=== PATIENT | male | born 1950 | race Caucasian/White ===

== ENCOUNTER 2016-12-20 13:58 | Inpatient (IN) ==
[2016-12-20] MEDS: SALINE FLUSH 10ml SYRINGE IVF PRN (15:02)
--- OUTSIDE RECORDS SUMMARY | 2016-12-20 15:12 | External Medical Summary | Summary of Care ---
:1950 Author Care Team Providers Name Role Phone Lotus Rubio M.D. Unavailable Unavailable Laurent Block M.D. Unavailable Unavailable Joel Falcon, Mateusz Flores Unavailable Unavailable Shant Rubio Primary Care Provider Unavailable Unavailable Unavailable Unavailable Functional Status Functional Status Health Issues Name Dates Details Functional status health issues are not documented Status: Cognitive Status Health Issues Name Dates Details Cognitive status health issues are not documented Status: Problems Name Dates Details Globe Enucleation Left Status: Active Anxiety (300.00, F41.9) Status: Active Snoring (786.09, R06.83) Status: Active Left hip pain (719.45, M25.552) Status: Active Anticoagulant long-term use (V58.61, Z79.01) Status: Active 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, 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) Status: Active Pre-operative exam (V72.84, Z01.818) Status: Active Benign pigmented nevus (216.9, D22.9) Status: Active Conjunctivitis, acute (372.00, H10.30) Status: Active Paroxysmal atrial fibrillation (427.31, I48.0) Status: Active 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, 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 Refills: 0 Mark Maldonado M.D. Started ActiveSimvastatin 40 MG Oral Tablet TAKE ONE TABLET BY MOUTH EVERY NIGHT AT BEDTIME Quantity: 30 Refills: 0 Mark Maldonado M.D. Started ActiveDiclofenac Sodium 75 MG Oral Tablet Delayed Release Take one tablet twice daily. Quantity: 60 Refills: 5 Shant Rubio M.D. Started 11-Oct-2010 ActiveFurosemide 40 MG Oral Tablet take two tablets by mouth daily Quantity: 60 Refills: 0 Laurent Block M.D. Started 16-Jun-2011 ActiveLosartan Potassium 25 MG Oral Tablet Take one tablet by mouth daily Quantity: 90 Refills: 1 Mark Maldonado M.D. Started 24-Nov-2011 ActiveMetolazone 5 MG Oral Tablet prn Quantity: 30 Refills: 5 Shant Rubio M.D. Started 30-Mar-2013 ActiveSotalol HCl - 80 MG Oral Tablet Take One Tablet By Mouth Twice Daily Quantity: 60 Refills: 6 Mark Maldonado M.D. Started ActiveLosartan Potassium 25 MG Oral Tablet take one tablet by mouth every day Quantity: 30 Refills: 1 Mark Maldonado M.D. Started ActiveXarelto 20 MG Oral Tablet Take one tablet by mouth daily Quantity: 30 Refills: 4 Mark Maldonado M.D. Started Active Allergies and Adverse Reactions Name Dates Details No Known Drug Allergies Status: Active Past Medical History Name Dates Details History of left bundle branch block (V12.59, Z86.79) Status: Resolved History of Thrombophlebitis Of Deep Vessels Of The Lower Extremity (V12.51) Status: Resolved Personal history of skin cancer (V10.83, Z85.828) Status: Resolved Procedures Procedure Dates Details History of Foot Surgery Right History of Tonsillectomy History of Total Hip Replacement History of Knee Surgery History of Colostomy History of Cardioverter-defibrillator Pulse Generator Completed: Insertion With Leads History of Extracaps Cataract Extract With Prosthesis Insert Right Eye History of Elective Cardioversion External Completed:23-Oct-2011 Globe Enucleation Left PTCA Procedures not documented Immunization Name Dates Details Tdap (Adacel) Administered on: Family History Mother Name Dates Details Family history of Hyperlipidemia Status: Active Father Name Dates Details Family history of Cancer Status: Active Social History Name Dates Details Smoking StatusNever smoker Vital Signs Date Test Result Details No Known Vitals to report Results Date Description Value Details 16-Mar-2014 10:49 CBC w/ Auto Diff 7150 Comments: Fastin hours WBC 6.3 K/uL (Better) Range: 4.5-11.0 RBC 4.77 mil/uL Range: 4.20-5.40 (Better) HGB 13.9 g/dL (Below Range: 14.0-18.0 low threshold) HCT 42.9 % (Better) Range: 42.0-53.0 MCV 90.0 fL (Better) Range: 80.0-99.0 MCH 29.3 pg (Better) Range: 27.3-32.5 MCHC 32.5 % (Better) Range: 32.0-36.0 RDW 13.7 % (Better) Range: 11.6-14.8 PLATELETS 149 K/uL (Below Range: 150-400 low threshold) MPV 9.1 fL (Better) Range: 6.0-11.0 %NEUTRO 69.6 % (Better) Range: 37.0-80.0 %LYMPHS 21.1 % (Better) Range: 13.0-50.0 %MONO 4.9 % (Better) Range: 0.0-12.0 %EOS 2.4 % (Better) Range: 0.0-7.0 %BASO 1.0 % (Better) Range: 0.0-2.5 %GAUTAM 1.1 % (Better) Range: 0.0-5.0 NEUTRO 4.4 K/uL (Better) Range: 2.0-6.9 LYMPHS 1.3 K/uL (Better) Range: 0.6-3.4 MONOS 0.3 K/uL (Better) Range: 0.0-0.9 EOS 0.2 K/uL (Better) Range: 0.0-0.7 BASO 0.1 K/uL (Better) Range: 0.0-0.2 11:04 LIPID PROFILE 1184 Comments: Fastin hours CHOLESTEROL 79 mg/dL (Better) Range: <200 TRIGLYCERIDES 46 mg/dL (Better) Range: 30-200 HDL Cholesterol 40 mg/dL (Better) Range: >39 NON HDL CHOLESTEROL 39 (Better) CARDIAC RSK FACTOR 2.0 units (Below Range: 4.4-5.0 low threshold) LDL - CALCULATED 30 mg/dL (Better) Range: 0-130 11:04 Comprehensive Metabolic Comments: Fastin hours Panel 1212 SODIUM 139 mmol/L Range: 133-144 (Better) POTASSIUM 4.5 mmol/L Range: 3.5-5.1 (Better) CHLORIDE 104 mmol/L Range: 98-110 (Better) CARBON DIOXIDE 26.8 mmol/L Range: 23.0-33.0 (Better) ANION GAP 8 mmol/L (Better) Range: 6-16 BUN 25 mg/dL (Above Range: 7-18 high threshold) CREATININE, SERUM 1.08 mg/dL Range: 0.43-1.13 (Better) BUN:CREATININE RATIO 23 (Better) EST GFR, >60 ml/min Range: >60 (Better) EST GFR, NON-AFR GERMAN >60 ml/min Range: >60 (Better) Comments: EST GFR is reported in ml/min per 1.73 m2 of body surface area. For -Turkish, please multiple result by 1.2.----- GLUCOSE 100 mg/dL Range: 70-100 (Better) ALK PHOSPHATASE 101 U/L (Better) Range: 46-116 Comments: Please Note: New Reference Range effective 2013.----- TOTAL BILIRUBIN 1.30 mg/dL (Above Range: 0.20-1.00 high threshold) AST 20 U/L (Better) Range: 8-35 ALT 35 U/L (Better) Range: 12-78 ALBUMIN 4.2 g/dL (Better) Range: 3.4-5.0 TOTAL PROTEIN 7.9 g/dL (Better) Range: 6.4-8.2 A/G RATIO 1.1 units Range: 1.0-1.8 (Better) CALCIUM 9.6 mg/dL Range: 8.5-10.1 (Better) 11:27 THYROID STIM. HORMONE 3602 Comments: Fastin hours THYROID STIM. HORMONE 1.794 uIU/mL Range: 0.550-4.780 (Better) Comments: \[id number]\No established reference ranges for infants and children <2 years of ageNo established reference ranges for infants and children <2 years of age----- Plan of Care Planned Observations Name Dates Details Planned Goals not documented Goal Planned Encounters Appointment; Provider: Mick Parker On 02-Nov-2014 08:30 Appointment; Provider: Neil Justin On 08:15 Appointment; Provider: Mark Maldonado On 26-Apr-2014 15:15 Appointment; Provider: Mark Maldonado On 22-Dec-2013 07:30 Appointment; Provider: Mark Maldonado On 24-Feb-2013 09:30 Appointment; Provider: Mark Maldonado On 18-Feb-2013 08:30 Appointment; Provider: Sweetie Langston On 04-Jan-2013 09:45 Appointment; Provider: Mark Maldonado On 23-Oct-2011 10:30 Appointment; Provider: Mark Maldonado On 15-Nov-2010 08:00 Appointment; Provider: Mark Maldonado On 09:00 Appointment; Provider: Mark Maldonado On 17-May-2010 08:15 Appointment; Provider: Zach Jean On 04-Apr-2010 09:45 Appointment; Provider: Mark Maldonado On 15-Feb-2010 08:30 Appointment; Provider: Mark Maldonado On 16-Nov-2009 09:15 Appointment; Provider: Mark Maldonado On 07:30 Appointment; Provider: Joshua Plasencia On 14:00 Appointment; Provider: Joshua Plasencia On 06-Jul-2009 11:00 Instructions Instructions not documented Encounters Appointment; Rufino Rayo On 23-Jan-2014 Encounter Diagnosis: Problem not documented 13:45 Appointment; Neil Justin On 09-Jan-2014 Encounter Diagnosis: Problem not documented 08:45 Appointment; Rufino Rayo On 30-Dec-2013 Encounter Diagnosis: Problem not documented 13:00 Appointment; Mark Maldonado On 14-Dec-2013 Encounter Diagnosis: Problem not documented 16:00 Appointment; Mark Maldonado On 08-Dec-2013 Encounter Diagnosis: Problem not documented 14:00 Appointment; Mark Maldonado On 03-Nov-2013 Encounter Diagnosis: Problem not documented 14:45 Appointment; Mick Parker On 01-Nov-2013 Encounter Diagnosis: Problem not documented 08:15 Appointment; Mark Maldonado On 29-Sep-2013 Encounter Diagnosis: Problem not documented 14:00 Appointment; Shant Rubio On 19-Sep-2013 Encounter Diagnosis: Problem not documented 11:15 Appointment; Mark Maldonado On Encounter Diagnosis: Problem not documented 13:45 Appointment; Shant Rubio On Encounter Diagnosis: Problem not documented 10:45 Appointment; Neil Justin On Encounter Diagnosis: Problem not documented 08:45 Appointment; Donna Yeager On 30-Mar-2013 Encounter Diagnosis: Problem not documented 09:30 Appointment; Shant Rubio On 11-Feb-2013 Encounter Diagnosis: Problem not documented 09:15 Appointment; Neil Justin On 10-Jan-2013 Encounter Diagnosis: Problem not documented 08:45 Appointment; Donna Khalil On 23-Dec-2012 Encounter Diagnosis: Problem not documented 10:00 Appointment; Mick Parker On 27-Oct-2012 Encounter Diagnosis: Problem not documented 08:45 Appointment; Mark Maldonado On 22-Sep-2012 Encounter Diagnosis: Problem not documented 13:15 Appointment; Mark Maldonado On Encounter Diagnosis: Problem not documented 14:30 Appointment; Shant Rubio On Encounter Diagnosis: Problem not documented 13:00 Appointment; Neil Justin On 09-Jul-2012 Encounter Diagnosis: Problem not documented 08:45 Appointment; Neil Justin On 01-Jul-2012 Encounter Diagnosis: Problem not documented 10:30 Appointment; Mick Parker On 27-Apr-2012 Encounter Diagnosis: Problem not documented 06:00 Appointment; Mick Parker On 26-Apr-2012 Encounter Diagnosis: Problem not documented 10:00 Appointment; Shant Rubio On 20-Apr-2012 Encounter Diagnosis: Problem not documented 10:15 Appointment; Shant Rubio On 06-Apr-2012 Encounter Diagnosis: Problem not documented 13:00
--- OUTSIDE RECORDS SUMMARY | 2016-12-20 15:12 | External Medical Summary | Clinical Summary ---
:1950 Author Organization [facility] Address [address] [place] [address] Phone Care Team Providers Name Role Phone Unavailable Primary Care Provider Unavailable Source Comments Some departments are not documenting in the electronic medical record. If you do not see the information that you expected, contact Release of Information in the Health Information Management department at [phone] for further assistance in locating additional records.[facility] Allergies No Known Allergies Current Medications Prescription Sig. Disp. Refills Start Date End Date Status furosemide (LASIX) 40 Take 80 mg by mouth Active mg tablet daily. pantoprazole DR Take 40 mg by mouth Active (PROTONIX) 40 mg tablet daily. metolazone (ZAROXOLYN) Take 5 mg by mouth Active 5 mg tablet every 7 days. on Thursday spironolactone Take 50 mg by mouth Active (ALDACTONE) 50 mg daily. tablet simvastatin (ZOCOR) 40 Take 40 mg by mouth Active mg tablet at bedtime daily. losartan (COZAAR) 25 mg Take 25 mg by mouth Active tablet at bedtime daily. potassium chloride SR Take 20 mEq by mouth Active (K-DUR) 20 mEq tablet daily. Take with a meal and a full glass of water. HYDROcodone/acetaminoph Take 1-2 Tabs by 30 Tab 0 10/31/2015 Active en (NORCO) 5-325 mg mouth every 4 hours tablet as needed for Pain Earliest Fill Date: 10/31/15 docusate (COLACE) 100 Take 1 Cap by mouth 60 Cap 2 10/31/2015 Active mg capsule twice daily as needed for Constipation (While taking pain medication). aspirin EC 81 mg tablet Take 1 Tab by mouth 90 Tab 3 11/01/2015 Active at bedtime daily. Resume home aspirin on post operative day 2 which is 10/31 acetaminophen (TYLENOL) Take 2 Tabs by mouth 50 Tab 2 10/31/2015 Active 325 mg tablet every 4 hours as needed. First line for pain Active Problems Problem Noted Date Sleep apnea 10/30/2015 JENY (obstructive sleep apnea) 08/07/2015 Overview: Severe (AHI 52) with less than 15% central. LSAT 62% and 35 min below 88%. REFUSES and cannot tolerate CPAP due to claustrophobia Coronary artery disease involving [place] heart without angina pectoris 2015 History of atrial fibrillation 08/07/2015 Overview: Prior ablation and pacemaker Social History Tobacco Use Types Packs/Day Years Used Date Never Smoker Smokeless Tobacco: Never Used Alcohol Use Drinks/Week oz/Week Comments No 0 Standard drinks or equivalent 0.0 rare Sex Assigned at Date Recorded Not on file Last Filed Vital Signs Vital Sign Reading Time Taken Blood Pressure 110/72 11/12/2015 10:43 AM CDT Pulse 83 11/12/2015 10:43 AM CDT Temperature 36.4 C (97.6 F) 10/31/2015 9:09 AM CDT Respiratory Rate - - Oxygen Saturation 99% 10/31/2015 9:09 AM CDT Inhaled Oxygen Concentration - - Weight 109.3 kg (241 lb) 11/12/2015 10:43 AM CDT Height 190.5 cm (6' 3") 11/12/2015 10:43 AM CDT Body Mass Index 30.12 11/12/2015 10:43 AM CDT Plan of Treatment Health Maintenance Due Date Last Done Comments HEPATITIS C SCREENING 1950 PHYSICAL (COMPREHENSIVE) EXAM 1956 PERTUSSIS VACCINE 1960 TETANUS VACCINE 1966 COLORECTAL CANCER SCREENING 06/05/1999 SHINGLES VACCINE 2009 PREVNAR/PNEUMOVAX (#1) 2014 INFLUENZA VACCINE 09/09/2016 Implants Implanted Type Area Community Administrator Device Expiration Model / Identifier Date Serial / Lot Pacemaker Generator Pulse Inspire Right: [employer] 08/22/2016 3024 / Implanted: Qty: 1 on 10/30/2015 by Chaparro Linton MD [employer] [id number] / NA Lead Respiratory Inspire Right: [employer] 11/13/2016 [id number] / Implanted: Qty: 1 on 10/30/2015 by Chaparro Linton MD [employer] [id number] / NA Lead Stimulation Inspire Right: [facility] [employer] 07/02/2016 [id number] / Implanted: Qty: 1 on 10/30/2015 by Chaparro Linton MD [employer] [id number] / NA
--- OUTSIDE RECORDS SUMMARY | 2016-12-20 15:12 | External Medical Summary | Summary of Care ---
:1950 Author Name Lotus Yang M.D. Address [address], [place] [id number] Care Team Providers Name Role Phone Lotus Rubio M.D. Unavailable Unavailable Paloma Hart Unavailable Unavailable Mateusz Maldonado M.D. 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) Status: Active Insomnia (780.52, 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: Active Anxiety (300.00, F41.9) Status: Active 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, 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) Status: Active 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, 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, 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, 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 Heme positive stool (792.1, R19.5) Status: Active Dyspnea on exertion (786.09, R06.09) Status: Active Hypothyroidism (244.9, E03.9) Status: Active History of gastric ulcer (V12.79, Z87.19) Status: Active Blister of ankle, right (916.2, S90.521A) Status: Active Seborrheic keratosis (702.19, L82.1) Status: Active Sebaceous hyperplasia (706.8, L73.8) Status: Active Epidermal inclusion cyst (706.2, L72.0) Status: Active Biventricular ICD (implantable cardioverter-defibrillator) in place (V45.02, Z95.810) Status: Active Anemia (285.9, D64.9) Status: Active Anticoagulant long-term use (V58.61, Z79.01) Status: Active CKD (chronic kidney disease), stage III (585.3, N18.3) Status: Active Diarrhea (787.91, R19.7) Status: Active Status post catheter ablation of atrial fibrillation (V45.89, Z98.89) Status : Active 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, Z97.0) Status: Active Presbyopia (367.4, H52.4) Status: Active Renal insufficiency (593.9, N28.9) Status: Active 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, 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: Active Claustrophobia (300.29, F40.240) Status: Active Rash (782.1, R21) Status: Active Atrial fibrillation (427.31, I48.91) Status: Active Congestive heart failure (428.0, I50.9) Status: Active CAD (coronary atherosclerotic disease) (414.00, I25.10) Status: Active PTCA Status: Active Paroxysmal atrial fibrillation (427.31, I48.0) Status: Active Status post ablation of atrial fibrillation (V45.89, Z98.89) Status: Active Chronic systolic congestive heart failure (428.22, I50.22) Status: Active Hypertension (401.9, I10) Status: Active Hyperlipidemia (272.4, E78.5) Status: Active Obstructive sleep apnea (327.23, G47.33) Status: Active Snoring (786.09, R06.83) Status: Active Medications Name Dates Details Simvastatin 40 MG Oral Tablet TAKE ONE TABLET BY MOUTH EVERY NIGHT AT BEDTIME Quantity: 30 Refills: 11 Shant Rubio M.D. Started ActiveFurosemide 40 MG Oral Tablet TAKE 1 TABLET TWICE DAILY. Quantity: 30 Refills: 0 Shant Rubio M.D. Started 16-Jun-2011 ActiveMetolazone 5 MG Oral Tablet prn Quantity: 30 Refills: 5 Shant Rubio M.D. Started 30-Mar-2013 ActiveAspir-Low 81 MG Oral Tablet Delayed Release TAKE 1 TABLET IN THE PM Refills: 0 Started 26-Sep-2014 ActiveLosartan Potassium 25 MG Oral Tablet Take one tablet by mouth daily Quantity: 90 Refills: 2 Mark Maldonado M.D. Started 26-Sep-2014 ActiveZolpidem Tartrate 10 MG Oral Tablet TAKE 1 TABLET AT BEDTIME NEEDED FOR SLEEP. Refills: 0 Mark Maldonado M.D. Started 13-Dec-2014 ActiveKlor-Con M20 20 MEQ Oral Tablet Extended Release TAKE 1 TABLET DAILY. Quantity: 30 Refills: 6 Shant Rubio M.D. Started 02-Jan-2015 ActiveSupplies AutoCPAP 8-12 cm H2O, Permanent use, G47.33, Heated humidity, [id number], mask , headgear, filters, heated tubing, water chamber, chinstrap Quantity: 1 Refills: 0 Paloma Castillo Started 03-Apr-2015 ActivePantoprazole Sodium 40 MG Oral Tablet Delayed Release TAKE 1 TABLET DAILY. Refills: 0 Shant Rubio M.D. Started 14-May-2015 ActiveIron 325 (65 Fe) MG Oral Tablet Take 1 tablet daily Refills: 0 Shant Rubio M.D. Started 14-May-2015 ActiveSpironolactone 50 MG Oral Tablet TAKE 1 TABLET DAILY. Refills: 0 Shant Rubio M.D. Started 14-May-2015 ActiveTriamcinolone Acetonide 0.1 % External Cream USE TWO TIMES A DAY Quantity: 1 Refills: 6 Shant Rubio M.D. 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45, M25.552) Status: Resolved History of Pre-operative exam (V72.84, Z01.818) Status: Resolved History of Thrombophlebitis Of Deep [...] Name Dates Details Tdap (Adacel) Administered on: Zoster (Zostavax) Administered on:21-Mar-2014 Lot #: [id number] Prevnar 13 Intramuscular Suspension Administered on:21-Mar-2014 Lot #: [id number] Family History Mother Name Dates Details Family history of Hyperlipidemia Status: Active Family history of cerebrovascular accident (CVA) (V17.1, Z82.3) Status: Active Father Name Dates Details Family history of Cancer Status: Active Social History Name Dates Details Smoking StatusNever smoker Vital Signs Date Test Result Details No Known Vitals to report Results Date Description Value Details Results not documented Plan of Care Planned Observations Name Dates Details Planned Goals not documented Goal Planned Encounters Appointment; Provider: Mick Parker On 06-Nov-2015 08:15 Appointment; Provider: Mark Maldonado On 14:45 Appointment; Provider: Neil Justin On 08:15 Appointment; Provider: Shant Rubio On 14:00 Appointment; Provider: Mark Maldonado On 21-Jun-2015 15:30 Appointment; Provider: Mark Maldonado On 22-Dec-2013 07:30 [...] 11:00 Instructions Instructions not documented Encounters Appointment; Estuardo Yang On 14-Jun-2015 Encounter Diagnosis: Problem not documented 08:45 Appointment; Shant Rubio On 14-May-2015 Encounter Diagnosis: Problem not documented 10:00 Appointment; Mark Maldonado On 10-May-2015 Encounter Diagnosis: Problem not documented 14:15 Appointment; Eduardo Zaman On 08-May-2015 Encounter Diagnosis: Problem not documented 10:45 Appointment; Shant Rubio On 03-Apr-2015 Encounter Diagnosis: Problem not documented 10:45 Appointment; Eduardo Zaman On 03-Apr-2015 Encounter Diagnosis: Problem not documented 09:45 Appointment; Eduardo Zaman On 25-Jan-2015 Encounter Diagnosis: Problem not documented 10:00 Appointment; Neil Justin On 22-Jan-2015 Encounter Diagnosis: Problem not documented 08:15 Appointment; Mark Maldonado On 17-Jan-2015 Encounter Diagnosis: Problem not documented 14:45 Appointment; Shant Rubio On 26-Dec-2014 Encounter Diagnosis: Problem not documented 10:15 Appointment; Mark Maldonado On 13-Dec-2014 Encounter Diagnosis: Problem not documented 14:15 Appointment; Shant Rubio On 30-Nov-2014 Encounter Diagnosis: Problem not documented 13:00 Appointment; Mick Parker On 02-Nov-2014 Encounter Diagnosis: Problem not documented 08:30 Appointment; Shant Rubio On 10-Oct-2014 Encounter Diagnosis: Problem not documented 15:45 Appointment; Rufino Rayo On 26-Sep-2014 Encounter Diagnosis: Problem not documented 10:45 Appointment; Shant Rubio On 19-Sep-2014 Encounter Diagnosis: Problem not documented 09:00 Appointment; Ángel Vaughan On 15-Sep-2014 Encounter Diagnosis: Problem not documented 09:00 Appointment; Zoraida Langston On 15-Sep-2014 Encounter Diagnosis: Problem not documented 08:30 Appointment; Shant Rubio On Encounter Diagnosis: Problem not documented 10:00 Appointment; Shant Rubio On Encounter Diagnosis: Problem not documented 09:30 Appointment; Shant Rubio On Encounter Diagnosis: Problem not documented 13:45 Appointment; Javier Chi On Encounter Diagnosis: Problem not documented 12:35 Appointment; Neil Justin On Encounter Diagnosis: Problem not documented 08:15 Appointment; Neil Justin On 29-Jun-2014 Encounter Diagnosis: Problem not documented 10:30 Appointment; Rufino Rayo On 12-Jun-2014 Encounter Diagnosis: Problem not documented 10:15 Appointment; Mark Maldonado On 07-Jun-2014 Encounter Diagnosis: Problem not documented 14:15 Appointment; Mark Maldonado On 25-May-2014 Encounter Diagnosis: Problem not documented 14:30 Appointment; Mark Maldonado On 26-Apr-2014 Encounter Diagnosis: Problem not documented 15:15 Appointment; Rufino Rayo On 03-Apr-2014 Encounter Diagnosis: Problem not documented 14:30 Appointment; Shant Rubio On 21-Mar-2014 Encounter Diagnosis: Problem not documented 09:00 Appointment; Rufino Rayo On 23-Jan-2014 Encounter Diagnosis: [...]
--- OUTSIDE RECORDS SUMMARY | 2016-12-20 15:12 | External Medical Summary | Summary of Care ---
:1950 Author Name Lotus Rubio M.D. Address [address], [place] [id number] Care Team Providers Name Role Phone Lotus Rubio M.D. Unavailable Unavailable Joel Falcon, Mateusz Flores Unavailable Unavailable Shant Rubio Primary Care Provider Unavailable Unavailable Unavailable Unavailable Functional Status Functional Status Health Issues Name Dates Details Functional status health issues are not documented Status: Cognitive Status Health Issues Name Dates Details Cognitive status health issues are not documented Status: Problems Name Dates Details Globe Enucleation Left Status: Active Snoring (786.09, R06.83) Status: Active Left hip pain (719.45, M25.552) Status: Active Anticoagulant long-term use (V58.61, Z79.01) Status: Active Pre-operative exam (V72.84, Z01.818) Status: Active Benign pigmented nevus (216.9, D22.9) Status: Active Conjunctivitis, acute (372.00, H10.30) Status: Active Benign neoplasm of skin of buttock (216.5, D23.5) Status: Active PTCA Status: Active Atrial fibrillation (427.31, I48.91) Status: Active Insomnia (780.52, 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: Active CAD (coronary atherosclerotic disease) (414.00, I25.10) Status: Active Anxiety (300.00, F41.1) Status: Active Hyperlipidemia (272.4, E78.5) Status: Active Presbyopia (367.4, H52.4) Status: Active 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, 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) Status: Active Paroxysmal atrial fibrillation (427.31, I48.0) Status: Active 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, 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) Status: Active 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, 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 (implantable cardioverter-defibrillator) in place (V45.02, Z95.810) Status: Active Borderline glaucoma with ocular hypertension, 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 Started ActiveFurosemide 40 MG Oral Tablet take 1 tab three times a day Quantity: 90 Refills: 11 Shant Rubio M.D. Started 16-Jun-2011 ActiveMetolazone 5 MG Oral Tablet prn Quantity: 30 Refills: 5 Shant Rubio M.D. Started 30-Mar-2013 ActiveAmiodarone HCl - 200 MG Oral Tablet TAKE 1 TABLET DAILY. Quantity: 30 Refills: 3 Mark Maldonado M.D. Started 25-May-2014 ActivePantoprazole Sodium 40 MG Oral Tablet Delayed Release TAKE 1 TABLET DAILY. Quantity: 30 Refills: 11 Shant Rubio M.D. Started ActiveLosartan Potassium 25 MG Oral Tablet Take one tablet by mouth daily Quantity: 90 Refills: 1 Mark Maldonado M.D. Started 24-Nov-2011 ActiveZolpidem Tartrate 10 MG Oral Tablet TAKE 1 TABLET DAILY AT BEDTIME. Quantity: 30 Refills: 5 Shant Rubio M.D. 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) Status: Active 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, 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 Hyperlipidemia (272.4, E78.5) Status: Active Hypertension (401.9, I10) Status: Active Paroxysmal atrial fibrillation (427.31, I48.0) Status: Active Presbyopia (367.4, H52.4) Status: Active History of left bundle branch block (V12.59, Z86.79) Status: Resolved History of Thrombophlebitis Of Deep Vessels Of The Lower Extremity (V12.51) Status: Resolved Personal history of skin cancer (V10.83, Z85.828) Status: Resolved Procedures Procedure Dates Details History of Foot Surgery Right History of Tonsillectomy History of Total Hip Replacement History of Knee Surgery History of Colostomy History of Cardioverter-defibrillator Completed: Pulse Generator Insertion With Leads History of Extracaps Cataract Extract With Prosthesis Insert Right Eye History of Elective Cardioversion External Completed:23-Oct-2011 Globe Enucleation Left PTCA CBC w/ Auto Diff 7150 Ordered: BASIC METABOLIC PROFILE 1210 Ordered: Immunization Name Dates Details Tdap (Adacel) Administered on: Zoster (Zostavax) Administered on:21-Mar-2014 Lot #: [id number] Prevnar 13 Intramuscular Suspension Administered on:21-Mar-2014 Lot #: [id number] Family History Mother Name Dates Details Family history of Hyperlipidemia Status: Active Father Name Dates Details Family history of Cancer Status: Active Social History Name Dates Details Smoking StatusNever smoker Vital Signs Date Test Result Details No Known Vitals to report Results Date Description Value Details 14:21 XRay WRIST-BILATERAL Comments: Exam Date: 08/09/2014 13: 36Dictation Date: 08/09/2014 14:21 X WRIST COMP (MIN3V) (Better) BILATERAL 14:25 XRay HAND-BILATERAL Comments: Exam Date: 08/09/2014 13:33Dictation Date: 08/09/2014 14:25 X HAND (3V) BILATERAL (Better) 08:18 CBC w/ Auto Diff 7150 WBC 6.8 K/uL (Better) Range: 4.5-11.0 RBC 4.17 mil/uL (Below Range: 4.20-5.40 low threshold) HGB 12.4 g/dL (Below Range: 14.0-18.0 low threshold) Comments: Variance from previous testing noted.----- HCT 37.8 % (Below low Range: 42.0-53.0 threshold) MCV 90.7 fL (Better) Range: 80.0-99.0 MCH 29.8 pg (Better) Range: 27.3-32.5 MCHC 32.8 % (Better) Range: 32.0-36.0 RDW 14.5 % (Better) Range: 11.6-14.8 PLATELETS 191 K/uL (Better) Range: 150-400 MPV 8.1 fL (Better) Range: 6.0-11.0 %NEUTRO 69.4 % (Better) Range: 37.0-80.0 %LYMPHS 17.5 % (Better) Range: 13.0-50.0 %MONO 6.5 % (Better) Range: 0.0-12.0 %EOS 3.5 % (Better) Range: 0.0-7.0 %BASO 1.1 % (Better) Range: 0.0-2.5 %GAUTAM 2.1 % (Better) Range: 0.0-5.0 NEUTRO 4.7 K/uL (Better) Range: 2.0-6.9 LYMPHS 1.2 K/uL (Better) Range: 0.6-3.4 MONOS 0.4 K/uL (Better) Range: 0.0-0.9 EOS 0.2 K/uL (Better) Range: 0.0-0.7 BASO 0.1 K/uL (Better) Range: 0.0-0.2 08:30 ERYTHROCYTE SED RATE 7800 ERYTHROCYTE SED RATE 19 mm/60 min. Range: 0-15 (Above high threshold) 08:38 Comprehensive Metabolic Panel 1212 SODIUM 132 mmol/L (Below Range: 133-144 low threshold) POTASSIUM 3.0 mmol/L (Below Range: 3.5-5.1 low threshold) CHLORIDE 89 mmol/L (Below Range: 98-110 low threshold) CARBON DIOXIDE 30.3 mmol/L Range: 23.0-33.0 (Better) ANION GAP 13 mmol/L (Better) Range: 6-16 BUN 32 mg/dL (Above Range: 7-18 high threshold) Comments: Variance from previous testing noted.----- CREATININE, SERUM 1.81 mg/dL (Above Range: 0.70-1.30 high threshold) Comments: Please note new reference ranges effective 07/01.----- BUN:CREATININE RATIO 18 (Better) EST GFR, 46 ml/min (Below Range: >60 low threshold) EST GFR, NON-AFR EMIRATI 38 ml/min (Below Range: >60 low threshold) Comments: EST GFR is reported in ml/min per 1.73 m2 of body surface area. For -Guamanian, please multiple result by 1.2.----- GLUCOSE 123 mg/dL (Above Range: 70-100 high threshold) ALK PHOSPHATASE 114 U/L (Better) Range: 46-116 TOTAL BILIRUBIN 0.70 mg/dL (Better) Range: 0.20-1.00 AST 25 U/L (Better) Range: 8-35 ALT 31 U/L (Better) Range: 16-63 Comments: Please note new reference ranges. Effective 04/20/2014.----- ALBUMIN 4.2 g/dL (Better) Range: 3.4-5.0 TOTAL PROTEIN 8.1 g/dL (Better) Range: 6.4-8.2 A/G RATIO 1.1 units (Better) Range: 1.0-1.8 CALCIUM 9.3 mg/dL (Better) Range: 8.5-10.1 08:38 C REACTIVE PROTEIN, CRP 2030 C REACTIVE PROTEIN 0.5 mg/dL (Better) Range: 0.0-0.9 08:38 URIC ACID 1155 URIC ACID 9.6 mg/dL (Above Range: 2.6-7.2 high threshold) 15:23 RHEUMATOID FACTOR, RA, Serum 2014 RHEUMATOID FACTOR Negative (Better) Range: Negative [id number] Cyclic Citrullinated Comments: Testing performed at: [] [address], [address], Phone: , Metal Melter: Bonifacio Mcelroy MD 07:48 Peptide Abs, IgG/IgA 538342 CCP ANTIBODIES IGG/IGA <1 units Range: 0-19 (Better) Comments: Negative <20 Weak positive 20 - 39 Moderate positive 40 - 59 Strong positive >59- ---- Plan of Care Planned Observations Name Dates Details Planned Goals not documented Goal Planned Encounters Appointment; Provider: Neil Justin On 22-Jan-2015 08:15 Appointment; Provider: Mick Parker On 02-Nov-2014 08:30 Appointment; Provider: Shant Rubio On 19-Sep-2014 09:00 Appointment; Provider: Shant Rubio On 10:00 Appointment; Provider: Mark Maldonado On 22-Dec-2013 07:30 [...] 11:00 Instructions Instructions not documented Encounters Appointment; Shant Rubio On Encounter Diagnosis: Problem [...]
--- OUTSIDE RECORDS SUMMARY | 2016-12-20 15:13 | External Medical Summary | Summary of Care ---
:1950 Author Name Mateusz Maldonado M.D. Address Unavailable Unavailable , Care Team Providers Name Role Phone Joanne Falcon, Lotus Bran Unavailable Unavailable Paloma Hart Unavailable Unavailable Mateusz Maldonado M.D. Unavailable Unavailable Shant Rubio Unavailable Unavailable Unavailable Unavailable Unavailable Functional Status Functional [...] Dyspnea on exertion (786.09, R06.09) Status: Active History of gastric ulcer (V12.79, Z87.19) Status: Active Blister of ankle, right (916.2, S90.521A) Status: Active Seborrheic keratosis (702.19, L82.1) Status: Active Sebaceous hyperplasia (706.8, L73.8) Status: Active Epidermal inclusion cyst (706.2, L72.0) Status: Active Anemia (285.9, D64.9) Status: Active Anticoagulant long-term use (V58.61, Z79.01) Status: Active Renal insufficiency (593.9, N28.9) Status: Active 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, 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: Active Claustrophobia (300.29, F40.240) Status: Active Rash (782.1, R21) Status: Active Atrial fibrillation (427.31, I48.91) Status: Active Congestive heart failure (428.0, I50.9) Status: Active Snoring (786.09, R06.83) Status: Active Pre-operative cardiovascular examination (V72.81, Z01.810) Status: Active 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, 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 Effusion of right olecranon bursa (719.02, M25.421) Status: Active Status post catheter ablation of atrial fibrillation (V45.89, Z98.89) Status : Active Fatigue (780.79, R53.83) Status: Active Nausea (787.02, R11.0) Status: Active Diarrhea (787.91, R19.7) Status: Active Vitreous floaters of right eye (379.24, H43.391) Status: Active Presbyopia (367.4, H52.4) Status: Active 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, 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.0) Status: Active Obstructive sleep apnea (327.23, G47.33) Status: Active Biventricular ICD (implantable cardioverter-defibrillator) in place (V45.02, Z95.810) Status: Active Hypothyroidism (244.9, E03.9) Status: Active CKD (chronic kidney disease), stage III (585.3, N18.3) Status: Active CAD (coronary atherosclerotic disease) (414.00, I25.10) Status: Active PTCA Status: Active Chronic systolic congestive heart failure (428.22, I50.22) Status: Active Paroxysmal atrial fibrillation (427.31, I48.0) Status: Active Status post ablation of atrial fibrillation (V45.89, Z98.89) Status: Active Hyperlipidemia (272.4, E78.5) Status: Active Hypertension (401.9, I10) Status: Active Medications Name Dates Details Simvastatin 40 MG Oral Tablet TAKE ONE TABLET BY MOUTH EVERY NIGHT AT BEDTIME Quantity: 30 Refills: 10 Joanne Falcon, Shant Gautam Start Active Furosemide 40 MG Oral Tablet take two tablets by mouth daily Quantity: 60 Refills: 10 Shant Rubio M.D. Start 16-Jun-2011 Active MetOLazone 5 MG Oral Tablet prn Quantity: 30 Refills: 5 Shant Rubio M.D. Start 30-Mar-2013 Active Aspir-Low 81 MG Oral Tablet Delayed Release TAKE 1 TABLET IN THE PM Refills: 0 Start 26-Sep-2014 Active Losartan Potassium 25 MG Oral Tablet Take one tablet by mouth daily Quantity: 90 Refills: 1 Mark Maldonado M.D. Start 09-Oct-2015 Active Zolpidem Tartrate 10 MG Oral Tablet TAKE ONE TABLET BY MOUTH EVERY NIGHT AT BEDTIME Quantity: 30 Refills: 4 Shant Rubio M.D. Start 11-Sep-2015 Active Klor-Con M20 20 MEQ Oral Tablet Extended Release TAKE 1 TABLET DAILY. Quantity: 30 Refills: 6 Shant Rubio M.D. Start 02-Jan-2015 Active Supplies AutoCPAP 8-12 cm H2O, Permanent use, G47.33, Heated humidity, [id number], mask , headgear, filters, heated tubing, water chamber, chinstrap Quantity: 1 Refills: 0 Paloma Hart Start 03-Apr-2015 Active Pantoprazole Sodium 40 MG Oral Tablet Delayed Release TAKE 1 TABLET DAILY. Refills: 0 Shant Rubio M.D. Start 14-May-2015 Active Iron 325 (65 Fe) MG Oral Tablet Take 1 tablet daily Refills: 0 Shant Rubio M.D. Start 14-May-2015 Active Spironolactone 50 MG Oral Tablet TAKE 1 TABLET DAILY. Refills: 0 Shant Rubio M.D. Start 14-May-2015 Active Triamcinolone Acetonide 0.1 % External Cream USE TWO TIMES A DAY Quantity: 1 Refills: 6 Shant Rubio M.D. Start 14-May-2015 Active 30 GM Tube Ondansetron HCl - 4 MG Oral Tablet ONE TABLET BY MOUTH EVERY 4 HOURS NEEDED FOR NAUSEA Quantity: 15 Refills: 3 Shant Rubio M.D. Start Active Levothyroxine Sodium 50 MCG Oral Tablet TAKE 1 TABLET DAILY. Refills: 0 Shant Rubio M.D. Start Active Allergies and Adverse Reactions Name Dates Details No Known Drug Allergies (Allergy) Status: Active Past Medical History Name Dates [...] Right Eye History of Elective Cardioversion External Completed: 23-Oct-2011 Globe Enucleation Left PTCA Procedures not documented Immunization Name Dates Details Tdap (Adacel) on: Zoster (Zostavax) on: 21-Mar-2014 Lot #: [id number] Prevnar 13 Intramuscular Suspension on: 21-Mar-2014 Lot #: [id number] Family History Mother Name Dates Details Family history of Hyperlipidemia Status: Active Family history of cerebrovascular accident (CVA) (V17.1, Z82.3) Status: Active Father Name Dates Details Family history of Cancer Status: Active Social History Name Dates Details - Status: Smoking Status Name Dates Details Never smoker Vital Signs Date Test Result Details 10-Oct-2015 10:48 BP Systolic 118 mm[Hg] Status: Comments: Location: ; Position: BP Diastolic 60 mm[Hg] Status: Comments: Location: ; Position: Heart Rate 78 /min Status: Comments: Location: ; Weight 246 lb Status: Body Mass Index Calculated 30.75 kg/m2 Status: Body Surface Area Calculated 2.4 m2 Status: 28-Sep-2015 10:28 BP Systolic 120 mm[Hg] Status: Comments: Location: ; Position: BP Diastolic 62 mm[Hg] Status: Comments: Location: ; Position: Heart Rate 82 /min Status: Comments: Location: ; Weight 247 lb Status: Body Mass Index Calculated 30.87 kg/m2 Status: Body Surface Area Calculated 2.4 m2 Status: Results Date Description Value Details 19-Sep-2015 13:58 ECG/ EKG Outside Inter Electro CardioGram 25-Sep-2015 10:35 CBC w/ Auto Diff 7150 Comments: Fastin hours WBC 5.0 K/uL Range: 4.5-11.0 RBC 3.95 mil/uL (Below low threshold) Range: 4.20-5.40 HGB 12.0 g/dL (Below low threshold) Range: 14.0-18.0 HCT 36.7 % (Below low threshold) Range: 42.0-53.0 MCV 92.9 fL Range: 80.0-99.0 MCH 30.4 pg Range: 27.3-32.5 MCHC 32.7 % Range: 32.0-36.0 RDW 14.6 % Range: 11.6-14.8 PLATELETS 151 K/uL Range: 150-400 MPV 8.8 fL Range: 6.0-11.0 %NEUTRO 70.1 % Range: 37.0-80.0 %LYMPHS 18.5 % Range: 13.0-50.0 %MONO 7.2 % Range: 0.0-12.0 %EOS 1.9 % Range: 0.0-7.0 %BASO 0.7 % Range: 0.0-2.5 %GAUTAM 1.6 % Range: 0.0-5.0 NEUTRO 3.5 K/uL Range: 2.0-6.9 LYMPHS 0.9 K/uL Range: 0.6-3.4 MONOS 0.4 K/uL Range: 0.0-0.9 EOS 0.1 K/uL Range: 0.0-0.7 BASO 0.0 K/uL Range: 0.0-0.2 10:54 Comprehensive Metabolic Panel 1212 Comments: Fastin hours SODIUM 135 mmol/L Range: 133-144 POTASSIUM 4.4 mmol/L Range: 3.5-5.1 CHLORIDE 98 mmol/L Range: 98-110 CARBON DIOXIDE 27.7 mmol/L Range: 23.0-33.0 ANION GAP 9 mmol/L Range: 6-16 BUN 37 mg/dL (Above high Range: 7-18 threshold) CREATININE, SERUM 1.57 mg/dL (Above high Range: 0.70-1.30 threshold) Comments: Please note new reference ranges effective 2014. ----- BUN:CREATININE RATIO 24 EST GFR, 54 ml/min (Below low Range: >60 threshold) EST GFR, NON-AFR [place] 44 ml/min (Below low Range: >60 threshold) Comments: EST GFR is reported in ml/min per 1.73 m2 of body surface area. For -Monegasque, please multiple result by 1.2.----- GLUCOSE 95 mg/dL Range: 70-100 ALK PHOSPHATASE 74 U/L Range: 46-116 TOTAL BILIRUBIN 0.70 mg/dL Range: 0.20-1.00 AST 17 U/L Range: 8-35 ALT 16 U/L Range: 16-63 Comments: Please note new reference ranges. Effective 04/20/2014.----- ALBUMIN 3.6 g/dL Range: 3.4-5.0 TOTAL PROTEIN 7.0 g/dL Range: 6.4-8.2 A/G RATIO 1.1 units Range: 1.0-1.8 CALCIUM 8.9 mg/dL Range: 8.5-10.1 10:54 LIPID PROFILE 1184 Comments: Fastin hours CHOLESTEROL 93 mg/dL Range: <200 TRIGLYCERIDES 31 mg/dL Range: 30-200 HDL Cholesterol 42 mg/dL Range: >39 NON HDL CHOLESTEROL 51 CARDIAC RSK FACTOR 2.2 units (Below low threshold) Range: 4.4-5.0 LDL - CALCULATED 45 mg/dL Range: 0-130 11:25 THYROID STIM. HORMONE 3602 Comments: Fastin hours THYROID STIM. HORMONE 6.927 uIU/mL (Above high Range: 0.550-4.780 threshold) Comments: No established reference ranges for infants and children <2 years of age----- Plan of Care Name Dates Details Planned Observations Planned Goals not documented Planned Encounters Appointment; Provider: Neil Justin M.D. On 01-Feb-2016 08:45 Appointment; Provider: Shant Rubio M.D. On 15-Jan-2016 11:00 Appointment; Provider: Mark Maldonado M.D. On 26-Dec-2015 10:30 Appointment; Provider: Mark Maldonado M.D. On 28-Nov-2015 14:45 Appointment; Provider: Mick Parker M.D. On 06-Nov-2015 08:15 Instructions Name Dates Details Instructions not documented Encounters Appointment; Shant Rubio M.D. On 28-Sep-2015 Encounter Diagnosis: Problem not documented 10:15 Appointment; Neil Justin M.D. On Encounter Diagnosis: Problem not documented 08:15 Appointment; Shant Rubio M.D. On Encounter Diagnosis: Problem not documented 13:15 Appointment; Rufino Rayo P.A. On Encounter Diagnosis: Problem not documented 10:45 Appointment; Mark Maldonado M.D. On 21-Jun-2015 Encounter Diagnosis: Problem not documented 15:30 Appointment; Shant Rubio M.D. On 21-Jun-2015 Encounter Diagnosis: Problem not documented 14:00 Appointment; Estuardo Yang M.D. On 14-Jun-2015 Encounter Diagnosis: Problem not documented 08:45 Appointment; Shant Rubio M.D. On 14-May-2015 Encounter Diagnosis: Problem not documented 10:00 Appointment; Mark Maldonado M.D. On 10-May-2015 Encounter Diagnosis: Problem not documented 14:15 Appointment; Eduardo Zaman M.D. On 08-May-2015 Encounter Diagnosis: Problem not documented 10:45 Appointment; Shant Rubio M.D. On 03-Apr-2015 Encounter Diagnosis: Problem not documented 10:45 Appointment; Eduardo Zaman M.D. On 03-Apr-2015 Encounter Diagnosis: Problem not documented 09:45 Appointment; Eduardo Zaman M.D. On 25-Jan-2015 Encounter Diagnosis: Problem not documented 10:00 Appointment; Neil Justin M.D. On 22-Jan-2015 Encounter Diagnosis: Problem not documented 08:15 Appointment; Mark Maldonado M.D. On 17-Jan-2015 Encounter Diagnosis: Problem not documented 14:45 Appointment; Shant Rubio M.D. On 26-Dec-2014 Encounter Diagnosis: Problem not documented 10:15 Appointment; Mark Maldonado M.D. On 13-Dec-2014 Encounter Diagnosis: Problem not documented 14:15 Appointment; Shant Rubio M.D. On 30-Nov-2014 Encounter Diagnosis: Problem not documented 13:00 Appointment; Mick Parker M.D. On 02-Nov-2014 Encounter Diagnosis: Problem not documented 08:30 Appointment; Shant Rubio M.D. On 10-Oct-2014 Encounter Diagnosis: Problem not documented 15:45 Appointment; Rufino Rayo P.A. On 26-Sep-2014 Encounter Diagnosis: Problem not documented 10:45 Appointment; Shant Rubio M.D. On 19-Sep-2014 Encounter Diagnosis: Problem not documented 09:00 Appointment; Ángel Vaughan M.D. On 15-Sep-2014 Encounter Diagnosis: Problem not documented 09:00 Appointment; Zoraida Langston On 15-Sep-2014 Encounter Diagnosis: Problem not documented 08:30 Appointment; Shant Rubio M.D. On Encounter Diagnosis: Problem not documented 10:00 Appointment; Shant Rubio M.D. On Encounter Diagnosis: Problem not documented 09:30 Appointment; Shant Rubio M.D. On Encounter Diagnosis: Problem not documented 13:45 Appointment; Javier Chi M.D. On Encounter Diagnosis: Problem not documented 12:35 Appointment; Neil Justin M.D. On Encounter Diagnosis: Problem not documented 08:15 Appointment; Neil Justin M.D. On 29-Jun-2014 Encounter Diagnosis: Problem not documented 10:30 Appointment; Rufino Rayo P.A. On 12-Jun-2014 Encounter Diagnosis: Problem not documented 10:15 Appointment; Mark Maldonado M.D. On 07-Jun-2014 Encounter Diagnosis: Problem not documented 14:15 Appointment; Mark Maldonado M.D. On 25-May-2014 Encounter Diagnosis: Problem not documented 14:30 Appointment; Mark Maldonado M.D. On 26-Apr-2014 Encounter Diagnosis: Problem not documented 15:15 Appointment; Rufino Rayo P.A. On 03-Apr-2014 Encounter Diagnosis: Problem not documented 14:30 Appointment; Shant Rubio M.D. On 21-Mar-2014 Encounter Diagnosis: Problem not documented 09:00 Appointment; Rufino Rayo PNicholas On 23-Jan-2014 Encounter Diagnosis: Problem not documented 13:45 Appointment; Neil Justin M.D. On 09-Jan-2014 Encounter Diagnosis: Problem not documented 08:45 Appointment; Rufino Rayo P.A. On 30-Dec-2013 Encounter Diagnosis: Problem not documented 13:00 Appointment; Mark Maldonado M.D. On 14-Dec-2013 Encounter Diagnosis: Problem not documented 16:00 Appointment; Mark Maldonado M.D. On 08-Dec-2013 Encounter Diagnosis: Problem not documented 14:00 Appointment; Mark Maldonado M.D. On 03-Nov-2013 Encounter Diagnosis: Problem not documented 14:45 Appointment; Mick Parker M.D. On 01-Nov-2013 Encounter Diagnosis: Problem not documented 08:15
--- OUTSIDE RECORDS SUMMARY | 2016-12-20 15:13 | External Medical Summary | Summary of Care ---
:1950 Author Name Lotus Rubio M.D. Address [address], [place] [id number] Care Team Providers Name Role Phone Joanne Falcon, Lotus Bran Unavailable Unavailable Paolma Hart Unavailable Unavailable Mateusz Maldonado M.D. 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: Active Claustrophobia (300.29, F40.240) Status: Active Rash (782.1, R21) Status: Active Atrial fibrillation (427.31, I48.91) Status: Active Congestive heart failure (428.0, I50.9) Status: Active Status post ablation of atrial fibrillation (V45.89, Z98.89) Status: Active Snoring (786.09, R06.83) Status: Active Pre-operative cardiovascular examination (V72.81, Z01.810) Status: Active 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, 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 Effusion of right olecranon bursa (719.02, M25.421) Status: Active Obstructive sleep apnea (327.23, G47.33) Status: Active PTCA Status: Active Status post catheter ablation of atrial fibrillation (V45.89, Z98.89) Status : Active CAD (coronary atherosclerotic disease) (414.00, I25.10) Status: Active Paroxysmal atrial fibrillation (427.31, I48.0) Status: Active Hypertension (401.9, I10) Status: Active Hyperlipidemia (272.4, E78.5) Status: Active Fatigue (780.79, R53.83) Status: Active Nausea (787.02, R11.0) Status: Active Diarrhea (787.91, R19.7) Status: Active Chronic systolic congestive heart failure (428.22, I50.22) Status: Active CKD (chronic kidney disease), stage III (585.3, N18.3) Status: Active Medications Name Dates Details Simvastatin 40 MG Oral Tablet TAKE ONE TABLET BY MOUTH EVERY NIGHT AT BEDTIME Quantity: 30 Refills: 11 Shant Rubio M.D. Started ActiveFurosemide 40 MG Oral Tablet take two tablets by mouth daily Quantity: 60 Refills: 10 Shant Rubio M.D. Started 16-Jun-2011 ActiveMetolazone 5 [...] cm H2O, Permanent use, G47.33, Heated humidity, [id number], mask , headgear, filters, heated tubing, water [...] Refills: 6 Shant Rubio M.D. Started 14-May-2015 Pdlbyo74 GM Tube MetroNIDAZOLE 500 MG Oral Tablet Take 1 tablet twice daily Quantity: 14 Refills: 0 Shant Rubio M.D. Started ActiveOndansetron HCl - 4 MG Oral Tablet ONE TABLET BY MOUTH EVERY 4 HOURS NEEDED FOR NAUSEA Quantity: 10 Refills: 3 Shant Rubio M.D. Started Active Allergies and [...] History of Colostomy History of Cardioverter-defibrillator Pulse Completed: Generator Insertion With Leads History of Extracaps Cataract Extract With Prosthesis Insert Right Eye History of Elective Cardioversion External Completed:23-Oct-2011 Globe Enucleation Left PTCA ECG/ EKG Outside Interp Pendin19-Jun-2015 [facility] (outside facility) Ordered:21-Jun-2015 Immunization Name Dates Details Tdap (Adacel) Administered on: Zoster (Zostavax) Administered on:21-Mar-2014 Lot #: [id number] Prevnar 13 Intramuscular Suspension Administered on:21-Mar-2014 Lot #: [id number] Family History Mother Name Dates Details Family history of Hyperlipidemia Status: Active Family history of cerebrovascular accident (CVA) (V17.1, Z82.3) Status: Active Father Name Dates Details Family history of Cancer Status: Active Social History Name Dates Details Smoking StatusNever smoker Vital Signs Date Test Result Details 13:08 BP Systolic 112 mm[Hg] Status: BP Diastolic 64 mm[Hg] Status: Heart Rate 84 /min Status: Height 75 in Status: Weight 234 lb Status: Body Mass Index Calculated 29.25 kg/m2 Status: Body Surface Area Calculated 2.35 m2 Status: 10:02 BP Systolic 130 mm[Hg] Status: BP Diastolic 72 mm[Hg] Status: Heart Rate 77 /min Status: Weight 233 lb Status: Body Mass Index Calculated 29.12 kg/m2 Status: Body Surface Area Calculated 2.34 m2 Status: 21-Jun-2015 15:52 BP Systolic 130 mm[Hg] Status: BP Diastolic 60 mm[Hg] Status: Heart Rate 82 /min Status: Weight 243 lb Status: Body Mass Index Calculated 30.37 kg/m2 Status: Body Surface Area Calculated 2.38 m2 Status: 21-Jun-2015 14:07 BP Systolic 105 mm[Hg] Status: BP Diastolic 68 mm[Hg] Status: Heart Rate 88 /min Status: Weight 242.7 lb Status: O2 SAT 98 % Status: Body Mass Index Calculated 30.34 kg/m2 Status: Body Surface Area Calculated 2.38 m2 Status: Results Date Description Value Details 20-Jun-2015 ECG/ EKG Outside Interp 14:02 Electro CardioGram (Better) 21-Jun-2015 CBC w/ Auto Diff 7150 17:00 WBC 6.5 K/uL (Better) Range: 4.5-11.0 RBC 4.29 mil/uL Range: 4.20-5.40 (Better) HGB 13.1 g/dL (Below Range: 14.0-18.0 low threshold) HCT 39.4 % (Below low Range: 42.0-53.0 threshold) MCV 91.9 fL (Better) Range: 80.0-99.0 MCH 30.6 pg (Better) Range: 27.3-32.5 MCHC 33.3 % (Better) Range: 32.0-36.0 RDW 14.3 % (Better) Range: 11.6-14.8 PLATELETS 127 K/uL (Below low Range: 150-400 threshold) MPV 9.1 fL (Better) Range: 6.0-11.0 %NEUTRO 71.5 % (Better) Range: 37.0-80.0 %LYMPHS 16.0 % (Better) Range: 13.0-50.0 %MONO 7.8 % (Better) Range: 0.0-12.0 %EOS 2.8 % (Better) Range: 0.0-7.0 %BASO 0.6 % (Better) Range: 0.0-2.5 %GAUTAM 1.3 % (Better) Range: 0.0-5.0 NEUTRO 4.7 K/uL (Better) Range: 2.0-6.9 LYMPHS 1.0 K/uL (Better) Range: 0.6-3.4 MONOS 0.5 K/uL (Better) Range: 0.0-0.9 EOS 0.2 K/uL (Better) Range: 0.0-0.7 BASO 0.0 K/uL (Better) Range: 0.0-0.2 17:15 BASIC METABOLIC PROFILE 1210 SODIUM 134 mmol/L (Better) Range: 133-144 POTASSIUM 4.4 mmol/L (Better) Range: 3.5-5.1 CHLORIDE 96 mmol/L (Below Range: 98-110 low threshold) CARBON DIOXIDE 29.4 mmol/L Range: 23.0-33.0 (Better) ANION GAP 9 mmol/L (Better) Range: 6-16 BUN 29 mg/dL (Above Range: 7-18 high threshold) CREATININE, SERUM 1.79 mg/dL (Above Range: 0.70-1.30 high threshold) Comments: Please note new reference ranges effective 07/01.----- EST GFR, 46 ml/min (Below Range: >60 low threshold) EST GFR, NON-AFR GUINEAN 38 ml/min (Below Range: >60 low threshold) Comments: EST GFR is reported in ml/min per 1.73 m2 of body surface area. For -Panamanian, please multiple result by 1.2.----- BUN:CREATININE RATIO 16 (Better) GLUCOSE 96 mg/dL (Better) Range: 70-100 CALCIUM 9.4 mg/dL (Better) Range: 8.5-10.1 CBC w/ Auto Diff 7150 Comments: Manual differential indicated. 14:06 WBC 5.6 K/uL (Better) Range: 4.5-11.0 RBC 4.16 mil/uL (Below Range: 4.20-5.40 low threshold) HGB 12.2 g/dL (Below Range: 14.0-18.0 low threshold) HCT 38.0 % (Below low Range: 42.0-53.0 threshold) MCV 91.4 fL (Better) Range: 80.0-99.0 MCH 29.4 pg (Better) Range: 27.3-32.5 MCHC 32.1 % (Better) Range: 32.0-36.0 RDW 13.4 % (Better) Range: 11.6-14.8 PLATELETS 185 K/uL (Better) Range: 150-400 MPV 9.2 fL (Better) Range: 6.0-11.0 14:31 Manual Differential 7400 SEGS 73 % (Better) Range: 37-80 BANDS 0 % (Better) Range: 0-7 LYMPH 17 % (Better) Range: 13-50 MONO 7 % (Better) Range: 0-12 EOSIN 3 % (Better) Range: 0-7 BASO 0 % (Better) Range: 0-3 CHHAYA LYMPH 0 % (Better) Range: 0-0 META 0 % (Better) Range: 0-0 MYELO 0 % (Better) Range: 0-0 PRO 0 % (Better) Range: 0-0 BLAST 0 % (Better) Range: 0-0 NUC RBC 0 /100 WBC (Better) Range: 0-0 SMUDGE 0 /100 WBC (Better) PLATELET Adequate (Better) Range: Adequate 14:34 THYROID STIM. HORMONE 3602 THYROID STIM. HORMONE 20.689 uIU/mL Range: 0.550-4.780 (Above high Comments: No established reference ranges for infants and children <2 years of age----- threshold) 14:34 VITAMIN B12 3606 VITAMIN B12 928 pg/mL (Above Range: 211-911 high threshold) 14:34 FOLATE 3608 FOLATE 13.8 ng/mL (Better) Range: 5.4-20.8 14:39 Comprehensive Metabolic Panel 1212 SODIUM 131 mmol/L (Below Range: 133-144 low threshold) POTASSIUM 4.3 mmol/L (Better) Range: 3.5-5.1 CHLORIDE 94 mmol/L (Below Range: 98-110 low threshold) CARBON DIOXIDE 26.4 mmol/L Range: 23.0-33.0 (Better) ANION GAP 11 mmol/L (Better) Range: 6-16 BUN 30 mg/dL (Above Range: 7-18 high threshold) CREATININE, SERUM 1.45 mg/dL (Above Range: 0.70-1.30 high threshold) Comments: Please note new reference ranges effective 07/01.----- BUN:CREATININE RATIO 21 (Better) EST GFR, 59 ml/min (Below Range: >60 low threshold) EST GFR, NON-AFR GUINEAN 49 ml/min (Below Range: >60 low threshold) Comments: EST GFR is reported in ml/min per 1.73 m2 of body surface area. For -Panamanian, please multiple result by 1.2.----- GLUCOSE 89 mg/dL (Better) Range: 70-100 ALK PHOSPHATASE 131 U/L (Above high Range: 46-116 threshold) TOTAL BILIRUBIN 1.00 mg/dL (Better) Range: 0.20-1.00 AST 40 U/L (Above high Range: 8-35 threshold) ALT 60 U/L (Better) Range: 16-63 Comments: Please note new reference ranges. Effective 04/20/2014.----- ALBUMIN 3.8 g/dL (Better) Range: 3.4-5.0 TOTAL PROTEIN 8.2 g/dL (Better) Range: 6.4-8.2 A/G RATIO 0.9 units (Below Range: 1.0-1.8 low threshold) CALCIUM 9.2 mg/dL (Better) Range: 8.5-10.1 Plan of Care Planned Observations Name Dates Details Planned Goals not documented Goal Planned Encounters Appointment; Provider: Mick Parker On 06-Nov-2015 08:15 Appointment; Provider: Mark Maldonado On 31-Oct-2015 14:15 Appointment; Provider: Shant Rubio On 25-Sep-2015 13:30 Appointment; Provider: Mark Maldonado On 14:45 Appointment; Provider: Neil Justin On 08:15 Appointment; Provider: Mark Maldonado On 25-Jun-2015 12:00 Appointment; Provider: Mark Maldonado On 22-Dec-2013 07:30 [...] Rubio On Encounter Diagnosis: Problem not documented 13:15 Appointment; Rufino Rayo On Encounter Diagnosis: Problem not documented 10:45 Appointment; Mark Maldonado On 21-Jun-2015 Encounter Diagnosis: Problem not documented 15:30 Appointment; Shant Rubio On 21-Jun-2015 Encounter Diagnosis: Problem not documented 14:00 Appointment; Estuardo Yang On 14-Jun-2015 Encounter Diagnosis: [...]
--- OUTSIDE RECORDS SUMMARY | 2016-12-20 15:13 | External Medical Summary | Summary of Care ---
:1950 Author Name Joanne Falcon, Lotus Bran Address [address] [place], [place] [id number] Care Team Providers Name Role Phone Joanne Falcon, Lotus Bran Unavailable Unavailable Jonh Lanier M.D. Unavailable Unavailable Mateusz Maldonado M.D. Unavailable Unavailable Elena Falcno, Rosie Barton Unavailable Unavailable Shant Rubio Unavailable Unavailable Unavailable Unavailable Unavailable Functional Status Functional Status Health Issues Name Dates Details Functional status health issues are not documented Status: Cognitive Status Health Issues Name Dates Details Cognitive status health issues are not documented Status: Problems Name Dates Details Benign pigmented nevus (216.9, D22.9) Status: Active Conjunctivitis, acute (372.00, H10.30) Status: Active Benign neoplasm of skin of buttock (216.5, D23.5) Status: Active Insomnia (780.52, 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: Active 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, 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) Status: Active 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, 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 Heme positive stool (792.1, R19.5) Status: Active Dyspnea on exertion (786.09, R06.09) Status: Active History of gastric ulcer (V12.79, Z87.19) Status: Active Blister of ankle, right (916.2, S90.521A) Status: Active Epidermal inclusion cyst (706.2, L72.0) Status: Active Anemia (285.9, D64.9) Status: Active Anticoagulant long-term use (V58.61, Z79.01) Status: Active Renal insufficiency (593.9, N28.9) Status: Active 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, 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: Active Claustrophobia (300.29, F40.240) Status: Active Rash (782.1, R21) Status: Active Congestive heart failure (428.0, I50.9) Status: Active Snoring (786.09, R06.83) Status: Active Pre-operative cardiovascular examination (V72.81, Z01.810) Status: Active 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, 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 Effusion of right olecranon bursa (719.02, M25.421) Status: Active Fatigue (780.79, R53.83) Status: Active Diarrhea (787.91, R19.7) Status: Active Nausea (787.02, R11.0) Status: Active Obstructive sleep apnea (327.23, G47.33) Status: Active Acid reflux (530.81, K21.9) Status: Active Impotence (607.84, N52.9) Status: Active Hypothyroidism (244.9, E03.9) Status: Active Anxiety (300.00, F41.9) Status: Active 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, Z97.0) Status: Active CAD (coronary atherosclerotic disease) (414.00, I25.10) Status: Active PTCA Status: Active Hyperlipidemia (272.4, E78.5) Status: Active Paroxysmal atrial fibrillation (427.31, I48.0) Status: Active Status post catheter ablation of atrial fibrillation (V45.89, Z98.890) Status: Active Nephrotic syndrome (581.9, N04.9) Status: Active Persistent proteinuria (791.0, R80.1) Status: Active Hyponatremia (276.1, E87.1) Status: Active Generalized edema (782.3, R60.1) Status: Active 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, 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 Vitreous floaters of right eye (379.24, H43.391) Status: Active Presbyopia OU (367.4, H52.4) Status: Active Globe Enucleation Left Status: Active Peripheral arterial disease (443.9, I73.9) Status: Active CKD (chronic kidney disease) stage 3, GFR 30-59 ml/min (585.3, N18.3) Status : Active Atrial fibrillation (427.31, I48.91) Status: Active Chronic systolic congestive heart failure (428.22, I50.22) Status: Active Biventricular ICD (implantable cardioverter-defibrillator) in place (V45.02, Z95.810) Status: Active Lymphedema (457.1, I89.0) Status: Active Difficulty walking (719.7, R26.2) Status: Active Stasis dermatitis (454.1, I87.2) Status: Active Seborrheic keratosis (702.19, L82.1) Status: Active Sebaceous hyperplasia (706.8, L73.8) Status: Active Milial cyst (706.2, L72.0) Status: Active Folliculitis (704.8, L73.9) Status: Active Edema (782.3, R60.9) Status: Active Venous insufficiency (459.81, I87.2) Status: Active Hypertension (401.9, I10) Status: Active Medications Name Dates Details Simvastatin 40 MG Oral Tablet TAKE ONE TABLET BY MOUTH EVERY NIGHT AT BEDTIME Quantity: 90 Refills: 3 Shant Rubio M.D. Start Active Furosemide 40 MG Oral Tablet Take one tablet by mouth daily Quantity: 60 Refills: 9 Shant Rubio M.D. Start 29-Sep-2011 Active Pantoprazole Sodium 40 MG Oral Tablet Delayed Release Take one tablet by mouth daily Quantity: 90 Refills: 3 Shant Rubio M.D. Start Active Aspir-Low 81 MG Oral Tablet Delayed Release TAKE 1 TABLET IN THE PM Refills: 0 Start 26-Sep-2014 Active Spironolactone 50 MG Oral Tablet TAKE 1 TABLET DAILY. Quantity: 90 Refills: 3 Mark Maldonado M.D. Start 14-May-2015 Active Triamcinolone Acetonide 0.1 % External Cream USE TWO TIMES A DAY Quantity: 1 Refills: 6 Shant Rubio M.D. Start 14-May-2015 Active 30 GM Tube Losartan Potassium 25 MG Oral Tablet Take one tablet by mouth daily Quantity: 90 Refills: 2 Mark Maldonado M.D. Start 03-Apr-2016 Active MetOLazone 5 MG Oral Tablet take 1 tablet by mouth every day Quantity: 30 Refills: 1 Jonh Lanier M.D. Start 03-Mar-2016 Active Betamethasone Dipropionate Aug 0.05 % External Cream APPLY SPARINGLY TO AFFECTED AREA(S) TWICE DAILY. 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 CAD (coronary atherosclerotic disease) (414.00, I25.10) Status: Active 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, 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) Status: Active Congestive heart failure (428.0, I50.9) Status: Active 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, Z97.0) Status: Active 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 HORMONE 3602 Ordered: 27-May-2016 LIPID PROFILE 1184 Ordered: 27-May-2016 Comprehensive Metabolic Panel 1212 Ordered: 27-May-2016 CBC w/ Auto Diff 7150 Ordered: 27-May-2016 Immunization Name Dates Details Tdap (Adacel) on: Zoster (Zostavax) on: 21-Mar-2014 Lot #: [id number] Prevnar 13 Intramuscular Suspension on: 21-Mar-2014 Lot #: [id number] Family History Mother Name Dates Details Family history of Hyperlipidemia Status: Active Family history of cerebrovascular accident (CVA) (V17.1, Z82.3) Status: Active Father Name Dates Details Family history of Cancer Status: Active Social History Name Dates Details - Status: Smoking Status Name Dates Details Never smoker Vital Signs Date Test Result Details 27-Jun-2016 13:32 BP Systolic 100 mm[Hg] Status: Comments: Location: ; Position: BP Diastolic 50 mm[Hg] Status: Comments: Location: ; Position: Heart Rate 67 /min Status: Comments: Location: ; Weight 242 lb Status: Body Mass Index Calculated 30.25 kg/m2 Status: Body Surface Area Calculated 2.38 m2 Status: Results Date Description Value Details 30-May-2016 13:44 ULTRASOUND LEG ARTERIES-BILATERAL Comments: Exam Date: 12:39Dictation Date: 05/30/2016 13:44 XS LEG ARTERIES Plan of Care Name Dates Details Planned Observations Planned Goals not documented Planned Encounters Appointment; Provider: Neil Justin M.D. On 18-Feb-2017 09:00 Appointment; Provider: Mick Parker M.D. On 06-Nov-2016 08:15 Appointment; Provider: Mark Maldonado M.D. On 11:15 Appointment; Provider: Shant Rubio M.D. On 09:45 Appointment; Provider: Jonh Lanier M.D. On 11:30 Appointment; Provider: Shant Rubio M.D. On 13:15 Interventions Provided Medication ChangesMinocycline HCl - 100 MG Oral Capsule - Start Instructions Name Dates Details Instructions not documented Encounters Appointment; Mick Parker M.D. On 16-Jun-2016 Encounter Diagnosis: Problem not documented 14:45 Appointment; Shant Rubio M.D. On 26-May-2016 Encounter Diagnosis: Problem not documented 10:15 Appointment; Jonh Lanier M.D. On 19-May-2016 Encounter Diagnosis: Problem not documented 15:00 Appointment; Neil Justin M.D. On 12-May-2016 Encounter Diagnosis: Problem not documented 10:30 Appointment; Neil Justin M.D. On 06-May-2016 Encounter Diagnosis: Problem not documented 13:00 Appointment; Jonh Lanier M.D. On 07-Apr-2016 Encounter Diagnosis: Problem not documented 14:30 Appointment; Shant Rubio M.D. On 28-Mar-2016 Encounter Diagnosis: Problem not documented 11:00 Appointment; Jonh Lanier M.D. On 17-Mar-2016 Encounter Diagnosis: Problem not documented 14:00 Appointment; Shant Rubio M.D. On 07-Mar-2016 Encounter Diagnosis: Problem not documented 11:30 Appointment; Jonh Lanier M.D. On 03-Mar-2016 Encounter Diagnosis: Problem not documented 10:30 Appointment; Shant Rubio M.D. On 29-Feb-2016 Encounter Diagnosis: Problem not documented 10:00 Appointment; Mark Maldonado M.D. On 28-Feb-2016 Encounter Diagnosis: Problem not documented 13:00 Appointment; Shant Rubio M.D. On 22-Feb-2016 Encounter Diagnosis: Problem not documented 10:15 Appointment; Shant Rubio M.D. On 07-Feb-2016 Encounter Diagnosis: Problem not documented 13:00 Appointment; Neil Justin M.D. On 06-Feb-2016 Encounter Diagnosis: Problem not documented 13:15 Appointment; Neil Justin M.D. On 01-Feb-2016 Encounter Diagnosis: Problem not documented 13:30 Appointment; Shant Rubio M.D. On 29-Jan-2016 Encounter Diagnosis: Problem not documented 11:30 Appointment; Shant Rubio M.D. On 15-Jan-2016 Encounter Diagnosis: Problem not documented 11:00 Appointment; Mark Maldonado M.D. On 26-Dec-2015 Encounter Diagnosis: Problem not documented 10:30 Appointment; Mick Parker M.D. On 06-Nov-2015 Encounter Diagnosis: Problem not documented 08:15 Appointment; Mark Maldonado M.D. On 10-Oct-2015 Encounter Diagnosis: Problem not documented 10:45 Appointment; Shant Rubio M.D. On 28-Sep-2015 Encounter [...] Diagnosis: Problem not documented 10:15 Appointment; Mark Maldoando M.D. On 13-Dec-2014 Encounter Diagnosis: Problem not [...]
--- OUTSIDE RECORDS SUMMARY | 2016-12-20 15:13 | External Medical Summary | Summary of Care ---
:1950 Author Name Lotus Rubio M.D. Address [address] [facility] Unavailable [place], [place] [id number] Care Team Providers Name Role Phone Lotus Rubio M.D. Unavailable Unavailable Mateusz Maldonado M.D. Unavailable [...] (216.5, D23.5) Status: Active PTCA Status: Active Insomnia (780.52, 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: Active Anxiety (300.00, F41.1) Status: Active [...] Status: Active Hypothyroidism (244.9, E03.9) Status: Active Anemia (285.9, D64.9) Status: Active Abdominal pain (789.00, R10.9) Status: Active Stomach ulcer (531.90, K25.9) Status: Active Atrial fibrillation (427.31, I48.91) Status: Active Congestive heart failure (428.0, I50.9) Status: Active CAD (coronary atherosclerotic disease) (414.00, I25.10) Status: Active Hypertension (401.9, I10) Status: Active [...] Refills: 5 Shant Rubio M.D. Started 30-Mar-2013 ActiveLosartan Potassium 25 MG Oral Tablet Take one tablet by mouth daily Quantity: 90 Refills: 1 Mark Maldonado M.D. Started 24-Nov-2011 ActiveAmiodarone HCl - 200 MG Oral Tablet TAKE 1 TABLET DAILY. Quantity: 30 Refills: 3 Mark Maldonado M.D. Started 25-May-2014 ActivePantoprazole Sodium 40 MG Oral Tablet Delayed Release TAKE 1 TABLET DAILY. Quantity: 30 Refills: 11 Shant Rubio M.D. Started ActiveFerrous Sulfate 325 (65 Fe) MG Oral Tablet TAKE 1 TABLET TWICE DAILY. Refills: 0 Shant Rubio M.D. Started Active Allergies and [...] Cardioversion External Completed:23-Oct-2011 Globe Enucleation Left PTCA Upper Endoscopy ( EGD) Ordered: Immunization Name Dates Details Tdap (Adacel) Administered on: Zoster (Zostavax) Administered on:21-Mar-2014 Lot #: [id number] Prevnar 13 Intramuscular Suspension Administered on:21-Mar-2014 Lot #: [id number] Family History Mother Name Dates Details Family history of Hyperlipidemia Status: Active Father Name Dates Details Family history of Cancer Status: Active Social History Name Dates Details Smoking StatusNever smoker Vital Signs Date Test Result Details 09:54 BP Systolic 122 mm[Hg] Status: BP Diastolic 66 mm[Hg] Status: Heart Rate 88 /min Status: Weight 245.8 lb Status: Body Mass Index Calculated 30.72 kg/m2 Status: Body Surface Area Calculated 2.4 m2 Status: Results Date Description Value Details 14:21 XRay [...] Range: >60 low threshold) EST GFR, NON-AFR PARAGUAYAN 38 ml/min (Below Range: >60 low threshold) Comments: EST GFR is reported in ml/min per 1.73 m2 of body surface area. For -Niuean, please multiple result by 1.2.----- GLUCOSE 123 [...] 2014 RHEUMATOID FACTOR Negative (Better) Range: Negative Cyclic Citrullinated Comments: Testing performed at: [] [facility], [place], [address], Phone: , It Coordinator: Bonifacio Mcelroy MD 07:48 Peptide Abs, IgG/IgA [id number] CCP ANTIBODIES IGG/IGA <1 units Range: 0-19 (Better) Comments: Negative <20 Weak positive 20 - 39 Moderate positive 40 - 59 Strong positive >59- ---- CBC w/ Auto Diff 7150 Comments: Fastin hours 09:01 WBC 7.0 K/uL (Better) Range: 4.5-11.0 RBC 4.41 mil/uL Range: 4.20-5.40 (Better) HGB 12.8 g/dL (Below Range: 14.0-18.0 low threshold) HCT 39.3 % (Below low Range: 42.0-53.0 threshold) MCV 89.1 fL (Better) Range: 80.0-99.0 MCH 29.2 pg (Better) Range: 27.3-32.5 MCHC 32.7 % (Better) Range: 32.0-36.0 RDW 14.2 % (Better) Range: 11.6-14.8 PLATELETS 218 K/uL (Better) Range: 150-400 MPV 8.4 fL (Better) Range: 6.0-11.0 %NEUTRO 66.7 % (Better) Range: 37.0-80.0 %LYMPHS 21.2 % (Better) Range: 13.0-50.0 %MONO 6.5 % (Better) Range: 0.0-12.0 %EOS 3.0 % (Better) Range: 0.0-7.0 %BASO 1.2 % (Better) Range: 0.0-2.5 %GAUTAM 1.5 % (Better) Range: 0.0-5.0 NEUTRO 4.7 K/uL (Better) Range: 2.0-6.9 LYMPHS 1.5 K/uL (Better) Range: 0.6-3.4 MONOS 0.5 K/uL (Better) Range: 0.0-0.9 EOS 0.2 K/uL (Better) Range: 0.0-0.7 BASO 0.1 K/uL (Better) Range: 0.0-0.2 09:07 BASIC METABOLIC PROFILE Comments: Fastin hours 1210 SODIUM 129 mmol/L (Below Range: 133-144 low threshold) POTASSIUM 3.2 mmol/L (Below Range: 3.5-5.1 low threshold) CHLORIDE 90 mmol/L (Below Range: 98-110 low threshold) CARBON DIOXIDE 33.5 mmol/L (Above Range: 23.0-33.0 high threshold) ANION GAP 6 mmol/L (Better) Range: 6-16 BUN 33 mg/dL (Above Range: 7-18 high threshold) CREATININE, SERUM 1.67 mg/dL (Above Range: 0.70-1.30 high threshold) Comments: Please note new reference ranges effective 07/01.----- EST GFR, 50 ml/min (Below Range: >60 low threshold) EST GFR, NON-AFR PARAGUAYAN 41 ml/min (Below Range: >60 low threshold) Comments: EST GFR is reported in ml/min per 1.73 m2 of body surface area. For -Niuean, please multiple result by 1.2.----- BUN:CREATININE RATIO 20 (Better) GLUCOSE 108 mg/dL (Above Range: 70-100 high threshold) CALCIUM 9.1 mg/dL (Better) Range: 8.5-10.1 Plan of Care Planned Observations Name Dates Details Planned Goals not documented Goal Planned Encounters Appointment; Provider: Neil Justin On 22-Jan-2015 08:15 Appointment; Provider: Mick Parker On 02-Nov-2014 08:30 Appointment; Provider: Shant Rubio On 19-Sep-2014 09:00 Appointment; Provider: Ángel Vaughan On 15-Sep-2014 09:00 Appointment; Provider: Zoraida Langston On 15-Sep-2014 08:30 Appointment; Provider: Mark Maldonado On 22-Dec-2013 07:30 [...]
--- OUTSIDE RECORDS SUMMARY | 2016-12-20 15:13 | External Medical Summary | Summary of Care ---
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) Status: Active Presbyopia (367.4, H52.4) Status: Active PTCA Status: Active Paroxysmal atrial fibrillation (427.31, I48.0) Status: Active Congestive heart failure (428.0, I50.9) Status: Active CAD (coronary atherosclerotic disease) (414.00, I25.10) Status: Active Biventricular ICD (implantable cardioverter-defibrillator) in place (V45.02, Z95.810) Status: Active Atrial fibrillation (427.31, I48.91) Status: Active Hypertension (401.9, I10) Status: Active Hyperlipidemia (272.4, E78.5) Status: Active Borderline glaucoma with ocular hypertension, 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 Refills: 0 Mark Maldonado M.D. Started ActiveSimvastatin 40 MG Oral Tablet TAKE ONE TABLET BY MOUTH EVERY NIGHT AT BEDTIME Quantity: 30 Refills: 0 Shant Rubio M.D. Started ActiveDiclofenac Sodium 75 MG Oral Tablet Delayed Release Take one tablet twice daily. Quantity: 60 Refills: 5 Shant Rubio M.D. Started 11-Oct-2010 ActiveMetolazone 5 MG Oral Tablet prn Quantity: 30 Refills: 5 Shant Rubio M.D. Started 30-Mar-2013 ActiveLosartan Potassium 25 MG Oral Tablet Take one tablet by mouth daily Quantity: 90 Refills: 1 Mark Maldonado M.D. Started 24-Nov-2011 ActiveXarelto 20 MG Oral Tablet Take one tablet by mouth daily Quantity: 30 Refills: 4 Mark Maldonado M.D. Started ActiveAmiodarone HCl - 200 MG Oral Tablet TAKE 1 TABLET DAILY. Quantity: 30 Refills: 3 Mark Maldonado M.D. Started 25-May-2014 ActiveFurosemide 40 MG Oral Tablet take two tablets by mouth daily Quantity: 60 Refills: 11 Shant uRbio M.D. Started 16-Jun-2011 Active Allergies and Adverse Reactions Name Dates [...] Cardioversion External Completed:23-Oct-2011 Globe Enucleation Left PTCA CP Echo Ordered:25-May-2014 Immunization Name Dates Details Tdap (Adacel) Administered on:[id number] Zoster (Zostavax) Administered on:21-Mar-2014 Lot #: [id number] Prevnar 13 Intramuscular Suspension Administered on:21-Mar-2014 Lot #: [id number] Family History Mother Name Dates Details Family history of Hyperlipidemia Status: Active Father Name Dates Details Family history of Cancer Status: Active Social History Name Dates Details Smoking StatusNever smoker Vital Signs Date Test Result Details 12-Jun-2014 10:07 BP Systolic 122 mm[Hg] Status: BP Diastolic 74 mm[Hg] Status: Heart Rate 100 /min Status: Weight 265 lb Status: Body Mass Index Calculated 33.12 kg/m2 Status: Body Surface Area Calculated 2.47 m2 Status: 07-Jun-2014 14:32 BP Systolic 102 mm[Hg] Status: BP Diastolic 70 mm[Hg] Status: Heart Rate 140 /min Status: Weight 265 lb Status: Body Mass Index Calculated 33.12 kg/m2 Status: Body Surface Area Calculated 2.47 m2 Status: Results Date Description Value Details 07-Jun-2014 14:17 ECG/ EKG (Specialists) Electro CardioGram (Better) 21-Jun-2014 13:44 ECG/ EKG Outside Interp Electro CardioGram (Better) Plan of Care Planned Observations Name Dates Details Planned Goals not documented Goal Planned Encounters Appointment; Provider: Mick Parker On 02-Nov-2014 08:30 Appointment; Provider: Shant Rubio On 19-Sep-2014 09:00 Appointment; Provider: Niel Justin On 08:15 Appointment; Provider: Mark Maldonado On 22-Dec-2013 07:30 Appointment; Provider: Mark Maldonado On 24-Feb-2013 09:30 Appointment; Provider: Mark Maldonado On 18-Feb-2013 08:30 Appointment; Provider: Sweetie Langston On 04-Jan-2013 09:45 Appointment; Provider: Mark Maldonado On 23-Oct-2011 10:30 Appointment; Provider: Mark Maldonado On 15-Nov-2010 08:00 Appointment; Provider: Mark Maldonado On 09:00 Appointment; Provider: Makr Maldonado On 17-May-2010 08:15 Appointment; Provider: Zach Jean On 04-Apr-2010 09:45 Appointment; Provider: Mark Maldonado On 15-Feb-2010 08:30 Appointment; Provider: Mark Maldonado On 16-Nov-2009 09:15 Appointment; Provider: Mark Maldonado On 07:30 Appointment; Provider: Joshua Plasencia On 14:00 Appointment; Provider: Joshua Plasencia On 06-Jul-2009 11:00 Instructions Instructions not documented Encounters Appointment; Neil Justin On 29-Jun-2014 Encounter Diagnosis: [...] Diagnosis: Problem not documented 08:45 Appointment; Donna Khlail On 23-Dec-2012 Encounter Diagnosis: Problem not documented [...]
--- OUTSIDE RECORDS SUMMARY | 2016-12-20 15:14 | External Medical Summary | Summary of Care ---
:1950 Author Name Mateusz Maldonado M.D. 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) [...] Epidermal inclusion cyst (706.2, L72.0) Status: Active Status post ablation of atrial fibrillation (V45.89, Z98.89) Status: Active Biventricular ICD (implantable cardioverter-defibrillator) in place (V45.02, Z95.810) Status: Active Anemia (285.9, D64.9) Status: Active Anticoagulant long-term use (V58.61, Z79.01) Status: Active Atrial fibrillation (427.31, I48.91) Status: Active CKD (chronic kidney disease), stage III (585.3, N18.3) Status: Active Congestive heart failure (428.0, I50.9) Status: Active Diarrhea (787.91, R19.7) Status: Active CAD (coronary atherosclerotic disease) (414.00, I25.10) Status: Active PTCA Status: Active Paroxysmal atrial fibrillation (427.31, I48.0) Status: Active Status post catheter ablation of atrial fibrillation (V45.89, Z98.89) Status : Active Chronic systolic congestive heart failure (428.22, I50.22) Status: Active Hypertension (401.9, I10) Status: Active Hyperlipidemia (272.4, E78.5) Status: Active Medications Name Dates Details Simvastatin [...] Refills: 6 Shant Rubio M.D. Started 02-Jan-2015 Active Allergies and Adverse Reactions Name Dates [...] Left PTCA CBC w/ Auto Diff 7150 Ordered:01-Jan-2015 Comprehensive Metabolic Panel 1212 Ordered:01-Jan-2015 LIPID PROFILE 1184 Ordered:01-Jan-2015 IRON 1254 Ordered:01-Jan-2015 FERRITIN 3025 Ordered:01-Jan-2015 Immunization Name Dates Details Tdap (Adacel) Administered on: Zoster (Zostavax) Administered on:21-Mar-2014 Lot #: [id number] Prevnar 13 Intramuscular Suspension Administered on:21-Mar-2014 Lot #: [id number] Family History Mother Name Dates Details Family history of Hyperlipidemia Status: Active Father Name Dates Details Family history of Cancer Status: Active Social History Name Dates Details Smoking StatusNever smoker Vital Signs Date Test Result Details 17-Jan-2015 15:15 BP Systolic 110 mm[Hg] Status: BP Diastolic 64 mm[Hg] Status: Heart Rate 76 /min Status: Weight 240 lb Status: Body Mass Index Calculated 30 kg/m2 Status: Body Surface Area Calculated 2.37 m2 Status: 26-Dec-2014 10:36 BP Systolic 122 mm[Hg] Status: BP Diastolic 68 mm[Hg] Status: Heart Rate 88 /min Status: Height 75 in Status: Weight 248 lb Status: Body Mass Index Calculated 31 kg/m2 Status: Body Surface Area Calculated 2.4 m2 Status: Results Date Description Value Details 19-Dec-2014 11:32 CBC w/ Auto Diff 7150 WBC 3.4 K/uL (Below Range: 4.5-11.0 low threshold) RBC 3.93 mil/uL Range: 4.20-5.40 (Below low threshold) HGB 11.3 g/dL (Below Range: 14.0-18.0 low threshold) HCT 35.6 % (Below low Range: 42.0-53.0 threshold) MCV 90.5 fL (Better) Range: 80.0-99.0 MCH 28.7 pg (Better) Range: 27.3-32.5 MCHC 31.7 % (Below low Range: 32.0-36.0 threshold) RDW 14.1 % (Better) Range: 11.6-14.8 PLATELETS 194 K/uL (Better) Range: 150-400 MPV 8.1 fL (Better) Range: 6.0-11.0 %NEUTRO 59.6 % (Better) Range: 37.0-80.0 %LYMPHS 23.7 % (Better) Range: 13.0-50.0 %MONO 7.0 % (Better) Range: 0.0-12.0 %EOS 4.9 % (Better) Range: 0.0-7.0 %BASO 1.3 % (Better) Range: 0.0-2.5 %GAUTAM 3.4 % (Better) Range: 0.0-5.0 NEUTRO 2.1 K/uL (Better) Range: 2.0-6.9 LYMPHS 0.8 K/uL (Better) Range: 0.6-3.4 MONOS 0.2 K/uL (Better) Range: 0.0-0.9 EOS 0.2 K/uL (Better) Range: 0.0-0.7 BASO 0.1 K/uL (Better) Range: 0.0-0.2 12:10 IRON 1254 IRON 38 ug/dL (Below Range: 65-175 low threshold) 12:10 Comprehensive Metabolic Panel 1212 SODIUM 132 mmol/L (Below Range: 133-144 low threshold) POTASSIUM 3.3 mmol/L (Below Range: 3.5-5.1 low threshold) CHLORIDE 92 mmol/L (Below Range: 98-110 low threshold) CARBON DIOXIDE 28.9 mmol/L Range: 23.0-33.0 (Better) ANION GAP 11 mmol/L Range: 6-16 (Better) BUN 29 mg/dL (Above Range: 7-18 high threshold) CREATININE, SERUM 1.76 mg/dL (Above Range: 0.70-1.30 high threshold) Comments: Please note new reference ranges effective 07/01.----- BUN:CREATININE RATIO 16 (Better) EST GFR, 47 ml/min (Below Range: >60 low threshold) EST GFR, NON-AFR HONDURAN 39 ml/min (Below Range: >60 low threshold) Comments: EST GFR is reported in ml/min per 1.73 m2 of body surface area. For -Kittitian, please multiple result by 1.2.----- GLUCOSE 98 mg/dL (Better) Range: 70-100 ALK PHOSPHATASE 210 U/L (Above Range: 46-116 high threshold) TOTAL BILIRUBIN 1.40 mg/dL (Above Range: 0.20-1.00 high threshold) AST 30 U/L (Better) Range: 8-35 ALT 52 U/L (Better) Range: 16-63 Comments: Please note new reference ranges. Effective 04/20/2014.----- ALBUMIN 3.6 g/dL (Better) Range: 3.4-5.0 TOTAL PROTEIN 7.2 g/dL (Better) Range: 6.4-8.2 A/G RATIO 1.0 units Range: 1.0-1.8 (Better) CALCIUM 9.3 mg/dL Range: 8.5-10.1 (Better) 12:18 FERRITIN 3025 FERRITIN 60 ng/mL (Better) Range: 22-322 Plan of Care Planned Observations Name Dates Details Planned Goals not documented Goal Planned Encounters Appointment; Provider: Mick Parker On 06-Nov-2015 08:15 Appointment; Provider: Mark Maldonado On 14:45 Appointment; Provider: Shant Rubio On 03-Apr-2015 10:45 Appointment; Provider: Eduardo Zaman On 25-Jan-2015 10:00 Appointment; Provider: Neil Justin On 22-Jan-2015 08:15 Appointment; Provider: Mark Maldonado On 22-Dec-2013 07:30 Appointment; Provider: Mark Mladonado On 24-Feb-2013 09:30 Appointment; Provider: Mark Maldonado [...] 11:00 Instructions Instructions not documented Encounters Appointment; Mark Maldonado On 17-Jan-2015 Encounter Diagnosis: [...] Diagnosis: Problem not documented 10:45 Appointment; Shant uRbio On 19-Sep-2014 Encounter Diagnosis: Problem not documented [...]
--- OUTSIDE RECORDS SUMMARY | 2016-12-20 15:14 | External Medical Summary | Summary of Care ---
:1950 Author Name Jonh Lanier M.D. Address Unavailable Unavailable , Care Team Providers Name Role Phone Joanne Falcon, Lotus Bran Unavailable Unavailable Paloma Hart Unavailable Unavailable Yolande Falcon, Jonh Unavailable Unavailable Shant Rubio Unavailable Unavailable Unavailable [...] Status: Active Diarrhea (787.91, R19.7) Status: Active Obstructive sleep apnea (327.23, G47.33) Status: Active Seborrheic keratosis (702.19, L82.1) Status: Active Sebaceous hyperplasia (706.8, L73.8) Status: Active Acid reflux (530.81, K21.9) Status: Active Impotence (607.84, N52.9) Status: Active Hypothyroidism (244.9, E03.9) Status: Active Anxiety (300.00, F41.9) Status: Active Vitreous floaters of right eye (379.24, H43.391) Status: Active Presbyopia OU (367.4, H52.4) Status: Active 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, 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) Status: Active CAD (coronary atherosclerotic disease) (414.00, I25.10) Status: Active PTCA Status: Active Hypertension (401.9, I10) Status: Active Hyperlipidemia (272.4, E78.5) Status: Active Paroxysmal atrial fibrillation (427.31, I48.0) Status: Active Status post catheter ablation of atrial fibrillation (V45.89, Z98.890) Status: Active Nephrotic syndrome (581.9, N04.9) Status: Active Edema (782.3, R60.9) Status: Active Lymphedema (457.1, I89.0) Status: Active Chronic systolic congestive heart failure (428.22, I50.22) Status: Active CKD (chronic kidney disease), stage III (585.3, N18.3) Status: Active Atrial fibrillation (427.31, I48.91) Status: Active Biventricular ICD (implantable cardioverter-defibrillator) in place (V45.02, Z95.810) Status: Active Medications Name Dates Details Simvastatin 40 MG Oral Tablet TAKE ONE TABLET BY MOUTH EVERY NIGHT AT BEDTIME Quantity: 30 Refills: 10 Joanne Falcon Shant Lotus Start Active Pantoprazole Sodium 40 MG Oral Tablet Delayed Release Take one tablet by mouth daily Quantity: 30 Refills: 10 Joanne Falcon Shant Lotus Start 09-Nov-2015 Active Aspir-Low 81 MG Oral Tablet Delayed Release TAKE 1 TABLET IN THE PM Refills: 0 Start 26-Sep-2014 Active Supplies AutoCPAP 8-12 cm H2O, Permanent use, G47.33, Heated humidity, [id number], mask , headgear, filters, heated tubing, water chamber, chinstrap Quantity: 1 Refills: 0 Paloma Hart Start 03-Apr-2015 Active Spironolactone 50 MG Oral Tablet TAKE 1 TABLET DAILY. Refills: 0 Shant Rubio M.D. Start 14-May-2015 Active Triamcinolone Acetonide 0.1 % External Cream USE TWO TIMES A DAY Quantity: 1 Refills: 6 Joanne Falcon Shant Lotus Start 14-May-2015 Active 30 GM Tube Bumetanide 1 MG Oral Tablet Take 3 tablets po daily Quantity: 270 Refills: 3 Joanne Falcon Shant Lotus Start 07-Feb-2016 Active Losartan Potassium 25 MG Oral Tablet TAKE 1 TABLET DAILY. Refills: 0 Start 28-Feb-2016 Active MetOLazone 5 MG Oral Tablet take 1 tablet by mouth every day Quantity: 30 Refills: 1 Jonh Lanier M.D. Start 03-Mar-2016 Active Allergies and Adverse Reactions Name Dates [...] History of Elective Cardioversion Completed: 23-Oct-2011 External Globe Enucleation Left PTCA BASIC METABOLIC PROFILE 1210 Ordered: 08-Feb-2016 RENAL PROFILE 1240 Ordered: 05-Mar-2016 ULTRASOUND RENAL / PVR Ordered: 10-Mar-2016 Immunization Name Dates Details Tdap (Adacel) on: Zoster (Zostavax) on: 21-Mar-2014 Lot #: [id number] Prevnar 13 Intramuscular Suspension on: 21-Mar-2014 Lot #: [id number] Family History Mother Name Dates Details Family history of Hyperlipidemia Status: Active Family history of cerebrovascular accident (CVA) (V17.1, Z82.3) Status: Active Father Name Dates Details Family history of Cancer Status: Active Social History Name Dates Details - Status: Smoking Status Name Dates Details Never smoker Vital Signs Date Test Result Details 07-Mar-2016 11:44 BP Systolic 120 mm[Hg] Status: Comments: Location: ; Position: BP Diastolic 60 mm[Hg] Status: Comments: Location: ; Position: Heart Rate 85 /min Status: Comments: Location: ; Weight 258 lb Status: Physical Findings 96 Status: Comments: O2 Saturation Body Mass Index Calculated 32.25 kg/m2 Status: Body Surface Area Calculated 2.45 m2 Status: 03-Mar-2016 10:34 BP Systolic 92 mm[Hg] Status: Comments: Location: ; Position: BP Diastolic 60 mm[Hg] Status: Comments: Location: ; Position: Heart Rate 72 /min Status: Comments: Location: ; Weight 264 lb Status: Body Mass Index Calculated 33 kg/m2 Status: Body Surface Area Calculated 2.47 m2 Status: 29-Feb-2016 10:00 BP Systolic 100 mm[Hg] Status: Comments: Location: ; Position: BP Diastolic 58 mm[Hg] Status: Comments: Location: ; Position: Heart Rate 74 /min Status: Comments: Location: ; Weight 264 lb Status: Physical Findings 85 Status: Comments: O2 Saturation Body Mass Index Calculated 33 kg/m2 Status: Body Surface Area Calculated 2.47 m2 Status: 28-Feb-2016 13:15 BP Systolic 88 mm[Hg] Status: Comments: Location: ; Position: BP Diastolic 54 mm[Hg] Status: Comments: Location: ; Position: Heart Rate 64 /min Status: Comments: Location: ; Weight 259 lb Status: Body Mass Index Calculated 32.37 kg/m2 Status: Body Surface Area Calculated 2.45 m2 Status: Results Date Description Value Details 28-Feb-2016 14:29 Comprehensive Metabolic Panel 1212 SODIUM 135 mmol/L Range: 133-144 POTASSIUM 4.4 mmol/L Range: 3.5-5.1 CHLORIDE 98 mmol/L Range: 98-110 CARBON DIOXIDE 27.4 mmol/L Range: 23.0-33.0 ANION GAP 10 mmol/L Range: 6-16 BUN 35 mg/dL (Above high Range: 7-18 threshold) CREATININE, SERUM 1.58 mg/dL (Above high Range: 0.70-1.30 threshold) BUN:CREATININE RATIO 22 EST GFR, 53 ml/min (Below low Range: >60 threshold) EST GFR, NON-AFR EMIRATI 44 ml/min (Below low Range: >60 threshold) Comments: EST GFR is reported in ml/min per 1.73 m2 of body surface area. ----- GLUCOSE 98 mg/dL Range: 70-100 ALK PHOSPHATASE 106 U/L Range: 46-116 TOTAL BILIRUBIN 0.50 mg/dL Range: 0.20-1.00 AST 19 U/L Range: 8-35 ALT 22 U/L Range: 16-63 ALBUMIN 3.0 g/dL (Below low Range: 3.4-5.0 threshold) TOTAL PROTEIN 6.5 g/dL Range: 6.4-8.2 A/G RATIO 0.9 units (Below low Range: 1.0-1.8 threshold) CALCIUM 8.5 mg/dL Range: 8.5-10.1 01-Mar-2016 11:25 24 HR URINE PROT PANEL 1199 Comments: Items were attached to this order: 24PRO 24VOL 2000 mL PROTEIN, URINE 11.0 mg/dL Range: 0.0-11.9 24 HR URINE PROTEIN 220 mg/24hr (Above high threshold) Range: 40-150 Plan of Care Name Dates Details Planned Observations Planned Goals not documented Planned Encounters Appointment; Provider: Neil Justin M.D. On 18-Feb-2017 09:00 Appointment; Provider: Mick Parker M.D. On 06-Nov-2016 08:15 Appointment; Provider: Mark Maldonado M.D. On 11:15 Appointment; Provider: Shant Rubio M.D. On 28-Mar-2016 11:00 Appointment; Provider: Jonh Lanier M.D. On 17-Mar-2016 14:00 Instructions Name Dates Details Instructions not documented Encounters Appointment; Shant Rubio M.D. On 07-Mar-2016 Encounter [...] Diagnosis: Problem not documented 15:45 Appointment; Rufino Rayo, P.AFarzaneh On 26-Sep-2014 Encounter Diagnosis: Problem not documented [...] Diagnosis: Problem not documented 10:30 Appointment; Rufino Rayo, P.AFarzaneh On 12-Jun-2014 Encounter Diagnosis: Problem not documented [...]
--- OUTSIDE RECORDS SUMMARY | 2016-12-20 15:14 | External Medical Summary | Summary of Care ---
:1950 Author Name Joanne Falcon, Lotus Bran Address [address], [place] [id number] Care Team Providers Name Role Phone Lotus Rubio M.D. 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, 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) Status: Active Edema (782.3, R60.9) Status: Active CKD (chronic kidney disease), stage III (585.3, N18.3) Status: Active Lymphedema (457.1, I89.0) Status: Active CAD (coronary atherosclerotic disease) (414.00, I25.10) Status: Active PTCA Status: Active Hypertension (401.9, I10) Status: Active Hyperlipidemia (272.4, E78.5) Status: Active Chronic systolic congestive heart failure (428.22, I50.22) Status: Active Paroxysmal atrial fibrillation (427.31, I48.0) Status: Active Status post catheter ablation of atrial fibrillation (V45.89, Z98.890) Status: Active Nephrotic syndrome (581.9, N04.9) Status: Active Medications Name Dates Details Simvastatin 40 MG Oral Tablet TAKE ONE TABLET BY MOUTH EVERY NIGHT AT BEDTIME Quantity: 30 Refills: 10 Shant Rubio M.D. Start Active Pantoprazole Sodium 40 MG Oral Tablet Delayed Release Take one tablet by mouth daily Quantity: 30 Refills: 10 Joanne Falcon, Shant Gautam Start 09-Nov-2015 Active Aspir-Low 81 MG Oral Tablet Delayed Release TAKE 1 TABLET IN THE PM Refills: 0 Start 26-Sep-2014 Active Supplies AutoCPAP 8-12 cm H2O, Permanent use, G47.33, Heated humidity, [id number], mask , headgear, filters, heated tubing, water chamber, chinstrap Quantity: 1 Refills: 0 Jonathan DavisAPaloma Moy Start 03-Apr-2015 Active Spironolactone 50 MG Oral Tablet TAKE 1 TABLET DAILY. Refills: 0 Shant Rubio M.D. Start 14-May-2015 Active Triamcinolone Acetonide 0.1 % External Cream USE TWO TIMES A DAY Quantity: 1 Refills: 6 Shant Rubio M.D. Start 14-May-2015 Active 30 GM Tube Bumetanide 1 MG Oral Tablet Take 3 tablets po daily Quantity: 270 Refills: 3 Shant Ruboi M.D. Start 07-Feb-2016 Active Losartan Potassium 25 MG Oral Tablet TAKE 1 TABLET DAILY. Refills: 0 Start 28-Feb-2016 Active Allergies and Adverse Reactions Name Dates [...] PTCA BASIC METABOLIC PROFILE 1210 Ordered: 08-Feb-2016 24 HR URINE PROT PANEL 1199 Ordered: 28-Feb-2016 Immunization Name Dates Details Tdap (Adacel) on: Zoster (Zostavax) on: 21-Mar-2014 Lot #: [id number] Prevnar 13 Intramuscular Suspension on: 21-Mar-2014 Lot #: [id number] Family History Mother Name Dates Details Family history of Hyperlipidemia Status: Active Family history of cerebrovascular accident (CVA) (V17.1, Z82.3) Status: Active Father Name Dates Details Family history of Cancer Status: Active Social History Name Dates Details - Status: Smoking Status Name Dates Details Never smoker Vital Signs Date Test Result Details 28-Feb-2016 13:15 BP Systolic 88 mm[Hg] Status: Comments: Location: ; Position: BP Diastolic 54 mm[Hg] Status: Comments: Location: ; Position: Heart Rate 64 /min Status: Comments: Location: ; Weight 259 lb Status: Body Mass Index Calculated 32.37 kg/m2 Status: Body Surface Area Calculated 2.45 m2 Status: 07-Feb-2016 12:59 BP Systolic 115 mm[Hg] Status: Comments: Location: ; Position: BP Diastolic 60 mm[Hg] Status: Comments: Location: ; Position: Heart Rate 83 /min Status: Comments: Location: ; Weight 252 lb Status: Physical Findings 90 Status: Comments: O2 Saturation Body Mass Index Calculated 31.5 kg/m2 Status: Body Surface Area Calculated 2.42 m2 Status: Results Date Description Value Details 06-Feb-2016 12:47 BASIC METABOLIC PROFILE 1210 SODIUM 133 mmol/L Range: 133-144 POTASSIUM 4.6 mmol/L Range: 3.5-5.1 CHLORIDE 97 mmol/L (Below low Range: 98-110 threshold) CARBON DIOXIDE 26.3 mmol/L Range: 23.0-33.0 ANION GAP 10 mmol/L Range: 6-16 BUN 49 mg/dL (Above high Range: 7-18 threshold) CREATININE, SERUM 1.80 mg/dL (Above high Range: 0.70-1.30 threshold) EST GFR, 46 ml/min (Below low Range: >60 threshold) EST GFR, NON-AFR NAMIBIAN 38 ml/min (Below low Range: >60 threshold) Comments: EST GFR is reported in ml/min per 1.73 m2 of body surface area. ----- BUN:CREATININE RATIO 27 GLUCOSE 104 mg/dL (Above high Range: 70-100 threshold) CALCIUM 8.6 mg/dL Range: 8.5-10.1 15-Feb-2016 12:33 ULTRASOUND ELVS EVALUATION Comments: Exam Date: 02/15/2016 09:49Dictation Date: 02/15/2016 12:33 BILATERAL XS ELVS CONSULT BILATERAL 28-Feb-2016 14:29 Comprehensive Metabolic Panel 1212 SODIUM [...] low Range: >60 threshold) EST GFR, NON-AFR NAMIBIAN 44 ml/min (Below low Range: >60 threshold) [...] 1.0-1.8 threshold) CALCIUM 8.5 mg/dL Range: 8.5-10.1 Plan of Care Name Dates Details Planned Observations Planned Goals not documented Planned Encounters Appointment; Provider: Neil Justin M.D. On 18-Feb-2017 09:00 Appointment; Provider: Mick Parker M.D. On 06-Nov-2016 08:15 Appointment; Provider: Mark Maldonado M.D. On 11:15 Appointment; Provider: Jonh Lanier M.D. On 03-Mar-2016 10:30 Appointment; Provider: Shant Rubio M.D. On 29-Feb-2016 10:00 Appointment; Provider: Schedule Radiology On 15-Feb-2016 10:00 Instructions Name Dates Details Instructions not documented Encounters Appointment; Shant Rubio M.D. On 15-Jan-2016 Encounter [...] Diagnosis: Problem not documented 15:15 Appointment; Rufino Rayo, PFarzanehAFarzaneh On 03-Apr-2014 Encounter Diagnosis: Problem not documented 14:30 Appointment; Shant Rubio M.D. On 21-Mar-2014 Encounter Diagnosis: Problem not documented 09:00
--- OUTSIDE RECORDS SUMMARY | 2016-12-20 15:14 | External Medical Summary | Summary of Care ---
:1950 Author Name Lotus Rubio M.D. 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 Heme positive stool (792.1, R19.5) Status: Active Renal insufficiency (593.9, N28.9) Status: Active Dyspnea on exertion (786.09, R06.09) Status: Active Hypothyroidism (244.9, E03.9) Status: Active Anemia (285.9, D64.9) Status: Active History of gastric ulcer (V12.79, Z87.19) Status: Active CKD (chronic kidney disease), stage III (585.3, N18.3) Status: Active Anticoagulant long-term use (V58.61, Z79.01) Status: Active Atrial fibrillation (427.31, I48.91) Status: Active Blister of ankle, right (916.2, S90.521A) Status: Active Seborrheic keratosis (702.19, L82.1) Status: Active Sebaceous hyperplasia (706.8, L73.8) Status: Active Epidermal inclusion cyst (706.2, L72.0) Status: Active Diarrhea (787.91, R19.7) Status: Active Status post ablation of atrial fibrillation (V45.89, Z98.89) Status: Active CAD (coronary atherosclerotic disease) (414.00, I25.10) Status: Active PTCA Status: Active Congestive heart failure (428.0, I50.9) Status: Active Biventricular ICD (implantable cardioverter-defibrillator) in place (V45.02, Z95.810) Status: Active Paroxysmal atrial fibrillation (427.31, I48.0) Status: Active Status post catheter ablation of atrial fibrillation (V45.89, Z98.89) Status : Active Hypertension (401.9, I10) Status: Active Hyperlipidemia [...] IN THE PM Refills: 0 Started 26-Sep-2014 ActiveAmiodarone HCl - 200 MG Oral Tablet Take one tablet by mouth daily Quantity: 30 Refills: 6 Mark Maldonado M.D. Started 26-Sep-2014 ActiveLosartan Potassium 25 MG Oral Tablet Take one tablet by mouth daily Quantity: 90 Refills: 0 Mark Maldonado M.D. Started 26-Sep-2014 ActiveXarelto 20 MG Oral Tablet Take one tablet by mouth daily Quantity: 30 Refills: 11 Mark Maldonado M.D. Started 10-Oct-2014 ActiveDiclofenac Sodium 75 MG Oral Tablet Delayed Release Take one tablet daily. Refills: 0 Shant Rubio M.D. Started 10-Oct-2014 ActiveMetroNIDAZOLE 500 MG Oral Tablet TWICE DAILY X 10 DAYS Quantity: 20 Refills: 0 Shant Rubio M.D. Started 30-Nov-2014 ActiveFlagyl 500 MG Oral Tablet Take one tablet 3 times daily for 10 days. Quantity: 30 Refills: 0 Shant Rubio M.D. Started 01-Dec-2014 Ended 11-Dec-2014 ActiveZolpidem Tartrate 10 MG Oral Tablet TAKE 1 TABLET AT BEDTIME NEEDED FOR SLEEP. Refills: 0 Mark Maldonado M.D. Started 13-Dec-2014 Active Allergies and Adverse Reactions Name Dates [...] Left PTCA CBC w/ Auto Diff 7150 Ordered:11-Dec-2014 Comprehensive Metabolic Panel 1212 Ordered:11-Dec-2014 FERRITIN 3025 Ordered:11-Dec-2014 IRON 1254 Ordered:11-Dec-2014 Immunization Name Dates Details Tdap (Adacel) Administered on: Zoster (Zostavax) Administered on:21-Mar-2014 Lot #: [id number] Prevnar 13 Intramuscular Suspension Administered on:21-Mar-2014 Lot #: [id number] Family History Mother Name Dates Details Family history of Hyperlipidemia Status: Active Father Name Dates Details Family history of Cancer Status: Active Social History Name Dates Details Smoking StatusNever smoker Vital Signs Date Test Result Details 13-Dec-2014 14:14 BP Systolic 92 mm[Hg] Status: BP Diastolic 58 mm[Hg] Status: Heart Rate 76 /min Status: Weight 241 lb Status: Body Mass Index Calculated 30.12 kg/m2 Status: Body Surface Area Calculated 2.38 m2 Status: 30-Nov-2014 13:07 BP Systolic 130 mm[Hg] Status: BP Diastolic 52 mm[Hg] Status: Heart Rate 76 /min Status: Height 75 in Status: Weight 233 lb Status: Body Mass Index Calculated 29.12 kg/m2 Status: Body Surface Area Calculated 2.34 m2 Status: Results Date Description Value Details 04-Dec-2014 STOOL CULTURE [id number] Comments: [facility] performed at: [facility], [facility] [address], [place], [address], Booth Cleaner: Gisselle Elizondo MDQuest Collection Date/Time: 2 14:27 [id number] Results Received Date/Time: [id number] Reported Date/Time: [id number] performed at: [facility], [address] [address] [place], [place], [address] [place] [address], Booth Cleaner: Natalie Denton Collection Date/Time: [id number] Results Received Date/Time: [id number] Reported Date/Time: [id number] [facility] performed at: [facility], [facility] [address] [place], [place], [address] [place] [address], Booth Cleaner: Natalie Denton Collection Date/Time: [id number] Results Received Date/Time: [id number] Reported Date/Time: [id number] performed at: [facility], [address] [address] [place], [place], [address] [place] [address], Booth Cleaner: Natalie Denton Collection Date/Time: [id number] Results Received Date/Time: [id number] Reported Date/Time: [id number] [facility] performed at: [facility], [address] [place] [address], [address] [place] [address], Booth Cleaner: Natalie Denton Collection Date/Time: [id number] Results Received Date/Time: [id number] Reported Date/Time: [id number] SHIGA TOXINS, EIA W/RFL TO SEE NOTE Comments: SHIGA TOXINS, EIA W/RFL TO E.COLI O157 CULTURE MICRO NUMBER: [id number] TEST STATUS: FINAL SPECIMEN SOURCE: FECES SPECIMEN QUALITY: ADEQUATE RESULT: Not Detected[SL]----- E.COLI O157 CULTURE (Better) CAMPYLOBACTER, CULTURE SEE NOTE Comments: CAMPYLOBACTER, CULTURE MICRO NUMBER: [id number] TEST STATUS: FINAL SPECIMEN SOURCE: FECES SPECIMEN QUALITY: ADEQUATE RESULT: No enteric Campylobacter isolated[SL]----- (Better) SALMONELLA AND SHIGELLA, SEE NOTE Comments: SALMONELLA AND SHIGELLA, CULTURE MICRO NUMBER: [id number] TEST STATUS: FINAL SPECIMEN SOURCE : FECES SPECIMEN QUALITY: ADEQUATE RESULT: No Salmonella or Shigella isolated[SL]----- CULTURE (Better) 01-Dec-2014 GIARDIA ANTIGEN [id number] Comments: [facility] performed at: [facility], [facility] [place], [address], Booth Cleaner: Natalie Denton Collection Date/Time: 2 13:46 [id number] Results Received Date/Time: [id number] Reported Date/Time: [id number] GIARDIA AG, EIA, STOOL SEE NOTE Comments: GIARDIA AG, EIA, STOOL MICRO NUMBER: [id number] TEST STATUS: FINAL SPECIMEN SOURCE: FECES SPECIMEN QUALITY: ADEQUATE RESULT 1: Not Detected[SL]----- (Better) 14:42 CRYPTOSPORIDIUM ANTIGEN Comments: [facility] performed at: [facility], [facility] [place], [address], Booth Cleaner: Natalie Denton Collection Date/Time: [id number] Results Received Date/Time: [id number] Reported Date/Time: [id number] performed at: [facility], [facility] [place], [address], Booth Cleaner: Natalie Denton Collection Date/Time: [id number] Results Received Date/Time: [id number] Reported Date/Time: [id number] CRYPTOSPORIDIUM AG, DFA SEE NOTE Comments: CRYPTOSPORIDIUM AG, DFA MICRO NUMBER: [id number] TEST STATUS: FINAL SPECIMEN SOURCE: STOOL SPECIMEN QUALITY: ADEQUATE CRYPTOSPORIDIUM: Not Detected[SL]----- (Better) Plan of Care Planned Observations Name Dates Details Planned Goals not documented Goal Planned Encounters Appointment; Provider: Mick Parker On 06-Nov-2015 08:15 Appointment; Provider: Eduardo Zaman On 25-Jan-2015 10:00 Appointment; Provider: Neil Justin On 22-Jan-2015 08:15 Appointment; Provider: Mark Maldonado On 17-Jan-2015 14:45 Appointment; Provider: Shant Rubio On 26-Dec-2014 10:15 Appointment; Provider: Mark Maldonado On 22-Dec-2013 07:30 [...] not documented Encounters Appointment; Mark Maldonado On 13-Dec-2014 Encounter Diagnosis: [...]
--- OUTSIDE RECORDS SUMMARY | 2016-12-20 15:14 | External Medical Summary ---
:1950 Author Name GENERATED, SYSTEM Care Team Providers Name Role Phone MD ALEXSANDER, YANE Primary Care Provider Unavailable Reason For Visit Reason for Visit from 07/14/2014 3:11 PM:Pt Stated Reason for Adm : anemia, GI bleed Chief Complaint ANEMIA GI BLEED Social History Social History from 07/16/2014 11:58 AM:Tobacco Use? : Never SmokerSocial History from 07/14/2014 3:11 PM:Tobacco Use? : Never Smoker Functional Status Functional Status from 07/16/2014 9:12 AM:LOC : AlertOriented To : Person,Place, TimeWeight Bearing Status : FullAssist Level : Independent# Assists : IndependentFunctional Status from 07/16/2014 8:35 AM:LOC : AlertFunctional Status from 07/16/2014 8:04 AM:LOC : DrowsyFunctional Status from 07/15/2014 7:45 PM:LOC : AlertOriented To : Person,Place,Time,EventWeight Bearing Status : FullAssist Level : Independent# Assists : IndependentFunctional Status from 07/15/2014 8:28 AM:LOC : AlertOriented To : Person,Place,Time,EventWeight Bearing Status : FullAssist Level : Independent# Assists : IndependentFunctional Status from 2014 4:10 AM:LOC : AlertOriented To : Person,Place,TimeWeight Bearing Status : FullAssist Level : Partial# Assists : 1Functional Status from 07/14/2014 10:10 PM: LOC : AlertOriented To : Person,Place,Time,EventWeight Bearing Status : FullAssist Level : Independent# Assists : IndependentFunctional Status from 2014 3:11 PM:LOC : AlertOriented To : Person,Place,Time,EventWeight Bearing Status : FullAssist Level : Independent# Assists : Independent Vital Signs Hospital Vital Signs from 07/16/2014 11:53 AM:Height : 6/3 ft,inTemperature : 98.0 FBP : 111/56Hospital Vital Signs from 07/16/2014 11:00 AM:Height : 6/3 ft, inBP : 112/50Hospital Vital Signs from 07/16/2014 10:30 AM:Height : 6/3 ft, inRespirations : 18BP : 104/54Hospital Vital Signs from 07/16/2014 10:15 AM: Height : 6/3 ft,inRespirations : 18BP : 110/58Hospital Vital Signs from 2014 10:00 AM:Height : 6/3 ft,inRespirations : 18BP : 108/58Hospital Vital Signs from 07/16/2014 9:45 AM:Height : 6/3 ft,inPulse : 42Respirations : 18BP : 134/62Hospital Vital Signs from 07/16/2014 9:30 AM:Height : 6/3 ft,inPulse : 80Respirations : 18BP : 118/58Hospital Vital Signs from 07/16/2014 9:15 AM:Height : 6/3 ft,inBP : 140/68Hospital Vital Signs from 07/16/2014 9:00 AM:Height : 6/3 ft ,inPulse : 62Respirations : 19BP : 119/72Hospital Vital Signs from 07/16/2014 8: 30 AM:Heart Rate : 79Resp Rate : 17Systolic BP (mmHg) : 111Diastolic BP (mmHg) : 69Mean BP (mmHg) : 79O2 Saturation (%) : 95Hospital Vital Signs from 07/16/2014 8:25 AM:Temp : 97.2Heart Rate : 79Resp Rate : 23Systolic BP (mmHg) : 87Diastolic BP (mmHg) : 50Mean BP (mmHg) : 63O2 Saturation (%) : 95Hospital Vital Signs from 07/16/2014 8:20 AM:Heart Rate : 79Resp Rate : 14Systolic BP (mmHg ) : 90Diastolic BP (mmHg) : 58Mean BP (mmHg) : 69O2 Saturation (%) : 93Hospital Vital Signs from 07/16/2014 8:15 AM:Heart Rate : 80Resp Rate : 19Systolic BP (mmHg ) : 103Diastolic BP (mmHg) : 70Mean BP (mmHg) : 83O2 Saturation (%) : 94Hospital Vital Signs from 07/16/2014 8:10 AM:Heart Rate : 61Resp Rate : 18Systolic BP (mmHg) : 80Diastolic BP (mmHg) : 51Mean BP (mmHg) : 65O2 Saturation (%) : 99Hospital Vital Signs from 07/16/2014 8:05 AM:Temp : 97.8Heart Rate : 68Resp Rate : 20Systolic BP (mmHg) : 111Diastolic BP (mmHg) : 96Mean BP ( mmHg) : 102O2 Saturation (%) : 97Hospital Vital Signs from 07/15/2014 10:36 PM: Height : 6/3 ft,inTemperature : 96 FPulse : 60Respirations : 18BP : 114/ 58Hospital Vital Signs from 07/15/2014 7:51 PM:Height : 6/3 ft,inTemperature : 96.7 FPulse : 60Respirations : 18BP : 113/63Hospital Vital Signs from 07/15/2014 3 :57 PM:Height : 6/3 ft,inTemperature : 96.5 FPulse : 60Respirations : 18BP : 113 /56Hospital Vital Signs from 07/15/2014 11:27 AM:Height : 6/3 ft,inTemperature : 97.9 FPulse : 72Respirations : 18BP : 124/67Hospital Vital Signs from 07/15/2014 7 :40 AM:Height : 6/3 ft,inTemperature : 96.1 FPulse : 60Respirations : 18BP : 107 /69Hospital Vital Signs from 07/15/2014 7:07 AM:Height : 6/3 ft,inTemperature : 96.2 FPulse : 62BP : 112/72Hospital Vital Signs from 07/15/2014 6:05 AM:Height : 6 /3 ft,inTemperature : 97.8 FPulse : 64BP : 110/54Hospital Vital Signs from 2014 5:05 AM:Height : 6/3 ft,inPulse : 60Respirations : 20BP : 109/60Hospital Vital Signs from 07/15/2014 4:45 AM:Height : 6/3 ft,inTemperature : 97.6 FPulse : 60BP : 111/64Hospital Vital Signs from 07/15/2014 2:32 AM:Height : 6/3 ft, inTemperature : 96.6 FPulse : 60Respirations : 20BP : 108/66Hospital Vital Signs from 07/15/2014 2:16 AM:Height : 6/3 ft,inTemperature : 97.2 FPulse : 62BP : 108/67Hospital Vital Signs from 07/15/2014 2:11 AM:Height : 6/3 ft,inPulse : 66Respirations : 16BP : 101/61Hospital Vital Signs from 07/15/2014 2:05 AM:Height : 6/3 ft,inTemperature : 96.5 FPulse : 62Respirations : 18BP : 101/65Hospital Vital Signs from 07/14/2014 10:52 PM:Height : 6/3 ft,inTemperature : 97.1 FPulse : 60Respirations : 20BP : 123/73Hospital Vital Signs from 07/14/2014 6:44 PM: Height : 6/3 ft,inTemperature : 97.9 FPulse : 60Respirations : 20BP : 104/ 64Hospital Vital Signs from 07/14/2014 3:30 PM:Height : 6/3 ft,inTemperature : 96.7 FPulse : 62Respirations : 20BP : 123/68Hospital Vital Signs from 07/14/2014 3 :11 PM:Weight : 115.5/ kgHeight : 6/3 ft,in Results Chemistry from 07/16/2014 4:58 [id number] MMOL/L (136-145 MMOL/L) POTASSIUM3.9 MMOL/L (3.5-5.1 MMOL/L) QUKOQBRF545 MMOL/L (98-107 MMOL/L) SFT968.4 MMOL/L (21.0-32.0 MMOL/L) ANION GAP5.6 MMOL/L L (8.0-16.0 MMOL/L) BUN18 MG/DL (7-18 MG/DL) CREATININE1.06 MG/DL (0.63-1.13 MG/DL) BUN/CREATININE RATIO17.0 (9.1-17.0 ) YUJPMNE55 MG/DL (65-99 MG/DL) GFR EST NON AFR DXLUUZMN98 ML/MIN GFRA EST AFR AMER85 ML/MIN CALCIUM8.2 MG/DL L (8.5-10.1 MG/DL) BILIRUBIN TOTAL1.27 MG/DL H (0.20-1.00 MG/DL) TOTAL PROTEIN6.2 GM/DL L (6.4-8.2 GM/DL) ALBUMIN3.5 GM/DL (3.4-5.0 GM/DL) GLOBULIN2.7 GM/DL (2.3-3.5 GM/DL) A/G RATIO1.3 MG/DL L (1.5-2.2 MG/DL) ALK PHOS78 U/L (46-116 U/L) ALT (SGPT)26 U/L (14-59 U/L) AST (SGOT)17 U/L (15-37 U/L)Chemistry from 07/15/2014 8:33 [id number] MMOL/L L ( 136-145 MMOL/L) POTASSIUM4.1 MMOL/L (3.5-5.1 MMOL/L) UNLXWDCD670 MMOL/L (98-107 MMOL/L) YQE135.9 MMOL/L (21.0-32.0 MMOL/L) ANION GAP8.1 MMOL/L (8.0-16.0 MMOL/L) BUN26 MG/DL H (7-18 MG/DL) CREATININE1.30 MG/DL H (0.63-1.13 MG/DL) BUN/CREATININE RATIO20.0 H (9.1-17.0 ) XMTUNYQ605 MG/DL H (65-99 MG/DL) GFR EST NON AFR FQILSJFN69 ML/MIN GFRA EST AFR AMER66 ML/MIN CALCIUM9.0 MG/DL (8.5-10.1 MG/DL) BILIRUBIN TOTAL1.70 MG/DL H (0.20-1.00 MG/DL) TOTAL PROTEIN7.4 GM/DL (6.4-8.2 GM/DL) ALBUMIN4.2 GM/DL (3.4-5.0 GM/DL) GLOBULIN3.2 GM/DL (2.3-3.5 GM/DL) A/G RATIO1.3 MG/DL L (1.5-2.2 MG/DL) ALK PHOS89 U/L (46-116 U/L) ALT (SGPT)32 U/L (14-59 U/L) AST (SGOT)25 U/L (15-37 U/L) TSH9.95 UIU/ML H (0.34-4.82 UIU/ML) THYROXINE FREE0.96 NG/DL (0.59-1.19 NG/DL)Chemistry from 07/14/2014 3:53 WPPXZD95 MCG/DL L (65-175 MCG/DL) IRON BINDING BGAJKFPH805 MCG/DL (250-450 MCG/DL) PERCENT SATURATION8 % L (20-55 %) THYROXINE FREE0.79 NG/DL (0.59-1.19 NG/DL) BZPEPLRL96 NG/ML (30-400 NG/ML)Hematology from 07/15/2014 8:33 AMWBC6.5 X10e3/UL ( 3.6-11.2 X10e3/UL) RBC3.37 X10e6/UL L (4.06-5.63 X10e6/UL) EBQFKAZIDU62.4 G/DL L (12.5-16.3 G/DL) DGPNYKFEBF67.7 % L (36.7-47.1 %) MCV91.0 FL (80.0-100.0 FL) MCH31.0 PG (27.0-33.0 PG) MCHC34.1 G/DL (32.0-36.0 G/DL) RDW16.7 % (12.3-17.0 %) RDWSD52.5 H (37.1-47.8 ) UPTNJYKM184 X10e3/UL (159-386 X10e3/UL) MPV8.2 FL (7.4-10.4 FL)Hematology from 07/14/2014 9:47 PMHEMOGLOBIN7.8 G/DL L ( 12.5-16.3 G/DL) JCZAUSSZSE29.4 % L (36.7-47.1 %)Hematology from 07/14/2014 3:53 PMHEMOGLOBIN9.0 G/ DL L (12.5-16.3 G/DL) JVLEFSEUHE51.3 % L (36.7-47.1 %)Coagulation from 07/15/2014 8:33 AMPROTHROMBIN TIME11.7 SECONDS H (9.4-11.5 SECONDS) INR1.1 (0.9-1.1 )Blood Bank from 07/14/2014 7:05 PMANTIBODY SCREEN (Indirect Nicholas)NEG RED BLOOD [id number] transfused compatible [id number] transfused compatible ABO GROUPA RH TYPEPOSDX Radiology from 07/14/2014 8:04 PMCHEST 1 VIEWHISTORY: dyspnea PRIORS: 12/22/2013 FINDINGS: There is mild cardiomegaly. No consolidating infiltrate pneumothorax or effusions identified. There are left subclavian cardiac leads in position. IMPRESSION: Mild cardiomegaly without acute infiltrate. Problems Encounter Diagnosis Anemia Comment:Problem resolved by [facility] Workflow upon Discharge, Status: Resolved.Chronic Atrial Fibrillation Comment:Problem resolved by [facility] Workflow upon Discharge, Status:Resolved.Chronic Congestive Heart Failure Comment:Problem resolved by [facility] Workflow upon Discharge, Status: Resolved.Fall Risk Comment:Problem resolved by [facility] Workflow upon Discharge, Status:Resolved.Additional Problems Cardiac Pacemaker Procedure Comment:Problem resolved by [facility] Workflow upon Discharge, Status:Resolved.Congestive Heart Failure Comment:Problem resolved by [facility] Workflow upon Discharge, Status:Resolved. Encounters Encounter Diagnosis Anemia Comment:Problem resolved by [facility] Workflow upon Discharge, Status: Resolved.Chronic Atrial Fibrillation Comment:Problem resolved by [facility] Workflow upon Discharge, Status:Resolved.Chronic Congestive Heart Failure Comment:Problem resolved by [facility] Workflow upon Discharge, Status: Resolved.Fall Risk Comment:Problem resolved by [facility] Workflow upon Discharge, Status:Resolved. Plan of Care Follow-up Appointments from 07/16/2014 11:58 AM:#1 Office appointment: : Follow up with Dr. Rubio in 1 week. 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 His hgb was down to 7.8. He has been admitted as outpatient obsrvation due toanemia. He has had 2 units of PRB' s with Hgb of 10.4 this AM. He to have an EGD. Admitted appropriately as observation. Will continue to follow. Procedures Completed Colonoscopy, by MD MARIA A CASTLE, on 07/16/2014 7:42 AMCompleted Esophagogastroduodenoscopy, by MD MARIA A CASTLE, on 07/16/2014 7:32 AMCompleted , on 02/24/2013 12:00 AMCompleted , on 02/24/2013 12:00 AMCompleted , on 02/24/2013 12:00 AMCompleted , on 02/24/2013 12:00 AMCompleted , on 02/24/2013 12:00 AMCompleted , on 02/24/2013 12:00 AMCompleted , on 02/18/2013 12:00 AMCompleted , on 02/18/2013 12:00 AMCompleted , on 02/18/2013 12:00 AMCompleted , on 10/23/2011 12:00 AMCompleted , on 10/23/2011 12:00 AMCompleted , on 08/09/2009 12 :00 AMCompleted , on 08/09/2009 12:00 AMCompleted , on 08/09/2009 12:00 AMCompleted , on 07/11/2009 12:00 AMCompleted , on 07/11/2009 12:00 AMCompleted , on 07/11/2009 12 :00 AMCompleted , on 07/11/2009 12:00 AMCompleted , on 07/11/2009 12:00 AMCompleted , on 07/06/2009 12:00 AMCompleted , on 07/06/2009 12:00 AMCompleted , on 2009 12:00 AMCompleted , on 07/06/2009 12:00 AMCompleted , on 07/06/2009 12:00 AMCompleted , on 07/06/2009 12:00 AMCompleted , on 07/06/2009 12:00 AMCompleted , on 07/06/2009 12:00 AM Immunizations No immunizations administered or ordered. Hospital Course Hospital Discharge Instructions How to care for yourself at home from 07/16/2014 11:58 AM:Discharge Activity : Activity as toleratedDischarge Diet : Diet as toleratedDischarge Diet: : Start a clear liquid diet, advance as tolerated to regular foodCall your doctor if: : Fever over 101 F or severe chills,Chest pain or other unexplained symptoms, Tingling or numbness develops,A sudden increase or decrease in weight,You have persistent or worsening symptoms,If you have Heart Failure and you gain 3 pounds within 1 week or your symptoms worsen. (Weigh at home tomorrow morning) Specific Discharge Teaching Instructions provided: : NoDischarge on Warfarin : No Allergies, Adverse Reactions, Alerts No Latex Allergy.No IV Contrast Allergy.No Known Drug Allergies.No Known Food Allergies.No Known Allergies. Medication It is the responsibility of the patient or patient inbound customer service representative to confirm the list of medicationswith either the patient's personal care provider or the patient's follow-up care provider to ensure the patient has an appropriate list of medications to take at home. Discharge medicationsNew medicationspantoprazole (ProTONIX) 40 mg tablet, delayed release (DR/EC), Ordered By: ANISA CULLEN MD Directions: 1 tablet oral daily Continued medicationsamiodarone 200 mg Tablet, Ordered By: ANISA CULLEN MD Directions: 1 tablet oral daily furosemide 40 mg Tablet, Ordered By: ANISA CULLEN MD Directions: 2 tablet oral daily losartan 25 mg Tablet, Ordered By: ANISA CULLEN MD Directions: 1 tablet oral daily simvastatin 40 mg Tablet, Ordered By: ANISA CULLEN MD Directions: 1 tablet oral daily at bedtime Stopped medicationsaspirin 81 mg tablet,chewable Directions: 1 tablet oral daily diclofenac sodium 75 mg tablet,delayed release (DR/EC) Directions: 1 tablet oral daily rivaroxaban (Xarelto) 20 mg Tablet Directions: 1 tablet oral daily
--- OUTSIDE RECORDS SUMMARY | 2016-12-20 15:15 | External Medical Summary | Summary of Care ---
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, [...] Active Atrial fibrillation (427.31, I48.91) Status: Active Medications Name Dates Details Simvastatin 40 MG Oral Tablet TAKE ONE TABLET BY MOUTH EVERY NIGHT AT BEDTIME Quantity: 30 Refills: 10 Joanne Falcon Shant Gautam Start Active Pantoprazole Sodium 40 MG Oral Tablet Delayed Release Take one tablet by mouth daily Quantity: 30 Refills: 10 Joanne Falcon, Shant Gautam Start 09-Nov-2015 Active Aspir-Low 81 MG Oral Tablet Delayed Release TAKE 1 TABLET IN THE PM Refills: 0 Start 26-Sep-2014 Active Supplies AutoCPAP 8-12 cm H2O, Permanent use, G47.33, Heated humidity, QzlrteoxF60, mask , headgear, filters, heated tubing, water [...] PTCA BASIC METABOLIC PROFILE 1210 Ordered: 08-Feb-2016 Immunization Name Dates Details Tdap (Adacel) on: Zoster (Zostavax) on: 21-Mar-2014 Lot #: [id number] Prevnar 13 Intramuscular Suspension on: 21-Mar-2014 Lot #: [id number] Family History Mother Name Dates Details Family history of Hyperlipidemia Status: Active Family history of cerebrovascular accident (CVA) (V17.1, Z82.3) Status: Active Father Name Dates Details Family history of Cancer Status: Active Social History Name Dates Details - Status: Smoking Status Name Dates Details Never smoker Vital Signs Date Test Result Details 29-Feb-2016 10:00 BP Systolic 100 mm[Hg] Status: [...] low Range: >60 threshold) EST GFR, NON-AFR ECUADOREAN 38 ml/min (Below low Range: >60 threshold) [...] low Range: >60 threshold) EST GFR, NON-AFR ECUADOREAN 44 ml/min (Below low Range: >60 threshold) [...] 11:15 Appointment; Provider: Shant Rubio M.D. On 07-Mar-2016 11:30 Appointment; Provider: Jonh Lanier M.D. On 03-Mar-2016 10:30 Interventions Provided Labs/Procedures/Vejvsht88 HR URINE PROT PANEL 1199; Done: Feb 28 2016 2: 01PMComprehensive Metabolic Panel 1212; Done: Feb 28 2016 2:01PM Instructions Name Dates Details Instructions not documented Encounters Appointment; Shant Rubio M.D. On 22-Feb-2016 Encounter [...] Problem not documented 15:45 Appointment; Rufino Rayo, PNicholas On 26-Sep-2014 Encounter Diagnosis: Problem not documented [...]
--- OUTSIDE RECORDS SUMMARY | 2016-12-20 15:15 | External Medical Summary ---
:1950 Author Name GENERATED, SYSTEM Care Team Providers Name Role Phone MD ALEXSANDER, YANE Primary Care Provider Unavailable Reason For Visit Chief Complaint LEAD REVISION,LEAD FAILURE Social History Social History from 06/26/2015 1:13 PM:Tobacco Use? : Never Smoker Functional Status Functional Status from 06/26/2015 10:03 AM:LOC : AlertOriented To : Person,Place, Time,EventWeight Bearing Status : FullAssist Level : Independent# Assists : IndependentFunctional Status from 06/25/2015 8:45 PM:LOC : AlertOriented To : Person,Place,Time,EventWeight Bearing Status : FullAssist Level : Partial# Assists : 1 Vital Signs Hospital Vital Signs from 06/26/2015 10:18 AM:Height : 6/3 ft,inTemperature : 97.2 FPulse : 70Respirations : 20BP : 121/68Hospital Vital Signs from 06/26/2015 9:01 AM:Height : 6/3 ft,inHospital Vital Signs from 06/26/2015 7:24 AM:Height : 6 /3 ft,inTemperature : 97.7 FPulse : 70Respirations : 20BP : 118/69Hospital Vital Signs from 06/26/2015 6:45 AM:Weight : 111.6/ kgHeight : 6/3 ft,inHospital Vital Signs from 06/26/2015 1:42 AM:Height : 6/3 ft,inTemperature : 96.5 FPulse : 71Respirations : 16BP : 106/66Hospital Vital Signs from 06/25/2015 10:14 PM: Height : 6/3 ft,inTemperature : 96.6 FPulse : 70Respirations : 18BP : 116/ 62Hospital Vital Signs from 06/25/2015 6:42 PM:Height : 6/3 ft,inTemperature : 96.9 FPulse : 70Respirations : 18BP : 112/67Hospital Vital Signs from 06/25/2015 5:15 PM:Height : 6/3 ft,inPulse : 69Respirations : 20BP : 99/70Hospital Vital Signs from 06/25/2015 4:15 PM:Height : 6/3 ft,inTemperature : 96.9 FPulse : 70Respirations : 20BP : 111/79Hospital Vital Signs from 06/25/2015 3:15 PM: Height : 6/3 ft,inPulse : 71Respirations : 20BP : 103/67Hospital Vital Signs from 06/25/2015 2:45 PM:Height : 6/3 ft,inPulse : 61Respirations : 20BP : 98/ 66Hospital Vital Signs from 06/25/2015 2:15 PM:Height : 6/3 ft,inPulse : 70Respirations : 20BP : 103/67Hospital Vital Signs from 06/25/2015 2:00 PM: Height : 6/3 ft,inPulse : 65Respirations : 20BP : 101/65Hospital Vital Signs from 06/25/2015 1:45 PM:Height : 6/3 ft,inPulse : 70Respirations : 20BP : 101/ 64Hospital Vital Signs from 06/25/2015 1:30 PM:Height : 6/3 ft,inPulse : 73Respirations : 20BP : 101/66Hospital Vital Signs from 06/25/2015 1:15 PM: Height : 6/3 ft,inTemperature : 96.0 FPulse : 71Respirations : 20BP : 113/72 Results Coagulation from 06/25/2015 9:50 AM*PROTHROMBIN TIME11.4 SECONDS (9.4-11.5 SECONDS) *INR1.1 (0.9-1.1 ) PARTIAL THROMBOPLASTIN TIME29.9 SECONDS (23.0-31.0 SECONDS)DX Radiology from 3:18 PMCHEST 1 VIEWHistory: Post Operative Pacemaker Placement Priors: 07/14/14 Findings: A left-sided cardiac pacemaker is in place. There is no pneumothorax. Cardiac silhouette is enlarged. There is minimal atelectasis in the right mid lung and lingula. There are no pleural effusions. Impression: Cardiac pacemaker in place without pneumothorax. . Cardiomegaly and bilateral atelectasis. Electronically signed by: Danie Blackman MD Dictated: 06/25/2015 15:40 Problems Encounter Diagnosis Acute Pain Status:Active.Cardiac Pacemaker Procedure Status:Active.Fall Risk Status:Active.Mobility Impairment Status:Active.Additional Problems Anemia Comment:Problem resolved by [facility] Workflow upon Discharge, Status: Resolved.Chronic Atrial Fibrillation Comment:Problem resolved by [facility] Workflow upon Discharge, Status:Resolved.Chronic Congestive Heart Failure Comment:Problem resolved by [facility] Workflow upon Discharge, Status: Resolved.Congestive Heart Failure Comment:Problem resolved by [facility] Workflow upon Discharge, Status:Resolved. Encounters Encounter Diagnosis Acute Pain Status:Active.Cardiac Pacemaker Procedure Status:Active.Fall Risk Status:Active.Mobility Impairment Status:Active. Plan of Care Follow-up Appointments from 06/26/2015 1:13 PM:#1 Office appointment: : Milind Maldonado#1 Date/Time : 07/14/2015 10:45 AMAddress # 1 : [facility]: [address] [place]- or [phone] Plan from 06/26/2015 8:17 AM:Care Management Note :Patient was admitted as an outpatient s/p a lead revision d/t a lead failure. CXR showed Cardiac pacemaker in place without pneumothorax. Cardiomegaly and bilateral atelectasis. POC is to monitor labs/VS/I&O's, and increase acitivity/diet. Anticipate a discharge later today, and CM will continue to follow.97.7, 70, 20, 118/69, 96% RA Procedures Completed Colonoscopy, by MD MARIA A CASTLE, on 07/16/2014 7:42 AMCompleted Esophagogastroduodenoscopy, by MD MARIA A CASTLE, on 07/16/2014 7:32 AMCompleted Procedure Code: 00.00 Procedure Name: not valued, on 07/16/2014 12: 00 AMCompleted Procedure Code: 27136 Procedure Name: not valued, on 07/16/2014 12 :00 AMCompleted Procedure Code: 63464 Procedure Name: not valued, on 07/16/2014 12:00 AMCompleted , on 02/24/2013 12:00 AMCompleted , on 02/24/2013 12:00 AMCompleted , on 02/24/2013 12:00 AMCompleted , on 02/24/2013 12:00 AMCompleted , on 02/24/2013 12:00 AMCompleted , on 02/24/2013 12:00 AMCompleted , on 02/18/2013 12:00 AMCompleted , on 02/18/2013 12:00 AMCompleted , on 02/18/2013 12:00 AMCompleted , on 10/23/2011 12:00 AMCompleted , on 10/23/2011 12:00 AMCompleted , on 08/09/2009 12:00 AMCompleted , on 08/09/2009 12:00 AMCompleted , on 08/09/2009 12: 00 AMCompleted , on 07/11/2009 12:00 AMCompleted , on 07/11/2009 12:00 AMCompleted , on 07/11/2009 12:00 AMCompleted , on 07/11/2009 12:00 AMCompleted , on 07/11/2009 12 :00 AMCompleted , on 07/06/2009 12:00 AMCompleted , on 07/06/2009 12:00 AMCompleted , on 07/06/2009 12:00 AMCompleted , on 07/06/2009 12:00 AMCompleted , on 07/06/2009 12:00 AMCompleted , on 07/06/2009 12:00 AMCompleted , on 07/06/2009 12:00 AMCompleted , on 07/06/2009 12:00 AM Immunizations No immunizations administered or ordered. Hospital Course Hospital Discharge Instructions How to care for yourself at home from 06/26/2015 1:13 PM:Discharge Activity : Activity as tolerated,May Shower,No Tub BathDischarge Diet : Diet as toleratedCall your doctor if: : Fever over 101 F or severe chills,Chest pain or other unexplained symptoms,Tingling or numbness develops,A sudden increase or decrease in weight,You have persistent or worsening symptoms,If you have Heart Failure and you gain 3 pounds within 1 week or your symptoms worsen. (Weigh at home tomorrow morning)Specific Discharge Teaching Instructions provided: : YesSpecific Discharge Teaching Instructions Reviewed: : Pacemaker and Bivent GuidelinesDischarge on Warfarin : No Allergies, Adverse Reactions, Alerts No Latex Allergy.No IV Contrast Allergy.No Known Drug Allergies.No Known Food Allergies.No Known Allergies. Medication It is the responsibility of the patient or patient leasing representative to confirm the list of medicationswith either the patient's personal care provider or the patient's follow-up care provider to ensure the patient has an appropriate list of medications to take at home. Discharge medicationsContinued medicationsaspirin 81 mg tablet,chewable, Ordered By: MITCHELL PALACIOS APRN Directions: 1 tablet oral daily every evening spironolactone 50 mg Tablet, Ordered By: MITCHELL PALACIOS APRN Directions: 1 tablet oral daily simvastatin 40 mg Tablet, Ordered By: MITCHELL PALACIOS APRN Directions: 1 tablet oral daily at bedtime potassium chloride (Klor-Con M20) 20 mEq tablet,ER particles/crystals, Ordered By: MITCHELL PALACIOS APRN Directions: 1 tablet oral daily pantoprazole 40 mg tablet,delayed release (DR/EC), Ordered By: MITCHELL PALACIOS APRN Directions: 1 tablet oral daily metoLAZOne 5 mg Tablet, Ordered By: MITCHELL PALACIOS APRN Directions: 1 tablet oral every Thursday furosemide 40 mg Tablet, Ordered By: MICTHELL PALACIOS APRN Directions: 1 tablet oral twice a day losartan 25 mg Tablet, Ordered By: MITCHELL PALACIOS APRN Directions: 1 tablet oral daily triamcinolone acetonide 0.1 % Cream, Ordered By: MITCHELL PALACIOS APRN Directions: 1 application topical twice a day zolpidem 10 mg Tablet, Ordered By: MITCHELL PALACIOS APRN Directions: 1 tablet oral daily at bedtime PRN insomnia Stopped medicationsNone
--- OUTSIDE RECORDS SUMMARY | 2016-12-20 15:16 | External Medical Summary | Summary of Care ---
:1950 Author Organization [facility] Address [address] [place] [address] Phone Care Team Providers Name Role Phone Lotus [...] of atrial fibrillation (V45.89, Z98.890) Status: Active Fatigue (780.79, R53.83) Status: Active [...] Active Acid reflux (530.81, K21.9) Status: Active CAD (coronary atherosclerotic disease) (414.00, I25.10) Status: Active PTCA Status: Active Hypertension (401.9, I10) Status: Active Hyperlipidemia (272.4, E78.5) Status: Active Paroxysmal atrial fibrillation (427.31, I48.0) Status: Active Status post ablation of atrial fibrillation (V45.89, Z98.890) Status: Active Impotence (607.84, N52.9) Status: Active Hypothyroidism (244.9, E03.9) Status: Active Chronic systolic congestive heart failure (428.22, I50.22) Status: Active CKD (chronic kidney disease), stage III (585.3, N18.3) Status: Active Anxiety (300.00, F41.9) Status: Active Medications Name Dates Details Simvastatin 40 MG Oral Tablet TAKE ONE TABLET BY MOUTH EVERY NIGHT AT BEDTIME Quantity: 30 Refills: 10 Shant Rubio M.D. Start Active Furosemide 40 MG Oral Tablet take two tablets by mouth daily Quantity: 60 Refills: 10 Shant Rubio M.D. Start 16-Jun-2011 Active MetOLazone 5 MG Oral Tablet take 2 tabs daily Quantity: 60 Refills: 5 Shant Rubio M.D. Start 30-Mar-2013 Active Pantoprazole Sodium 40 MG Oral Tablet Delayed Release Take one tablet by mouth daily Quantity: 30 Refills: 10 Shant Rubio M.D. Start 09-Nov-2015 Active Aspir-Low 81 MG Oral [...] M20 20 MEQ Oral Tablet Extended Release Take one tablet by mouth daily Quantity: 30 Refills: 3 Shant Rubio M.D. Start 08-Nov-2015 Active Supplies AutoCPAP 8-12 cm H2O, Permanent use, G47.33, Heated humidity, [id number], mask , headgear, filters, heated tubing, water chamber, chinstrap Quantity: 1 Refills: 0 Paloma Hart Start 03-Apr-2015 Active Iron 325 (65 Fe) MG Oral Tablet Take 1 tablet daily Refills: 0 Shant Rubio M.D. Start 14-May-2015 Active Spironolactone 50 MG Oral Tablet TAKE 1 TABLET DAILY. Refills: 0 Shant Rubio M.D. Start 14-May-2015 Active Triamcinolone Acetonide 0.1 % External Cream USE TWO TIMES A DAY Quantity: 1 Refills: 6 Joanne Falcon, Shant Gautam Start 14-May-2015 Active 30 GM Tube Levothyroxine Sodium 50 MCG Oral Tablet TAKE 1 TABLET DAILY. Refills: 0 Joanne FalconShant Start Active Viagra 100 MG Oral Tablet Use as needed before sexual activity Quantity: 15 Refills: 3 Joel FalconMark Start 26-Dec-2015 Active Levothyroxine Sodium 75 MCG Oral Tablet TAKE 1 TABLET DAILY. Quantity: 30 Refills: 11 Joanne FalconShant Start 15-Jan-2016 Active ALPRAZolam 0.25 MG Oral Tablet TAKE ONE TO TWO TABLETS BY MOUTH EVERY 8 HOURS NEEDED Quantity: 30 Refills: 5 Joanne FalconShant Start 15-Jan-2016 Active MetOLazone 5 MG Oral Tablet TAKE 1 TABLET DAILY. Quantity: 30 Refills: 11 Joanne Falcon, Shant Gautam Start 15-Jan-2016 Active Allergies and Adverse Reactions Name Dates [...] Completed: 23-Oct-2011 External Globe Enucleation Left PTCA RENAL PROFILE 1240 Ordered: 17-Jan-2016 Immunization Name Dates Details Tdap (Adacel) on: Zoster (Zostavax) on: 21-Mar-2014 Lot #: [id number] Prevnar 13 Intramuscular Suspension on: 21-Mar-2014 Lot #: [id number] Family History Mother Name Dates Details Family history of Hyperlipidemia Status: Active Family history of cerebrovascular accident (CVA) (V17.1, Z82.3) Status: Active Father Name Dates Details Family history of Cancer Status: Active Social History Name Dates Details - Status: Smoking Status Name Dates Details Never smoker Vital Signs Date Test Result Details 29-Jan-2016 11:26 BP Systolic 115 mm[Hg] Status: Comments: Location: ; Position: BP Diastolic 58 mm[Hg] Status: Comments: Location: ; Position: Heart Rate 92 /min Status: Comments: Location: ; Weight 252 lb Status: Physical Findings 96 Status: Comments: O2 Saturation Body Mass Index Calculated 31.5 kg/m2 Status: Body Surface Area Calculated 2.42 m2 Status: 15-Jan-2016 11:17 BP Systolic 115 mm[Hg] Status: Comments: Location: ; Position: BP Diastolic 60 mm[Hg] Status: Comments: Location: ; Position: Heart Rate 89 /min Status: Comments: Location: ; Weight 252.8 lb Status: Physical Findings 97 Status: Comments: O2 Saturation Body Mass Index Calculated 31.6 kg/m2 Status: Body Surface Area Calculated 2.42 m2 Status: Results Date Description Value Details 11-Jan-2016 10:19 CBC w/ Auto Diff 7150 Comments: Manual differential indicated. Fastin hours WBC 7.9 K/uL Range: 4.5-11.0 RBC 4.17 mil/uL (Below low threshold) Range: 4.20-5.40 HGB 12.4 g/dL (Below low threshold) Range: 14.0-18.0 HCT 37.3 % (Below low threshold) Range: 42.0-53.0 MCV 89.4 fL Range: 80.0-99.0 MCH 29.6 pg Range: 27.3-32.5 MCHC 33.1 % Range: 32.0-36.0 RDW 14.4 % Range: 11.6-14.8 PLATELETS 217 K/uL Range: 150-400 MPV 7.0 fL Range: 6.0-11.0 10:44 Manual Differential 7400 Comments: Fastin hours SEGS 83 % (Above high threshold) Range: 37-80 BANDS 0 % Range: 0-7 LYMPH 10 % (Below low threshold) Range: 13-50 MONO 6 % Range: 0-12 EOSIN 1 % Range: 0-7 BASO 0 % Range: 0-3 CHHAYA LYMPH 0 % Range: 0-0 META 0 % Range: 0-0 MYELO 0 % Range: 0-0 PRO 0 % Range: 0-0 BLAST 0 % Range: 0-0 NUC RBC 0 /100 WBC Range: 0-0 SMUDGE 0 /100 WBC PLATELET Adequate Range: Adequate 10:51 Comprehensive Metabolic Panel 1212 Comments: Fastin hours SODIUM 131 mmol/L (Below low Range: 133-144 threshold) POTASSIUM 4.6 mmol/L Range: 3.5-5.1 CHLORIDE 96 mmol/L (Below low Range: 98-110 threshold) CARBON DIOXIDE 26.8 mmol/L Range: 23.0-33.0 ANION GAP 8 mmol/L Range: 6-16 BUN 50 mg/dL (Above high Range: 7-18 threshold) CREATININE, SERUM 1.74 mg/dL (Above high Range: 0.70-1.30 threshold) BUN:CREATININE RATIO 29 EST GFR, 48 ml/min (Below low Range: >60 threshold) EST GFR, NON-AFR SUDANESE 39 ml/min (Below low Range: >60 threshold) Comments: EST GFR is reported in ml/min per 1.73 m2 of body surface area. ----- GLUCOSE 105 mg/dL (Above high Range: 70-100 threshold) ALK PHOSPHATASE 84 U/L Range: 46-116 TOTAL BILIRUBIN 0.80 mg/dL Range: 0.20-1.00 AST 21 U/L Range: 8-35 ALT 28 U/L Range: 16-63 ALBUMIN 3.1 g/dL (Below low Range: 3.4-5.0 threshold) TOTAL PROTEIN 6.4 g/dL Range: 6.4-8.2 A/G RATIO 0.9 units (Below low Range: 1.0-1.8 threshold) CALCIUM 8.4 mg/dL (Below low Range: 8.5-10.1 threshold) 10:51 LIPID PROFILE 1184 Comments: Fastin hours CHOLESTEROL 107 mg/dL Range: <200 TRIGLYCERIDES 24 mg/dL (Below low threshold) Range: 30-200 HDL Cholesterol 57 mg/dL Range: >39 NON HDL CHOLESTEROL 50 CARDIAC RSK FACTOR 1.9 units (Below low threshold) Range: 4.4-5.0 LDL - CALCULATED 45 mg/dL Range: 0-130 11:06 THYROID STIM. HORMONE 3602 Comments: Fastin hours THYROID STIM. HORMONE 7.518 uIU/mL (Above high Range: 0.550-4.780 threshold) Comments: No established reference ranges for infants and children <2 years of age----- 06-Feb-2016 12:47 BASIC METABOLIC PROFILE 1210 SODIUM [...] low Range: >60 threshold) EST GFR, NON-AFR SUDANESE 38 ml/min (Below low Range: >60 threshold) Comments: EST GFR is reported in ml/min per 1.73 m2 of body surface area. ----- BUN:CREATININE RATIO 27 GLUCOSE 104 mg/dL (Above high Range: 70-100 threshold) CALCIUM 8.6 mg/dL Range: 8.5-10.1 Plan of Care Name Dates Details Planned Observations Planned Goals not documented Planned Encounters Appointment; Provider: Mick Parker M.D. On 06-Nov-2016 08:15 Appointment; Provider: Mark Maldonado M.D. On 25-Jun-2016 11:00 Appointment; Provider: Shant Rubio M.D. On 07-Feb-2016 13:00 Appointment; Provider: Mark Maldonado M.D. On 25-Jun-2015 12:00 Appointment; Provider: Mark Maldonado M.D. On 22-Dec-2013 07:30 Appointment; Provider: Mark Maldonado M.D. On 24-Feb-2013 09:30 Appointment; Provider: Mark Maldonado M.D. On 18-Feb-2013 08:30 Appointment; Provider: Sweetie Langston On 04-Jan-2013 09:45 Appointment; Provider: Mark Maldonado M.D. On 23-Oct-2011 10:30 Appointment; Provider: Mark Maldonado M.D. On 15-Nov-2010 08:00 Appointment; Provider: Mark Maldonado M.D. On 09:00 Appointment; Provider: Mark Maldonado M.D. On 17-May-2010 08:15 Appointment; Provider: Zach Jean M.D. On 04-Apr-2010 09:45 Appointment; Provider: Mark Maldonado M.D. On 15-Feb-2010 08:30 Appointment; Provider: Mark Maldonado M.D. On 16-Nov-2009 09:15 Appointment; Provider: Mark Maldonado M.D. On 07:30 Appointment; Provider: Joshua Plasencia M.D. On 14:00 Appointment; Provider: Joshua Plasencia M.D. On 06-Jul-2009 11:00 Instructions Name Dates Details Instructions not documented Encounters Appointment; Neil Justin M.D. On 01-Feb-2016 Encounter [...] Problem not documented 15:45 Appointment; Rufino Rayo PFarzanehAFarzaneh On 26-Sep-2014 Encounter Diagnosis: Problem not documented [...] Problem not documented 10:30 Appointment; Rufino Rayo PFarzanehAFarzaneh On 12-Jun-2014 Encounter Diagnosis: Problem not documented 10:15 Appointment; Mark Maldonado M.D. On 07-Jun-2014 Encounter Diagnosis: Problem not documented 14:15 Appointment; Mark Maldonado M.D. On 25-May-2014 Encounter Diagnosis: Problem not documented 14:30 Appointment; Mark Maldonado M.D. On 26-Apr-2014 Encounter Diagnosis: Problem not documented 15:15 Appointment; Rufino Rayo, PNicholas On 03-Apr-2014 Encounter Diagnosis: Problem not documented 14:30 Appointment; Shant Rubio M.D. On 21-Mar-2014 Encounter Diagnosis: Problem not documented 09:00
--- OUTSIDE RECORDS SUMMARY | 2016-12-20 15:16 | External Medical Summary ---
:1950 Author Name [facility], [facility] Care Team Providers Name Role Phone MD ALEXSANDER, YANE Primary Care Provider Unavailable Reason For Visit Reason for Visit from 02/20/2016 5:32 AM:Pt Stated Reason for Adm : Extremely dizzy Chief Complaint ELEVATED TROPINS, DIZZINESS Social History Social History from 02/21/2016 11:25 AM:Tobacco Use? : Never SmokerSocial History from 02/20/2016 5:32 AM:Tobacco Use? : Never Smoker Functional Status Functional Status from 02/21/2016 7:31 AM:LOC : AlertOriented To : Person,Place, Time,EventWeight Bearing Status : FullAssist Level : Independent# Assists : IndependentFunctional Status from 02/20/2016 7:40 PM:LOC : AlertOriented To : Person,Place,Time,EventWeight Bearing Status : FullAssist Level : Partial# Assists : 1Functional Status from 02/20/2016 8:28 AM:LOC : AlertOriented To : Person,Place,Time,EventWeight Bearing Status : FullAssist Level : Partial# Assists : 1Functional Status from 02/20/2016 5:32 AM:LOC : AlertOriented To : Person,Place,Time,EventWeight Bearing Status : FullAssist Level : Partial# Assists : 1 Vital Signs Hospital Vital Signs from 02/21/2016 10:40 AM:Height : 6/3 ft,inTemperature : 97.3 FPulse : 62Respirations : 20BP : 106/57Hospital Vital Signs from 02/21/2016 9:18 AM:Height : 6/3 ft,inPulse : 73BP : 118/60Hospital Vital Signs from 2016 7:31 AM:Heart Rate : 70Hospital Vital Signs from 02/21/2016 6:19 AM:Height : 6/3 ft,inTemperature : 97.3 FPulse : 70Respirations : 20BP : 98/53Hospital Vital Signs from 02/21/2016 4:12 AM:Weight : 115.2/ kgHeight : 6/3 ft, inTemperature : 97.3 FPulse : 72Respirations : 20BP : 70/35Hospital Vital Signs from 02/20/2016 11:23 PM:Height : 6/3 ft,inTemperature : 97.8 FPulse : 70Respirations : 20BP : 89/54Hospital Vital Signs from 02/20/2016 7:57 PM:Height : 6/3 ft,inTemperature : 97.4 FPulse : 70Respirations : 20BP : 92/52Hospital Vital Signs from 02/20/2016 7:40 PM:Heart Rate : 70Hospital Vital Signs from 02/19 3:04 PM:Height : 6/3 ft,inTemperature : 97.6 FPulse : 70Respirations : 20BP : 92/52Hospital Vital Signs from 02/20/2016 10:54 AM:Height : 6/3 ft, inTemperature : 98.2 FPulse : 70Respirations : 20BP : 98/60Hospital Vital Signs from 02/20/2016 9:31 AM:Height : 6/3 ft,inHospital Vital Signs from 02/20/2016 8: 28 AM:Heart Rate : 69Hospital Vital Signs from 02/20/2016 7:06 AM:Height : 6/3 ft ,inTemperature : 97.9 FPulse : 132Respirations : 20BP : 105/55Hospital Vital Signs from 02/20/2016 5:32 AM:Weight : 115.2/ kgHeight : 6/3 ft,inHospital Vital Signs from 02/20/2016 5:00 AM:Height : 6/3 ft,inTemperature : 97.0 FPulse : 70Respirations : 20BP : 103/60 Results Chemistry from 02/21/2016 8:05 AMUR DQCKIS92 MMOL/L (20-110 MMOL/L) UR QVBLXUXBIK23.12 MG/DL (Not Established MG/DL) *UR INTERVALRANDOMChemistry from 02/21/2016 4:34 YUNYQNFT656 MMOL/L L (136-145 MMOL/L) POTASSIUM4.0 MMOL/L (3.5-5.1 MMOL/L) JHVJHHYH16 MMOL/L (98-107 MMOL/L) ZWH539.9 MMOL/L (21.0-32.0 MMOL/L) *ANION GAP6.1 MMOL/L L (8.0-16.0 MMOL/L) BUN41 MG/DL H (7-18 MG/DL) CREATININE1.52 MG/DL H (0.70-1.30 MG/DL) *BUN/CREATININE RATIO27.0 H (9.1-17.0 ) QGSYEFY811 MG/DL H (65-99 MG/DL) *GFR EST NON AFR JMHDLNFD05 ML/MIN *GFR EST AFR AMER54 ML/MIN CALCIUM8.4 MG/DL L (8.5-10.1 MG/DL)Chemistry from 02/20/2016 11:33 AMTROPONIN- I0.073 NG/ML H (0.000-0.056 NG/ML)Chemistry from 02/20/2016 6:15 AMTROPONIN- I0.078 NG/ML H (0.000-0.056 NG/ML) KRAXEOLWEYL894 MG/DL (50-199 MG/DL) YVOPICWYXSXIH97 MG/DL (0-149 MG/DL) HDL ZLMXKQDCEFF87 MG/DL (40-60 MG/DL) *LDL (CALCULATED) CHOL45 MG/DL (0-99 MG/DL)Hematology from 02/21/2016 4:34 AMWBC4.8 X10e3/UL (3.6-11.2 X10e3/UL) RBC3.60 X10e6/UL L (4.06-5.63 X10e6/UL) IXMSKCXTGT24.5 G/DL L (12.5-16.3 G/DL) GGANVBSMFY06.2 % L (36.7-47.1 %) *MCV86.6 FL (80.0-100.0 FL) *MCH29.2 PG (27.0-33.0 PG) *MCHC33.7 G/DL (32.0-36.0 G/DL) *RDW13.6 % (12.3-17.0 %) UGEYUHPT145 X10e3/UL (159-386 X10e3/UL) *MPV8.4 FL (7.4-10.4 FL) AUTOMATED DIFFPERFORMED SEGS68.5 % *NWGPSHFSYSF54.4 % *GTAZMLJIT55.5 % *EOSINOPHILS2.6 % *BASOPHILS1.0 % *ABSOLUTE NEUTROPHILS3.30 X10e3/UL (1.80-7.80 X10e3/UL) *ABSOLUTE LYMPHOCYTES0.80 X10e3/UL L (1.00-3.00 X10e3/UL) *ABSOLUTE MONOCYTES0.60 X10e3/UL (0.30-1.00 X10e3/UL) *ABSOLUTE EOSINOPHILS0.10 X10e3/UL (0.00-0.50 X10e3/UL) *ABSOLUTE BASOPHILS0.00 X10e3/UL (0.00-0.20 X10e3/UL)Echocardiology from 2016 12:00 AMEchocardiogramSee also the report from this date Problems Encounter Diagnosis Chronic Kidney Disease, Stage 3 Status:Active.Fall Risk Status:Active.Low Blood Pressure Status:Active.Mobility Impairment Status:Active.Skin Integrity Impairment Risk Status:Active.Additional Problems Acute Pain Comment:Problem resolved by [facility] Workflow upon Discharge, Status: Resolved.Anemia Comment:Problem resolved by [facility] Workflow upon Discharge, Status:Resolved.Cardiac Pacemaker Procedure Comment:Problem resolved by [facility] Workflow upon Discharge, Status:Resolved.Cardiac Pacemaker Procedure Comment: Problem resolved by [facility] Workflow upon Discharge, Status:Resolved.Chronic Atrial Fibrillation Comment:Problem resolved by [facility] Workflow upon Discharge , Status:Resolved.Chronic Congestive Heart Failure Comment:Problem resolved by [facility] Workflow upon Discharge, Status:Resolved.Congestive Heart Failure Comment:Problem resolved by [facility] Workflow upon Discharge, Status:Resolved. Encounters Encounter Diagnosis Chronic Kidney Disease, Stage 3 Status:Active.Fall Risk Status:Active.Low Blood Pressure Status:Active.Mobility Impairment Status:Active.Skin Integrity Impairment Risk Status:Active. Plan of Care Follow-up Appointments from 02/21/2016 11:25 AM:#1 Office appointment: : Dr. Maldonado#1 Date/Time : 02/28/2016 1:00 PMAddress # 1 : [facility]: [address], [place]- or #2 Office appointment: : Dr. Rubio#2 Date/Time : 02/28/2016 8:00 AMAddress # 2 : [facility]: [address] [place], [place]- or Treatment Plan from 02/20/2016 3:35 PM:Care Management Note :Patient was admitted as observation d/t dizziness and elevated troponin's. Patient c/o increased shortness of breath, increased lower extremity edema, and became lightheaded. In ER patient was noted to be hypotensive, and received a 1L of IVF. Patient was placed on tele, cardio was consulted, lyphemeda was ordered, started on Lovenox, and an Echo was ordered. Work up is in progress, and CM will continue to follow.Troponin 0.085, 0.078, 0.073, BUN 51, Creat 1.68, BNP 96400.6, 70, 20 , 92/52, 96% RA Procedures Completed Colonoscopy, by MD MARIA A CASTLE, on 07/16/2014 7:42 AMCompleted Esophagogastroduodenoscopy, by MD MARIA A CASTLE, on 07/16/2014 7:32 AMCompleted Procedure Code: 00.00 Procedure Name: not valued, on 07/16/2014 12: 00 AMCompleted Procedure Code: 08223 Procedure Name: not valued, on 07/16/2014 12 :00 AMCompleted Procedure Code: 07923 Procedure Name: not valued, on 07/16/2014 12:00 [...] AMCompleted , on 07/06/2009 12:00 AM Immunizations INFLUEN VACC 2016-17(GLAXO) (FLUARIX 2016-17 (GLAXO), [employer], Lot # [id number]) ; Administered 02/21/2016 11:43 AM; 1 DOSE=0.5 ML, INTRAMUSCL Hospital Course Hospital Discharge Instructions How to care for yourself at home from 02/21/2016 11:25 AM:Discharge Activity : Activity as toleratedDischarge Diet : Modification as given by physicianDischarge Diet: : Low Fat CholesterolCall your doctor if: : Fever over 101 F or severe chills,Chest pain or other unexplained symptoms,Tingling or numbness develops,A sudden increase or decrease in weight,You have persistent or worsening symptomsSpecific Discharge Teaching Instructions provided: : NoDischarge on Warfarin : No Allergies, Adverse Reactions, Alerts No Latex Allergy.No IV Contrast Allergy.No Known Drug Allergies.No Known Food Allergies.No Known Allergies. Medication It is the responsibility of the patient or patient community relations representative to confirm the list of medicationswith either the patient's personal care provider or the patient's follow-up care provider to ensure the patient has an appropriate list of medications to take at home. Discharge medicationsNew medicationsbumetanide 1 mg Tablet, Ordered By: REYNALDO STAPLETON MD Directions: 1 tablet oral twice a day Continued medicationsaspirin 81 mg tablet,chewable, Ordered By: REYNALDO STAPLETON MD Directions: 1 tablet oral daily every evening losartan 25 mg Tablet, Ordered By: REYNALDO STAPLETON MD Directions: 1 tablet oral daily spironolactone 50 mg Tablet, Ordered By: REYNALDO STAPLETON MD Directions: 1 tablet oral daily simvastatin 40 mg Tablet, Ordered By: REYNALDO STAPLETON MD Directions: 1 tablet oral daily at bedtime pantoprazole 40 mg tablet,delayed release (DR/EC), Ordered By: REYNALDO STAPLETON MD Directions: 1 tablet oral daily zolpidem 10 mg Tablet, Ordered By: REYNALDO STAPLETON MD Directions: 1 tablet oral daily at bedtime PRN insomnia triamcinolone acetonide 0.1 % Cream, Ordered By: REYNALDO STAPLETON MD Directions: 1 application topical twice a day Stopped medicationsfurosemide 40 mg Tablet Directions: 1 tablet oral twice a day potassium chloride (Klor-Con M20) 20 mEq tablet,ER particles/crystals Directions: 1 tablet oral daily metoLAZOne 5 mg Tablet Directions: 1 tablet oral every Thursday
--- OUTSIDE RECORDS SUMMARY | 2016-12-20 15:16 | External Medical Summary ---
:1950 Author Name GENERATED, SYSTEM Care Team Providers Name Role Phone MD ALEXSANDER, YANE Primary Care Provider Unavailable Reason For Visit Reason for Visit from 11/12/2016 5:21 PM:Pt Stated Reason for Adm : CHF exacerbation, elevated PT/INR, coagulopathy Chief Complaint CHF Social History Social History from 11/28/2016 12:44 PM:Tobacco Use? : Never SmokerSocial History from 11/12/2016 5:21 PM:Tobacco Use? : Never Smoker Functional Status Functional Status from 11/28/2016 9:33 AM:LOC : AlertOriented To : Person,Place, Time,EventWeight Bearing Status : FullAssist Level : Partial# Assists : 1Functional Status from 11/27/2016 9:39 PM:LOC : AlertOriented To : Person,Place ,Time,EventWeight Bearing Status : FullAssist Level : Partial# Assists : 1Functional Status from 11/27/2016 10:05 AM:LOC : AlertOriented To : Person, Place,Time,EventWeight Bearing Status : FullAssist Level : Partial# Assists : 1Functional Status from 11/27/2016 7:03 AM:# Assists : IndependentFunctional Status from 11/26/2016 10:15 PM:LOC : AlertOriented To : Person,Place, TimeWeight Bearing Status : FullAssist Level : Partial# Assists : 1Functional Status from 11/26/2016 5:32 PM:# Assists : 1Functional Status from 11/26/2016 8: 49 AM:LOC : AlertOriented To : Person,Place,Time,EventWeight Bearing Status : FullAssist Level : Partial# Assists : 1Functional Status from 11/25/2016 8:23 PM :LOC : AlertOriented To : Person,Place,Time,EventWeight Bearing Status : FullAssist Level : Partial# Assists : 1Functional Status from 11/25/2016 7:19 PM :# Assists : 2Functional Status from 11/25/2016 7:40 AM:# Assists : 1Functional Status from 11/25/2016 7:33 AM:LOC : AlertOriented To : Person,Place,Time, EventWeight Bearing Status : FullAssist Level : Partial# Assists : 1Functional Status from 11/24/2016 7:05 PM:LOC : AlertOriented To : Person,Place,Time, EventWeight Bearing Status : FullAssist Level : Partial# Assists : 1Functional Status from 11/24/2016 2:57 PM:Oriented To : Person,Place,Time,EventFunctional Status from 11/24/2016 1:43 PM:Oriented To : Person,Place,Time,EventFunctional Status from 11/24/2016 7:15 AM:LOC : AlertOriented To : Person,Place,Time, EventWeight Bearing Status : FullAssist Level : Partial# Assists : 1Functional Status from 11/23/2016 8:12 PM:LOC : AlertOriented To : Person,Place,Time, EventWeight Bearing Status : FullAssist Level : Partial# Assists : 1Functional Status from 11/23/2016 8:52 AM:LOC : AlertOriented To : Person,Place,Time, EventWeight Bearing Status : FullAssist Level : Partial# Assists : 1Functional Status from 11/22/2016 9:18 PM:LOC : AlertOriented To : Person,Place,Time, EventWeight Bearing Status : FullAssist Level : Partial# Assists : 1Functional Status from 11/22/2016 10:15 AM:LOC : AlertOriented To : Person,Place,Time, EventWeight Bearing Status : FullAssist Level : Partial# Assists : 1Functional Status from 11/22/2016 12:00 AM:LOC : AlertOriented To : Person,Place,Time, EventWeight Bearing Status : FullAssist Level : Partial# Assists : 2Functional Status from 11/21/2016 7:59 PM:LOC : AlertOriented To : Person,Place,Time, EventWeight Bearing Status : FullAssist Level : Partial# Assists : 1Functional Status from 11/21/2016 9:24 AM:LOC : AlertOriented To : Person,Place,Time, EventWeight Bearing Status : FullAssist Level : Partial# Assists : 1Functional Status from 11/21/2016 8:11 AM:# Assists : 1Functional Status from 11/20/2016 8: 14 PM:LOC : AlertOriented To : Person,Place,Time,EventWeight Bearing Status : FullAssist Level : Partial# Assists : 1Functional Status from 11/20/2016 9:34 AM :LOC : AlertOriented To : Person,Place,Time,EventWeight Bearing Status : FullAssist Level : Partial# Assists : 1Functional Status from 11/19/2016 7:38 PM :LOC : AlertOriented To : Person,PlaceWeight Bearing Status : FullAssist Level : Partial# Assists : 1Functional Status from 11/19/2016 4:29 PM:LOC : AlertOriented To : Person,Place,Time,EventWeight Bearing Status : FullAssist Level : Partial# Assists : 2Functional Status from 11/19/2016 9:26 AM:LOC : AlertOriented To : Person,Place,Time,EventWeight Bearing Status : FullAssist Level : Partial# Assists : 1Functional Status from 11/18/2016 10:05 PM:LOC : AlertOriented To : Person,Place,Time,EventWeight Bearing Status : FullAssist Level : Partial# Assists : 1Functional Status from 11/18/2016 10:39 AM:LOC : AlertOriented To : Person,Place,Time,EventWeight Bearing Status : FullAssist Level : Partial# Assists : 1Functional Status from 11/17/2016 8:59 PM:LOC : AlertOriented To : Person,Place,Time,EventWeight Bearing Status : FullAssist Level : Partial# Assists : 2Functional Status from 11/17/2016 9:23 AM:# Assists : 1Functional Status from 11/17/2016 8:26 AM:LOC : AlertOriented To : Person, Place,Time,EventWeight Bearing Status : FullAssist Level : Partial# Assists : 1Functional Status from 11/16/2016 8:28 PM:LOC : AlertOriented To : Person,Place, Time,EventWeight Bearing Status : FullAssist Level : Partial# Assists : 2Functional Status from 11/16/2016 9:30 AM:LOC : AlertOriented To : Person,Place, Time,EventWeight Bearing Status : FullAssist Level : Dependent# Assists : 2Functional Status from 11/15/2016 8:36 PM:LOC : AlertOriented To : Person,Place, TimeWeight Bearing Status : FullAssist Level : Partial# Assists : 1Functional Status from 11/15/2016 8:20 AM:LOC : AlertOriented To : Person,Place,Time, EventWeight Bearing Status : FullAssist Level : Partial# Assists : 1Functional Status from 11/14/2016 8:02 PM:LOC : AlertOriented To : Person,Place,Time, EventWeight Bearing Status : FullAssist Level : Partial# Assists : 1Functional Status from 11/14/2016 8:43 AM:LOC : AlertOriented To : Person,Place,Time, EventWeight Bearing Status : FullAssist Level : Partial# Assists : 1Functional Status from 11/13/2016 8:25 PM:LOC : AlertOriented To : Person,Place,Time, EventWeight Bearing Status : FullAssist Level : Partial# Assists : 1Functional Status from 11/13/2016 10:19 AM:Oriented To : Person,Place,Time,EventFunctional Status from 11/13/2016 9:28 AM:LOC : AlertOriented To : Person,Place,Time, EventWeight Bearing Status : FullAssist Level : Partial# Assists : 1Functional Status from 11/12/2016 8:12 PM:LOC : AlertOriented To : Person,Place,Time, EventWeight Bearing Status : FullAssist Level : Partial# Assists : 1Functional Status from 11/12/2016 5:21 PM:LOC : AlertOriented To : Person,Place,Time, EventWeight Bearing Status : FullAssist Level : Partial# Assists : 1 Vital Signs Hospital Vital Signs from 11/28/2016 2:12 PM:Height : 6/3 ft,inBP : 92/ 58Hospital Vital Signs from 11/28/2016 11:48 AM:Height : 6/3 ft,inTemperature : 97.8 FPulse : 70Respirations : 18BP : 92/60Hospital Vital Signs from 11/28/2016 9:33 AM:Heart Rate : 69Hospital Vital Signs from 11/28/2016 8:42 AM:Height : 6/ 3 ft,inHospital Vital Signs from 11/28/2016 7:15 AM:Height : 6/3 ft, inTemperature : 98.9 FPulse : 70Respirations : 18BP : 88/53Hospital Vital Signs from 11/28/2016 6:23 AM:Pulse : 69BP : 85/58Hospital Vital Signs from 2016 3:05 AM:Weight : 120.9/ kgHeight : 6/3 ft,inTemperature : 98.2 FPulse : 71Respirations : 20BP : 89/55Hospital Vital Signs from 11/27/2016 10:16 PM: Height : 6/3 ft,inTemperature : 98.8 FPulse : 72Respirations : 19BP : 92/ 60Hospital Vital Signs from 11/27/2016 9:54 PM:BP : 85/56Hospital Vital Signs from 11/27/2016 9:39 PM:Heart Rate : 69Hospital Vital Signs from 11/27/2016 7: 23 PM:Height : 6/3 ft,inTemperature : 98.2 FPulse : 71Respirations : 18BP : 91/ 57[facility]ospital Vital Signs from 11/27/2016 3:25 PM:Height : 6/3 ft,inTemperature : 98.1 FPulse : 70Respirations : 18BP : 89/57[facility]ospital Vital Signs from 11/27/2016 2:42 PM:Height : 6/3 ft,inBP : 82/58Hospital Vital Signs from 11/27/2016 11:06 AM:Height : 6/3 ft,inTemperature : 99.2 FPulse : 67Respirations : 20BP : 85/ 51[facility]ospital Vital Signs from 11/27/2016 10:05 AM:Heart Rate : 69Hospital Vital Signs from 11/27/2016 7:01 AM:Height : 6/3 ft,inTemperature : 99.1 FPulse : 69Respirations : 18BP : 91/54[facility]ospital Vital Signs from 11/27/2016 6:13 AM: Height : 6/3 ft,inBP : 86/56[facility]ospital Vital Signs from 11/27/2016 2:46 AM:Weight : 121.9/ kgHeight : 6/3 ft,inTemperature : 98.7 FPulse : 70Respirations : 18BP : 89/58[facility]ospital Vital Signs from 11/26/2016 10:15 PM:Height : 6/3 ft, inTemperature : 98.4 FPulse : 70Heart Rate : 69Respirations : 19BP : 89/ 59[facility]ospital Vital Signs from 11/26/2016 8:53 PM:Height : 6/3 ft,inTemperature : 99.4 FPulse : 70Respirations : 18BP : 89/56[facility]ospital Vital Signs from 11/26/2016 7:07 PM:Height : 6/3 ft,inTemperature : 97.5 FPulse : 69Respirations : 19BP : 88 /57[facility]ospital Vital Signs from 11/26/2016 3:02 PM:Height : 6/3 ft,inTemperature : 97.2 FPulse : 69Respirations : 20BP : 99/60[facility]ospital Vital Signs from 11/26/2016 10:50 AM:Height : 6/3 ft,inTemperature : 96.8 FPulse : 70Respirations : 20BP : 90/56[facility]ospital Vital Signs from 11/26/2016 8:49 AM:Heart Rate : 82[facility]ospital Vital Signs from 11/26/2016 7:36 AM:Height : 6/3 ft,inTemperature : 99.9 FPulse : 70Respirations : 19BP : 90/57[facility]ospital Vital Signs from 11/26/2016 2:21 AM: Weight : 122.4/ kgHeight : 6/3 ft,inTemperature : 98.3 FPulse : 70Respirations : 18BP : 98/58[facility]ospital Vital Signs from 11/25/2016 10:33 PM:Height : 6/3 ft, inTemperature : 99.5 FPulse : 67Respirations : 20BP : 91/55[facility]ospital Vital Signs from 11/25/2016 8:23 PM:Heart Rate : 69Hospital Vital Signs from 11/25/2016 7: 37 PM:Height : 6/3 ft,inTemperature : 99.7 FPulse : 72Respirations : 20BP : 102/ 63[facility]ospital Vital Signs from 11/25/2016 3:04 PM:Height : 6/3 ft,inTemperature : 99.5 FPulse : 70Respirations : 20BP : 93/58[facility]ospital Vital Signs from 11/25/2016 10:37 AM:Height : 6/3 ft,inTemperature : 98.2 FPulse : 70Respirations : 20BP : 89/55[facility]ospital Vital Signs from 11/25/2016 9:53 AM:Height : 6/3 ft,inHospital Vital Signs from 11/25/2016 7:02 AM:Height : 6/3 ft,inTemperature : 97.9 FPulse : 70Respirations : 20BP : 94/60[facility]ospital Vital Signs from 11/25/2016 2:16 AM: Weight : 120.9/ kgHeight : 6/3 ft,inTemperature : 98.0 FPulse : 70Respirations : 18BP : 95/61[facility]ospital Vital Signs from 11/24/2016 10:24 PM:Height : 6/3 ft, inTemperature : 98.7 FPulse : 70Respirations : 20BP : 91/60[facility]ospital Vital Signs from 11/24/2016 7:43 PM:Height : 6/3 ft,inTemperature : 98.3 FPulse : 70Respirations : 18BP : 101/64[facility]ospital Vital Signs from 11/24/2016 2:45 PM: Height : 6/3 ft,inTemperature : 97.8 FPulse : 70Respirations : 20BP : 95/ 58[facility]ospital Vital Signs from 11/24/2016 12:15 PM:Height : 6/3 ft,inTemperature : 97.8 FPulse : 70Respirations : 20BP : 104/64[facility]ospital Vital Signs from 2016 11:15 AM:Height : 6/3 ft,inTemperature : 97.5 FPulse : 70Respirations : 20BP : 89/55[facility]ospital Vital Signs from 11/24/2016 10:45 AM:Height : 6/3 ft, inTemperature : 97.5 FPulse : 70Respirations : 20BP : 88/51[facility]ospital Vital Signs from 11/24/2016 10:15 AM:Height : 6/3 ft,inTemperature : 97.5 FPulse : 70Respirations : 20BP : 98/62[facility]ospital Vital Signs from 11/24/2016 10:00 AM: Height : 6/3 ft,inTemperature : 97.5 FPulse : 70Respirations : 20BP : 95/ 62[facility]ospital Vital Signs from 11/24/2016 9:45 AM:Height : 6/3 ft,inTemperature : 97.5 FPulse : 70Respirations : 20BP : 90/58[facility]ospital Vital Signs from 11/24/2016 9:30 AM:Height : 6/3 ft,inTemperature : 97.5 FPulse : 70Respirations : 20BP : 92 /54[facility]ospital Vital Signs from 11/24/2016 9:15 AM:Height : 6/3 ft,inTemperature : 97.5 FPulse : 68Respirations : 20BP : 96/58[facility]ospital Vital Signs from 11/24/2016 7:14 AM:Height : 6/3 ft,inTemperature : 98.5 FPulse : 70Respirations : 20BP : 81 /53[facility]ospital Vital Signs from 11/24/2016 6:41 AM:Weight : 121.5/ kgHeight : 6/3 ft,inTemperature : 98.5 FPulse : 70Respirations : 20BP : 81/53[facility]ospital Vital Signs from 11/24/2016 2:59 AM:Weight : 121.5/ kgHeight : 6/3 ft,inTemperature : 99.0 FPulse : 70Respirations : 20BP : 88/55[facility] Vital Signs from 11/23/2016 10:24 PM:Height : 6/3 ft,inTemperature : 99.4 FPulse : 64Respirations : 20BP : 88/59[facility] Vital Signs from 11/23/2016 8:12 PM:Heart Rate : 60[facility]ospital Vital Signs from 11/23/2016 6:46 PM:Height : 6/3 ft,inTemperature : 100.2 FPulse : 69Respirations : 20BP : 92/57[facility]ospital Vital Signs from 11/23/2016 5:38 PM: Height : 6/3 ft,inBP : 104/60[facility]ospital Vital Signs from 11/23/2016 3:01 PM: Height : 6/3 ft,inTemperature : 96.3 FPulse : 69Respirations : 20BP : 85/ 52[facility]ospital Vital Signs from 11/23/2016 11:12 AM:Height : 6/3 ft,inTemperature : 100.1 FPulse : 69Respirations : 20BP : 101/59[facility] Vital Signs from 2016 8:52 AM:Heart Rate : 69[facility] Vital Signs from 11/23/2016 7:09 AM:Height : 6/3 ft,inTemperature : 100.4 FPulse : 55Respirations : 20BP : 85/54[facility] Vital Signs from 11/23/2016 2:29 AM:Weight : 121.6/ kgHeight : 6/3 ft, inTemperature : 98.8 FPulse : 70Respirations : 20BP : 82/51[facility] Vital Signs from 11/22/2016 10:40 PM:Height : 6/3 ft,inTemperature : 98.1 FPulse : 71Respirations : 19BP : 92/53[facility]ospital Vital Signs from 11/22/2016 6:17 PM: Height : 6/3 ft,inTemperature : 99.3 FPulse : 71Respirations : 18BP : 90/ 52[facility]ospital Vital Signs from 11/22/2016 3:01 PM:Height : 6/3 ft,inTemperature : 99.4 FPulse : 70Respirations : 20BP : 85/53[facility]ospital Vital Signs from 11/22/2016 10:40 AM:Height : 6/3 ft,inTemperature : 98.5 FPulse : 69Respirations : 22BP : 88/49[facility]ospital Vital Signs from 11/22/2016 10:15 AM:Heart Rate : 69[facility]ospital Vital Signs from 11/22/2016 7:23 AM:Height : 6/3 ft,inTemperature : 98.0 FPulse : 70Respirations : 20BP : 86/51[facility]ospital Vital Signs from 11/22/2016 2:36 AM: Weight : 120.3/ kgHeight : 6/3 ft,inTemperature : 97.0 FPulse : 71Respirations : 20BP : 100/58[facility]ospital Vital Signs from 11/21/2016 10:25 PM:Height : 6/3 ft, inTemperature : 97.7 FPulse : 70Respirations : 18BP : 89/53[facility]ospital Vital Signs from 11/21/2016 7:59 PM:Heart Rate : 60[facility]ospital Vital Signs from 11/21/2016 6: 28 PM:Height : 6/3 ft,inTemperature : 99.5 FPulse : 72Respirations : 20BP : 90/ 56[facility]ospital Vital Signs from 11/21/2016 3:16 PM:Height : 6/3 ft,inTemperature : 99.7 FPulse : 78Respirations : 18BP : 101/57[facility]ospital Vital Signs from 2016 10:37 AM:Height : 6/3 ft,inTemperature : 97.9 FPulse : 70Respirations : 20BP : 92/57[facility]ospital Vital Signs from 11/21/2016 9:24 AM:Heart Rate : 69[facility]ospital Vital Signs from 11/21/2016 7:44 AM:Height : 6/3 ft,inTemperature : 97.5 FPulse : 70Respirations : 20BP : 91/52[facility]ospital Vital Signs from 11/21/2016 2:13 AM:Weight : 121.5/ kgHeight : 6/3 ft,inHospital Vital Signs from 2016 2:11 AM:Height : 6/3 ft,inTemperature : 97.3 FPulse : 69Respirations : 18BP : 98/63[facility] Vital Signs from 11/20/2016 10:26 PM:Height : 6/3 ft, inTemperature : 97.6 FPulse : 71Respirations : 18BP : 93/59[facility]ospital Vital Signs from 11/20/2016 8:14 PM:Heart Rate : 69[facility]ospital Vital Signs from 11/20/2016 7: 35 PM:Height : 6/3 ft,inTemperature : 98.4 FPulse : 70Respirations : 19BP : 96/ 56[facility]ospital Vital Signs from 11/20/2016 2:22 PM:Height : 6/3 ft,inTemperature : 98.0 FPulse : 74Respirations : 19BP : 98/57[facility]ospital Vital Signs from 11/20/2016 10:33 AM:Height : 6/3 ft,inTemperature : 98.2 FPulse : 70Respirations : 19BP : 94/58[facility]ospital Vital Signs from 11/20/2016 9:27 AM:Height : 6/3 ft,inHospital Vital Signs from 11/20/2016 7:25 AM:Height : 6/3 ft,inTemperature : 99.8 FPulse : 77Respirations : 19BP : 93/60[facility]ospital Vital Signs from 11/20/2016 3:47 AM: Weight : 121.6/ kgHeight : 6/3 ft,inTemperature : 97.1 FPulse : 70Respirations : 19BP : 110/56[facility]ospital Vital Signs from 11/19/2016 10:25 PM:Height : 6/3 ft, inTemperature : 97.7 FPulse : 70Respirations : 19BP : 99/63[facility]ospital Vital Signs from 11/19/2016 6:46 PM:Height : 6/3 ft,inTemperature : 97.9 FPulse : 72Respirations : 20BP : 172/81[facility] Vital Signs from 11/19/2016 6:42 PM: Height : 6/3 ft,inTemperature : 98.1 FPulse : 75Respirations : 20BP : 99/ 61[facility]ospital Vital Signs from 11/19/2016 6:10 PM:Height : 6/3 ft,inTemperature : 98.1 FPulse : 70Respirations : 20BP : 98/53[facility]ospital Vital Signs from 11/19/2016 4:52 PM:Height : 6/3 ft,inTemperature : 97.8 FPulse : 70Respirations : 20BP : 93 /51[facility]ospital Vital Signs from 11/19/2016 4:29 PM:Heart Rate : 62[facility]ospital Vital Signs from 11/19/2016 3:57 PM:Height : 6/3 ft,inTemperature : 97.5 FPulse : 69Respirations : 20BP : 97/54[facility]ospital Vital Signs from 11/19/2016 3:43 PM: Height : 6/3 ft,inTemperature : 97.9 FPulse : 70Respirations : 20BP : 92/ 53[facility]ospital Vital Signs from 11/19/2016 3:21 PM:Height : 6/3 ft,inTemperature : 97.9 FPulse : 69Respirations : 20BP : 98/53[facility]ospital Vital Signs from 11/19/2016 2:29 PM:Height : 6/3 ft,inTemperature : 98.1 FPulse : 70Respirations : 20BP : 95 /51[facility]ospital Vital Signs from 11/19/2016 1:50 PM:Height : 6/3 ft,inTemperature : 98 FPulse : 69Respirations : 20BP : 87/53[facility]ospital Vital Signs from 11/19/2016 12 :50 PM:Height : 6/3 ft,inTemperature : 98.0 FPulse : 70Respirations : 20BP : 103 /67[facility]ospital Vital Signs from 11/19/2016 11:50 AM:Height : 6/3 ft,inTemperature : 98.4 FPulse : 67Respirations : 20BP : 91/57[facility]ospital Vital Signs from 2016 11:05 AM:Height : 6/3 ft,inTemperature : 98.5 FPulse : 70Respirations : 20BP : 93/53[facility]ospital Vital Signs from 11/19/2016 10:38 AM:Height : 6/3 ft, inTemperature : 99.3 FPulse : 68Respirations : 22BP : 90/53[facility]ospital Vital Signs from 11/19/2016 10:16 AM:Height : 6/3 ft,inTemperature : 99.5 FPulse : 70Respirations : 22BP : 100/59[facility]ospital Vital Signs from 11/19/2016 9:26 AM: Heart Rate : 62[facility]ospital Vital Signs from 11/19/2016 8:19 AM:Height : 6/3 ft,in Results Chemistry from 11/28/2016 4:51 [id number] MMOL/L L (136-145 MMOL/L) POTASSIUM3.7 MMOL/L (3.5-5.1 MMOL/L) [id number] MMOL/L (98-107 MMOL/L) IIQ981.9 MMOL/L (21.0-32.0 MMOL/L) *ANION GAP4.1 MMOL/L L (8.0-16.0 MMOL/L) BUN26 MG/DL H (7-18 MG/DL) CREATININE1.56 MG/DL H (0.70-1.30 MG/DL) *BUN/CREATININE RATIO16.7 (9.1-17.0 ) [id number] MG/DL H (65-99 MG/DL) *GFR EST NON AFR [id number] ML/MIN (Reference Range: not available) *GFR EST AFR AMER52 ML/MIN (Reference Range: not available) CALCIUM8.2 MG/DL L (8.5-10.1 MG/DL) ALBUMIN2.7 GM/DL L (3.4-5.0 GM/DL) PHOSPHORUS2.9 MG/DL (2.6-4.7 MG/DL)Chemistry from 11/27/2016 4:38 [id number] MMOL/L L (136-145 MMOL/L) POTASSIUM3.3 MMOL/L L (3.5-5.1 MMOL/L) [id number] MMOL/L (98-107 MMOL/L) XTT493.9 MMOL/L (21.0-32.0 MMOL/L) *ANION GAP5.1 MMOL/L L (8.0-16.0 MMOL/L) BUN25 MG/DL H (7-18 MG/DL) CREATININE1.46 MG/DL H (0.70-1.30 MG/DL) *BUN/CREATININE RATIO17.1 H (9.1-17.0 ) [id number] MG/DL H (65-99 MG/DL) *GFR EST NON AFR [id number] ML/MIN (Reference Range: not available) *GFR EST AFR AMER57 ML/MIN (Reference Range: not available) CALCIUM8.3 MG/DL L (8.5-10.1 MG/DL) ALBUMIN2.7 GM/DL L (3.4-5.0 GM/DL) PHOSPHORUS2.9 MG/DL (2.6-4.7 MG/DL)Chemistry from 11/26/2016 5:00 [id number] MMOL/L L (136-145 MMOL/L) POTASSIUM3.2 MMOL/L L (3.5-5.1 MMOL/L) [id number] MMOL/L (98-107 MMOL/L) PYL676.9 MMOL/L (21.0-32.0 MMOL/L) *ANION GAP8.1 MMOL/L (8.0-16.0 MMOL/L) BUN25 MG/DL H (7-18 MG/DL) CREATININE1.52 MG/DL H (0.70-1.30 MG/DL) *BUN/CREATININE RATIO16.4 (9.1-17.0 ) [id number] MG/DL H (65-99 MG/DL) *GFR EST NON AFR [id number] ML/MIN (Reference Range: not available) *GFR EST AFR AMER54 ML/MIN (Reference Range: not available) CALCIUM8.5 MG/DL (8.5-10.1 MG/DL) ALBUMIN2.8 GM/DL L (3.4-5.0 GM/DL) MAGNESIUM2.2 MG/DL (1.8-2.4 MG/DL) PHOSPHORUS2.5 MG/DL L (2.6-4.7 MG/DL)Chemistry from 11/25/2016 10:45 PMUR RFQIDHJ20.8 MG/DL H (0.0-11.9 MG/DL) UR HRXRPJPSPF23.89 MG/DL (Not Established MG/DL) *UR PROTEIN/CREAT RATIO0.25 H (0.00-0.19 ) *UR INTERVALRANDOM (Reference Range: not available) Chemistry from 11/25/2016 4:36 [id number] MMOL/L L (136-145 MMOL/L) POTASSIUM3.6 MMOL/L (3.5-5.1 MMOL/L) [id number] MMOL/L (98-107 MMOL/L) VNS193.7 MMOL/L (21.0-32.0 MMOL/L) *ANION GAP6.3 MMOL/L L (8.0-16.0 MMOL/L) BUN29 MG/DL H (7-18 MG/DL) CREATININE1.54 MG/DL H (0.70-1.30 MG/DL) *BUN/CREATININE RATIO18.8 H (9.1-17.0 ) [id number] MG/DL H (65-99 MG/DL) *GFR EST NON AFR [id number] ML/MIN (Reference Range: not available) *GFR EST AFR AMER53 ML/MIN (Reference Range: not available) CALCIUM8.3 MG/DL L (8.5-10.1 MG/DL) ALBUMIN2.7 GM/DL L (3.4-5.0 GM/DL) MAGNESIUM2.2 MG/DL (1.8-2.4 MG/DL) PHOSPHORUS2.5 MG/DL L (2.6-4.7 MG/DL) TSH9.170 UIU/ML H (0.340-4.820 UIU/ML) JJO112 U/L (85-227 U/L)Chemistry from 11/24/2016 4:35 [id number] MMOL/L L (136- 145 MMOL/L) POTASSIUM3.6 MMOL/L (3.5-5.1 MMOL/L) [id number] MMOL/L (98-107 MMOL/L) RFJ832.3 MMOL/L (21.0-32.0 MMOL/L) *ANION GAP7.7 MMOL/L L (8.0-16.0 MMOL/L) BUN35 MG/DL H (7-18 MG/DL) CREATININE1.95 MG/DL H (0.70-1.30 MG/DL) *BUN/CREATININE RATIO17.9 H (9.1-17.0 ) CFHBYQN75 MG/DL (65-99 MG/DL) *GFR EST NON AFR [id number] ML/MIN (Reference Range: not available) *GFR EST AFR AMER40 ML/MIN (Reference Range: not available) CALCIUM8.3 MG/DL L (8.5-10.1 MG/DL) BILIRUBIN TOTAL1.00 MG/DL (0.20-1.00 MG/DL) TOTAL PROTEIN6.0 GM/DL L (6.4-8.2 GM/DL) ALBUMIN2.8 GM/DL L (3.4-5.0 GM/DL) *GLOBULIN3.2 GM/DL (2.3-3.5 GM/DL) *A/G RATIO0.9 L (1.5-2.2 ) ALK [id number] U/L H (46-116 U/L) ALT (SGPT)28 U/L (14-59 U/L) AST (SGOT)20 U/L (15-37 U/L) MAGNESIUM2.2 MG/DL (1.8-2.4 MG/DL) PHOSPHORUS3.0 MG/DL (2.6-4.7 MG/DL)Chemistry from 11/23/2016 4:41 [id number] MMOL/L L (136-145 MMOL/L) POTASSIUM3.6 MMOL/L (3.5-5.1 MMOL/L) [id number] MMOL/L (98-107 MMOL/L) JRG828.5 MMOL/L (21.0-32.0 MMOL/L) *ANION GAP8.5 MMOL/L (8.0-16.0 MMOL/L) BUN41 MG/DL H (7-18 MG/DL) CREATININE2.47 MG/DL H (0.70-1.30 MG/DL) *BUN/CREATININE RATIO16.6 (9.1-17.0 ) [id number] MG/DL H (65-99 MG/DL) *GFR EST NON AFR XPRGGAUQ11 ML/MIN (Reference Range: not available) *GFR EST AFR AMER30 ML/MIN (Reference Range: not available) CALCIUM8.4 MG/DL L (8.5-10.1 MG/DL) ALBUMIN2.9 GM/DL L (3.4-5.0 GM/DL) PHOSPHORUS3.4 MG/DL (2.6-4.7 MG/DL)Chemistry from 11/22/2016 4:33 [id number] MMOL/L L (136-145 MMOL/L) POTASSIUM3.6 MMOL/L (3.5-5.1 MMOL/L) GUBGGTBR66 MMOL/L L (98-107 MMOL/L) TAZ770.1 MMOL/L (21.0-32.0 MMOL/L) *ANION GAP8.9 MMOL/L (8.0-16.0 MMOL/L) BUN49 MG/DL H (7-18 MG/DL) CREATININE3.00 MG/DL H (0.70-1.30 MG/DL) *BUN/CREATININE RATIO16.3 (9.1-17.0 ) QIOPARC562 MG/DL H (65-99 MG/DL) *GFR EST NON AFR NZSCALTS02 ML/MIN (Reference Range: not available) *GFR EST AFR AMER24 ML/MIN (Reference Range: not available) CALCIUM8.2 MG/DL L (8.5-10.1 MG/DL) ALBUMIN2.8 GM/DL L (3.4-5.0 GM/DL) PHOSPHORUS4.1 MG/DL (2.6-4.7 MG/DL)Chemistry from 11/21/2016 5:39 [id number] MMOL/L L (136-145 MMOL/L) POTASSIUM3.9 MMOL/L (3.5-5.1 MMOL/L) STATCOPM18 MMOL/L L (98-107 MMOL/L) SYY546.3 MMOL/L (21.0-32.0 MMOL/L) *ANION GAP9.7 MMOL/L (8.0-16.0 MMOL/L) BUN51 MG/DL H (7-18 MG/DL) CREATININE3.36 MG/DL H (0.70-1.30 MG/DL) *BUN/CREATININE RATIO15.2 (9.1-17.0 ) VVSYANU669 MG/DL H (65-99 MG/DL) *GFR EST NON AFR IHUJZGUO82 ML/MIN (Reference Range: not available) *GFR EST AFR AMER21 ML/MIN (Reference Range: not available) CALCIUM8.3 MG/DL L (8.5-10.1 MG/DL) BILIRUBIN TOTAL1.00 MG/DL (0.20-1.00 MG/DL) TOTAL PROTEIN5.9 GM/DL L (6.4-8.2 GM/DL) ALBUMIN3.0 GM/DL L (3.4-5.0 GM/DL) *GLOBULIN2.9 GM/DL (2.3-3.5 GM/DL) *A/G RATIO1.0 L (1.5-2.2 ) ALK DMJJ507 U/L H (46-116 U/L) ALT (SGPT)22 U/L (14-59 U/L) AST (SGOT)15 U/L (15-37 U/L) MAGNESIUM2.1 MG/DL (1.8-2.4 MG/DL) PHOSPHORUS5.0 MG/DL H (2.6-4.7 MG/DL)Chemistry from 11/20/2016 6:14 [id number] MMOL/L L (136-145 MMOL/L) POTASSIUM3.8 MMOL/L (3.5-5.1 MMOL/L) QVOMHNVM30 MMOL/L L (98-107 MMOL/L) FMY670.0 MMOL/L (21.0-32.0 MMOL/L) *ANION GAP10.0 MMOL/L (8.0-16.0 MMOL/L) BUN48 MG/DL H (7-18 MG/DL) CREATININE2.83 MG/DL H (0.70-1.30 MG/DL) *BUN/CREATININE RATIO17.0 (9.1-17.0 ) FWTLYIQ890 MG/DL H (65-99 MG/DL) *GFR EST NON AFR [id number] ML/MIN (Reference Range: not available) *GFR EST AFR AMER25 ML/MIN (Reference Range: not available) CALCIUM8.1 MG/DL L (8.5-10.1 MG/DL) ALBUMIN3.0 GM/DL L (3.4-5.0 GM/DL) MAGNESIUM2.1 MG/DL (1.8-2.4 MG/DL) PHOSPHORUS4.2 MG/DL (2.6-4.7 MG/DL)Chemistry from 11/19/2016 4:40 [id number] MMOL/L L (136-145 MMOL/L) POTASSIUM3.2 MMOL/L L (3.5-5.1 MMOL/L) BUXCDQKA94 MMOL/L L (98-107 MMOL/L) GNM618.0 MMOL/L (21.0-32.0 MMOL/L) *ANION GAP8.0 MMOL/L (8.0-16.0 MMOL/L) BUN45 MG/DL H (7-18 MG/DL) CREATININE2.14 MG/DL H (0.70-1.30 MG/DL) *BUN/CREATININE RATIO21.0 H (9.1-17.0 ) JAFKULX306 MG/DL H (65-99 MG/DL) *GFR EST NON AFR [id number] ML/MIN (Reference Range: not available) *GFR EST AFR AMER36 ML/MIN (Reference Range: not available) CALCIUM7.9 MG/DL L (8.5-10.1 MG/DL) ALBUMIN3.0 GM/DL L (3.4-5.0 GM/DL) MAGNESIUM2.2 MG/DL (1.8-2.4 MG/DL) PHOSPHORUS3.9 MG/DL (2.6-4.7 MG/DL)Chemistry from 11/18/2016 4:58 [id number] MMOL/L L (136-145 MMOL/L) POTASSIUM3.6 MMOL/L (3.5-5.1 MMOL/L) DZQZURIA17 MMOL/L L (98-107 MMOL/L) YNU308.5 MMOL/L (21.0-32.0 MMOL/L) *ANION GAP7.5 MMOL/L L (8.0-16.0 MMOL/L) BUN46 MG/DL H (7-18 MG/DL) CREATININE1.93 MG/DL H (0.70-1.30 MG/DL) *BUN/CREATININE RATIO23.8 H (9.1-17.0 ) PAOCHXX888 MG/DL H (65-99 MG/DL) *GFR EST NON AFR QFOMPMPQ56 ML/MIN (Reference Range: not available) *GFR EST AFR AMER40 ML/MIN (Reference Range: not available) CALCIUM8.3 MG/DL L (8.5-10.1 MG/DL) ALBUMIN3.0 GM/DL L (3.4-5.0 GM/DL) PHOSPHORUS3.8 MG/DL (2.6-4.7 MG/DL) JXEKCMJJ317 NG/ML (30-400 NG/ML)Chemistry from 11/17/2016 5:39 PMBILIRUBIN TOTAL2.60 MG/DL H (0.20-1.00 MG/DL) BILIRUBIN DIRECT0.80 MG/DL H (0.00-0.30 MG/DL) TOTAL PROTEIN6.3 GM/DL L (6.4-8.2 GM/DL) ALBUMIN3.0 GM/DL L (3.4-5.0 GM/DL) ALK PHOS94 U/L (46-116 U/L) ALT (SGPT)22 U/L (14-59 U/L) AST (SGOT)23 U/L (15-37 U/L)Chemistry from 11/17/2016 4:54 SCFIELPH583 MMOL/L L ( 136-145 MMOL/L) POTASSIUM4.0 MMOL/L (3.5-5.1 MMOL/L) FLRRZBLB29 MMOL/L (98-107 MMOL/L) BMM532.9 MMOL/L (21.0-32.0 MMOL/L) *ANION GAP7.1 MMOL/L L (8.0-16.0 MMOL/L) BUN44 MG/DL H (7-18 MG/DL) CREATININE1.96 MG/DL H (0.70-1.30 MG/DL) *BUN/CREATININE RATIO22.4 H (9.1-17.0 ) YAYRFCT922 MG/DL H (65-99 MG/DL) *GFR EST NON AFR ICJQBCAA25 ML/MIN (Reference Range: not available) *GFR EST AFR AMER40 ML/MIN (Reference Range: not available) CALCIUM8.2 MG/DL L (8.5-10.1 MG/DL) ALBUMIN2.9 GM/DL L (3.4-5.0 GM/DL) MAGNESIUM2.0 MG/DL (1.8-2.4 MG/DL) PHOSPHORUS3.9 MG/DL (2.6-4.7 MG/DL)Chemistry from 11/16/2016 4:34 NJZNFTPF738 MMOL/L L (136-145 MMOL/L) POTASSIUM3.9 MMOL/L (3.5-5.1 MMOL/L) AUUSKNNR659 MMOL/L (98-107 MMOL/L) LJS828.8 MMOL/L (21.0-32.0 MMOL/L) *ANION GAP6.2 MMOL/L L (8.0-16.0 MMOL/L) BUN41 MG/DL H (7-18 MG/DL) CREATININE1.84 MG/DL H (0.70-1.30 MG/DL) *BUN/CREATININE RATIO22.3 H (9.1-17.0 ) MBKOEHZ684 MG/DL H (65-99 MG/DL) *GFR EST NON AFR TYXBNNMA97 ML/MIN (Reference Range: not available) *GFR EST AFR AMER43 ML/MIN (Reference Range: not available) CALCIUM8.2 MG/DL L (8.5-10.1 MG/DL) ALBUMIN3.0 GM/DL L (3.4-5.0 GM/DL) PHOSPHORUS3.6 MG/DL (2.6-4.7 MG/DL) IRON23 MCG/DL L (65-175 MCG/DL) IRON BINDING UUSXVMGW431 MCG/DL (250-450 MCG/DL) *PERCENT SATURATION9 % L (20-55 %)Chemistry from 11/15/2016 4:41 DTMJWXLI508 MMOL /L (136-145 MMOL/L) POTASSIUM4.0 MMOL/L (3.5-5.1 MMOL/L) KYSVOYBP758 MMOL/L (98-107 MMOL/L) VVT658.8 MMOL/L (21.0-32.0 MMOL/L) *ANION GAP7.2 MMOL/L L (8.0-16.0 MMOL/L) BUN44 MG/DL H (7-18 MG/DL) CREATININE1.69 MG/DL H (0.70-1.30 MG/DL) *BUN/CREATININE RATIO26.0 H (9.1-17.0 ) AFOLLUM17 MG/DL (65-99 MG/DL) *GFR EST NON AFR TLTTJXFF73 ML/MIN (Reference Range: not available) *GFR EST AFR AMER48 ML/MIN (Reference Range: not available) CALCIUM8.3 MG/DL L (8.5-10.1 MG/DL) ALBUMIN2.9 GM/DL L (3.4-5.0 GM/DL) MAGNESIUM2.0 MG/DL (1.8-2.4 MG/DL) PHOSPHORUS3.4 MG/DL (2.6-4.7 MG/DL)Chemistry from 11/14/2016 5:10 FJEJYKPH562 MMOL/L L (136-145 MMOL/L) POTASSIUM4.4 MMOL/L (3.5-5.1 MMOL/L) PGBJZSXI114 MMOL/L (98-107 MMOL/L) DZC405.2 MMOL/L (21.0-32.0 MMOL/L) *ANION GAP7.8 MMOL/L L (8.0-16.0 MMOL/L) BUN53 MG/DL H (7-18 MG/DL) CREATININE2.12 MG/DL H (0.70-1.30 MG/DL) *BUN/CREATININE RATIO25.0 H (9.1-17.0 ) IAKSPSO079 MG/DL H (65-99 MG/DL) *GFR EST NON AFR MHTZDURA94 ML/MIN (Reference Range: not available) *GFR EST AFR AMER36 ML/MIN (Reference Range: not available) CALCIUM8.4 MG/DL L (8.5-10.1 MG/DL) ALBUMIN3.3 GM/DL L (3.4-5.0 GM/DL) MAGNESIUM2.1 MG/DL (1.8-2.4 MG/DL) PHOSPHORUS3.6 MG/DL (2.6-4.7 MG/DL) BYER870 MCG/DL (65-175 MCG/DL) IRON BINDING BCQTDUMB113 MCG/DL (250-450 MCG/DL) *PERCENT ZLUPBRYRZF86 % (20-55 %)Chemistry from 11/13/2016 1:26 JUSVUYVO016 MMOL/ L L (136-145 MMOL/L) POTASSIUM5.2 MMOL/L H (3.5-5.1 MMOL/L) HQTDJBLV250 MMOL/L (98-107 MMOL/L) MAW421.3 MMOL/L (21.0-32.0 MMOL/L) *ANION GAP4.7 MMOL/L L (8.0-16.0 MMOL/L) BUN63 MG/DL H (7-18 MG/DL) CREATININE2.54 MG/DL H (0.70-1.30 MG/DL) *BUN/CREATININE RATIO24.8 H (9.1-17.0 ) DHPNJPX643 MG/DL H (65-99 MG/DL) *GFR EST NON AFR XNNJAJLN75 ML/MIN (Reference Range: not available) *GFR EST AFR AMER29 ML/MIN (Reference Range: not available) CALCIUM8.3 MG/DL L (8.5-10.1 MG/DL) BILIRUBIN TOTAL0.50 MG/DL (0.20-1.00 MG/DL) TOTAL PROTEIN6.4 GM/DL (6.4-8.2 GM/DL) ALBUMIN3.3 GM/DL L (3.4-5.0 GM/DL) *GLOBULIN3.1 GM/DL (2.3-3.5 GM/DL) *A/G RATIO1.1 L (1.5-2.2 ) ALK PHOS93 U/L (46-116 U/L) ALT (SGPT)24 U/L (14-59 U/L) AST (SGOT)20 U/L (15-37 U/L) MAGNESIUM2.2 MG/DL (1.8-2.4 MG/DL) PHOSPHORUS4.0 MG/DL (2.6-4.7 MG/DL) TROPONIN-I0.100 NG/ML H (0.000-0.056 NG/ML)Chemistry from 11/12/2016 8:20 PMPOTASSIUM5.2 MMOL/L H (3.5-5.1 MMOL/L) TROPONIN-I0.086 NG/ML H (0.000-0.056 NG/ML)Chemistry from 11/12/2016 6:32 PMTROPONIN-I0.083 NG/ML H (0.000-0.056 NG/ML)Hematology from 11/27/2016 4:38 AMWBC5.9 X10e3/UL (3.6-11.2 X10e3/UL) RBC3.56 X10e6/UL L (4.06-5.63 X10e6/UL) BPTSJZYSWH20.2 G/DL L (12.5-16.3 G/DL) BRUCCXOLBV16.4 % L (36.7-47.1 %) *MCV85.4 FL (80.0-100.0 FL) *MCH28.6 PG (27.0-33.0 PG) *MCHC33.5 G/DL (32.0-36.0 G/DL) *RDW19.9 % H (12.3-17.0 %) *RDWSD59.9 H (37.1-47.8 ) JFWNWIBZ853 X10e3/UL (159-386 X10e3/UL) *MPV7.5 FL (7.4-10.4 FL)Hematology from 11/26/2016 5:00 AMWBC7.9 X10e3/UL (3.6- 11.2 X10e3/UL) RBC3.80 X10e6/UL L (4.06-5.63 X10e6/UL) AFQKRZXEVY71.7 G/DL L (12.5-16.3 G/DL) BBTCGMKIRN17.7 % L (36.7-47.1 %) *MCV86.0 FL (80.0-100.0 FL) *MCH28.2 PG (27.0-33.0 PG) *MCHC32.8 G/DL (32.0-36.0 G/DL) *RDW19.6 % H (12.3-17.0 %) *RDWSD59.5 H (37.1-47.8 ) PUXYWFCO911 X10e3/UL (159-386 X10e3/UL) *MPV7.6 FL (7.4-10.4 FL) AUTOMATED DIFFPERFORMED (Reference Range: not available) SEGS83.0 % (Reference Range: not available) *LYMPHOCYTES4.7 % (Reference Range: not available) *GEHIOIPLG82.3 % (Reference Range: not available) *EOSINOPHILS1.3 % (Reference Range: not available) *BASOPHILS0.7 % (Reference Range: not available) *ABSOLUTE NEUTROPHILS6.60 X10e3/UL (1.80-7.80 X10e3/UL) *ABSOLUTE LYMPHOCYTES0.40 X10e3/UL L (1.00-3.00 X10e3/UL) *ABSOLUTE MONOCYTES0.80 X10e3/UL (0.30-1.00 X10e3/UL) *ABSOLUTE EOSINOPHILS0.10 X10e3/UL (0.00-0.50 X10e3/UL) *ABSOLUTE BASOPHILS0.10 X10e3/UL (0.00-0.20 X10e3/UL)Hematology from 11/24/2016 4:35 AMWBC5.2 X10e3/UL (3.6-11.2 X10e3/UL) RBC3.69 X10e6/UL L (4.06-5.63 X10e6/UL) FRDWTACUEY87.3 G/DL L (12.5-16.3 G/DL) HYBSFIPVHM86.6 % L (36.7-47.1 %) *MCV85.6 FL (80.0-100.0 FL) *MCH27.8 PG (27.0-33.0 PG) *MCHC32.4 G/DL (32.0-36.0 G/DL) *RDW19.7 % H (12.3-17.0 %) *RDWSD59.9 H (37.1-47.8 ) GPDMOGBI238 X10e3/UL (159-386 X10e3/UL) *MPV7.5 FL (7.4-10.4 FL) AUTOMATED DIFFPERFORMED (Reference Range: not available) SEGS79.0 % (Reference Range: not available) *LYMPHOCYTES6.7 % (Reference Range: not available) *XUVGFAOLL31.2 % (Reference Range: not available) *EOSINOPHILS1.9 % (Reference Range: not available) *BASOPHILS1.2 % (Reference Range: not available) *ABSOLUTE NEUTROPHILS4.10 X10e3/UL (1.80-7.80 X10e3/UL) *ABSOLUTE LYMPHOCYTES0.30 X10e3/UL L (1.00-3.00 X10e3/UL) *ABSOLUTE MONOCYTES0.60 X10e3/UL (0.30-1.00 X10e3/UL) *ABSOLUTE EOSINOPHILS0.10 X10e3/UL (0.00-0.50 X10e3/UL) *ABSOLUTE BASOPHILS0.10 X10e3/UL (0.00-0.20 X10e3/UL)Hematology from 11/23/2016 4:41 AMWBC4.9 X10e3/UL (3.6-11.2 X10e3/UL) RBC3.54 X10e6/UL L (4.06-5.63 X10e6/UL) FAJFJNYEBT54.0 G/DL L (12.5-16.3 G/DL) FPNXCKYHJZ75.3 % L (36.7-47.1 %) *MCV85.5 FL (80.0-100.0 FL) *MCH28.2 PG (27.0-33.0 PG) *MCHC33.0 G/DL (32.0-36.0 G/DL) *RDW20.0 % H (12.3-17.0 %) *RDWSD59.9 H (37.1-47.8 ) ULXGOJAM676 X10e3/UL (159-386 X10e3/UL) *MPV7.6 FL (7.4-10.4 FL)Hematology from 11/22/2016 4:33 AMWBC5.4 X10e3/UL (3.6- 11.2 X10e3/UL) RBC3.42 X10e6/UL L (4.06-5.63 X10e6/UL) HEMOGLOBIN9.6 G/DL L (12.5-16.3 G/DL) HHCGTWOLVM26.1 % L (36.7-47.1 %) *MCV85.0 FL (80.0-100.0 FL) *MCH28.1 PG (27.0-33.0 PG) *MCHC33.0 G/DL (32.0-36.0 G/DL) *RDW19.2 % H (12.3-17.0 %) *RDWSD56.9 H (37.1-47.8 ) WYLNDOUF084 X10e3/UL (159-386 X10e3/UL) *MPV8.0 FL (7.4-10.4 FL)Hematology from 11/21/2016 5:39 AMWBC6.0 X10e3/UL (3.6- 11.2 X10e3/UL) RBC3.49 X10e6/UL L (4.06-5.63 X10e6/UL) HEMOGLOBIN9.8 G/DL L (12.5-16.3 G/DL) NHZWPZQXHW65.4 % L (36.7-47.1 %) *MCV84.2 FL (80.0-100.0 FL) *MCH28.0 PG (27.0-33.0 PG) *MCHC33.3 G/DL (32.0-36.0 G/DL) *RDW18.2 % H (12.3-17.0 %) *RDWSD52.9 H (37.1-47.8 ) VVDEALLU706 X10e3/UL (159-386 X10e3/UL) *MPV7.7 FL (7.4-10.4 FL) AUTOMATED DIFFPERFORMED (Reference Range: not available) SEGS82.2 % (Reference Range: not available) *LYMPHOCYTES5.6 % (Reference Range: not available) *MONOCYTES9.8 % (Reference Range: not available) *EOSINOPHILS1.7 % (Reference Range: not available) *BASOPHILS0.7 % (Reference Range: not available) *ABSOLUTE NEUTROPHILS4.90 X10e3/UL (1.80-7.80 X10e3/UL) *ABSOLUTE LYMPHOCYTES0.30 X10e3/UL L (1.00-3.00 X10e3/UL) *ABSOLUTE MONOCYTES0.60 X10e3/UL (0.30-1.00 X10e3/UL) *ABSOLUTE EOSINOPHILS0.10 X10e3/UL (0.00-0.50 X10e3/UL) *ABSOLUTE BASOPHILS0.00 X10e3/UL (0.00-0.20 X10e3/UL)Hematology from 11/20/2016 6:14 AMWBC6.6 X10e3/UL (3.6-11.2 X10e3/UL) RBC3.44 X10e6/UL L (4.06-5.63 X10e6/UL) HEMOGLOBIN9.5 G/DL L (12.5-16.3 G/DL) KDBXGOLYTP44.7 % L (36.7-47.1 %) *MCV83.6 FL (80.0-100.0 FL) *MCH27.7 PG (27.0-33.0 PG) *MCHC33.1 G/DL (32.0-36.0 G/DL) *RDW17.6 % H (12.3-17.0 %) FUYUESST960 X10e3/UL (159-386 X10e3/UL) *MPV8.0 FL (7.4-10.4 FL) AUTOMATED DIFFPERFORMED (Reference Range: not available) SEGS81.5 % (Reference Range: not available) *LYMPHOCYTES7.1 % (Reference Range: not available) *MONOCYTES9.7 % (Reference Range: not available) *EOSINOPHILS1.5 % (Reference Range: not available) *BASOPHILS0.2 % (Reference Range: not available) *ABSOLUTE NEUTROPHILS5.40 X10e3/UL (1.80-7.80 X10e3/UL) *ABSOLUTE LYMPHOCYTES0.50 X10e3/UL L (1.00-3.00 X10e3/UL) *ABSOLUTE MONOCYTES0.60 X10e3/UL (0.30-1.00 X10e3/UL) *ABSOLUTE EOSINOPHILS0.10 X10e3/UL (0.00-0.50 X10e3/UL) *ABSOLUTE BASOPHILS0.00 X10e3/UL (0.00-0.20 X10e3/UL)Hematology from 11/19/2016 4:40 AMWBC6.0 X10e3/UL (3.6-11.2 X10e3/UL) RBC2.66 X10e6/UL L (4.06-5.63 X10e6/UL) HEMOGLOBIN7.4 G/DL L (12.5-16.3 G/DL) JWEMQVSDNI56.0 % L (36.7-47.1 %) *MCV82.7 FL (80.0-100.0 FL) *MCH27.7 PG (27.0-33.0 PG) *MCHC33.4 G/DL (32.0-36.0 G/DL) *RDW18.8 % H (12.3-17.0 %) *RDWSD53.8 H (37.1-47.8 ) DOORJINS713 X10e3/UL (159-386 X10e3/UL) *MPV8.1 FL (7.4-10.4 FL) AUTOMATED DIFFPERFORMED (Reference Range: not available) SEGS81.4 % (Reference Range: not available) *LYMPHOCYTES6.5 % (Reference Range: not available) *TQHJBQBTU64.3 % (Reference Range: not available) *EOSINOPHILS1.1 % (Reference Range: not available) *BASOPHILS0.7 % (Reference Range: not available) *ABSOLUTE NEUTROPHILS4.90 X10e3/UL (1.80-7.80 X10e3/UL) *ABSOLUTE LYMPHOCYTES0.40 X10e3/UL L (1.00-3.00 X10e3/UL) *ABSOLUTE MONOCYTES0.60 X10e3/UL (0.30-1.00 X10e3/UL) *ABSOLUTE EOSINOPHILS0.10 X10e3/UL (0.00-0.50 X10e3/UL) *ABSOLUTE BASOPHILS0.00 X10e3/UL (0.00-0.20 X10e3/UL)Hematology from 11/18/2016 4:58 AMWBC7.0 X10e3/UL (3.6-11.2 X10e3/UL) RBC2.91 X10e6/UL L (4.06-5.63 X10e6/UL) HEMOGLOBIN8.0 G/DL L (12.5-16.3 G/DL) HRWDZXRWIP35.5 % L (36.7-47.1 %) *MCV80.8 FL (80.0-100.0 FL) *MCH27.4 PG (27.0-33.0 PG) *MCHC33.9 G/DL (32.0-36.0 G/DL) *RDW18.7 % H (12.3-17.0 %) *RDWSD52.9 H (37.1-47.8 ) SOKZKECI234 X10e3/UL (159-386 X10e3/UL) *MPV8.1 FL (7.4-10.4 FL)Hematology from 11/17/2016 4:54 AMWBC6.6 X10e3/UL (3.6- 11.2 X10e3/UL) RBC2.45 X10e6/UL L (4.06-5.63 X10e6/UL) HEMOGLOBIN6.6 G/DL L (12.5-16.3 G/DL) CWMUMCZLXB09.8 % L (36.7-47.1 %) *MCV80.8 FL (80.0-100.0 FL) *MCH26.9 PG L (27.0-33.0 PG) *MCHC33.2 G/DL (32.0-36.0 G/DL) *RDW19.9 % H (12.3-17.0 %) *RDWSD56.0 H (37.1-47.8 ) HMYIAVFF717 X10e3/UL (159-386 X10e3/UL) *MPV8.0 FL (7.4-10.4 FL) AUTOMATED DIFFPERFORMED (Reference Range: not available) SEGS79.3 % (Reference Range: not available) *LYMPHOCYTES7.5 % (Reference Range: not available) *OOQTIOQIC42.5 % (Reference Range: not available) *EOSINOPHILS0.2 % (Reference Range: not available) *BASOPHILS0.5 % (Reference Range: not available) *ABSOLUTE NEUTROPHILS5.30 X10e3/UL (1.80-7.80 X10e3/UL) *ABSOLUTE LYMPHOCYTES0.50 X10e3/UL L (1.00-3.00 X10e3/UL) *ABSOLUTE MONOCYTES0.80 X10e3/UL (0.30-1.00 X10e3/UL) *ABSOLUTE EOSINOPHILS0.00 X10e3/UL (0.00-0.50 X10e3/UL) *ABSOLUTE BASOPHILS0.00 X10e3/UL (0.00-0.20 X10e3/UL)Hematology from 11/16/2016 4 :34 AMWBC5.4 X10e3/UL (3.6-11.2 X10e3/UL) RBC2.96 X10e6/UL L (4.06-5.63 X10e6/UL) HEMOGLOBIN7.8 G/DL L (12.5-16.3 G/DL) PCKQKYUCCA46.7 % L (36.7-47.1 %) *MCV80.2 FL (80.0-100.0 FL) *MCH26.5 PG L (27.0-33.0 PG) *MCHC33.0 G/DL (32.0-36.0 G/DL) *RDW19.9 % H (12.3-17.0 %) *RDWSD56.0 H (37.1-47.8 ) USBGXMUV503 X10e3/UL (159-386 X10e3/UL) *MPV8.4 FL (7.4-10.4 FL) AUTOMATED DIFFPERFORMED (Reference Range: not available) SEGS76.5 % (Reference Range: not available) *LYMPHOCYTES7.3 % (Reference Range: not available) *QMWQRMZEQ77.4 % (Reference Range: not available) *EOSINOPHILS0.7 % (Reference Range: not available) *BASOPHILS1.1 % (Reference Range: not available) *ABSOLUTE NEUTROPHILS4.10 X10e3/UL (1.80-7.80 X10e3/UL) *ABSOLUTE LYMPHOCYTES0.40 X10e3/UL L (1.00-3.00 X10e3/UL) *ABSOLUTE MONOCYTES0.80 X10e3/UL (0.30-1.00 X10e3/UL) *ABSOLUTE EOSINOPHILS0.00 X10e3/UL (0.00-0.50 X10e3/UL) *ABSOLUTE BASOPHILS0.10 X10e3/UL (0.00-0.20 X10e3/UL)Hematology from 11/15/2016 4 :41 AMWBC4.6 X10e3/UL (3.6-11.2 X10e3/UL) RBC3.42 X10e6/UL L (4.06-5.63 X10e6/UL) HEMOGLOBIN8.9 G/DL L (12.5-16.3 G/DL) KBJKGWIFRW46.5 % L (36.7-47.1 %) *MCV80.4 FL (80.0-100.0 FL) *MCH26.0 PG L (27.0-33.0 PG) *MCHC32.4 G/DL (32.0-36.0 G/DL) *RDW20.2 % H (12.3-17.0 %) *RDWSD56.9 H (37.1-47.8 ) JAZSZNZH366 X10e3/UL L (159-386 X10e3/UL) *MPV8.2 FL (7.4-10.4 FL)Hematology from 11/14/2016 5:10 AMWBC4.8 X10e3/UL (3.6- 11.2 X10e3/UL) RBC3.70 X10e6/UL L (4.06-5.63 X10e6/UL) HEMOGLOBIN9.7 G/DL L (12.5-16.3 G/DL) XJTVUHCIQO01.6 % L (36.7-47.1 %) *MCV79.9 FL L (80.0-100.0 FL) *MCH26.1 PG L (27.0-33.0 PG) *MCHC32.7 G/DL (32.0-36.0 G/DL) *RDW19.8 % H (12.3-17.0 %) *RDWSD55.6 H (37.1-47.8 ) GBRPGUHQ661 X10e3/UL L (159-386 X10e3/UL) *MPV8.3 FL (7.4-10.4 FL)Hematology from 11/13/2016 1:26 AMWBC3.3 X10e3/UL L (3.6- 11.2 X10e3/UL) RBC3.14 X10e6/UL L (4.06-5.63 X10e6/UL) HEMOGLOBIN8.1 G/DL L (12.5-16.3 G/DL) UMQTBANAUC25.2 % L (36.7-47.1 %) *MCV80.2 FL (80.0-100.0 FL) *MCH25.7 PG L (27.0-33.0 PG) *MCHC32.0 G/DL (32.0-36.0 G/DL) *RDW20.6 % H (12.3-17.0 %) *RDWSD57.8 H (37.1-47.8 ) VTVSEEQL324 X10e3/UL L (159-386 X10e3/UL) *MPV8.1 FL (7.4-10.4 FL) AUTOMATED DIFFPERFORMED (Reference Range: not available) SEGS72.4 % (Reference Range: not available) *LYMPHOCYTES8.7 % (Reference Range: not available) *UIQIJIWPA99.8 % (Reference Range: not available) *EOSINOPHILS2.0 % (Reference Range: not available) *BASOPHILS1.1 % (Reference Range: not available) *ABSOLUTE NEUTROPHILS2.40 X10e3/UL (1.80-7.80 X10e3/UL) *ABSOLUTE LYMPHOCYTES0.30 X10e3/UL L (1.00-3.00 X10e3/UL) *ABSOLUTE MONOCYTES0.50 X10e3/UL (0.30-1.00 X10e3/UL) *ABSOLUTE EOSINOPHILS0.10 X10e3/UL (0.00-0.50 X10e3/UL) *ABSOLUTE BASOPHILS0.00 X10e3/UL (0.00-0.20 X10e3/UL)Urinalysis from 11/24/2016 5:57 PM Status: Final Result URINALYSIS Specimen Number: [id number] Sample Collection Date/Time: 11/24/2016 5:57 PM Specimen Source: *URINE COLORDK YELLOW (STRAW/YELL/DK YELL ) *URINE APPEARANCECLOUDY A (CLEAR ) URINE PH5.5 (5.0-8.0 ) URINE SPECIFIC GRAVITY1.020 (<=1.005->=1.030 ) *URINE GLUCOSENEGATIVE MG/DL (NEGATIVE MG/DL) *URINE BILIRUBINNEGATIVE (NEGATIVE ) *URINE KETONESNEGATIVE MG/DL (NEGATIVE MG/DL) *URINE BLOODLARGE A (NEGATIVE ) *URINE PROTEINTRACE MG/DL A (NEGATIVE MG/DL) *URINE UROBILINOGEN0.2 EU/DL (0.2-1.0 EU/DL) *URINE NITRITESNEGATIVE (NEGATIVE ) *URINE LEUKOCYTESSMALL A (NEGATIVE ) *MICROSCOPIC EXAM PERFORMEDPERFORMED (Reference Range: not available) *WBC URINEPACKED FIELD /HPF A (0-5 /HPF) *RBC [id number] /HPF A (0-1 /HPF) *MUCOUS THREADSMODERATE /LPF A (NEGATIVE /LPF) *BACTERIAMODERATE /HPF A (NEGATIVE /HPF)Urinalysis from 11/13/2016 3:30 AM Status: Final Result URINALYSIS Specimen Number: [id number] Sample Collection Date/Time: 11/13/2016 3:30 AM Specimen Source: *URINE COLORYELLOW (STRAW/YELL/DK YELL ) *URINE APPEARANCECLEAR (CLEAR ) URINE PH5.5 (5.0-8.0 ) URINE SPECIFIC GRAVITY1.015 (<=1.005->=1.030 ) *URINE GLUCOSENEGATIVE MG/DL (NEGATIVE MG/DL) *URINE BILIRUBINNEGATIVE (NEGATIVE ) *URINE KETONESNEGATIVE MG/DL (NEGATIVE MG/DL) *URINE BLOODNEGATIVE (NEGATIVE ) *URINE PROTEINNEGATIVE MG/DL (NEGATIVE MG/DL) *URINE UROBILINOGEN0.2 EU/DL (0.2-1.0 EU/DL) *URINE NITRITESNEGATIVE (NEGATIVE ) *URINE LEUKOCYTESNEGATIVE (NEGATIVE )Coagulation from 11/18/2016 4:58 AM* PROTHROMBIN TIME12.9 SECONDS H (9.4-11.5 SECONDS) *INR1.21 H (0.90-1.10 ) PARTIAL THROMBOPLASTIN TIME35.0 SECONDS H (23.0-31.0 SECONDS)Coagulation from 11:13 AM*PROTHROMBIN TIME13.5 SECONDS H (9.4-11.5 SECONDS) *INR1.27 H (0.90-1.10 )Coagulation from 11/15/2016 4:41 AM*PROTHROMBIN TIME19.9 SECONDS H (9.4-11.5 SECONDS) *INR1.89 H (0.90-1.10 )Coagulation from 11/14/2016 5:10 AM*PROTHROMBIN TIME50.3 SECONDS H (9.4-11.5 SECONDS) *INR4.92 HH (0.90-1.10 )Coagulation from 11/13/2016 3:53 PM*PROTHROMBIN TIME51.5 SECONDS H (9.4-11.5 SECONDS) *INR5.05 HH (0.90-1.10 )Coagulation from 11/13/2016 1:25 AM*PROTHROMBIN TIME46.9 SECONDS H (9.4-11.5 SECONDS) *INR4.58 HH (0.90-1.10 )Microbiology from 11/16/2016 8:02 AMCULTURE BLOOD Specimen Number: [id number] Sample Collection Date/Time: 11/16/2016 8:02 AM Specimen Source: Blood Peripheral CULTURE BLOOD: No growth after 5 days of incubation. Microbiology from 11/16/2016 7:58 AMCULTURE BLOOD Specimen Number: [id number] Sample Collection Date/Time: 11/16/2016 7:58 AM Specimen Source: Blood Peripheral CULTURE BLOOD: No growth after 5 days of incubation. Microbiology from 11/14/2016 9:40 AMCULTURE FLUID Specimen Number: [id number] Sample Collection Date/Time: 11/14/2016 9:40 AM Specimen Source: Fluid Ascites *GRAM STAIN: Many RBC's Rare WBC's No WBC's or organisms seen CULTURE FLUID: No growth at 48 hrs *GRAM STAIN Specimen Number: [id number] Sample Collection Date/Time: 11/14/2016 9:40 AM Specimen Source: Fluid Ascites *GRAM STAIN: Many RBC's Rare WBC's No WBC's or organisms seen CULTURE FLUID: No growth at 48 hrs Body Fluids from 11/23/2016 7:57 PMFECAL OCCULT BLOOD 2 (Hemoccult)NEGATIVE ( NEGATIVE )Body Fluids from 11/22/2016 1:15 AMFECAL OCCULT BLOOD 1 (Hemoccult) NEGATIVE (NEGATIVE )Body Fluids from 11/14/2016 9:40 AM*FL ALBUMIN2.0 GM/DL ( Reference Range: not available) *FL TOTAL NUCLEATED [id number] X10e6/L (SEE RANGE BELOW X10e6/L) *FLUID [id number] x10e6/L (SEE RANGE BELOW x10e6/L) *FL JOGZABKBELR75 % (SEE RANGE BELOW %) *FL UTLTOUDIFMC09 % (SEE RANGE BELOW %) *FL HXPOZAULPTAAWT48 % (SEE RANGE BELOW %) *MESOTHELIAL LINING CELLS20 % (Reference Range: not available) *FLUID COLORPINK A (COLORLESS-PALE YELL ) *FLUID APPEARANCECLOUDY A (CLEAR ) *FL REF RANGESEE BELOW (Reference Range: not available) *SOURCEPLEURAL (Reference Range: not available) *SOURCEPLEURAL (Reference Range: not available) Blood Bank from 11/17/2016 9:27 AMANTIBODY SCREEN (Indirect Nicholas)NEG ( Reference Range: not available) RED BLOOD [id number] transfused compatible [id number] transfused compatible [id number] transfused compatible [id number] transfused compatible (Reference Range: not available) *ABO GroupA (Reference Range: not available) RH TYPEPOS (Reference Range: not available) Blood Bank from 11/13/2016 2:45 PMANTIBODY SCREEN (Indirect Nicholas)NEG ( Reference Range: not available) RED BLOOD [id number] transfused compatible [id number] transfused compatible (Reference Range: not available) *ABO GroupA (Reference Range: not available) RH TYPEPOS (Reference Range: not available) Reference Lab from 11/25/2016 11:50 AM*PROTEIN TOTAL5.5 g/dL L (6.0-8.5 g/dL) *ALBUMIN2.8 g/dL L (2.9-4.4 g/dL) *ALPHA 1 GLOBULIN0.4 g/dL (0.0-0.4 g/dL) *ALPHA 2 GLOBULIN0.7 g/dL (0.4-1.0 g/dL) *BETA GLOBULIN0.9 g/dL (0.7-1.3 g/dL) *GAMMA GLOBULIN0.7 g/dL (0.4-1.8 g/dL) *M SPIKENot Observed g/dL (Not Observed g/dL) *GLOBULIN TOTAL2.7 g/dL (2.2-3.9 g/dL) *A/G RATIO1.0 (0.7-1.7 ) *PE INTERPRETATIONSEE BELOW (Reference Range: not available) *NOTESEE BELOW (Reference Range: not available) Pathology from 11/14/2016 12:00 AM*PATH (Reference Range: not available) SOURCE ASCITES-CYTOLOGY DIAGNOSIS: BENIGN MESOTHELIAL CELLS PRESENT. NO MALIGNANT CELLS IDENTIFIED. ([facility]) SIGNATURE ALYSON CHU M.D. , PATHOLOGIST (CASE SIGNED 11/25/2016 AT 11:42) GROSS EXAMINATION: 1. RECEIVED IS 40 ML OF CLOUDY YELLOW FLUID WITH BLOOD AND WHITE FRAGMENTS. FOUR SMEARS AND ONE CELL BLOCK ARE PREPARED. (RD/[facility]) PHYSICIANS ARTI HENDRICKSON// CADEN BLUM// MAXIMINO BLACKMAN// CHARGE CODE CPT COUNT [id number] DIVIDER Echocardiology from 11/13/2016 12:00 AMEchocardiogramSee also the report from this date (Reference Range: not available) DX Radiology from 11/28/2016 4:36 AMCHEST 1 VIEWHistory: Congestive heart failure - 428.0 Priors: 11/27/16 Findings: A left-sided cardiac pacemaker and right-sided stimulator device are again noted. The cardiac silhouette is enlarged. Very mild perihilar pulmonary edema is improved. No focal areas consolidation or pleural effusions. Impression: Cardiomegaly and very mild perihilar pulmonary edema, improved. Electronically signed by: Maximino Blackman MD Dictated: 11/28/2016 07:56 (Reference Range: not available) DX Radiology from 11/27/2016 4:48 AMCHEST 1 VIEWHistory: Congestive heart failure - 428.0 Priors: 11/26/16 Findings: A left-sided cardiac pacemaker and battery pack for a right-sided stimulator device are again noted. The cardiac silhouette is enlarged. There is mild perihilar pulmonary edema, some with the prior study. No focal areas consolidation or pleural effusions are demonstrated. Impression: Stable chest with cardiomegaly and mild perihilar pulmonary edema. Electronically signed by: Maximino Blackman MD Dictated: 11/27/2016 07:54 (Reference Range: not available) DX Radiology from 11/26/2016 5:17 AMCHEST 1 VIEWHistory: Congestive heart failure - 428.0 Priors: Chest x-ray dated 11/25/2016 Findings: There is unchanged cardiomegaly and mild pulmonary edema. No new infiltrates are identified. No significant pleural effusion or pneumothorax is seen. Cardiac pacer device is noted entering via left subclavian approach. Impression: Unchanged mild congestive heart failure. Electronically signed by: Gayle Guerrero MD Dictated: 11/26/2016 08:19 (Reference Range: not available) DX Radiology from 11/25/2016 4:58 AMCHEST 1 VIEWHistory: Congestive heart failure - 428.0 Priors: 11/23/2016 Findings: There is mild cardiomegaly and perihilar pulmonary edema. No new infiltrate, pneumothorax or pleural effusions identified. A left subclavian cardiac leads good position Impression: Unchanged mild CHF. Electronically signed by: Messi Tucker MD Dictated: 11/25/2016 08:08 (Reference Range: not available) DX Radiology from 11/23/2016 4:18 AMCHEST 1 VIEWHistory: Congestive heart failure Priors: 11/22/2016 Findings: There has been slight improvement mild perihilar lower lobe pulmonary edema. There is unchanged cardiomegaly. A left subclavian cardiac leads in good position. Impression: Improving mild CHF. Electronically signed by: Messi Tucker MD Dictated: 11/23/2016 08:01 (Reference Range: not available) DX Radiology from 11/22/2016 5:02 AMCHEST 1 VIEWHistory: Congestive heart failure Priors: 11/21/2016 Findings: There is cardiomegaly and worsening mild perihilar pole edema. No pneumothorax or pleural effusions identified. There are left subclavian cardiac leads good position. Impression: Worsening mild CHF. Electronically signed by: Messi Tucker MD Dictated: 11/22/2016 07:52 (Reference Range: not available) DX Radiology from 11/21/2016 4:34 AMCHEST 1 VIEWHistory: Congestive heart failure Priors: 11/20/2016 Findings: There is unchanged cardiomegaly with mild perihilar pulmonary edema. No new infiltrate or pneumothorax identified. There are left subclavian cardiac leads unchanged position. Impression: Unchanged mild CHF Electronically signed by: Messi Tucker MD Dictated: 11/21/2016 08:07 (Reference Range: not available) DX Radiology from 11/20/2016 4:38 AMCHEST 1 VIEWHistory: Congestive heart failure Priors: 11/19/16 Findings: A left-sided cardiac pacemaker and an apparent stimulator device is noted again. The cardiac silhouette is enlarged. There is very mild perihilar pulmonary edema. No focal areas consolidation or pleural effusions. Impression: Cardiomegaly mild pulmonary edema, similar to the prior study. Electronically signed by: Maximino Blackman MD Dictated: 11/20/2016 08:00 (Reference Range: not available) DX Radiology from 11/19/2016 4:52 AMCHEST 1 VIEWHistory: Congestive heart failure Priors: 11/18/2016 Findings: There is unchanged mild cardiomegaly soles mild perihilar lower lobe pulmonary edema. No pneumothorax pleural effusion or consolidating infiltrates identified. There are left subclavian cardiac leads good position. Impression: Unchanged mild CHF. Electronically signed by: Messi Tucker MD Dictated: 11/19/2016 08:19 (Reference Range: not available) DX Radiology from 11/18/2016 10:24 AMCHEST 2 VIEWSHistory: Pleural effusions. Technique: 2 VIEW CHEST Priors: 11/17/16 Findings: Cardiac pacemaker in additional battery pack are noted in the chest. The cardiac silhouette is enlarged for the pulmonary vasculature is borderline prominent. There is minimal right mid lung and right basilar atelectasis as well as minimal atelectasis near the lingula. Impression: Cardiomegaly and borderline pulmonary venous congestion. Minimal right mid lung, right basilar, and lingular atelectasis. Electronically signed by: Maximino Blackman MD Dictated: 11/18/2016 11:15 (Reference Range: not available) DX [facility] 11/17/2016 6:09 [facility] V[facility]SH[facility]: Pleural effusions. Technique: 2 VIEW CHEST Priors: Chest x-ray dated 11/16/2016 Findings: There is unchanged cardiomegaly and mild pulmonary venous congestion. There has been interval improvement in right basilar atelectasis. There are small bilateral pleural effusions. No pneumothorax is seen Cardiac pacer device is again noted entering via left subclavian approach. There is an additional battery pack projected over the right upper chest wall with stimulator wires extending cephalad into the neck. Impression: Unchanged cardiomegaly and mild pulmonary venous congestion with small bilateral pleural effusions and improving right basilar atelectasis Electronically signed by: Gayle Guerrero MD Dictated: 11/17/2016 08:04 (Reference Range: not available) DX Radiology from 11/16/2016 7:40 [facility] VIEWSHistory: Pleural effusions. Technique: 2 VIEW CHEST Priors: 11/12/16 Findings: A left-sided cardiac pacemaker and right-sided stimulator device are again seen. The cardiac silhouette is enlarged. There is mild pulmonary venous congestion. More confluent opacity in the right lower lobe likely represents atelectasis. Impression: Cardiomegaly and very mild pulmonary venous congestion per Minimal right lower lobe opacity, likely representing atelectasis. Electronically signed by: Maximino Blackman MD Dictated: 11/16/2016 08:57 (Reference Range: not available) CT Scan from 11/14/2016 9:18 [facility] [place]/O CONTRASTHistory: Congestive heart failure - 428.0 . Priors: None. Findings: Heart size: The heart is enlarged. There is a small pericardial effusion. Mediastinum and Sylvie: There are few scattered mediastinal lymph nodes comment none of which are pathologically enlarged. Pulmonary parenchyma: Minimal dependent opacities are most consistent with atelectasis. Pleura: There is a moderate size right and small left pleural effusion. Aorta: Thoracic portion non-dilated. Upper abdomen: Ascites is noted in the abdomen. Osseous structures: Unremarkable. Impression: Cardiomegaly. Bilateral pleural effusions, right greater the left, with adjacent atelectasis. Small pericardial effusion per Ascites. Electronically signed by: Maximino Blackman MD Dictated: 11/14/2016 10:25 (Reference Range: not available) Nuclear Medicine from 11/20/2016 9:49 AMLUNG V/Q (PERFUSION/VENTILATION)History: Right Sided CHF Technique: 40.0 millicuries technetium 9 M DTPA were administered via inhalation. 7.0 millicuries technetium 9 M MAA were administered intravenously. Images were obtained in 6 standard projections per Priors: Plain film 11/20/16 Findings: Radiotracer activity is distributed slightly heterogeneously on both the ventilation and perfusion images. No significant ventilation-perfusion mismatches. Impression: Low probability for pulmonary embolus. Electronically signed by: Maximino Blackman MD Dictated: 11/20/2016 13:15 (Reference Range: not available) Problems Encounter Diagnosis Acute Renal Failure Syndrome Status:Active.Fall Risk Status:Active.Hyperkalemia Status:Active.Infection Risk Status:Active.INR Raised Status:Active.Skin Integrity Impairment Risk Status:Active.Additional Problems Acute Pain Comment:Problem resolved by Soarian Workflow upon Discharge, Status: Resolved.Anemia Comment:Problem resolved by Soarian Workflow upon Discharge, Status:Resolved.Cardiac Pacemaker Procedure Comment:Problem resolved by Soarian Workflow upon Discharge, Status:Resolved.Cardiac Pacemaker Procedure Comment: Problem resolved by Soarian Workflow upon Discharge, Status: Resolved.Catheterization of Left Heart Comment:Problem resolved by Soarian Workflow upon Discharge, Status:Resolved.Chronic Atrial Fibrillation Comment: Problem resolved by Soarian Workflow upon Discharge, Status:Resolved.Chronic Congestive Heart Failure Comment:Problem resolved by Soarian Workflow upon Discharge, Status:Resolved.Chronic Kidney Disease, Stage 3 Comment:Problem resolved by Soarian Workflow upon Discharge, Status:Resolved.Congestive Heart Failure Comment:Problem resolved by Soarian Workflow upon Discharge, Status: Resolved.Coronary Arteriosclerosis Comment:Problem resolved by Soarian Workflow upon Discharge, Status:Resolved.Dyspnea Comment:Problem resolved by Soarian Workflow upon Discharge, Status:Resolved.Low Blood Pressure Comment:Problem resolved by Soarian Workflow upon Discharge, Status:Resolved.Mobility Impairment Comment:Problem resolved by Soarian Workflow upon Discharge, Status: Resolved.Mobility Impairment Comment:Problem resolved by Soarian Workflow upon Discharge, Status:Resolved. Encounters Encounter Diagnosis Acute Renal Failure Syndrome Status:Active.Fall Risk Status:Active.Hyperkalemia Status:Active.Infection Risk Status:Active.INR Raised Status:Active.Skin Integrity Impairment Risk Status:Active. Plan of Care Treatment Plan from 11/28/2016 1:17 PM:Care Management Note : BODY,TD,TH,BUTTON, INPUT,SELECT,TEXTAREA{FONT-SIZE: 10pt; FONT-FAMILY: [place]; COLOR: black;} P,DIV,UL,OL,BLOCKQUOTE{MARGIN-BOTTOM: 0px; MARGIN-TOP: 0px;} BODY{MARGIN : 5px;} [facility] informed that patient will be transferring to [place] for further treatment.Treatment Plan from 11/27/2016 3:03 PM:Care Management Note : BODY,TD, TH,BUTTON,INPUT,SELECT,TEXTAREA{FONT-SIZE: 10pt; FONT-FAMILY: [place]; COLOR: black;} P,DIV,UL,OL,BLOCKQUOTE{MARGIN-BOTTOM: 0px; MARGIN-TOP: 0px;} BODY {MARGIN: 5px;} [facility] spoke with patient multiple times throughout the day. Patient is not going home today as anticipated but is feeling much better. He is wanting to have a hospital bed at discharge. [facility] not going to qualify to have Medicare pay for a bed. Patient voiced understanding. He latter called and stated that he had called somewhere and would have one delivered. [facility] then received another phone call and patient requester [facility] come to room to talk with patient. He stated that Yane from [facility] wanted a script for the bed. [facility] again explained that Medicare was not going to pay for bed and would call [employer] to clarify need for script. [facility] called [employer]. Yane explained that patient initially seemed to be agreeable to private pay, but then stated that he wanted Medicare to pay for it. Yane had informed him that for that to happen, they would have to have script and documentation. Patient stated he would get it. 'er informed Yane that patient will not qualify and that this has been explained to him. 'er will continue to discuss this withpatient.Treatment Plan from 11/26/2016 2:11 PM :Care Management Note : BODY,TD,TH,BUTTON,INPUT,SELECT,TEXTAREA{FONT-SIZE: 10pt ; FONT-FAMILY: [place]; COLOR: black;} P,DIV,UL,OL,BLOCKQUOTE{MARGIN- BOTTOM: 0px; MARGIN-TOP: 0px;} BODY{MARGIN: 5px;}CXR showed Unchanged mild congestive heart failure. Diuretics continue to be adjusted, and lamas was placed. Lymphedema treatment was ordered, and placed on a FR of 2L. Goal is to discharge home in am with home health.Na 135, K 3.2, BUN 25, Creat 1.52, Phos 2.596.8, 70, 20, 90/56, 96% RATreatment Plan from 11/26/2016 10:05 AM:Care Management Note : BODY,TD,TH,BUTTON,INPUT,SELECT,TEXTAREA{FONT-SIZE: 10pt; FONT- FAMILY: [place]; COLOR: black;} P,DIV,UL,OL,BLOCKQUOTE{MARGIN-BOTTOM: 0px; MARGIN-TOP: 0px;} BODY{MARGIN: 5px;}Patient is anticipated to stay another day and hopes to dc tomorrow. SW'er confirmed with patient that he does have a walker available at home. Patient states it has wheels and tennis balls on the bottom. He will not need another walker at this time. 'er will continue to follow.Treatment Plan from 11/25/2016 10:20 AM:Care Management Note : BODY,TD,TH ,BUTTON,INPUT,SELECT,TEXTAREA{FONT-SIZE: 10pt; FONT-FAMILY: [place]; COLOR: black;} P,DIV,UL,OL,BLOCKQUOTE{MARGIN-BOTTOM: 0px; MARGIN-TOP: 0px;} BODY {MARGIN: 5px;}SWer met with patient to review discharge needs. [facility] as well and patient was agreeable to this. Patient is anticipated to stay another night and dc tomorrow. Patient voiced no additional questions or concerns. [facility] with [facility] regarding referrals and anticipated dc.Treatment Plan from 11/24/2016 2:14 PM:Care Management Note : BODY,TD,TH,BUTTON,INPUT,SELECT,TEXTAREA{FONT-SIZE: 10pt; FONT- FAMILY: [place]; COLOR: black;} P,DIV,UL,OL,BLOCKQUOTE{MARGIN-BOTTOM: 0px; MARGIN-TOP: 0px;} BODY{MARGIN: 5px;}Patient completed a HC today. Labs continues to improve, and drips have d/c'd. PT/OT were ordered,and goal is to discharge in the am. CM will continue to follow.BUN 35, Creat1.95, ALb 2.897.8 , 70, 20, 104/64, 93% RATreatment Plan from 11/21/2016 3:42 PM:Care Management Note : BODY,TD,TH,BUTTON,INPUT,SELECT,TEXTAREA{FONT-SIZE: 10pt; FONT-FAMILY: [place]; COLOR: black;} P,DIV,UL,OL,BLOCKQUOTE{MARGIN-BOTTOM: 0px; MARGIN-TOP: 0px;} BODY{MARGIN: 5px;} [facility] needs. Patient has been informed that he is hospice appropriate and he expressed a desire for the [facility] with [facility], who wanted to wait to meet with Alma Delia with [facility] after he was able to get ahold of some friends to come down. [facility]. [facility] later [facility] he would have his people there around 13:30. [facility] of the information and also requested hospitalist meet with them. [facility] Delia later notified [facility] that patient would like to wait until Thursday after heart cath to make a decision regarding hospice. [facility] and will meet with patient again on Thursday to review.Treatment Plan from 11/21/2016 11:41 AM: Care Management Note : BODY,TD,TH,BUTTON,INPUT,SELECT,TEXTAREA{FONT-SIZE: 10pt; FONT-FAMILY: [place]; COLOR: black;} P,DIV,UL,OL,BLOCKQUOTE{MARGIN- BOTTOM: 0px; MARGIN-TOP: 0px;} BODY{MARGIN: 5px;} Attending's had a discussion with patient about prognoses. Patient would like to discuss optionswith hospice. SW discussed POC with patient, and will set up a time for later today. CM will continue to follow.Treatment Plan from 11/19/2016 3:45 PM:Care Management Note : BODY,TD,TH,BUTTON,INPUT,SELECT,TEXTAREA{FONT-SIZE: 10pt; FONT- FAMILY: [place]; COLOR: black;} P,DIV,UL,OL,BLOCKQUOTE{MARGIN-BOTTOM: 0px; MARGIN-TOP: 0px;} BODY{MARGIN: 5px;}Hgb was noted to be low, and will receive 2 units of blood. FOB x3 were ordered. Patient was started started on IV Albumin, and changed to a Lasix drip. Potassium is noted to be low, and will receive 2 doses of PO potassium. CXR showed not changes. Consults continue to follow case. CM will continue to follow.Na 131, K 3.2, BUN 45, Creat 2.14, Ca 7.9, Hgb 7.4, INR 1.2198.4, 67, 20, 91/57, 100% RATreatment Plan from 11/18/2016 11:15 AM:Care Management Note : BODY,TD,TH,BUTTON,INPUT,SELECT, TEXTAREA{FONT-SIZE: 10pt; FONT-FAMILY: [place]; COLOR: black;} P,DIV,UL, OL,BLOCKQUOTE{MARGIN-BOTTOM: 0px; MARGIN-TOP: 0px;} BODY{MARGIN: 5px;} SW'er met with patient to review discharge needs. Patient still feels he will be able to return home at discharge, but agrees now that he may need HH. Patient would like to wait until closer to discharge to make a decision. SW'er will continue to follow.Treatment Plan from 11/17/2016 1:40 PM:Care Management Note : BODY,TD,TH,BUTTON,INPUT,SELECT,TEXTAREA{FONT-SIZE: 10pt; FONT-FAMILY: [place], [place]; COLOR: black;} P,DIV,UL,OL,BLOCKQUOTE{MARGIN-BOTTOM: 0px; MARGIN-TOP : 0px;} BODY{MARGIN: 5px;}CXR showed Unchanged cardiomegaly and mild pulmonary venous congestion with small bilateral pleural effusions and improving right basilar atelectasis. Patient continues with a Bumex drip, IV Mannitol,and PO Midodrine. Lamas continues to be in place. Hgb was noted to be low, and will receive 2 units of blood. There is a question of a HC in am, and a US Paracentesis is scheduled for the am. CM will continue to follow.Na 131, BU N44 , Creat 1.96, Alb 2.9, Hgb 6.6, INR 1.2796.4, 70, 20, 103/58, 96% RATreatment Plan from 11/14/2016 11:39 AM:Care Management Note : BODY,TD,TH,BUTTON,INPUT, SELECT,TEXTAREA{FONT-SIZE: 10pt; FONT-FAMILY: [place]; COLOR: black;} P, DIV,UL,OL,BLOCKQUOTE{MARGIN-BOTTOM: 0px; MARGIN-TOP: 0px;} BODY{MARGIN: 5px;}CT of the chest showed Cardiomegaly. Bilateral pleural effusions, right greater the left, with adjacent atelectasis. Small pericardial effusion per Ascites. Patient completed a paracentesis today. Urology and Pulm were consulted, received a dose of PO Vit K, and increased IV Bumex to 3 times a day.Patient did receive 2 units of blood on 11/13.BUN 53, Creat 2.12, Hgb 9.7, INR 4.9298.5, 70, 18, 105/60, 97% RATreatment Plan from 11/13/2016 3:20 PM:Care Management Note : BODY,TD,TH,BUTTON,INPUT,SELECT,TEXTAREA{FONT-SIZE: 10pt; FONT-FAMILY: [place]; COLOR: black;} P,DIV,UL,OL,BLOCKQUOTE{MARGIN-BOTTOM: 0px; MARGIN-TOP: 0px;} BODY{MARGIN: 5px;}Patient was admitted as inpatient d/t anasarca. Patient was c/o shortness of breath and weight gain. Noted about a 25# gain in the past 2-3 weeks. H&P noted that patient had 3-4+ pitting edema."CT of his abdomen and pelvis obtained which showed bilateral pleural effusions and atelectasis along with moderate ascites. A chest x-ray obtained showed cardiomegaly and pulmonary venous congestion." INR was noted at >9.0 , and received 2 units of FFP.Patient was placed on tele, Nephro and Cardio were consulted, lymphedema ordered, lamas placed, and Echo will be completed, IV Bumex twice a day started, and will complete a Paracentesis.Na 134, K 5.2, BUN 63, Creat 2.54, BNP 374, WBC 3.3, Hgb 8.1, INR 4.58, Troponin's 0.093, 0.083 , 0.086, 0.13546.2, 70, 18, 89/55, 97% RATreatment Plan from 11/13/2016 10:30 AM: Care Management Note : BODY,TD,TH,BUTTON,INPUT,SELECT,TEXTAREA{FONT-SIZE: 10pt; FONT-FAMILY: [place]; COLOR: black;} P,DIV,UL,OL,BLOCKQUOTE{MARGIN- BOTTOM: 0px; MARGIN-TOP: 0px;} BODY{MARGIN: 5px;} SW'er met with patient to discuss discharge needs. Patient lives at home alone and is independent of all ADLs. Patient voices no concerns regarding being able to return home. SW'er discussed HH and Care Transitions. Patient declined HH but said he might consider TCP. He requested that SW'er follow up closer to discharge regarding this. Patient voiced no questions or concerns. SW'er providedcontact information and will continue to follow. Procedures Completed Procedure Code: [id number] Procedure Name: not valued, on 10/21/2016 12: 00 AMCompleted Procedure Code: 9276985 Procedure Name: not valued, on 2016 12:00 AMCompleted Procedure Code: 4880663 Procedure Name: not valued, on 12:00 AMCompleted Colonoscopy, by MD MARIA A CASTLE, on 07/16/2014 7: 42 AMCompleted Esophagogastroduodenoscopy, by MD MARIA A CASTLE, on 2014 7:32 AMCompleted Procedure Code: 00.00 Procedure Name: not valued, on 2014 12:00 AMCompleted Procedure Code: 16226 Procedure Name: not valued, on 07/16 12:00 AMCompleted Procedure Code: 67393 Procedure Name: not valued, on 07/16/2014 12:00 [...] AMCompleted , on 07/06/2009 12:00 AM Immunizations Influenza, seasonal, injectable ([employer] PHARM, Lot # [id number]); Administered 2016 11:43 AM; 1 DOSE=0.5 ML, INTRAMUSCL Hospital Course Hospital Discharge Instructions How to care for yourself at home from 11/28/2016 12:44 PM:Discharge Activity : Activity as toleratedDischarge Diet : As before hospitalizationCall your doctor if: : Fever over 101 F or severe chills,Chest pain or other unexplained symptoms ,Tingling or numbness develops,A sudden increase or decrease in weight,You have persistent or worsening symptoms,If you have Heart Failure and you gain 3 pounds within 1 week or your symptoms worsen. (Weigh at home tomorrow morning) Specific Discharge Teaching Instructions provided: : NoDischarge on Warfarin : No Allergies, Adverse Reactions, Alerts This section is financial services representative of the current allergy information, at the time of the CCD generation. In the case of regeneration of the CCD, the allergy information may not reflect the state of known allergies at the time of the CCD' s subject visit. No Latex Allergy.No IV Contrast Allergy.No Known Drug Allergies.No Known Food Allergies.No Known Allergies. Medication It is the responsibility of the patient or patient financial services representative to confirm the list of medicationswith either the patient's personal care provider or the patient's follow-up care provider to ensure the patient has an appropriate list of medications to take at home. Discharge medicationsNew medicationsmetoLAZOne 5 mg Tablet, Ordered By: CADEN BLUM MD Directions: 1 tablet oral three times a day Additional Instructions: HOLD IF SPB LESS THAN 85 midodrine 5 mg Tablet, Ordered By: CADEN BLUM MD Directions: 3 tablet oral three times a day Additional Instructions: DO NOT LIE DOWN AFTER TAKING THIS DRUG. Continued medicationsaspirin 81 mg tablet,chewable, Ordered By: CADEN BLUM MD Directions: 1 tablet oral daily every evening levothyroxine 75 mcg Tablet, Ordered By: CADEN BLUM MD Directions: 1 tablet oral daily before breakfast pantoprazole 40 mg tablet,delayed release (DR/EC), Ordered By: CADEN BLUM MD Directions: 1 tablet oral daily every morning zolpidem 10 mg Tablet, Ordered By: CADEN BLUM MD Directions: 1 tablet oral daily at bedtime for insomnia Changed medicationsfurosemide 80 mg Tablet, Ordered By: CADEN BLUM MD Directions: 1 tablet oral three times a day Additional Instructions: HOLD IF SPB LESS THAN 85 Stopped medicationstamsuLOSIN 0.4 mg capsule,extended release 24hr Directions: 1 capsule oral daily every evening warfarin 5 mg Tablet Directions: every evening losartan 25 mg Tablet Directions: 1 tablet oral daily every morning Additional Instructions: 07/28/2016 amiodarone 200 mg Tablet Directions: 1 tablet oral twice a day for for rhythm control simvastatin 40 mg Tablet Directions: 1 tablet oral daily at bedtime
--- OUTSIDE RECORDS SUMMARY | 2016-12-20 15:16 | External Medical Summary | Summary of Care ---
:1950 Author Name Joanne Falcon, [place] Address [address] [place], [place] [id number] Care Team Providers Name Role Phone Joanne [...] cm H2O, Permanent use, G47.33, Heated humidity, [id number], mask , headgear, filters, heated tubing, water [...] po daily Quantity: 270 Refills: 3 Shant Rubio M.D. Start 07-Feb-2016 Active Losartan Potassium 25 [...] Ordered: 08-Feb-2016 RENAL PROFILE 1240 Ordered: 05-Mar-2016 Immunization Name Dates Details Tdap (Adacel) on: Zoster (Zostavax) on: 21-Mar-2014 Lot #: [id number] Prevnar 13 Intramuscular Suspension on: 21-Mar-2014 Lot #: [id number] Family History Mother Name Dates Details Family [...] m2 Status: Results Date Description Value Details 15-Feb-2016 12:33 ULTRASOUND ELVS EVALUATION Comments: Exam [...] low Range: >60 threshold) EST GFR, NON-AFR [place] 44 ml/min (Below low Range: >60 threshold) [...] Dates Details Instructions not documented Encounters Appointment; Jonh Lanier M.D. On 03-Mar-2016 Encounter [...] Problem not documented 10:30 Appointment; Rufino Rayo PNicholas On 12-Jun-2014 Encounter Diagnosis: Problem not documented [...]
--- OUTSIDE RECORDS SUMMARY | 2016-12-20 15:17 | External Medical Summary ---
:1950 Author Name GENERATED, SYSTEM Care Team Providers Name Role Phone MD ALEXSANDER, YANE Primary Care Provider Unavailable Reason For Visit Chief Complaint 03/03/16 SADAF LE EDEMA Social History Functional Status Functional Status from 03/11/2016 12:29 PM:Oriented To : Person,Place,Time,Event Vital Signs Results Problems Encounter Diagnosis No relevant problems exist. Additional Problems Acute Pain Comment:Problem resolved by Soarian [...] Comment:Problem resolved by Soarian Workflow upon Discharge, Status:Resolved.Fall Risk Comment:Problem resolved by Soarian Workflow upon Discharge, Status:Resolved.Fall Risk Comment:Problem resolved by Soarian Workflow upon Discharge, Status:Resolved.Fall Risk Comment:Problem resolved by Soarian Workflow upon Discharge, Status:Resolved.Low Blood Pressure Comment:Problem resolved by Soarian Workflow upon Discharge, Status: Resolved.Mobility Impairment Comment:Problem resolved by Soarian Workflow upon Discharge, Status:Resolved.Mobility Impairment Comment:Problem resolved by Soarian Workflow upon Discharge, Status:Resolved.Skin Integrity Impairment Risk Comment:Problem resolved by Soarian Workflow upon Discharge, Status:Resolved. Encounters Encounter Diagnosis No relevant problems exist. Plan of Care Procedures Completed Colonoscopy, by MD MARIA A CASTLE, on 07/16/2014 7:42 AMCompleted Esophagogastroduodenoscopy, by MD MARIA A CASTLE, on 07/16/2014 7:32 AMCompleted Procedure Code: 00.00 Procedure Name: not valued, on 07/16/2014 12: 00 AMCompleted Procedure Code: 70352 Procedure Name: not valued, on 07/16/2014 12 :00 AMCompleted Procedure Code: 03601 Procedure Name: not valued, on 07/16/2014 12:00 [...] 07/06/2009 12:00 AM Immunizations Influenza, seasonal, injectable ([employer] PHARM, Lot # [id number]); Administered 2016 11:43 AM; 1 DOSE=0.5 ML, INTRAMUSCL Hospital Course Hospital Discharge Instructions Allergies, Adverse Reactions, Alerts Latex Allergy has not been assessed.IV Contrast Allergy has not been assessed.No Known Drug Allergies.No Known Food Allergies.No Known Allergies. Medication Medication reconciliation has not been performed.
--- OUTSIDE RECORDS SUMMARY | 2016-12-20 15:17 | External Medical Summary | Summary of Care ---
:1950 Author Name Lotus Rubio M.D. 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 Started 14-May-2015 [id number] GM Tube MethylPREDNISolone 4 MG Oral Tablet Therapy Pack Take as directed Quantity: 1 Refills: 0 Shant Rubio M.D. Started 21-Jun-2015 Active Allergies and Adverse Reactions Name Dates [...] on: Zoster (Zostavax) Administered on:21-Mar-2014 Lot #: [id number] Prevnar 13 Intramuscular Suspension Administered on:21-Mar-2014 Lot #: [id number] Family History Mother Name Dates Details Family history of Hyperlipidemia Status: Active Family history of cerebrovascular accident (CVA) (V17.1, Z82.3) Status: Active Father Name Dates Details Family history of Cancer Status: Active Social History Name Dates Details Smoking StatusNever smoker Vital Signs Date Test Result Details 21-Jun-2015 15:52 BP Systolic 130 mm[Hg] Status: [...] Status: Results Date Description Value Details 20-Jun-2015 14:02 ECG/ EKG Outside Inter Electro CardioGram ECG waiting for interpretation, click ImageLink button to view/confirm the study. (Better) 21-Jun-2015 17:00 CBC w/ Auto Diff 7150 WBC 6.5 K/uL (Better) Range: 4.5-11.0 RBC 4.29 mil/uL (Better) Range: 4.20-5.40 HGB 13.1 g/dL (Below low Range: 14.0-18.0 threshold) HCT 39.4 % (Below low Range: [...] (Better) Range: 3.5-5.1 CHLORIDE 96 mmol/L (Below low Range: 98-110 threshold) CARBON DIOXIDE 29.4 mmol/L (Better) Range: 23.0-33.0 ANION GAP 9 mmol/L (Better) Range: 6-16 BUN 29 mg/dL (Above high Range: 7-18 threshold) CREATININE, SERUM 1.79 mg/dL (Above Range: 0.70-1.30 high threshold) Comments: Please note new reference ranges effective 07/01.----- EST GFR, 46 ml/min (Below low Range: >60 [place] threshold) EST GFR, NON-AFR 38 ml/min (Below low Range: >60 [place] threshold) Comments: EST GFR is reported in ml/min per 1.73 m2 of body surface area. For -Chilean, please multiple result by 1.2.----- BUN:CREATININE RATIO 16 (Better) GLUCOSE 96 mg/dL (Better) Range: 70-100 CALCIUM 9.4 mg/dL (Better) Range: 8.5-10.1 Plan of Care Planned Observations Name Dates Details Planned Goals not documented Goal Planned Encounters Appointment; Provider: Mick Parker On 06-Nov-2015 08:15 Appointment; Provider: Shant Rubio On 25-Sep-2015 13:30 [...] not documented Encounters Appointment; Mark Maldonado On 21-Jun-2015 Encounter Diagnosis: [...]
--- OUTSIDE RECORDS SUMMARY | 2016-12-20 15:17 | External Medical Summary | Summary of Care ---
:1950 Author Name Joanne Falcon, Lotus Bran Address [address] [place], [place] [id number] Care Team Providers Name Role Phone Joanne Falcon, Lotus Bran Unavailable Unavailable Yolande Falcon, Jonh Unavailable Unavailable Mateusz Maldonado M.D. Unavailable Unavailable [...] Status: Active Globe Enucleation Left Status: Active Edema (782.3, R60.9) Status: Active Hypertension (401.9, I10) Status: Active Peripheral arterial disease (443.9, I73.9) Status: Active CKD (chronic kidney disease) stage 3, GFR 30-59 ml/min (585.3, N18.3) Status : Active Atrial fibrillation (427.31, I48.91) Status: Active Chronic systolic congestive heart failure (428.22, I50.22) Status: Active Biventricular ICD (implantable cardioverter-defibrillator) in place (V45.02, Z95.810) Status: Active Lymphedema (457.1, I89.0) Status: Active Medications Name Dates Details Simvastatin 40 MG Oral Tablet TAKE ONE TABLET BY MOUTH EVERY NIGHT AT BEDTIME Quantity: 90 Refills: 3 Shant Rubio M.D. Start Active Pantoprazole Sodium [...] GM Tube Bumetanide 1 MG Oral Tablet TAKE 2 TABLET Twice daily Quantity: 360 Refills: 3 Jonh Lanier M.D. Start 07-Feb-2016 Active Losartan Potassium 25 [...] ( Parathyroid Hormone Intact) 3101 Ordered: 26-May-2016 ULTRASOUND LEG ARTERIES-BILATERAL Ordered: 26-May-2016 Immunization Name Dates Details Tdap (Adacel) on: Zoster (Zostavax) on: 21-Mar-2014 Lot #: [id number] Prevnar 13 Intramuscular Suspension on: 21-Mar-2014 Lot #: [id number] Family History Mother Name Dates Details Family history of Hyperlipidemia Status: Active Family history of cerebrovascular accident (CVA) (V17.1, Z82.3) Status: Active Father Name Dates Details Family history of Cancer Status: Active Social History Name Dates Details - Status: Smoking Status Name Dates Details Never smoker Vital Signs Date Test Result Details 26-May-2016 10:48 BP Systolic 100 mm[Hg] Status: Comments: Location: ; Position: BP Diastolic 68 mm[Hg] Status: Comments: Location: ; Position: Heart Rate 80 /min Status: Comments: Location: ; Physical Findings 18 Status: Comments: Respiration Weight 241.2 lb Status: Physical Findings 98 Status: Comments: O2 Saturation Body Mass Index Calculated 30.15 kg/m2 Status: Body Surface Area Calculated 2.38 m2 Status: 19-May-2016 14:42 BP Systolic 90 mm[Hg] Status: Comments: Location: ; Position: BP Diastolic 58 mm[Hg] Status: Comments: Location: ; Position: Heart Rate 82 /min Status: Comments: Location: ; Weight 237 lb Status: Body Mass Index Calculated 29.62 kg/m2 Status: Body Surface Area Calculated 2.36 m2 Status: Results Date Description Value Details 19-May-2016 14:30 HEMOGRAM 7305 WBC 4.6 K/uL Range: 4.5-11.0 RBC 3.63 mil/uL (Below low threshold) Range: 4.20-5.40 HGB 10.2 g/dL (Below low threshold) Range: 14.0-18.0 HCT 31.2 % (Below low threshold) Range: 42.0-53.0 MCV 85.9 fL Range: 80.0-99.0 MCH 28.2 pg Range: 27.3-32.5 MCHC 32.8 % Range: 32.0-36.0 PLATELETS 167 K/uL Range: 150-400 14:53 RENAL PROFILE 1240 SODIUM 130 mmol/L (Below low Range: 133-144 threshold) POTASSIUM 3.7 mmol/L Range: 3.5-5.1 CHLORIDE 92 mmol/L (Below low Range: 98-110 threshold) CARBON DIOXIDE 26.7 mmol/L Range: 23.0-33.0 ANION GAP 11 mmol/L Range: 6-16 BUN 56 mg/dL (Above high Range: 7-18 threshold) CREATININE, SERUM 2.15 mg/dL (Above high Range: 0.70-1.30 threshold) EST GFR, 37 ml/min (Below low Range: >60 threshold) EST GFR, NON-AFR [place] 31 ml/min (Below low Range: >60 threshold) Comments: EST GFR is reported in ml/min per 1.73 m2 of body surface area. ----- BUN:CREATININE RATIO 26 GLUCOSE 141 mg/dL (Above high Range: 70-100 threshold) Comments: Variance from previous testing noted.----- ALBUMIN 4.0 g/dL Range: 3.4-5.0 PHOSPHORUS 4.0 mg/dL Range: 2.6-4.7 CALCIUM 8.8 mg/dL Range: 8.5-10.1 Plan of Care Name Dates Details Planned Observations Planned Goals not documented Planned Encounters Appointment; Provider: Neil Justin M.D. On 18-Feb-2017 09:00 Appointment; Provider: Mick Parker M.D. On 06-Nov-2016 08:15 Appointment; Provider: Mark Maldonado M.D. On 11:15 Appointment; Provider: Shant Rubio M.D. On 09:45 Appointment; Provider: Jonh Lanier M.D. On 11:30 Interventions Provided Labs/Procedures/ImagingULTRASOUND LEG ARTERIES-BILATERAL; To be Done: 26 May 2016 Instructions Name Dates Details Instructions not documented Encounters Appointment; Jonh Lanier M.D. On 19-May-2016 Encounter [...] Encounter Diagnosis: Problem not documented 10:45 Appointment; Mrak Maldonado M.D. On 21-Jun-2015 Encounter Diagnosis: Problem [...]
--- OUTSIDE RECORDS SUMMARY | 2016-12-20 15:17 | External Medical Summary | Summary of Care ---
:1950 Author Name Joanne Falcon, Lotus Bran Address [address] [place], [place] [id number] Care Team Providers Name Role Phone Joanne [...] disease), stage III (585.3, N18.3) Status: Active Seborrheic keratosis (702.19, L82.1) Status: Active Sebaceous hyperplasia (706.8, L73.8) Status: Active Acid reflux (530.81, K21.9) Status: Active CAD (coronary atherosclerotic disease) (414.00, I25.10) Status: Active PTCA Status: Active Hypertension (401.9, I10) Status: Active Hyperlipidemia (272.4, E78.5) Status: Active Paroxysmal atrial fibrillation (427.31, I48.0) Status: Active Chronic systolic congestive heart failure (428.22, I50.22) Status: Active Status post ablation of atrial fibrillation (V45.89, Z98.890) Status: Active Impotence (607.84, N52.9) Status: Active Medications Name Dates Details Simvastatin 40 MG Oral Tablet TAKE ONE TABLET BY MOUTH EVERY NIGHT AT BEDTIME Quantity: 30 Refills: 10 Shant Rubio M.D. Start Active Furosemide 40 MG Oral Tablet take two tablets by mouth daily Quantity: 60 Refills: 10 Shant Rubio M.D. Start 16-Jun-2011 Active Aspir-Low 81 MG Oral Tablet Delayed Release TAKE 1 TABLET IN THE PM Refills: 0 Start 26-Sep-2014 Active MetOLazone 5 MG Oral Tablet prn Quantity: 30 Refills: 5 Shant Rubio M.D. Start 30-Mar-2013 Active Supplies AutoCPAP 8-12 cm H2O, Permanent use, G47.33, Heated humidity, [id number], mask , headgear, filters, heated tubing, water [...] M.D. Start 14-May-2015 Active 30 GM Tube Zolpidem Tartrate 10 MG Oral Tablet TAKE ONE TABLET BY MOUTH EVERY NIGHT AT BEDTIME Quantity: 30 Refills: 4 Shant Rubio M.D. Start 11-Sep-2015 Active Losartan Potassium 25 MG Oral Tablet Take one tablet by mouth daily Quantity: 90 Refills: 1 Mark Maldonado M.D. Start 09-Oct-2015 Active Levothyroxine Sodium 50 MCG Oral Tablet TAKE 1 TABLET DAILY. Refills: 0 Shant Rubio M.D. Start Active Klor-Con M20 20 MEQ Oral Tablet Extended Release Take one tablet by mouth daily Quantity: 30 Refills: 3 Shant Rubio M.D. Start 08-Nov-2015 Active Pantoprazole Sodium 40 MG Oral Tablet Delayed Release Take one tablet by mouth daily Quantity: 30 Refills: 10 Shant Rubio M.D. Lotus Start 09-Nov-2015 Active Viagra 100 MG Oral Tablet Use as needed before sexual activity Quantity: 15 Refills: 3 Joel Falcon Mark Mateusz Start 26-Dec-2015 Active Allergies and Adverse Reactions Name Dates [...] Completed: 23-Oct-2011 External Globe Enucleation Left PTCA THYROID STIM. HORMONE 3602 Ordered: 11-Jan-2016 Immunization Name Dates Details Tdap (Adacel) on: Zoster (Zostavax) on: 21-Mar-2014 Lot #: [id number] Prevnar 13 Intramuscular Suspension on: 21-Mar-2014 Lot #: [id number] Family History Mother Name Dates Details Family history of Hyperlipidemia Status: Active Family history of cerebrovascular accident (CVA) (V17.1, Z82.3) Status: Active Father Name Dates Details Family history of Cancer Status: Active Social History Name Dates Details - Status: Smoking Status Name Dates Details Never smoker Vital Signs Date Test Result Details 26-Dec-2015 10:37 BP Systolic 110 mm[Hg] Status: Comments: Location: ; Position: BP Diastolic 78 mm[Hg] Status: Comments: Location: ; Position: Heart Rate 85 /min Status: Comments: Location: ; Results Date Description Value Details 11-Jan-2016 10:19 [...] low Range: >60 threshold) EST GFR, NON-AFR CYMRO 39 ml/min (Below low Range: >60 threshold) [...] LDL - CALCULATED 45 mg/dL Range: 0-130 Plan of Care Name Dates Details Planned Observations Planned Goals not documented Planned Encounters Appointment; Provider: Mick Parker M.D. On 06-Nov-2016 08:15 Appointment; Provider: Mark Maldonado M.D. On 25-Jun-2016 11:00 Appointment; Provider: Neil Justin M.D. On 01-Feb-2016 13:30 Appointment; Provider: Shant Rubio M.D. On 15-Jan-2016 11:00 Interventions Provided Labs/Procedures/ImagingTHYROID STIM. HORMONE 3602; [facility] 7150; Done: Jan 11 2016 10:09AMComprehensive Metabolic Panel 1212; Done: Jan 11 2016 10:09AMLIPID PROFILE 1184; Done: Jan 11 2016 10:09AM Instructions Name Dates Details Instructions not documented Encounters Appointment; Mark Maldonado M.D. On 26-Dec-2015 Encounter [...] Encounter Diagnosis: Problem not documented 09:30 Appointment; Shatn Rubio M.D. On Encounter Diagnosis: Problem not [...] Problem not documented 09:00 Appointment; Rufino Rayo P.A. On 23-Jan-2014 Encounter Diagnosis: Problem not documented 13:45
--- OUTSIDE RECORDS SUMMARY | 2016-12-20 15:17 | External Medical Summary | Summary of Care ---
[...] Quantity: 30 Refills: 10 Shant Rubio M.D. Started ActiveFurosemide 40 MG [...] cm H2O, Permanent use, G47.33, Heated humidity, [id number], mask , headgear, filters, heated tubing, water [...] Refills: 6 Shant Rubio M.D. Started 14-May-2015 [id number] GM Tube MetroNIDAZOLE 500 MG Oral Tablet Take 1 tablet twice daily Quantity: 14 Refills: 0 Shant Rubio M.D. Started ActiveOndansetron HCl - 4 MG Oral Tablet ONE TABLET BY MOUTH EVERY 4 HOURS NEEDED FOR NAUSEA Quantity: 15 Refills: 3 Shant Rubio M.D. Started ActiveLevothyroxine Sodium 50 MCG Oral Tablet take 1 tablet by mouth every day Quantity: 30 Refills: 3 Shant Rubio M.D. Started ActiveAspir-Low 81 MG Oral Tablet Delayed Release TAKE 1 TABLET IN THE PM Refills: 0 , Started 26-Sep-2014 Active Allergies and Adverse Reactions Name Dates [...] Interp Pendin19-Jun-2015 Cardiology [facility] (outside facility) Ordered:21-Jun-2015 THYROID STIM. HORMONE 3602 Ordered: Immunization Name Dates Details Tdap (Adacel) Administered on: Zoster (Zostavax) Administered on:21-Mar-2014 Lot #: [id number] Prevnar 13 Intramuscular Suspension Administered on:21-Mar-2014 Lot #: [id number] Family History Mother Name Dates Details Family [...] m2 Status: Results Date Description Value Details CBC w/ Auto Diff 7150 Comments: Manual [...] Range: >60 low threshold) EST GFR, NON-AFR [facility] [place] 49 ml/min (Below Range: >60 low threshold) Comments: EST GFR is reported in ml/min per 1.73 m2 of body surface area. For -Lebanese, please multiple result by 1.2.----- GLUCOSE 89 [...] 25-Sep-2015 13:30 Appointment; Provider: Mark Maldonado On 25-Jun-2015 12:00 [...] not documented Encounters Appointment; Neil Justin On Encounter Diagnosis: Problem not documented 08:15 Appointment; Shant Rubio On Encounter Diagnosis: Problem [...]
--- OUTSIDE RECORDS SUMMARY | 2016-12-20 15:20 | External Medical Summary | Summary of Care ---
[...] Active Renal insufficiency (593.9, N28.9) Status: Active Rash (782.1, R21) Status: Active CAD (coronary atherosclerotic disease) (414.00, I25.10) Status: Active PTCA Status: Active Paroxysmal atrial fibrillation (427.31, I48.0) Status: Active Status post ablation of atrial fibrillation (V45.89, Z98.89) Status: Active Chronic systolic congestive heart failure (428.22, I50.22) Status: Active Hypertension (401.9, I10) Status: Active Hyperlipidemia (272.4, E78.5) Status: Active Congestive heart failure (428.0, I50.9) Status: Active Obstructive sleep apnea (327.23, G47.33) Status: Active Atrial fibrillation (427.31, I48.91) Status: Active Claustrophobia (300.29, F40.240) Status: Active 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 Started 26-Sep-2014 ActiveKlor-Con M20 20 MEQ Oral Tablet Extended Release TAKE 1 TABLET DAILY. Quantity: 30 Refills: 6 Shant Rubio M.D. Started 02-Jan-2015 ActiveSupplies AutoCPAP 8-12 cm H2O, Permanent use, G47.33, Heated humidity, [id number], mask , headgear, filters, heated tubing, water [...] Refills: 6 Shant Rubio M.D. Started 14-May-2015 [id number] GM Tube Zolpidem Tartrate 10 MG Oral Tablet TAKE 1 TABLET AT BEDTIME NEEDED FOR SLEEP. Refills: 0 Mark Maldonado M.D. Started 13-Dec-2014 ActiveMetolazone 5 MG Oral Tablet prn Quantity: 30 Refills: 5 Shant Rubio M.D. Started 30-Mar-2013 ActiveFurosemide 40 MG Oral Tablet TAKE 1 TABLET TWICE DAILY. Quantity: 30 Refills: 0 Shant Rubio M.D. Started 16-Jun-2011 ActiveSimvastatin 40 MG Oral Tablet TAKE ONE TABLET BY MOUTH EVERY NIGHT AT BEDTIME Quantity: 30 Refills: 11 Shant Rubio M.D. Started Active Allergies and [...] Left PTCA CBC w/ Auto Diff 7150 Ordered:04-Apr-2015 Comprehensive Metabolic Panel 1212 Ordered:04-Apr-2015 LIPID PROFILE 1184 Ordered:04-Apr-2015 THYROID STIM. HORMONE 3602 Ordered:04-Apr-2015 FERRITIN 3025 Ordered:04-Apr-2015 IRON 1254 Ordered:04-Apr-2015 Testosterone,Free and Total 820276 Ordered:04-Apr-2015 Immunization Name Dates Details Tdap (Adacel) Administered on: Zoster (Zostavax) Administered on:21-Mar-2014 Lot #: [id number] Prevnar 13 Intramuscular Suspension Administered on:21-Mar-2014 Lot #: [id number] Family History Mother Name Dates Details Family history of Hyperlipidemia Status: Active Family history of cerebrovascular accident (CVA) (V17.1, Z82.3) Status: Active Father Name Dates Details Family history of Cancer Status: Active Social History Name Dates Details Smoking StatusNever smoker Vital Signs Date Test Result Details 14-May-2015 09:59 BP Systolic 94 mm[Hg] Status: BP Diastolic 62 mm[Hg] Status: Heart Rate 84 /min Status: Height 75 in Status: Weight 254 lb Status: Body Mass Index Calculated 31.75 kg/m2 Status: Body Surface Area Calculated 2.43 m2 Status: 10-May-2015 14:30 BP Systolic 112 mm[Hg] Status: BP Diastolic 76 mm[Hg] Status: Heart Rate 74 /min Status: Weight 257 lb Status: Body Mass Index Calculated 32.12 kg/m2 Status: Body Surface Area Calculated 2.44 m2 Status: 08-May-2015 10:47 BP Systolic 116 mm[Hg] Status: BP Diastolic 84 mm[Hg] Status: Heart Rate 82 /min Status: Weight 253 lb Status: O2 SAT 98 % Status: Body Mass Index Calculated 31.62 kg/m2 Status: Body Surface Area Calculated 2.42 m2 Status: Results Date Description Value Details 10-May-2015 15:18 ECG/ EKG ([facility]) Electro CardioGram (Better) Plan of Care Planned Observations Name Dates Details Planned Goals not documented Goal Planned Encounters Appointment; Provider: Mick Parker On 06-Nov-2015 08:15 Appointment; Provider: Mark Maldonado On 14:45 Appointment; Provider: Neil Justin On 08:15 Appointment; Provider: Shant Rubio On 14:00 Appointment; Provider: Mark Maldonado On 21-Jun-2015 15:30 Appointment; Provider: Estuardo Yang On 14-Jun-2015 08:45 Appointment; Provider: Mark Maldonado On 22-Dec-2013 07:30 [...] not documented Encounters Appointment; Shant Rubio On 14-May-2015 Encounter Diagnosis: [...]
--- OUTSIDE RECORDS SUMMARY | 2016-12-20 15:23 | External Medical Summary | Summary of Care ---
:1950 Author Name Lotus Yang M.D. Address [address], [place] [id number] Care Team Providers Name Role Phone Lotus [...] cm H2O, Permanent use, G47.33, Heated humidity, [id number], mask , headgear, filters, heated tubing, water [...] Refills: 6 Shant Rubio M.D. Started 14-May-2015 [id number] GM Tube Allergies and Adverse Reactions Name [...] on: Zoster (Zostavax) Administered on:21-Mar-2014 Lot #: [id number] Prevnar 13 Intramuscular Suspension Administered on:21-Mar-2014 Lot #: [id number] Family History Mother Name Dates Details Family [...]
--- OUTSIDE RECORDS SUMMARY | 2016-12-20 15:23 | External Medical Summary | Summary of Care ---
:1950 Author Name Joanne Falcon, Lotus Bran Address [address] [place], [place] [id number] Care Team Providers Name Role Phone Joanne Falcon, Lotus Bran Unavailable Unavailable Paloma Hart Unavailable Unavailable Mateusz Maldonado M.D. 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) Status: Active Vitreous floaters of right eye (379.24, H43.391) Status: Active Obstructive sleep apnea (327.23, G47.33) Status: Active Biventricular ICD (implantable cardioverter-defibrillator) in place (V45.02, Z95.810) Status: Active CKD (chronic kidney disease), stage [...] Status: Active Impotence (607.84, N52.9) Status: Active Chronic systolic congestive heart failure (428.22, I50.22) Status: Active Anxiety (300.00, F41.9) Status: Active Hypothyroidism (244.9, E03.9) Status: Active Medications Name Dates Details Simvastatin [...] cm H2O, Permanent use, G47.33, Heated humidity, [id number], mask , headgear, filters, heated tubing, water [...] M.D. Start 14-May-2015 Active 30 GM Tube Levothyroxine Sodium 50 MCG Oral Tablet TAKE 1 TABLET DAILY. Refills: 0 Shant Rubio M.D. A Start Active Viagra 100 MG Oral Tablet Use as needed before sexual activity Quantity: 15 Refills: 3 Joel Falcon, Mark Child Start 26-Dec-2015 Active Levothyroxine Sodium 75 MCG [...] on: Zoster (Zostavax) on: 21-Mar-2014 Lot #: [id number] Prevnar 13 Intramuscular Suspension on: 21-Mar-2014 Lot #: [id number] Family History Mother Name Dates Details Family history of Hyperlipidemia Status: Active Family history of cerebrovascular accident (CVA) (V17.1, Z82.3) Status: Active Father Name Dates Details Family history of Cancer Status: Active Social History Name Dates Details - Status: Smoking Status Name Dates Details Never smoker Vital Signs Date Test Result Details 15-Jan-2016 11:17 BP Systolic 115 mm[Hg] Status: Comments: Location: ; Position: BP Diastolic 60 mm[Hg] Status: Comments: Location: ; Position: Heart Rate 89 /min Status: Comments: Location: ; Weight 252.8 lb Status: Physical Findings 97 Status: Comments: O2 Saturation Body Mass Index Calculated 31.6 kg/m2 Status: Body Surface Area Calculated 2.42 m2 Status: 26-Dec-2015 10:37 BP Systolic 110 mm[Hg] Status: [...] low Range: >60 threshold) EST GFR, NON-AFR FREN[place] 39 ml/min (Below low Range: >60 threshold) [...] 13:30 Appointment; Provider: Shant Rubio M.D. On 29-Jan-2016 11:30 Interventions Provided Medication ChangesALPRAZolam 0.25 MG Oral Tablet - StartLevothyroxine Sodium 75 MCG Oral Tablet - StartMetOLazone 5 MG Oral Tablet - Start Instructions Name Dates Details Instructions [...] Problem not documented 15:15 Appointment; Rufino Rayo PFarzanehAFarzaneh On 03-Apr-2014 Encounter Diagnosis: Problem not documented 14:30 Appointment; Shant Rubio M.D. On 21-Mar-2014 Encounter Diagnosis: Problem not documented 09:00 Appointment; Rufino Rayo P.A. On 23-Jan-2014 Encounter Diagnosis: Problem not documented 13:45
--- OUTSIDE RECORDS SUMMARY | 2016-12-20 15:24 | External Medical Summary ---
:1950 Author Name GENERATED, SYSTEM Care Team Providers Name Role Phone MD ALEXSANDER, YANE Primary Care Provider Unavailable Reason For Visit Chief Complaint A FIB Social History Functional Status Vital Signs Results Problems Encounter Diagnosis No [...] on 07/16/2014 12: 00 AMCompleted Procedure Code: 67144 Procedure Name: not valued, on 07/16/2014 12 :00 AMCompleted Procedure Code: 26494 Procedure Name: not valued, on 07/16/2014 12:00 [...] Hospital Discharge Instructions Allergies, Adverse Reactions, Alerts This section is commercial representative of the current allergy information, at [...] the responsibility of the patient or patient commercial representative to confirm the list of medicationswith either the patient's personal care provider or the patient's follow-up care provider to ensure the patient has an appropriate list of medications to take at home. Discharge medicationsNew medicationsapixaban (Eliquis) 5 mg Tablet, Ordered By: PADMA DEL ROSARIO MD Directions: 1 tablet oral twice a day Continued medicationsspironolactone 50 mg Tablet, Ordered By: PADMA DEL ROSARIO MD Directions: 1 tablet oral daily simvastatin 40 mg Tablet, Ordered By: PADMA DEL ROSARIO MD Directions: 1 tablet oral daily at bedtime metoLAZOne 5 mg Tablet, Ordered By: PADMA DEL ROSARIO MD Directions: 1 tablet oral daily furosemide 40 mg Tablet, Ordered By: PADMA DEL ROSARIO MD Directions: 1 tablet oral daily losartan 25 mg Tablet, Ordered By: PADMA DEL ROSARIO MD Directions: 1 tablet oral daily Additional Instructions: 07/28/2016 aspirin 81 mg tablet,chewable, Ordered By: PADMA DEL ROSARIO MD Directions: 1 tablet oral daily every evening pantoprazole 40 mg tablet,delayed release (DR/EC), Ordered By: PADMA DEL ROSARIO MD Directions: 1 tablet oral daily levothyroxine 75 mcg Tablet, Ordered By: PADMA DEL ROSARIO MD Directions: 1 tablet oral daily before breakfast hydrOXYzine HCl 25 mg Tablet, Ordered By: PADMA DEL ROSARIO MD Directions: 1 tablet oral every six hours PRN itching Stopped medicationsNone
--- OUTSIDE RECORDS SUMMARY | 2016-12-20 15:24 | External Medical Summary | Summary of Care ---
:1950 Author Name Joanne Falcon, Lotus Bran Address [address], [place] [id number] Care Team Providers Name Role Phone Joanne [...] Active Nephrotic syndrome (581.9, N04.9) Status: Active Lymphedema (457.1, I89.0) Status: Active Biventricular ICD (implantable cardioverter-defibrillator) in place (V45.02, Z95.810) Status: Active Persistent proteinuria (791.0, R80.1) Status: Active Hyponatremia (276.1, E87.1) Status: Active Generalized edema (782.3, R60.1) Status: Active Chronic systolic congestive heart failure (428.22, I50.22) Status: Active CKD (chronic kidney disease) stage 3, GFR 30-59 ml/min (585.3, N18.3) Status : Active Atrial fibrillation (427.31, I48.91) Status: Active Edema (782.3, R60.9) Status: Active Medications Name Dates Details Simvastatin [...] cm H2O, Permanent use, G47.33, Heated humidity, [id number], mask , headgear, filters, heated tubing, water [...] 1210 Ordered: 08-Feb-2016 RENAL PROFILE 1240 Ordered: 26-Mar-2016 MAGNESIUM 1260 Ordered: 26-Mar-2016 URINE PROT CREAT RATIO 1193 Ordered: 26-Mar-2016 Immunization Name Dates Details Tdap (Adacel) on: Zoster (Zostavax) on: 21-Mar-2014 Lot #: [id number] Prevnar 13 Intramuscular Suspension on: 21-Mar-2014 Lot #: [id number] Family History Mother Name Dates Details Family history of Hyperlipidemia Status: Active Family history of cerebrovascular accident (CVA) (V17.1, Z82.3) Status: Active Father Name Dates Details Family history of Cancer Status: Active Social History Name Dates Details - Status: Smoking Status Name Dates Details Never smoker Vital Signs Date Test Result Details 28-Mar-2016 11:01 BP Systolic 100 mm[Hg] Status: Comments: Location: ; Position: BP Diastolic 60 mm[Hg] Status: Comments: Location: ; Position: Heart Rate 84 /min Status: Comments: Location: ; Weight 249 lb Status: Physical Findings 97 Status: Comments: O2 Saturation Body Mass Index Calculated 31.12 kg/m2 Status: Body Surface Area Calculated 2.41 m2 Status: 17-Mar-2016 13:49 BP Systolic 110 mm[Hg] Status: Comments: Location: ; Position: BP Diastolic 58 mm[Hg] Status: Comments: Location: ; Position: Heart Rate 68 /min Status: Comments: Location: ; Weight 257 lb Status: Body Mass Index Calculated 32.12 kg/m2 Status: Body Surface Area Calculated 2.44 m2 Status: 07-Mar-2016 11:44 BP Systolic 120 mm[Hg] Status: [...] low Range: >60 threshold) EST GFR, NON-AFR M[place]ICAN 44 ml/min (Below low Range: >60 threshold) [...] 220 mg/24hr (Above high threshold) Range: 40-150 17-Mar-2016 08:50 RENAL PROFILE 1240 SODIUM 131 mmol/L (Below low Range: 133-144 threshold) POTASSIUM 4.2 mmol/L Range: 3.5-5.1 CHLORIDE 96 mmol/L (Below low Range: 98-110 threshold) CARBON DIOXIDE 29.1 mmol/L Range: 23.0-33.0 ANION GAP 6 mmol/L Range: 6-16 BUN 39 mg/dL (Above high Range: 7-18 threshold) CREATININE, SERUM 1.59 mg/dL (Above high Range: 0.70-1.30 threshold) EST GFR, 53 ml/min (Below low Range: >60 threshold) EST GFR, NON-AFR [place]ICAN 44 ml/min (Below low Range: >60 threshold) Comments: EST GFR is reported in ml/min per 1.73 m2 of body surface area. ----- BUN:CREATININE RATIO 25 GLUCOSE 99 mg/dL Range: 70-100 ALBUMIN 2.9 g/dL (Below low Range: 3.4-5.0 threshold) PHOSPHORUS 3.7 mg/dL Range: 2.6-4.7 CALCIUM 8.3 mg/dL (Below low Range: 8.5-10.1 threshold) 09:34 ULTRASOUND RENAL / PVR Comments: Exam Date: 03/17/2016 09:01Dictation Date: 03/17/2016 09:34 XS RENAL / PVR (DR STONE P[facility]) Plan of Care Name Dates Details Planned Observations Planned Goals not documented Planned Encounters Appointment; Provider: Neil Justin M.D. On 18-Feb-2017 09:00 Appointment; Provider: Mick Parker M.D. On 06-Nov-2016 08:15 Appointment; Provider: Mark Maldonado M.D. On 11:15 Appointment; Provider: Shant Rubio M.D. On 26-May-2016 10:15 Appointment; Provider: Jonh Lanier M.D. On 07-Apr-2016 14:30 Instructions Name Dates Details Instructions not documented Encounters Appointment; Jonh Lanier M.D. On 17-Mar-2016 Encounter [...] Diagnosis: Problem not documented 10:30 Appointment; Mick Parekr M.D. On 06-Nov-2015 Encounter Diagnosis: Problem not [...] Problem not documented 15:15 Appointment; Rufino Rayo PNicholas On 03-Apr-2014 Encounter Diagnosis: Problem not documented 14:30
--- OUTSIDE RECORDS SUMMARY | 2016-12-20 15:25 | External Medical Summary | Summary of Care ---
:1950 Author Name Rufino Borrego Address [address], [place] [id number] Care Team Providers Name Role Phone Lotus Rubio M.D. 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 Biventricular ICD (implantable cardioverter-defibrillator) in place (V45.02, Z95.810) Status: Active Anxiety (300.00, F41.1) Status: Active Heme positive stool (792.1, R19.5) Status: Active Renal insufficiency (593.9, N28.9) Status: Active Dyspnea on exertion (786.09, R06.09) Status: Active Hypothyroidism (244.9, E03.9) Status: Active Anemia (285.9, D64.9) Status: Active CAD (coronary atherosclerotic disease) (414.00, I25.10) Status: Active History of gastric ulcer (V12.79, Z87.19) Status: Active Atrial fibrillation (427.31, I48.91) Status: Active Congestive heart failure (428.0, I50.9) Status: Active CKD (chronic kidney disease), stage III (585.3, N18.3) Status: Active Anticoagulant long-term use (V58.61, Z79.01) Status: Active Hypertension (401.9, I10) Status: Active [...] Refills: 5 Shant Rubio M.D. Started 30-Mar-2013 ActivePantoprazole Sodium 40 MG Oral Tablet Delayed Release TAKE 1 TABLET DAILY. Quantity: 30 Refills: 11 Shant Rubio M.D. Started ActiveAspir-Low 81 MG Oral Tablet Delayed Release TAKE 1 TABLET IN THE PM Refills: 0 Started 26-Sep-2014 ActiveSotalol HCl - 80 MG Oral Tablet TAKE 1 TABLET TWICE DAILY. Refills: 0 Started 26-Sep-2014 ActiveAmiodarone HCl - 200 MG Oral Tablet TAKE 1 TABLET DAILY. Refills: 0 Started 26-Sep-2014 ActiveIron 325 (65 Fe) MG Oral Tablet Take one twice daily Refills: 0 Started 26-Sep-2014 ActiveKlor-Con 20 MEQ Oral Packet take one daily in the PM Refills: 0 Started 26-Sep-2014 ActiveLosartan Potassium 25 MG Oral Tablet take one daily in the PM Refills: 0 Started 26-Sep-2014 Active Allergies and Adverse Reactions [...] on: Zoster (Zostavax) Administered on:21-Mar-2014 Lot #: [id number] Prevnar 13 Intramuscular Suspension Administered on:21-Mar-2014 Lot #: [id number] Family History Mother Name Dates Details Family history of Hyperlipidemia Status: Active Father Name Dates Details Family history of Cancer Status: Active Social History Name Dates Details Smoking StatusNever smoker Vital Signs Date Test Result Details 19-Sep-2014 09:00 BP Systolic 116 mm[Hg] Status: BP Diastolic 66 mm[Hg] Status: Heart Rate 68 /min Status: Height 75 in Status: Weight 244 lb Status: Body Mass Index Calculated 30.5 kg/m2 Status: Body Surface Area Calculated 2.39 m2 Status: 09:54 BP Systolic 122 mm[Hg] Status: BP Diastolic 66 mm[Hg] Status: Heart Rate 88 /min Status: Weight 245.8 lb Status: Body Mass Index Calculated 30.72 kg/m2 Status: Body Surface Area Calculated 2.4 m2 Status: Results Date Description Value Details 09:01 CBC w/ Auto Diff 7150 Comments: Fastin hours WBC 7.0 K/uL (Better) Range: 4.5-11.0 RBC [...] 98-110 low threshold) CARBON DIOXIDE 33.5 mmol/L Range: 23.0-33.0 (Above high threshold) ANION GAP 6 mmol/L (Better) Range: 6-16 BUN 33 mg/dL (Above Range: 7-18 high threshold) CREATININE, SERUM 1.67 mg/dL (Above Range: 0.70-1.30 high threshold) Comments: Please note new reference ranges effective 07/01.----- EST GFR, 50 ml/min (Below Range: >60 low threshold) EST GFR, NON-AFR COMOR[place] 41 ml/min (Below Range: >60 low threshold) Comments: EST GFR is reported in ml/min per 1.73 m2 of body surface area. For -[place], please multiple result by 1.2.----- BUN:CREATININE RATIO 20 (Better) GLUCOSE 108 mg/dL (Above Range: 70-100 high threshold) CALCIUM 9.1 mg/dL Range: 8.5-10.1 (Better) 18-Sep-2014 09:42 CBC w/ Auto Diff 7150 Comments: Fastin hours WBC 5.2 K/uL (Better) Range: 4.5-11.0 RBC 4.18 mil/uL Range: 4.20-5.40 (Below low threshold) HGB 12.3 g/dL (Below Range: 14.0-18.0 low threshold) HCT 37.5 % (Below low Range: 42.0-53.0 threshold) MCV 89.6 fL (Better) Range: 80.0-99.0 MCH 29.3 pg (Better) Range: 27.3-32.5 MCHC 32.7 % (Better) Range: 32.0-36.0 RDW 14.7 % (Better) Range: 11.6-14.8 PLATELETS 133 K/uL (Below Range: 150-400 low threshold) MPV 8.8 fL (Better) Range: 6.0-11.0 %NEUTRO 68.5 % (Better) Range: 37.0-80.0 %LYMPHS 21.4 % (Better) Range: 13.0-50.0 %MONO 5.8 % (Better) Range: 0.0-12.0 %EOS 2.1 % (Better) Range: 0.0-7.0 %BASO 0.8 % (Better) Range: 0.0-2.5 %GAUTAM 1.4 % (Better) Range: 0.0-5.0 NEUTRO 3.6 K/uL (Better) Range: 2.0-6.9 LYMPHS 1.1 K/uL (Better) Range: 0.6-3.4 MONOS 0.3 K/uL (Better) Range: 0.0-0.9 EOS 0.1 K/uL (Better) Range: 0.0-0.7 BASO 0.0 K/uL (Better) Range: 0.0-0.2 10:05 Comprehensive Metabolic Comments: Fastin hours Panel 1212 SODIUM 134 mmol/L Range: 133-144 (Better) POTASSIUM 3.5 mmol/L Range: 3.5-5.1 (Better) CHLORIDE 95 mmol/L (Below Range: 98-110 low threshold) CARBON DIOXIDE 30.1 mmol/L Range: 23.0-33.0 (Better) ANION GAP 9 mmol/L (Better) Range: 6-16 BUN 25 mg/dL (Above Range: 7-18 high threshold) CREATININE, SERUM 1.87 mg/dL (Above Range: 0.70-1.30 high threshold) Comments: Please note new reference ranges effective 07/01.----- BUN:CREATININE RATIO 13 (Better) EST GFR, 44 ml/min (Below Range: >60 low threshold) EST GFR, NON-AFR COMORAN 36 ml/min (Below Range: >60 low threshold) Comments: EST GFR is reported in ml/min per 1.73 m2 of body surface area. For -[place], please multiple result by 1.2.----- GLUCOSE 101 mg/dL (Above Range: 70-100 high threshold) ALK PHOSPHATASE 98 U/L (Better) Range: 46-116 TOTAL BILIRUBIN 1.00 mg/dL Range: 0.20-1.00 (Better) AST 24 U/L (Better) Range: 8-35 ALT 33 U/L (Better) Range: 16-63 Comments: Please note new reference ranges. Effective 04/20/2014.----- ALBUMIN 4.1 g/dL (Better) Range: 3.4-5.0 TOTAL PROTEIN 7.6 g/dL (Better) Range: 6.4-8.2 A/G RATIO 1.2 units Range: 1.0-1.8 (Better) CALCIUM 9.5 mg/dL Range: 8.5-10.1 (Better) 10:05 LIPID PROFILE 1184 Comments: Fastin hours CHOLESTEROL 89 mg/dL (Better) Range: <200 TRIGLYCERIDES 32 mg/dL (Better) Range: 30-200 HDL Cholesterol 46 mg/dL (Better) Range: >39 NON HDL CHOLESTEROL 43 (Better) CARDIAC RSK FACTOR 1.9 units (Below Range: 4.4-5.0 low threshold) LDL - CALCULATED 37 mg/dL (Better) Range: 0-130 10:28 PSA ( PROSTATE SPECIFIC Comments: Fastin hours ANTIGEN) 3100 PROSTATE SPECIFIC ANTIGEN 1.840 ng/mL Range: 0.000-4.000 (Better) Plan of Care Planned Observations Name Dates Details Planned Goals not documented Goal Planned Encounters Appointment; Provider: Neil Justin On 22-Jan-2015 08:15 Appointment; Provider: Shant Rubio On 26-Dec-2014 10:15 Appointment; Provider: Mick Parker On 02-Nov-2014 08:30 Appointment; Provider: Mark Maldonado On 22-Dec-2013 07:30 Appointment; Provider: Mark Maldonado On 24-Feb-2013 09:30 Appointment; Provider: Mark Maldonado On 18-Feb-2013 08:30 Appointment; Provider: Sweetie Langston On 04-Jan-2013 09:45 Appointment; Provider: Mark Maldonado On 23-Oct-2011 10:30 Appointment; Provider: Mark Maldonado On 15-Nov-2010 08:00 Appointment; Provider: Mark Maldonado On 09:00 Appointment; Provider: Mark Madlonado On 17-May-2010 08:15 Appointment; Provider: Zach Jean On 04-Apr-2010 09:45 Appointment; Provider: Mark Maldonado On 15-Feb-2010 08:30 Appointment; Provider: Mark Maldonado On 16-Nov-2009 09:15 Appointment; Provider: Mark Maldonado On 07:30 Appointment; Provider: Joshua Plasencia On 14:00 Appointment; Provider: Joshua Plasencia On 06-Jul-2009 11:00 Instructions Instructions not documented Encounters Appointment; Rufino Rayo On 26-Sep-2014 Encounter Diagnosis: [...]
--- OUTSIDE RECORDS SUMMARY | 2016-12-20 15:25 | External Medical Summary | Summary of Care ---
[...] Status: Active Presbyopia (367.4, H52.4) Status: Active Biventricular ICD (implantable cardioverter-defibrillator) in place (V45.02, Z95.810) Status: Active Atrial fibrillation (427.31, I48.91) Status: Active CAD (coronary atherosclerotic disease) (414.00, I25.10) Status: Active PTCA Status: Active Paroxysmal atrial fibrillation (427.31, I48.0) Status: Active Congestive heart failure (428.0, I50.9) Status: Active Hyperlipidemia (272.4, E78.5) Status: Active Hypertension (401.9, I10) Status: Active Medications Name Dates Details EQ [...] 30 Refills: 4 Mark Maldonado M.D. Started ActiveMetolazone 5 MG Oral Tablet prn Quantity: 30 Refills: 5 Shant Rubio M.D. Started 30-Mar-2013 ActiveAmiodarone HCl - 200 MG Oral Tablet TAKE 1 TABLET DAILY. Quantity: 30 Refills: 3 Mark Maldonado M.D. Started 25-May-2014 Active Allergies and Adverse Reactions Name Dates [...] on: Zoster (Zostavax) Administered on:21-Mar-2014 Lot #: [id number] Prevnar 13 Intramuscular Suspension Administered on:21-Mar-2014 Lot #: [id number] Family History Mother Name Dates Details Family [...] Body Surface Area Calculated 2.47 m2 Status: 25-May-2014 14:13 BP Systolic 86 mm[Hg] Status: BP Diastolic 48 mm[Hg] Status: Heart Rate 124 /min Status: Weight 257 lb Status: Body Mass Index Calculated 32.12 kg/m2 Status: Body Surface Area Calculated 2.44 m2 Status: Results Date Description Value Details 25-May-2014 14:51 ECG/ EKG CP - Electro CardioGram ECG/ (Better) EKG Cardiology Read 15:08 CP Echo Y Linked PDF Report Available for Review by Clicking ImageLink Button (Better) 15:22 ECG/ EKG (Specialists) Electro CardioGram (Better) 07-Jun-2014 14:17 ECG/ EKG (Specialists) Electro CardioGram (Better) Plan of Care Planned Observations Name Dates Details Planned Goals not documented Goal Planned Encounters Appointment; Provider: Mick Parker On 02-Nov-2014 08:30 Appointment; Provider: Shant Rubio On 19-Sep-2014 09:00 Appointment; Provider: Neil Justin On 08:15 Appointment; [...] not documented Encounters Appointment; Rufino Rayo On 12-Jun-2014 Encounter Diagnosis: [...] Encounter Diagnosis: Problem not documented 13:00 Appointment; Makr Maldonado On 14-Dec-2013 Encounter Diagnosis: Problem not [...]
--- OUTSIDE RECORDS SUMMARY | 2016-12-20 15:25 | External Medical Summary | Summary of Care ---
:1950 Author Name Lotus Rubio M.D. 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: Active Claustrophobia (300.29, F40.240) Status: Active Medications Name Dates Details Simvastatin [...] of Colostomy History of Cardioverter-defibrillator Pulse Generator Completed:2-Kelsea-2010 Insertion With Leads History of Extracaps Cataract Extract With Prosthesis Insert Right Eye History of Elective Cardioversion External Completed:23-Oct-2011 Globe Enucleation Left PTCA Procedures not documented Immunization Name Dates Details Tdap (Adacel) Administered on: Zoster (Zostavax) Administered on:21-Mar-2014 Lot #: [id number] Prevnar 13 Intramuscular Suspension Administered on:21-Mar-2014 Lot #: [id number] Family History Mother Name Dates Details Family [...] On 08:15 Appointment; Provider: Shant Rubio On 03-Apr-2015 10:45 Appointment; Provider: Eduardo Zaman On 03-Apr-2015 09:45 Appointment; Provider: Mark Maldonado On 22-Dec-2013 07:30 Appointment; Provider: Mark Maldonado On 24-Feb-2013 09:30 Appointment; Provider: Mark Madlonado On 18-Feb-2013 08:30 Appointment; Provider: Sweetie Langston [...] 11:00 Instructions Instructions not documented Encounters Appointment; Eduardo Zaman On 25-Jan-2015 Encounter Diagnosis: Problem not documented 10:00 Appointment; Neil Justin On 22-Jan-2015 Encounter Diagnosis: Problem not documented 08:15 Appointment; Mark Maldonado On 17-Jan-2015 Encounter Diagnosis: Problem not documented 14:45 Appointment; Shant Rubio On 26-Dec-2014 Encounter Diagnosis: Problem not documented 10:15 Appointment; Mrak Maldonado On 13-Dec-2014 Encounter Diagnosis: Problem not [...]
--- OUTSIDE RECORDS SUMMARY | 2016-12-20 15:25 | External Medical Summary | Summary of Care ---
:1950 Author Name Mateusz Maldonado M.D. Address [address], [place] [address] Care Team Providers Name Role Phone Lotus Rubio M.D. Unavailable Unavailable Laurent Block M.D. Unavailable Unavailable Mateusz Maldonado M.D. Unavailable [...] Paroxysmal atrial fibrillation (427.31, I48.0) Status: Active CAD (coronary atherosclerotic disease) (414.00, I25.10) Status: Active PTCA Status: Active Congestive heart failure (428.0, I50.9) Status: Active Atrial fibrillation (427.31, I48.91) Status: Active Hyperlipidemia (272.4, E78.5) Status: Active [...] TAKE 1 TABLET DAILY. Quantity: 30 Refills: 2 Mark Maldonado M.D. Started 25-May-2014 Active Allergies [...] Globe Enucleation Left PTCA CP Echo Ordered:25-May-2014 Cardiac Surgery Ordered:25-May-2014 Immunization Name Dates Details Tdap (Adacel) Administered on: Zoster (Zostavax) Administered on:21-Mar-2014 Lot #: [id number] Prevnar 13 Intramuscular Suspension Administered on:21-Mar-2014 Lot #: [id number] Family History Mother Name Dates Details Family history of Hyperlipidemia Status: Active Father Name Dates Details Family history of Cancer Status: Active Social History Name Dates Details Smoking StatusNever smoker Vital Signs Date Test Result Details 25-May-2014 14:13 BP Systolic 86 mm[Hg] Status: BP Diastolic 48 mm[Hg] Status: Heart Rate 124 /min Status: Weight 257 lb Status: Body Mass Index Calculated 32.12 kg/m2 Status: Body Surface Area Calculated 2.44 m2 Status: 26-Apr-2014 14:54 BP Systolic 94 mm[Hg] Status: BP Diastolic 68 mm[Hg] Status: Heart Rate 84 /min Status: Weight 259 lb Status: Body Mass Index Calculated 32.37 kg/m2 Status: Body Surface Area Calculated 2.45 m2 Status: Results Date Description Value Details 26-Apr-2014 16:10 BASIC METABOLIC PROFILE 1210 SODIUM 140 mmol/L (Better) Range: 133-144 POTASSIUM 3.5 mmol/L (Better) Range: 3.5-5.1 CHLORIDE 100 mmol/L (Better) Range: 98-110 CARBON DIOXIDE 30.9 mmol/L (Better) Range: 23.0-33.0 ANION GAP 9 mmol/L (Better) Range: 6-16 BUN 38 mg/dL (Above high Range: 7-18 threshold) CREATININE, SERUM 1.97 mg/dL (Above Range: 0.43-1.13 high threshold) EST GFR, 42 ml/min (Below low Range: >60 [place] threshold) EST GFR, NON-AFR 34 ml/min (Below low Range: >60 [place] threshold) Comments: EST GFR is reported in ml/min per 1.73 m2 of body surface area. For -[place]ritrean, please multiple result by 1.2.----- BUN:CREATININE RATIO 19 (Better) GLUCOSE 104 mg/dL (Above high Range: 70-100 threshold) CALCIUM 8.9 mg/dL (Better) Range: 8.5-10.1 16:12 BNP 3103 BNP 332.0 pg/mL (Above Range: 0.0-100.0 high threshold) 25-May-2014 14:51 ECG/ EKG CP - Electro CardioGram ECG waiting for ECG/ EKG Cardiology Read interpretation, click ImageLink button to view/confirm the study. (Better) 15:08 CP Echo Y Linked PDF Report Available for Review by Clicking ImageLink Button (Better) Plan of Care Planned Observations Name [...] not documented Encounters Appointment; Mark Maldonado On 25-May-2014 Encounter Diagnosis: [...]
--- OUTSIDE RECORDS SUMMARY | 2016-12-20 15:25 | External Medical Summary | Summary of Care ---
:1950 Author Name Lotus Rubio M.D. Address [address], [place] [id number] Care Team Providers Name Role Phone Lotus [...] cm H2O, Permanent use, G47.33, Heated humidity, [id number], mask , headgear, filters, heated tubing, water [...] on: Zoster (Zostavax) on: 21-Mar-2014 Lot #: [id number] Prevnar 13 Intramuscular Suspension on: 21-Mar-2014 Lot #: [id number] Family History Mother Name Dates Details Family [...] low Range: >60 threshold) EST GFR, NON-AFR [place] 38 ml/min (Below low Range: >60 threshold) [...] low Range: >60 threshold) EST GFR, NON-AFR LIBYAN 44 ml/min (Below low Range: >60 threshold) [...] Provider: Jonh Lanier M.D. On 03-Mar-2016 10:30 Instructions Name Dates Details Instructions not documented Encounters Appointment; Mark Maldonado M.D. On 28-Feb-2016 Encounter [...] Diagnosis: Problem not documented 10:00 Appointment; Shant Rbuio M.D. On Encounter Diagnosis: Problem not documented [...]
--- OUTSIDE RECORDS SUMMARY | 2016-12-20 15:25 | External Medical Summary | Summary of Care ---
[...] mouth daily Quantity: 60 Refills: 11 Shant Rubio M.D. Started 16-Jun-2011 ActiveLosartan Potassium 25 MG [...] Immunization Name Dates Details Tdap (Adacel) Administered on:[id number] Zoster (Zostavax) Administered on:21-Mar-2014 Lot #: [id number] Prevnar 13 Intramuscular Suspension Administered on:21-Mar-2014 Lot #: [id number] Family History Mother Name Dates Details Family [...]
--- OUTSIDE RECORDS SUMMARY | 2016-12-20 15:26 | External Medical Summary | Summary of Care ---
:1950 Author Organization [facility] Address [address] [place] [address] Phone Care Team Providers Name Role Phone Joanne [...] cm H2O, Permanent use, G47.33, Heated humidity, [id number], mask , headgear, filters, heated tubing, water [...] on: Zoster (Zostavax) on: 21-Mar-2014 Lot #: [id number] Prevnar 13 Intramuscular Suspension on: 21-Mar-2014 Lot #: [id number] Family History Mother Name Dates Details Family [...] low Range: >60 threshold) EST GFR, NON-AFR [place] 38 ml/min (Below low Range: >60 threshold) [...] low Range: >60 threshold) EST GFR, NON-AFR [place] 44 ml/min (Below low Range: >60 threshold) [...] 11:15 Appointment; Provider: Jonh Lanier M.D. On 17-Mar-2016 14:00 Appointment; Provider: Schedule Radiology On 15-Feb-2016 10:00 Appointment; Provider: Mark Maldonado M.D. On 25-Jun-2015 [...] Encounter Diagnosis: Problem not documented 08:45 Appointment; hSant Rubio M.D. On 14-May-2015 Encounter Diagnosis: Problem [...] Problem not documented 10:30 Appointment; Rufino Rayo, PFarzanehAFarzaneh On 12-Jun-2014 Encounter Diagnosis: Problem not documented 10:15 Appointment; Mark Maldonado M.D. On 07-Jun-2014 Encounter Diagnosis: Problem not documented 14:15 Appointment; Mark Maldonado M.D. On 25-May-2014 Encounter Diagnosis: Problem not documented 14:30 Appointment; Mark Maldonado M.D. On 26-Apr-2014 Encounter Diagnosis: Problem not documented 15:15 Appointment; Rufino Rayo, P.AFarzaneh On 03-Apr-2014 Encounter Diagnosis: Problem not documented 14:30 Appointment; Shant Rubio M.D. On 21-Mar-2014 Encounter Diagnosis: Problem not documented 09:00
--- OUTSIDE RECORDS SUMMARY | 2016-12-20 15:26 | External Medical Summary | Summary of Care ---
[...] Immunization Name Dates Details Tdap (Adacel) Administered on:[id number] Zoster (Zostavax) Administered on:21-Mar-2014 Lot #: [id number] Prevnar 13 Intramuscular Suspension Administered on:21-Mar-2014 Lot #: [id number] Family History Mother Name Dates Details Family [...] Provider: Joshua Plasencia On 14:00 Appointment; Provider: Joshau Plasencia On 06-Jul-2009 11:00 Instructions Instructions not [...] Encounter Diagnosis: Problem not documented 14:45 Appointment; iMck Parker On 01-Nov-2013 Encounter Diagnosis: Problem not [...]
--- OUTSIDE RECORDS SUMMARY | 2016-12-20 15:26 | External Medical Summary | Summary of Care ---
:1950 Author Name Margo Zaman M.D. 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 Started 26-Sep-2014 ActiveZolpidem Tartrate 10 MG Oral Tablet TAKE 1 TABLET AT BEDTIME NEEDED FOR SLEEP. Refills: 0 Mark Maldonado M.D. Started 13-Dec-2014 ActiveKlor-Con M20 20 MEQ Oral Tablet Extended Release TAKE 1 TABLET DAILY. Quantity: 30 Refills: 6 Shant Rubio M.D. Started 02-Jan-2015 ActiveSupplies AutoCPAP 8-12 cm H2O, Permanent use, G47.33, Heated humidity, [id number], mask , headgear, filters, heated tubing, water chamber, chinstrap Quantity: 1 Refills: 0 Paloma Castillo Started 03-Apr-2015 ActiveClonazePAM 1 MG Oral Tablet TAKE 1/2 TAB PO QHS X 1 WEEK, THEN INCREASE TO 1 TAB PO QHS IF NEEDED Quantity: 30 Refills: 5 Paloma CastilloAFarzaneh Started 03-Apr-2015 Active Allergies and Adverse Reactions Name Dates [...] Ordered:04-Apr-2015 IRON 1254 Ordered:04-Apr-2015 Testosterone,Free and Total [id number] Ordered:04-Apr-2015 Immunization Name Dates Details Tdap (Adacel) Administered on: Zoster (Zostavax) Administered on:21-Mar-2014 Lot #: [id number] Prevnar 13 Intramuscular Suspension Administered on:21-Mar-2014 Lot #: [id number] Family History Mother Name Dates Details Family history of Hyperlipidemia Status: Active Family history of cerebrovascular accident (CVA) (V17.1, Z82.3) Status: Active Father Name Dates Details Family history of Cancer Status: Active Social History Name Dates Details Smoking StatusNever smoker Vital Signs Date Test Result Details 08-May-2015 10:47 BP Systolic 116 mm[Hg] Status: BP Diastolic 84 mm[Hg] Status: Heart Rate 82 /min Status: Weight 253 lb Status: O2 SAT 98 % Status: Body Mass Index Calculated 31.62 kg/m2 Status: Body Surface Area Calculated 2.42 m2 Status: Results Date Description Value Details Results not documented Plan of Care Planned Observations Name Dates Details Planned Goals not documented Goal Planned Encounters Appointment; Provider: Mick Parker On 06-Nov-2015 08:15 Appointment; Provider: Mark Maldonado On 14:45 Appointment; Provider: Neil Justin On 08:15 Appointment; Provider: Shant Rubio On 14:00 Appointment; Provider: Mark Maldonado On 22-Dec-2013 07:30 [...] not documented Encounters Appointment; Eduardo Zaman On 08-May-2015 Encounter Diagnosis: [...]
--- OUTSIDE RECORDS SUMMARY | 2016-12-20 15:26 | External Medical Summary | Summary of Care ---
:1950 Author Name Joanne Falcon, Lotus Bran Address [address] [place], [place] [id number] Care Team Providers Name Role Phone Joanne Falcon, Lotus Bran Unavailable Unavailable Jonh Lanier M.D. Unavailable Unavailable Mateusz Maldonado M.D. 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: Active PTCA Status: Active Hyperlipidemia (272.4, [...] Active Stasis dermatitis (454.1, I87.2) Status: Active Milial cyst (706.2, L72.0) Status: Active Seborrheic keratosis (702.19, L82.1) Status: Active Sebaceous hyperplasia (706.8, L73.8) Status: Active Folliculitis (704.8, L73.9) Status: Active Edema (782.3, R60.9) Status: Active Itching (698.9, L29.9) Status: Active Pneumonia (486, J18.9) Status: Active Chronic systolic congestive heart failure (428.22, I50.22) Status: Active Shortness of breath (786.05, R06.02) Status: Active Venous insufficiency (459.81, I87.2) Status: Active Fatigue (780.79, R53.83) Status: Active CAD (coronary atherosclerotic disease) (414.00, I25.10) Status: Active Hypertension (401.9, I10) Status: Active Medications Name Dates Details Simvastatin 40 MG Oral Tablet TAKE ONE TABLET BY MOUTH EVERY NIGHT AT BEDTIME Quantity: 90 Refills: 3 Shant Rubio M.D. Start Active Furosemide 40 MG Oral Tablet Take one tablet by mouth daily Quantity: 60 Refills: 9 Shant Rubio M.D. Start 29-Sep-2011 Active Aspir-Low 81 MG Oral Tablet Delayed Release TAKE 1 TABLET IN THE PM Refills: 0 Start 26-Sep-2014 Active Triamcinolone Acetonide 0.1 % External Cream USE TWO TIMES A DAY Quantity: 1 Refills: 6 Shant Rubio M.D. Start 14-May-2015 Active 30 GM Tube MetOLazone 5 MG Oral Tablet take 1 tablet by mouth every day Quantity: 30 Refills: 1 Jonh Lanier M.D. Start 03-Mar-2016 Active Losartan Potassium 25 MG Oral Tablet Take one tablet by mouth daily Quantity: 90 Refills: 2 Mark Maldonado M.D. Start 03-Apr-2016 Active Spironolactone 50 MG Oral Tablet TAKE 1 TABLET DAILY. Quantity: 90 Refills: 3 Mark Maldonado M.D. Start 14-May-2015 Active Pantoprazole Sodium 40 MG Oral Tablet Delayed Release Take one tablet by mouth daily Quantity: 90 Refills: 3 Joanne FalconShant Start Active Betamethasone Dipropionate Aug 0.05 % External Cream APPLY SPARINGLY TO AFFECTED AREA(S) TWICE DAILY. Quantity: 1 Refills: 1 Elena FalconMick Start 16-Jun-2016 Active 50 GM Tube Minocycline HCl - 100 MG Oral Capsule one po bid x 14 days Quantity: 28 Refills: 0 Joanne Falcon Shant Gautam Start 27-Jun-2016 Active HydrOXYzine HCl - 25 MG Oral Tablet TAKE ONE TAB PO EVERY 6 HRS PRN Quantity: 30 Refills: 1 Joanne Falcon Shant Gautam Start Active Triamcinolone Acetonide 0.1 % External Cream USE TWO TIMES DAILY NEEDED Quantity: 30 Refills: 1 Joanne Falcon, Shant Gautam Start Active LevoFLOXacin 750 MG Oral Tablet TAKE 1 TABLET DAILY. Quantity: 10 Refills: 0 Joanne Falcon Shant Gautam Start Active Allergies and Adverse Reactions Name [...] ( Parathyroid Hormone Intact) 3101 Ordered: 26-May-2016 CBC w/ Auto Diff 7150 Ordered: 27-May-2016 Comprehensive Metabolic Panel 1212 Ordered: 27-May-2016 LIPID PROFILE 1184 Ordered: 27-May-2016 THYROID STIM. HORMONE 3602 Ordered: 27-May-2016 Immunization Name Dates Details Tdap (Adacel) on: Zoster (Zostavax) on: 21-Mar-2014 Lot #: [id number] Prevnar 13 Intramuscular Suspension on: 21-Mar-2014 Lot #: [id number] Family History Mother Name Dates Details Family history of Hyperlipidemia Status: Active Family history of cerebrovascular accident (CVA) (V17.1, Z82.3) Status: Active Father Name Dates Details Family history of Cancer Status: Active Social History Name Dates Details - Status: Smoking Status Name Dates Details Never smoker Vital Signs Date Test Result Details 13:15 BP Systolic 115 mm[Hg] Status: Comments: Location: ; Position: BP Diastolic 70 mm[Hg] Status: Comments: Location: ; Position: Heart Rate 81 /min Status: Comments: Location: ; Weight 237 lb Status: Body Mass Index Calculated 29.62 kg/m2 Status: Body Surface Area Calculated 2.36 m2 Status: 27-Jun-2016 13:32 BP Systolic 100 mm[Hg] Status: Comments: Location: ; Position: BP Diastolic 50 mm[Hg] Status: Comments: Location: ; Position: Heart Rate 67 /min Status: Comments: Location: ; Weight 242 lb Status: Body Mass Index Calculated 30.25 kg/m2 Status: Body Surface Area Calculated 2.38 m2 Status: Results Date Description Value Details 14:09 XRay CHEST-PA & LAT Comments: Exam Date: 07/25/2016 13 :59Dictation Date: 07/25/2016 14:09 X CHEST PA & LAT 14:21 CBC w/ Auto Diff 7150 WBC 5.8 K/uL Range: 4.5-11.0 RBC 4.43 mil/uL Range: 4.20-5.40 HGB 12.5 g/dL (Below low threshold) Range: 14.0-18.0 HCT 38.0 % (Below low threshold) Range: 42.0-53.0 MCV 85.8 fL Range: 80.0-99.0 MCH 28.2 pg Range: 27.3-32.5 MCHC 32.9 % Range: 32.0-36.0 RDW 14.1 % Range: 11.6-14.8 PLATELETS 280 K/uL Range: 150-400 MPV 7.5 fL Range: 6.0-11.0 %NEUTRO 71.4 % Range: 37.0-80.0 %LYMPHS 15.9 % Range: 13.0-50.0 %MONO 7.1 % Range: 0.0-12.0 %EOS 3.2 % Range: 0.0-7.0 %BASO 0.9 % Range: 0.0-2.5 %GAUTAM 1.5 % Range: 0.0-5.0 NEUTRO 4.1 K/uL Range: 2.0-6.9 LYMPHS 0.9 K/uL Range: 0.6-3.4 MONOS 0.4 K/uL Range: 0.0-0.9 EOS 0.2 K/uL Range: 0.0-0.7 BASO 0.1 K/uL Range: 0.0-0.2 14:40 BNP 3103 BNP 318.3 pg/mL (Above high threshold) Range: 0.0-100.0 14:53 Comprehensive Metabolic Panel 1212 SODIUM 135 mmol/L Range: 133-144 POTASSIUM 4.1 mmol/L Range: 3.5-5.1 CHLORIDE 96 mmol/L (Below low Range: 98-110 threshold) CARBON DIOXIDE 30.4 mmol/L Range: 23.0-33.0 ANION GAP 9 mmol/L Range: 6-16 BUN 21 mg/dL (Above high Range: 7-18 threshold) CREATININE, SERUM 1.62 mg/dL (Above high Range: 0.70-1.30 threshold) BUN:CREATININE RATIO 13 EST GFR, 52 ml/min (Below low Range: >60 threshold) EST GFR, NON-AFR HONDURAN 43 ml/min (Below low Range: >60 threshold) Comments: EST GFR is reported in ml/min per 1.73 m2 of body surface area. ----- GLUCOSE 100 mg/dL Range: 70-100 ALK PHOSPHATASE 101 U/L Range: 46-116 TOTAL BILIRUBIN 1.00 mg/dL Range: 0.20-1.00 AST 24 U/L Range: 8-35 ALT 17 U/L Range: 16-63 ALBUMIN 3.7 g/dL Range: 3.4-5.0 TOTAL PROTEIN 7.5 g/dL Range: 6.4-8.2 A/G RATIO 1.0 units Range: 1.0-1.8 CALCIUM 9.5 mg/dL Range: 8.5-10.1 14:53 CREATINE KINASE 1300 CREATINE KINASE 60 U/L Range: 39-308 14:53 Troponin I 3020 Troponin I 0.059 ng/mL (Above high Range: <0.057 threshold) Comments: Called to Emma</=0.056 ng/ml=Negative>0.056 ng/ml=Elevated----- 14:53 MAGNESIUM 1260 MAGNESIUM 2.2 mg/dL Range: 1.8-2.4 15:24 FOLATE 3608 FOLATE 15.7 ng/mL Range: 5.4-20.8 15:24 VITAMIN B12 3606 VITAMIN B12 849 pg/mL Range: 211-911 15:24 THYROID STIM. HORMONE 3602 THYROID STIM. HORMONE 4.256 uIU/mL Range: 0.550-4.780 Comments: No established reference ranges for infants and children &lt ;2 years of age----- Plan of Care Name Dates Details Planned Observations Planned Goals not documented Planned Encounters Appointment; Provider: Neil Justin M.D. On 18-Feb-2017 09:00 Appointment; Provider: Mick Parker M.D. On 06-Nov-2016 08:15 Appointment; Provider: Mark Maldonado M.D. On 11:15 Appointment; Provider: Shant Rubio M.D. On 09:45 Appointment; Provider: Jonh Lanier M.D. On 11:30 Appointment; Provider: Shant Rubio M.D. On 10:45 Appointment; Provider: Star Davila On 11:15 Interventions Provided Medication ChangesLevoFLOXacin 750 MG Oral Tablet - StartLabs/Procedures/Imaging BNP 3103; Done: Jul 25 2016 2:11PMCBC w/ Auto Diff 7150; Done: Jul 25 2016 2: 11PMComprehensive Metabolic Panel 1212; Done: Jul 25 2016 2:11PMCREATINE KINASE 1300; Done: Jul 25 2016 2:11PMFOLATE 3608; Done: Jul 25 2016 2: 11PMMAGNESIUM 1260; Done: Jul 25 2016 2:11PMTHYROID STIM. HORMONE 3602; Done: Jul 25 2016 2:11PMTroponin I 3020; Done: Jul 25 2016 2:11PMVITAMIN B12 3606; Done: Jul 25 2016 2:11PMXRay CHEST-PA & LAT; Done: Jul 25 2016 2:09PM Instructions Name Dates Details Instructions not documented Encounters Appointment; Shant Rubio M.D. On 27-Jun-2016 Encounter Diagnosis: Problem not documented 13:15 Appointment; Mick Parker M.D. On 16-Jun-2016 Encounter [...]
--- OUTSIDE RECORDS SUMMARY | 2016-12-20 15:26 | External Medical Summary | Summary of Care ---
[...] Status: Active Presbyopia (367.4, H52.4) Status: Active Medications Name Dates Details Simvastatin [...] on: Zoster (Zostavax) Administered on:21-Mar-2014 Lot #: [id number] Prevnar 13 Intramuscular Suspension Administered on:21-Mar-2014 Lot #: [id number] Family History Mother Name Dates Details Family [...] Shant Rubio On 03-Apr-2015 10:45 Appointment; Provider: Mark Maldonado On 22-Dec-2013 07:30 [...] Problem not documented 09:30 Appointment; Shatn Rubio On Encounter Diagnosis: Problem not documented [...] Diagnosis: Problem not documented 13:00 Appointment; Mark aMldonado On 14-Dec-2013 Encounter Diagnosis: Problem not documented 16:00 Appointment; Mrak Maldonado On 08-Dec-2013 Encounter Diagnosis: Problem not [...]
--- OUTSIDE RECORDS SUMMARY | 2016-12-20 15:28 | External Medical Summary | Summary of Care ---
[...] hypertension, 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, 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 Anxiety (300.00, F41.9) Status: Active Heme positive stool (792.1, R19.5) [...] by mouth daily Quantity: 60 Refills: 10 Joanne Falcon, Shant Gautam Start 16-Jun-2011 Active MetOLazone 5 MG Oral Tablet prn Quantity: 30 Refills: 5 Joanne Falcon, Shant Gautam Start 30-Mar-2013 Active Pantoprazole Sodium 40 MG [...] cm H2O, Permanent use, G47.33, Heated humidity, [id number], mask , headgear, filters, heated tubing, water [...] Refills: 0 Shant Rubio M.D. Start Active Viagra 100 MG Oral Tablet Use as needed before sexual activity Quantity: 15 Refills: 3 Mark Maldonado M.D. 26-Dec-2015 Active Allergies and Adverse Reactions Name [...] on: Zoster (Zostavax) on: 21-Mar-2014 Lot #: [id number] Prevnar 13 Intramuscular Suspension on: 21-Mar-2014 Lot #: [id number] Family History Mother Name Dates Details Family [...] Location: ; Results Date Description Value Details Results not documented Plan of Care Name Dates Details Planned Observations Planned Goals not documented Planned Encounters Appointment; Provider: Mick Parker M.D. On 06-Nov-2016 08:15 Appointment; Provider: Mark Maldonado M.D. On 25-Jun-2016 11:00 Appointment; Provider: Neil Justin M.D. On 01-Feb-2016 13:30 Appointment; Provider: Shant Rubio M.D. On 15-Jan-2016 11:00 Interventions Provided Medication ChangesViagra 100 MG Oral Tablet - Start Instructions Name Dates Details Instructions not documented Encounters Appointment; Mick Parker M.D. On 06-Nov-2015 Encounter [...] Problem not documented 09:00 Appointment; Rufino Rayo P.AFarzaneh On 23-Jan-2014 Encounter Diagnosis: Problem not documented 13:45 Appointment; Neil Justin M.D. On 09-Jan-2014 Encounter Diagnosis: Problem not documented 08:45 Appointment; Rufino Rayo P.AFarzaneh On 30-Dec-2013 Encounter Diagnosis: Problem not documented 13:00
--- OUTSIDE RECORDS SUMMARY | 2016-12-20 15:28 | External Medical Summary ---
:1950 Author Name GENERATED, SYSTEM Care Team Providers Name Role Phone MD ALEXSANDER, YNAE Primary Care Provider Unavailable Reason For Visit Chief Complaint G47.30, G47.00,DIAGNOSTIC SLEEP STUDY Social History Functional Status Vital Signs Results Problems Encounter Diagnosis No relevant problems exist. Additional Problems Anemia Comment:Problem resolved by [facility] Workflow upon Discharge, Status: Resolved.Cardiac Pacemaker Procedure Comment:Problem resolved by [facility] Workflow [...] on 07/16/2014 12: 00 AMCompleted Procedure Code: 94248 Procedure Name: not valued, on 07/16/2014 12 :00 AMCompleted Procedure Code: 28916 Procedure Name: not valued, on 07/16/2014 12:00 [...] or ordered. Hospital Course Hospital Discharge Instructions Allergies, Adverse Reactions, Alerts Latex Allergy has not been assessed.IV Contrast Allergy has not been assessed.No Known Drug Allergies.No Known Food Allergies.No Known Allergies. Medication Medication reconciliation has not been performed.
--- OUTSIDE RECORDS SUMMARY | 2016-12-20 15:28 | External Medical Summary | Summary of Care ---
[...] cm H2O, Permanent use, G47.33, Heated humidity, [id number], mask , headgear, filters, heated tubing, water [...] Completed: 23-Oct-2011 External Globe Enucleation Left PTCA Comprehensive Metabolic Panel 1212 Ordered: 28-Feb-2016 24 HR URINE PROT PANEL 1199 Ordered: 28-Feb-2016 BASIC METABOLIC PROFILE 1210 Ordered: 08-Feb-2016 RENAL PROFILE 1240 Ordered: 17-Jan-2016 Immunization Name Dates Details Tdap (Adacel) on: Zoster (Zostavax) on: 21-Mar-2014 Lot #: [id number] Prevnar 13 Intramuscular Suspension on: 21-Mar-2014 Lot #: [id number] Family History Mother Name Dates Details Family [...] low Range: >60 threshold) EST GFR, NON-AFR BERMUDIAN 38 ml/min (Below low Range: >60 threshold) Comments: EST GFR is reported in ml/min per 1.73 m2 of body surface area. ----- BUN:CREATININE RATIO 27 GLUCOSE 104 mg/dL (Above high Range: 70-100 threshold) CALCIUM 8.6 mg/dL Range: 8.5-10.1 15-Feb-2016 12:33 ULTRASOUND ELVS EVALUATION Comments: Exam Date: 02/15/2016 09:49Dictation Date: 02/15/2016 12:33 BILATERAL XS ELVS CONSULT BILATERAL Plan of Care Name Dates Details Planned Observations Planned Goals not documented Planned Encounters Appointment; Provider: Neli Justin M.D. On 18-Feb-2017 09:00 Appointment; Provider: Mick Parker M.D. On 06-Nov-2016 08:15 Appointment; Provider: Mark Maldonado M.D. On 11:15 Appointment; Provider: Jonh Lanier M.D. On 03-Mar-2016 10:30 Appointment; Provider: Shant Rubio M.D. On 29-Feb-2016 10:00 Interventions Provided Labs/Procedures/[id number] HR URINE PROT PANEL 1199; To be Done: 28 Feb 2016Comprehensive Metabolic Panel 1212; To be Done: 28 Feb 2016 Instructions Name Dates Details Instructions not [...] Diagnosis: Problem not documented 10:15 Appointment; Neil Jutsin M.D. On Encounter Diagnosis: Problem not documented [...] Problem not documented 15:45 Appointment; Rufino Rayo, PFarzanehAFarzaneh On 26-Sep-2014 Encounter Diagnosis: Problem not [...]
--- NOTE | 2016-12-20 15:30 | Emergency Department Report ---
General Adult HPI - General Chief complaint: Medical Emergency Stated complaint: low bp, high inr Time Seen by Provider: 12/20/16 14:14 Source: patient Mode of arrival: ambulatory Limitations: no limitations - History of Present Illness HPI narrative: He is a patient in the [facility] in [facility]. He was there for rehab after admission for 2 weeks IP admission. He does have a history of Warfarin usage and also CHF. They had noted that he had a nosebleed overnight that was a steady trickle. He also reports that he had some bleeding of his gums as well. Denies any other bleeding. Today had a protime taken and it was elevated so they came to [facility]. He did not want to go to [facility] and elected to come to [facility]. Is alert and oriented and is noted to have some purple bruising on the bilateral upper extremities. No active bleeding at time of examination. Onset (ago): day(s) Radiation: non-radiation Severity: moderate Consistency: constant Relieving factors: none Exacerbating factors: none Associated symptoms: other (increased swelling in BLE) Treatments prior to arrival: none - Related Data Home Medications Medication Instructions Recorded Confirmed Acetaminophen [Tylenol] 325 - 650 mg PO Q4H PRN 12/20/16 12/20/16 Aspirin [Adult Low Dose Aspirin EC] 81 mg PO HS 12/20/16 12/20/16 Bisacodyl Supp [Dulcolax] 10 mg RECTALLY DAILY PRN 12/20/16 12/20/16 Bismuth Subsalicylate [Kaopectate] 30 ml PO Q6H PRN 12/20/16 12/20/16 Bumetanide 2 mg PO DAILY PRN 12/20/16 12/20/16 Docusate Sodium [Colace] 100 mg PO BID 12/20/16 12/20/16 Ferrous Sulfate 325 mg PO NOON 12/20/16 12/20/16 Finasteride [Proscar] 5 mg PO DAILY 12/20/16 12/20/16 Lactose-Reduced Food [Ensure 237 ml PO TID 12/20/16 12/20/16 Liquid] Levothyroxine Sodium 100 mcg PO ACB 12/20/16 12/20/16 [Levothyroxine Sodium] Mag Hydrox/Aluminum Hyd/Simeth 2 - 4 tsp PO Q4H PRN 12/20/16 12/20/16 [Alum-Mag Hydroxide-Simeth Liq] Mag Hydrox/Aluminum Hyd/Simeth 2 - 4 tsp PO Q4H PRN 12/20/16 12/20/16 [Maalox Advanced Suspension] Magnesium Hydroxide [Milk of 1 - 2 tsp PO DAILY PRN 12/20/16 12/20/16 Magnesia] Simvastatin [Zocor] 40 mg PO HS 12/20/16 12/20/16 Spironolactone [Aldactone] 50 mg PO DAILY 12/20/16 12/20/16 Tamsulosin [Flomax] 0.8 mg PO HS 12/20/16 12/20/16 Tramadol [Ultram] 50 mg PO Q4H PRN 12/20/16 12/20/16 Warfarin Sodium [Warfarin Sodium] 5 mg PO 1700 12/20/16 12/20/16 Zolpidem [Ambien] 10 mg PO HS 12/20/16 12/20/16 Allergies Allergy/AdvReac Type Severity Reaction Status Date / Time No Known Allergies Allergy Verified 12/20/16 14:21 Review of Systems Constitutional: Denies: fever, chills, weakness ENT: Reports: epistaxis. Denies: ear pain, throat pain, congestion Cardiovascular: Denies: chest pain, palpitations, dyspnea on exertion, edema Respiratory: Denies: cough, dyspnea, wheezes Gastrointestinal: Denies: abdominal pain, nausea, vomiting, diarrhea, melena Genitourinary: Denies: hematuria Integumentary: Reports: other (noted scattered bruising on BUE). Denies: rash Neurological: Denies: headache, weakness, numbness, paresthesias PFS Patient Stated Medical History Congestive Heart Failure Yes Sleep Apnea Yes Other Hematologic Yes: on coumadin Clinic Medical History Elevated INR (Acute Medical) - Social History Smoking status: Never smoker Substance use type: does not use Alcohol intake frequency: does not drink Physical Exam - Limitations Limitations: no limitations - General General appearance: alert, in no apparent distress - Normal Exams: ENMT:: No facial trauma, nasal exudates, pharyngeal erythema, or exudates are noted Neck:: Full range of motion, without adenopathy, JVD, bruits or thyromegaly Chest/Respirations:: Clear all osei, with good airflow, and symmetry bilaterally Cardiovascular:: Regular rate and rhythm, without murmur or gallop, Pulses 2+ all extremities, capillary refill, <2 seconds all extremities Abdomen:: Bowel sounds positive, soft, non-tender, non-distended, no hepatosplenomegaly, masses or bruits noted Musculoskeletal:: No tenderness, or deformity noted, good range of motion, all extremities Neurological:: Patient is alert, and oriented Psychiatric:: Patient exhibits, appropriate attention, emotion and affect - Expanded ENT Exam External ear exam: Present: normal external inspection TM/Canal exam: Bilateral TM: erythema Nasal speculum exam: Bilateral: normal (but noted dried blood outside the left nare) Mouth exam: Present: normal external inspection, tongue normal Throat exam: Present: normal inspection Course Vital Signs Temperature 98.5 F 12/20/16 14:22 Pulse Rate 70 12/20/16 14:22 Respiratory Rate 16 12/20/16 14:22 Blood Pressure 79/43 12/20/16 14:22 Pulse Oximetry 98 12/20/16 14:22 Temperature 97.8 F 12/21/16 07:37 Pulse Rate 69 12/21/16 08:00 Respiratory Rate 20 12/21/16 07:37 Blood Pressure 85/53 12/21/16 07:37 Pulse Oximetry 96 12/21/16 07:37 Medical Decision Making - [facility] Narrative Medical decision making narrative: INR back at 17 [address] Did speak with Dr Sutherland and he will accept for admission. Will go ahead and type and cross for FFP and give Vitamin K 5mg PO at this time. - Differential Diagnosis DD: anemia, hypercoagulation, hemorrhage, epistaxis - Lab Data Result diagrams: 12/21/16 02:02 12/21/16 02:02 Lab Results 12/20/16 12/20/16 12/20/16 Range/Units 15:07 15:07 15:07 WBC 5.6 (4.5-11.0) T/MM3 RBC 2.99 L (4.50-5.90) M/MM3 Hgb 8.1 L (13.5-17.5) GM/DL Hct 25.2 L (41-53) % MCV 84.3 (80-100) UM3 MCH 27.1 (26-34) UUG MCHC 32.1 (31-37) GM/DL RDW Std Deviation 47.4 (36.9-50.2) FL Plt Count 241 (130-400) T/MM3 MPV 9.4 (9.4-12.4) UM3 Immature Gran % (Auto) 0.2 (0.0-0.5) % Neut % (Auto) 72.9 H (33-66) % Lymph % (Auto) 11.9 L (23-45) % [place] % (Auto) 13.7 H (0-9.0) % Eos % (Auto) 0.9 (0-4) % Baso % (Auto) 0.4 (0-2) % Neut # (Auto) 4.1 (1.8-7.7) T/MM3 Lymph # (Auto) 0.7 L (1-4.8) T/MM3 [place] # (Auto) 0.8 (0-0.8) T/MM3 Eos # (Auto) 0.1 (0-0.5) T/MM3 Baso # (Auto) 0.0 (0-0.2) T/MM3 Abs Immat Gran (auto) 0.01 (0.00-0.03) T/MM3 INR > 10.00 H* (0.99-1.21) Turbidity < 20 (0-20) Sodium 130 L (134-144) MEQ/L Potassium 4.4 (3.6-5) MEQ/L Chloride 91 L (98-107) MEQ/L Carbon Dioxide 26 (22-30) MEQ/L Anion Gap 13 (5-15) MEQ/L BUN 91.0 H* (9-20) MG/DL Creatinine 3.8 H (0.8-1.5) MG/DL GFR Calculation 16 BUN/Creatinine Ratio 24 (6-26) RATIO Glucose 118 H (75-110) MG/DL Calculated Osmolality 280 (261-280) MOSM/KG Calcium 8.7 (8.4-10.2) MG/DL Total Bilirubin 0.70 (0.20-1.30) MG/DL Icterus Index < 2 (0-7) AST 36 (17-59) U/L ALT 45 (21-72) U/L Alkaline Phosphatase 191 H (38-126) U/L Total Protein 6.8 (6.3-8.2) G/DL Albumin 3.3 L (3.5-5.0) G/DL Globulin 3.5 (2.4-3.6) G/DL Albumin/Globulin Ratio 0.9 L (1.1-2.2) RATIO Specimen Hemolysis < 15 (0-25) Blood Type Antibody Screen Crossmatch ([facility]) 12/20/16 Range/Units 16:13 WBC (4.5-11.0) T/MM3 RBC (4.50-5.90) M/MM3 Hgb (13.5-17.5) GM/DL Hct (41-53) % MCV (80-100) UM3 MCH (26-34) UUG MCHC (31-37) GM/DL RDW Std Deviation (36.9-50.2) FL Plt Count (130-400) T/MM3 MPV (9.4-12.4) UM3 Immature Gran % (Auto) (0.0-0.5) % Neut % (Auto) (33-66) % Lymph % (Auto) (23-45) % [place] % (Auto) (0-9.0) % Eos % (Auto) (0-4) % Baso % (Auto) (0-2) % Neut # (Auto) (1.8-7.7) T/MM3 Lymph # (Auto) (1-4.8) T/MM3 [place] # (Auto) (0-0.8) T/MM3 Eos # (Auto) (0-0.5) T/MM3 Baso # (Auto) (0-0.2) T/MM3 Abs Immat Gran (auto) (0.00-0.03) T/MM3 INR (0.99-1.21) Turbidity (0-20) Sodium (134-144) MEQ/L Potassium (3.6-5) MEQ/L Chloride (98-107) MEQ/L Carbon Dioxide (22-30) MEQ/L Anion Gap (5-15) MEQ/L BUN (9-20) MG/DL Creatinine (0.8-1.5) MG/DL GFR Calculation BUN/Creatinine Ratio (6-26) RATIO Glucose (75-110) MG/DL Calculated Osmolality (261-280) MOSM/KG Calcium (8.4-10.2) MG/DL Total Bilirubin (0.20-1.30) MG/DL Icterus Index (0-7) AST (17-59) U/L ALT (21-72) U/L Alkaline Phosphatase (38-126) U/L Total Protein (6.3-8.2) G/DL Albumin (3.5-5.0) G/DL Globulin (2.4-3.6) G/DL Albumin/Globulin Ratio (1.1-2.2) RATIO Specimen Hemolysis (0-25) Blood Type A Positive Antibody Screen Negative Crossmatch ([facility]) See Detail Disposition Clinical Impression: Elevated INR Disposition: [address] [facility] Acute Care Condition: Stable Time of Disposition: 15:50 - Seen By: midlevel
--- OUTSIDE RECORDS SUMMARY | 2016-12-20 15:30 | External Medical Summary | Summary of Care ---
:1950 Author Name Lotus Rubio M.D. Address [address] [place], [place] [id number] Care Team Providers Name Role Phone Lotus [...] (414.00, I25.10) Status: Active PTCA Status: Active Biventricular ICD (implantable cardioverter-defibrillator) in place (V45.02, Z95.810) Status: Active Paroxysmal atrial fibrillation (427.31, I48.0) Status: Active Status post catheter ablation of atrial fibrillation (V45.89, Z98.89) Status : Active Hypertension (401.9, I10) Status: Active Hyperlipidemia (272.4, E78.5) Status: Active Anemia (285.9, D64.9) Status: Active Anticoagulant long-term use (V58.61, Z79.01) Status: Active Atrial fibrillation (427.31, I48.91) Status: Active CKD (chronic kidney disease), stage III (585.3, N18.3) Status: Active Congestive heart failure (428.0, I50.9) Status: Active Diarrhea (787.91, R19.7) Status: Active Medications Name Dates Details Simvastatin [...] IN THE PM Refills: 0 Started 26-Sep-2014 ActiveDiclofenac Sodium 75 MG Oral Tablet Delayed Release Take one tablet daily. Refills: 0 Shant Rubio M.D. Started 10-Oct-2014 ActiveLosartan Potassium 25 MG Oral Tablet Take one tablet by mouth daily Quantity: 90 Refills: 0 Mark Maldonado M.D. Started 26-Sep-2014 ActiveZolpidem Tartrate 10 MG Oral Tablet TAKE 1 TABLET AT BEDTIME NEEDED FOR SLEEP. Refills: 0 Mark Maldonado M.D. Started 13-Dec-2014 ActiveAmiodarone HCl - 200 MG Oral Tablet Take one tablet by mouth daily Quantity: 30 Refills: 6 Mark Maldonado M.D. Started 26-Sep-2014 ActiveXarelto 20 MG Oral Tablet Take one tablet by mouth daily Quantity: 30 Refills: 11 Mark Maldonado M.D. Started 10-Oct-2014 Active Allergies and Adverse Reactions Name Dates [...] on: Zoster (Zostavax) Administered on:21-Mar-2014 Lot #: [id number] Prevnar 13 Intramuscular Suspension Administered on:21-Mar-2014 Lot #: [id number] Family History Mother Name Dates Details Family history of Hyperlipidemia Status: Active Father Name Dates Details Family history of Cancer Status: Active Social History Name Dates Details Smoking StatusNever smoker Vital Signs Date Test Result Details 26-Dec-2014 10:36 BP Systolic 122 mm[Hg] Status: BP Diastolic 68 mm[Hg] Status: Heart Rate 88 /min Status: Height 75 in Status: Weight 248 lb Status: Body Mass Index Calculated 31 kg/m2 Status: Body Surface Area Calculated 2.4 m2 Status: 13-Dec-2014 14:14 BP Systolic 92 mm[Hg] Status: [...] Date Description Value Details 04-Dec-2014 STOOL CULTURE [id number] Comments: [employer] [facility] at: [facility], [facility] [place], [address], Office Correspondent: Gisselle Elizondo MDQuest Collection Date/Time: 14:27 [id number] Results Received Date/Time: [id number] Reported Date/Time: [id number] performed at: [facility], [address] [place] [place], [address], Office Correspondent: Gisselle Elizondo MDQuest Collection Date/Time: [id number] Results Received Date/Time: [id number] Reported Date/Time: [id number] [facility] performed at: [facility], [facility] [place], [address], Office Correspondent: Natalie Denton Collection Date/Time: [id number] Results Received Date/Time: [id number] Reported Date/Time: [id number] performed at: [facility] [employer] [facility], [facility] [place], [address], Office Correspondent: Natalie Denton Collection Date/Time: [id number] Results Received Date/Time: [id number] Reported Date/Time: [id number] [facility] performed at: [facility] [employer] [facility], [facility] [place], [address], Office Correspondent: Natalie Denton Collection Date/Time: [id number] Results Received Date/Time: [id number] Reported Date/Time: [id number] SHIGA TOXINS, EIA W/RFL TO SEE NOTE Comments: SHIGA TOXINS, EIA W/RFL TO E.COLI O157 CULTURE MICRO NUMBER: [id number] TEST STATUS: FINAL SPECIMEN SOURCE: FECES SPECIMEN QUALITY: ADEQUATE RESULT: Not Detected[SL]----- E.COLI O157 CULTURE (Better) CAMPYLOBACTER, CULTURE SEE NOTE Comments: CAMPYLOBACTER, CULTURE MICRO NUMBER: [id number] TEST STATUS: FINAL SPECIMEN SOURCE: FECES SPECIMEN QUALITY: ADEQUATE RESULT: No enteric Campylobacter isolated[SL]----- (Better) SALMONELLA AND SHIGELLA, SEE NOTE Comments: SALMONELLA AND SHIGELLA, CULTURE MICRO NUMBER: [id number] TEST STATUS: FINAL SPECIMEN SOURCE : FECES SPECIMEN QUALITY: ADEQUATE RESULT: No Salmonella or Shigella isolated[SL]----- CULTURE (Better) 01-Dec-2014 GIARDIA ANTIGEN [id number] Comments: [facility] performed at: [facility], [facility] [place], [address], Office Correspondent: Natalie Denton Collection Date/Time: 2 13:46 [id number] Results Received Date/Time: [id number] Reported Date/Time: [id number] GIARDIA AG, EIA, STOOL SEE NOTE Comments: GIARDIA AG, EIA, STOOL MICRO NUMBER: [id number] TEST STATUS: FINAL SPECIMEN SOURCE: FECES SPECIMEN QUALITY: ADEQUATE RESULT 1: Not Detected[SL]----- (Better) 14:42 CRYPTOSPORIDIUM ANTIGEN Comments: [employer] performed at: [facility], [facility] [place], [address], Office Correspondent: Natalie Denton Collection Date/Time: [id number] Results Received Date/Time: [id number] Reported Date/Time: [id number] performed at: [facility], [address] [place], [address], Office Correspondent: Natalie Denton Collection Date/Time: [id number] Results Received Date/Time: [id number] Reported Date/Time: [id number] CRYPTOSPORIDIUM AG, DFA SEE NOTE Comments: CRYPTOSPORIDIUM AG, DFA MICRO NUMBER: [id number] TEST STATUS: FINAL SPECIMEN SOURCE: STOOL SPECIMEN QUALITY: ADEQUATE CRYPTOSPORIDIUM: Not Detected[SL]----- (Better) 13-Dec-2014 14:20 ECG/ EKG (Specialists) Electro CardioGram (Better) 19-Dec-2014 CBC w/ Auto Diff 7150 11:32 WBC 3.4 K/uL (Below Range: 4.5-11.0 low threshold) RBC 3.93 mil/uL Range: 4.20-5.40 (Below low threshold) HGB 11.3 g/dL Range: 14.0-18.0 (Below low threshold) HCT 35.6 % (Below Range: 42.0-53.0 low threshold) MCV 90.5 fL Range: 80.0-99.0 (Better) MCH 28.7 pg Range: 27.3-32.5 (Better) MCHC 31.7 % (Below Range: 32.0-36.0 low threshold) RDW 14.1 % (Better) Range: 11.6-14.8 PLATELETS 194 K/uL Range: 150-400 (Better) MPV 8.1 fL (Better) Range: 6.0-11.0 %NEUTRO 59.6 % (Better) Range: 37.0-80.0 %LYMPHS 23.7 % (Better) Range: 13.0-50.0 %MONO 7.0 % (Better) Range: 0.0-12.0 %EOS 4.9 % (Better) Range: 0.0-7.0 %BASO 1.3 % (Better) Range: 0.0-2.5 %GAUTAM 3.4 % (Better) Range: 0.0-5.0 NEUTRO 2.1 K/uL Range: 2.0-6.9 (Better) LYMPHS 0.8 K/uL Range: 0.6-3.4 (Better) MONOS 0.2 K/uL Range: 0.0-0.9 (Better) EOS 0.2 K/uL Range: 0.0-0.7 (Better) BASO 0.1 K/uL Range: 0.0-0.2 (Better) 12:10 IRON 1254 IRON 38 ug/dL (Below Range: 65-175 low threshold) 12:10 Comprehensive Metabolic Panel 1212 SODIUM 132 mmol/L Range: 133-144 (Below low threshold) POTASSIUM 3.3 mmol/L Range: 3.5-5.1 (Below low threshold) CHLORIDE 92 mmol/L Range: 98-110 (Below low threshold) CARBON DIOXIDE 28.9 mmol/L Range: 23.0-33.0 (Better) ANION GAP 11 mmol/L Range: 6-16 (Better) BUN 29 mg/dL (Above Range: 7-18 high threshold) CREATININE, SERUM 1.76 mg/dL Range: 0.70-1.30 (Above high Comments: Please note new reference ranges effective 2014.----- threshold) BUN:CREATININE RATIO 16 (Better) EST GFR, 47 ml/min Range: >60 (Below low threshold) EST GFR, NON-AFR KITTITIAN 39 ml/min Range: >60 (Below low Comments: EST GFR is reported in ml/min per 1.73 m2 of body surface area. For -[place]an, please multiple result by 1.2.----- threshold) GLUCOSE 98 mg/dL Range: 70-100 (Better) ALK PHOSPHATASE 210 U/L (Above Range: 46-116 high threshold) TOTAL BILIRUBIN 1.40 mg/dL Range: 0.20-1.00 (Above high threshold) AST 30 U/L (Better) Range: 8-35 ALT 52 U/L (Better) Range: 16-63 Comments: Please note new reference ranges. Effective 04/20/2014.----- ALBUMIN 3.6 g/dL Range: 3.4-5.0 (Better) TOTAL PROTEIN 7.2 g/dL Range: 6.4-8.2 (Better) A/G RATIO 1.0 units Range: 1.0-1.8 (Better) CALCIUM 9.3 mg/dL Range: 8.5-10.1 (Better) 12:18 FERRITIN 3025 FERRITIN 60 ng/mL Range: 22-322 (Better) Plan of Care Planned Observations Name Dates Details Planned Goals not documented Goal Planned Encounters Appointment; Provider: Mick Parker On 06-Nov-2015 08:15 Appointment; Provider: Shant Rubio On 03-Apr-2015 10:45 Appointment; Provider: Eduardo Zaman On 25-Jan-2015 10:00 Appointment; Provider: Neil Justin On 22-Jan-2015 08:15 Appointment; Provider: Mark Maldonado On 17-Jan-2015 14:45 Appointment; Provider: Mark Maldonado On 22-Dec-2013 07:30 [...] not documented Encounters Appointment; Shant Rubio On 26-Dec-2014 Encounter Diagnosis: [...]
--- OUTSIDE RECORDS SUMMARY | 2016-12-20 15:30 | External Medical Summary ---
:1950 Author Name GENERATED, SYSTEM Care Team Providers Name Role Phone MD ALEXSANDER, YANE Primary Care Provider Unavailable Reason For Visit Chief Complaint A FIB,CARDIOVERSION Social History Functional Status Vital Signs Results Problems Encounter Diagnosis No relevant problems exist. Additional Problems Cardiac Pacemaker Procedure Comment:Problem resolved by [facility] Workflow upon Discharge, Status:Resolved.Congestive Heart Failure Comment:Problem resolved by [facility] Workflow upon Discharge, Status:Resolved. Encounters Encounter Diagnosis No relevant problems exist. Plan of Care Procedures Completed , on 02/24/2013 12:00 AMCompleted , on [...] Hospital Discharge Instructions Allergies, Adverse Reactions, Alerts No Latex Allergy.No IV Contrast Allergy.No Known Drug Allergies.No Known Food Allergies.No Known Allergies. Medication It is the responsibility of the patient or patient wire rope sales representative to confirm the list of medicationswith either the patient's personal care provider or the patient's follow-up care provider to ensure the patient has an appropriate list of medications to take at home. Preliminary list - medication reconciliation not completed.Discharge medicationsContinued medicationsaspirin 81 mg tablet,chewable, Ordered By: CARLENE SELLERS Directions: 1 tablet oral daily diclofenac sodium 75 mg tablet,delayed release (DR/EC), Ordered By: CARLENE SELLERS Directions: 1 tablet oral twice a day amiodarone 200 mg Tablet, Ordered By: CARLENE SELLERS Directions: 1 tablet oral daily furosemide 40 mg Tablet, Ordered By: CARLENE SELLERS Directions: 2 tablet oral daily losartan 25 mg Tablet, Ordered By: CARLENE SELLERS Directions: 1 tablet oral daily rivaroxaban (Xarelto) 20 mg Tablet, Ordered By: CARLENE SELLERS Directions: 1 tablet oral daily simvastatin 40 mg Tablet, Ordered By: CARLENE SELLERS Directions: 1 tablet oral daily at bedtime Stopped medicationsNone
--- OUTSIDE RECORDS SUMMARY | 2016-12-20 15:30 | External Medical Summary | Summary of Care ---
:1950 Author Name Jonh Lanier M.D. Address Unavailable Unavailable , Care Team Providers Name Role Phone Lotus Rubio M.D. Unavailable Unavailable Jonh Lanier M.D. Unavailable Unavailable Shant Rubio Unavailable Unavailable [...] congestive heart failure (428.22, I50.22) Status: Active Atrial fibrillation (427.31, I48.91) Status: Active CKD (chronic kidney disease) stage 3, GFR 30-59 ml/min (585.3, N18.3) Status : Active Edema (782.3, R60.9) Status: Active Medications Name Dates Details Simvastatin 40 MG Oral Tablet TAKE ONE TABLET BY MOUTH EVERY NIGHT AT BEDTIME Quantity: 30 Refills: 10 Joanne Falcon, Shant Gautam Start Active Aspir-Low 81 MG Oral Tablet Delayed Release TAKE 1 TABLET IN THE PM Refills: 0 Start 26-Sep-2014 Active Spironolactone 50 MG Oral Tablet TAKE 1 TABLET DAILY. Refills: 0 Joanne Falcon, Shant Lotus Start 14-May-2015 Active Triamcinolone Acetonide 0.1 % External Cream USE TWO TIMES A DAY Quantity: 1 Refills: 6 Joanne Falcon, Shant Gautam Start 14-May-2015 Active 30 GM Tube Pantoprazole Sodium 40 MG Oral Tablet Delayed Release Take one tablet by mouth daily Quantity: 30 Refills: 10 Shant Rubio M.D. Start 09-Nov-2015 Active Losartan Potassium 25 MG Oral Tablet TAKE 1 TABLET DAILY. Refills: 0 Start 28-Feb-2016 Active MetOLazone 5 MG Oral Tablet take 1 tablet by mouth every day Quantity: 30 Refills: 1 Jonh Lanier M.D. Start 03-Mar-2016 Active Bumetanide 1 MG Oral Tablet TAKE 2 TABLET Twice daily Quantity: 360 Refills: 3 Jonh Lanier M.D. Start 07-Feb-2016 Active Allergies and Adverse Reactions Name Dates [...] on: Zoster (Zostavax) on: 21-Mar-2014 Lot #: [id number] Prevnar 13 Intramuscular Suspension on: 21-Mar-2014 Lot #: [id number] Family History Mother Name Dates Details Family [...] m2 Status: Results Date Description Value Details 17-Mar-2016 08:50 RENAL PROFILE 1240 SODIUM 131 [...] low Range: >60 threshold) EST GFR, NON-AFR MARTINIQUAIS 44 ml/min (Below low Range: >60 threshold) [...] XS RENAL / PVR (DR STONE PTS) 02-Apr-2016 09:29 ECG/ EKG Outside Interp Electro CardioGram ECG waiting for interpretation, click ImageLink button to view/confirm the study. Plan of Care Name Dates Details Planned Observations Planned Goals not documented Planned Encounters Appointment; Provider: Neil Justin M.D. On 18-Feb-2017 09:00 Appointment; Provider: Mick Parker M.D. On 06-Nov-2016 08:15 Appointment; Provider: Mark Maldonado M.D. On 11:15 Appointment; Provider: Shant Rubio M.D. On 26-May-2016 10:15 Appointment; Provider: Jonh Lanier M.D. On 07-Apr-2016 14:30 Appointment; Provider: Schedule Radiology On 17-Mar-2016 09:30 Interventions Provided Medication ChangesMetOLazone 5 MG Oral Tablet - Start Instructions Name Dates Details Instructions not documented Encounters Appointment; Shant Rubio M.D. On 29-Feb-2016 Encounter [...] Diagnosis: Problem not documented 10:30 Appointment; Mick Pakrer M.D. On 06-Nov-2015 Encounter Diagnosis: Problem not [...] Problem not documented 15:45 Appointment; Rufino Rayo PNicholas On 26-Sep-2014 Encounter Diagnosis: Problem not documented 10:45 Appointment; Shant Rubio M.D. On 19-Sep-2014 Encounter Diagnosis: Problem not documented 09:00 Appointment; Ángel Vaughan M.D. On 15-Sep-2014 Encounter Diagnosis: Problem not documented 09:00 Appointment; Ivis, Zoraida On 15-Sep-2014 Encounter Diagnosis: Problem not documented [...]
--- OUTSIDE RECORDS SUMMARY | 2016-12-20 15:30 | External Medical Summary | Summary of Care ---
:1950 Author Name Lotus Rubio M.D. Address [address], [place] [id number] Care Team Providers Name Role Phone Lotus [...] disease) (414.00, I25.10) Status: Active Anxiety (300.00, F41.9) Status: Active Hyperlipidemia (272.4, E78.5) Status: Active [...] Dyspnea on exertion (786.09, R06.09) Status: Active Anemia (285.9, D64.9) Status: Active Congestive heart failure (428.0, I50.9) Status: Active Hypertension (401.9, I10) Status: Active Hypothyroidism (244.9, E03.9) Status: Active Medications Name Dates Details Simvastatin 40 MG Oral Tablet TAKE ONE TABLET BY MOUTH EVERY NIGHT AT BEDTIME Quantity: 30 Refills: 0 Shant Rubio M.D. Started ActiveFurosemide 40 MG [...] Refills: 3 Mark Maldonado M.D. Started 25-May-2014 ActiveZolpidem Tartrate 10 MG Oral Tablet TAKE 1 TABLET DAILY AT BEDTIME. Quantity: 30 Refills: 5 Shant Rubio M.D. Started ActivePantoprazole Sodium 40 MG Oral Tablet Delayed [...] on: Zoster (Zostavax) Administered on:21-Mar-2014 Lot #: [id number] Prevnar 13 Intramuscular Suspension Administered on:21-Mar-2014 Lot #: [id number] Family History Mother Name Dates Details Family history of Hyperlipidemia Status: Active Father Name Dates Details Family history of Cancer Status: Active Social History Name Dates Details Smoking StatusNever smoker Vital Signs Date Test Result Details 13:21 BP Systolic 122 mm[Hg] Status: BP Diastolic 76 mm[Hg] Status: Heart Rate 84 /min Status: Weight 269 lb Status: Height 75 in Status: Body Mass Index Calculated 33.62 kg/m2 Status: Body Surface Area Calculated 2.49 m2 Status: 13:42 BP Systolic 118 mm[Hg] Status: BP Diastolic 60 mm[Hg] Status: Heart Rate 74 /min Status: Temperature 97.9 f Status: O2 SAT 98 % Status: Results Date Description Value Details 13:01 CBC w/ Auto Diff 7150 Comments: Fastin hours WBC 7.0 K/uL (Better) Range: 4.5-11.0 RBC 3.42 mil/uL Range: 4.20-5.40 (Below low threshold) HGB 10.3 g/dL (Below Range: 14.0-18.0 low threshold) HCT 31.1 % (Below low Range: 42.0-53.0 threshold) MCV 91.2 fL (Better) Range: 80.0-99.0 MCH 30.2 pg (Better) Range: 27.3-32.5 MCHC 33.1 % (Better) Range: 32.0-36.0 RDW 15.8 % (Above Range: 11.6-14.8 high threshold) PLATELETS 185 K/uL (Better) Range: 150-400 MPV 9.7 fL (Better) Range: 6.0-11.0 %NEUTRO 73.0 % (Better) Range: 37.0-80.0 %LYMPHS 16.7 % (Better) Range: 13.0-50.0 %MONO 7.2 % (Better) Range: 0.0-12.0 %EOS 0.9 % (Better) Range: 0.0-7.0 %BASO 0.7 % (Better) Range: 0.0-2.5 %GAUTAM 1.5 % (Better) Range: 0.0-5.0 NEUTRO 5.1 K/uL (Better) Range: 2.0-6.9 LYMPHS 1.2 K/uL (Better) Range: 0.6-3.4 MONOS 0.5 K/uL (Better) Range: 0.0-0.9 EOS 0.1 K/uL (Better) Range: 0.0-0.7 BASO 0.1 K/uL (Better) Range: 0.0-0.2 13:49 IRON 1254 Comments: Fastin hours IRON 24 ug/dL (Below Range: 65-175 low threshold) 13:49 Comprehensive Metabolic Comments: Fastin hours Panel 1212 SODIUM 137 mmol/L Range: 133-144 (Better) POTASSIUM 3.6 mmol/L Range: 3.5-5.1 (Better) CHLORIDE 99 mmol/L Range: 98-110 (Better) CARBON DIOXIDE 26.7 mmol/L Range: 23.0-33.0 (Better) ANION GAP 11 mmol/L Range: 6-16 (Better) BUN 20 mg/dL (Above Range: 7-18 high threshold) CREATININE, SERUM 1.56 mg/dL (Above Range: 0.55-1.02 high threshold) Comments: Please note new reference ranges effective 07/01.----- BUN:CREATININE RATIO 13 (Better) EST GFR, 54 ml/min (Below Range: >60 low threshold) EST GFR, NON-AFR HUNGARIAN 45 ml/min (Below Range: >60 low threshold) Comments: EST GFR is reported in ml/min per 1.73 m2 of body surface area. For -Citizen Of [place], please multiple result by 1.2.----- GLUCOSE 95 mg/dL (Better) Range: 70-100 ALK PHOSPHATASE 107 U/L (Better) Range: 46-116 TOTAL BILIRUBIN 1.50 mg/dL (Above Range: 0.20-1.00 high threshold) AST 22 U/L (Better) Range: 8-35 ALT 29 U/L (Better) Range: 16-63 Comments: Please note new reference ranges. Effective 04/20/2014.----- ALBUMIN 4.0 g/dL (Better) Range: 3.4-5.0 TOTAL PROTEIN 6.9 g/dL (Better) Range: 6.4-8.2 A/G RATIO 1.4 units Range: 1.0-1.8 (Better) CALCIUM 8.6 mg/dL Range: 8.5-10.1 (Better) 13:49 LIPID PROFILE 1184 Comments: Fastin hours CHOLESTEROL 85 mg/dL (Better) Range: <200 TRIGLYCERIDES 43 mg/dL (Better) Range: 30-200 HDL Cholesterol 43 mg/dL (Better) Range: >39 NON HDL CHOLESTEROL 42 (Better) CARDIAC RSK FACTOR 2.0 units (Below Range: 4.4-5.0 low threshold) LDL - CALCULATED 33 mg/dL (Better) Range: 0-130 13:56 FERRITIN 3025 Comments: Fastin hours FERRITIN 45 ng/mL (Better) Range: 22-322 13:56 FREE T4 3604 Comments: Fastin hours FREE T4 1.25 ng/dL Range: 0.80-1.67 (Better) 14:19 THYROID STIM. HORMONE 3602 Comments: Fastin hours THYROID STIM. HORMONE 9.341 uIU/mL Range: 0.550-4.780 (Above high Comments: Verified by Repeat Analysis\[id number]\No established reference ranges for infants and children <2 years of age No established reference ranges for infants and children <2 years of age-- --- threshold) Plan of Care Planned Observations Name Dates Details Planned Goals not documented Goal Planned Encounters Appointment; Provider: Neil Justin On 22-Jan-2015 08:15 Appointment; Provider: Mick Parker On 02-Nov-2014 08:30 Appointment; Provider: Shant Rubio On 19-Sep-2014 09:00 Appointment; Provider: Shant Rubio On 09:30 Appointment; Provider: Mark Maldonado On 22-Dec-2013 07:30 [...]
--- OUTSIDE RECORDS SUMMARY | 2016-12-20 15:30 | External Medical Summary | Summary of Care ---
:1950 Author Name Lotus Rubio M.D. Address [address] [place], [place] [id number] Care Team Providers Name Role Phone Lotus [...] Status: Active Hyperlipidemia (272.4, E78.5) Status: Active Blister of ankle, right (916.2, [...] 1 TABLET DAILY. Refills: 0 Started 26-Sep-2014 ActiveLosartan Potassium 25 MG Oral Tablet Take one tablet by mouth daily Quantity: 90 Refills: 0 Mark Maldonado M.D. Started 26-Sep-2014 ActiveXarelto 20 MG Oral Tablet Take one tablet by mouth daily Quantity: 30 Refills: 0 Mark Maldonado M.D. Started 10-Oct-2014 ActiveDiclofenac Sodium 75 MG Oral Tablet Delayed Release Take one tablet daily. Refills: 0 Shant Rubio M.D. Started 10-Oct-2014 ActiveMetroNIDAZOLE 500 MG Oral Tablet TWICE DAILY X 10 DAYS Quantity: 20 Refills: 0 Shant Rubio M.D. Started 30-Nov-2014 Active Allergies and Adverse Reactions Name Dates [...] Cardioversion External Completed:23-Oct-2011 Globe Enucleation Left PTCA STOOL CULTURE [id number] Ordered:30-Nov-2014 GIARDIA ANTIGEN [id number] Ordered:30-Nov-2014 CRYPTOSPORIDIUM ANTIGEN [id number] Ordered:30-Nov-2014 Immunization Name Dates Details Tdap (Adacel) Administered on: Zoster (Zostavax) Administered on:21-Mar-2014 Lot #: [id number] Prevnar 13 Intramuscular Suspension Administered on:21-Mar-2014 Lot #: [id number] Family History Mother Name Dates Details Family history of Hyperlipidemia Status: Active Father Name Dates Details Family history of Cancer Status: Active Social History Name Dates Details Smoking StatusNever smoker Vital Signs Date Test Result Details 30-Nov-2014 13:07 BP Systolic 130 mm[Hg] Status: [...] Mick Parker On 06-Nov-2015 08:15 Appointment; Provider: Neil Justin On 22-Jan-2015 08:15 [...] not documented Encounters Appointment; Shant Rubio On 30-Nov-2014 Encounter Diagnosis: [...]
--- OUTSIDE RECORDS SUMMARY | 2016-12-20 15:31 | External Medical Summary | Summary of Care ---
:1950 Author Name Joanne Falcon, Lotus Bran Address [address] [place], [place] [id number] Care Team Providers Name Role Phone Joanne [...] Status: Active Edema (782.3, R60.9) Status: Active Chronic systolic congestive heart failure [...] cm H2O, Permanent use, G47.33, Heated humidity, [id number], mask , headgear, filters, heated tubing, water [...] Quantity: 15 Refills: 3 Joel Falcon Mark Child Start 26-Dec-2015 Active Levothyroxine Sodium 75 MCG Oral Tablet TAKE 1 TABLET DAILY. Quantity: 30 Refills: 11 Shant Rubio M.D. Start 15-Jan-2016 Active ALPRAZolam 0.25 MG Oral Tablet TAKE ONE TO TWO TABLETS BY MOUTH EVERY 8 HOURS NEEDED Quantity: 30 Refills: 5 Shant Rubio M.D. Start 15-Jan-2016 Active MetOLazone 5 MG Oral Tablet TAKE 1 TABLET DAILY. Quantity: 30 Refills: 11 Shant Rubio M.D. Start 15-Jan-2016 Active Bumetanide 1 MG Oral Tablet Take 3 tablets po daily Quantity: 270 Refills: 3 Joanne Falcon Shant Lotus Start 07-Feb-2016 Active Allergies and Adverse Reactions [...] Left PTCA RENAL PROFILE 1240 Ordered: 17-Jan-2016 ULTRASOUND ELVS EVALUATION BILATERAL Ordered: 07-Feb-2016 Immunization Name Dates Details Tdap (Adacel) on: Zoster (Zostavax) on: 21-Mar-2014 Lot #: [id number] Prevnar 13 Intramuscular Suspension on: 21-Mar-2014 Lot #: [id number] Family History Mother Name Dates Details Family history of Hyperlipidemia Status: Active Family history of cerebrovascular accident (CVA) (V17.1, Z82.3) Status: Active Father Name Dates Details Family history of Cancer Status: Active Social History Name Dates Details - Status: Smoking Status Name Dates Details Never smoker Vital Signs Date Test Result Details 07-Feb-2016 12:59 BP Systolic 115 mm[Hg] Status: Comments: Location: ; Position: BP Diastolic 60 mm[Hg] Status: Comments: Location: ; Position: Heart Rate 83 /min Status: Comments: Location: ; Weight 252 lb Status: Physical Findings 90 Status: Comments: O2 Saturation Body Mass Index Calculated 31.5 kg/m2 Status: Body Surface Area Calculated 2.42 m2 Status: 29-Jan-2016 11:26 BP Systolic 115 mm[Hg] Status: [...] low Range: >60 threshold) EST GFR, NON-AFR SPANISH 39 ml/min (Below low Range: >60 threshold) [...] low Range: >60 threshold) EST GFR, NON-AFR SPANISH 38 ml/min (Below low Range: >60 threshold) [...] 11:00 Appointment; Provider: Shant Rubio M.D. On 20-Feb-2016 09:30 Appointment; Provider: Schedule Radiology On 15-Feb-2016 10:00 Interventions Provided Medication ChangesBumetanide 1 MG Oral Tablet - StartLabs/Procedures/Imaging ULTRASOUND ELVS EVALUATION BILATERAL; To be Done: 07 Feb 2016 Instructions Name Dates Details Instructions not documented Encounters Appointment; Neil Justin M.D. On 06-Feb-2016 Encounter [...]
--- OUTSIDE RECORDS SUMMARY | 2016-12-20 15:31 | External Medical Summary | Summary of Care ---
:1950 Author Name Mateusz Maldonado M.D. Address [address], [place] [id number] Care Team Providers Name Role Phone Lotus [...] on: Zoster (Zostavax) Administered on:21-Mar-2014 Lot #: [id number] Prevnar 13 Intramuscular Suspension Administered on:21-Mar-2014 Lot #: [id number] Family History Mother Name Dates Details Family history of Hyperlipidemia Status: Active Father Name Dates Details Family history of Cancer Status: Active Social History Name Dates Details Smoking StatusNever smoker Vital Signs Date Test Result Details 07-Jun-2014 14:32 BP Systolic 102 mm[Hg] Status: [...] Provider: Neil Justin On 08:15 Appointment; Provider: Rufino Rayo On 12-Jun-2014 10:15 Appointment; Provider: Mark Maldonado On 22-Dec-2013 [...] not documented Encounters Appointment; Mark Maldonado On 07-Jun-2014 Encounter Diagnosis: [...]
--- OUTSIDE RECORDS SUMMARY | 2016-12-20 15:31 | External Medical Summary | Summary of Care ---
:1950 Author Name Mateusz Maldonado M.D. Address [address] [place], [place] [id number] Care Team Providers Name Role Phone Lotus [...] on: Zoster (Zostavax) Administered on:21-Mar-2014 Lot #: [id number] Prevnar 13 Intramuscular Suspension Administered on:21-Mar-2014 Lot #: [id number] Family History Mother Name Dates Details Family [...] Date Description Value Details 04-Dec-2014 STOOL CULTURE [id number] Comments: Stumpedia performed at: [facility] [employer], [facility] [address], [place], [address], Hydraulic Plumber Helper: Gisselle Elizondo MDQuest Collection Date/Time: 2 14:27 [id number] Results Received Date/Time: [id number] Reported Date/Time: [id number] performed at: [facility] [employer] [facility], [address] [address] [place], [place], [address] [place] [address], Hydraulic Plumber Helper: Natalie Denton Collection Date/Time: [id number] Results Received Date/Time: [id number] Reported Date/Time: [id number] Quest performed at: [facility] [employer], [facility] [address] [place], [place], [address] [place] [address], Hydraulic Plumber Helper: Natalie Denton Collection Date/Time: [id number] Results Received Date/Time: [id number] Reported Date/Time: [id number] performed at: [facility] [employer] [facility], [address] [address] [place], [place], [address] [place] [address], Hydraulic Plumber Helper: Natalie Denton Collection Date/Time: [id number] Results Received Date/Time: [id number] Reported Date/Time: [id number] Quest performed at: [facility] [employer], [facility] [address] [place], [place], [address] [place] [address], Hydraulic Plumber Helper: Natalie Denton Collection Date/Time: [id number] Results Received Date/Time: [id number] Reported Date/Time: [id number] SHIGA TOXINS, EIA W/RFL TO SEE NOTE Comments: SHIGA TOXINS, EIA W/RFL TO E.COLI O157 CULTURE MICRO NUMBER: [id number] TEST STATUS: FINAL SPECIMEN SOURCE: FECES SPECIMEN QUALITY: ADEQUATE RESULT: Not Detected[SL]----- E.COLI O157 CULTURE (Better) CAMPYLOBACTER, CULTURE SEE NOTE Comments: CAMPYLOBACTER, CULTURE MICRO NUMBER: [id number] TEST STATUS: FINAL SPECIMEN SOURCE: FECES SPECIMEN QUALITY: ADEQUATE RESULT: No enteric Campylobacter isolated[SL]----- (Better) SALMONELLA AND SHIGELLA, SEE NOTE Comments: SALMONELLA AND SHIGELLA, CULTURE MICRO NUMBER: [id number] TEST STATUS: FINAL SPECIMEN SOURCE : FECES SPECIMEN QUALITY: ADEQUATE RESULT: No Salmonella or Shigella isolated[SL]----- CULTURE (Better) 01-Dec-2014 GIARDIA ANTIGEN [id number] Comments: Quest performed at: [facility] [employer], [facility] [place], [address], Hydraulic Plumber Helper: Natalie Denton Collection Date/Time: 2 13:46 [id number] Results Received Date/Time: [id number] Reported Date/Time: [id number] GIARDIA AG, EIA, STOOL SEE NOTE Comments: GIARDIA AG, EIA, STOOL MICRO NUMBER: [id number] TEST STATUS: FINAL SPECIMEN SOURCE: FECES SPECIMEN QUALITY: ADEQUATE RESULT 1: Not Detected[SL]----- (Better) 14:42 CRYPTOSPORIDIUM ANTIGEN Comments: Quest performed at: [facility] [employer], [facility] [place], [address], Hydraulic Plumber Helper: Natalie Denton Collection Date/Time: [id number] Results Received Date/Time: [id number] Reported Date/Time: [id number] performed at: [facility] [employer], [facility] [place], [address], Hydraulic Plumber Helper: Natalie Denton Collection Date/Time: [id number] Results Received Date/Time: [id number] Reported Date/Time: [id number] CRYPTOSPORIDIUM AG, DFA SEE NOTE Comments: CRYPTOSPORIDIUM AG, DFA MICRO NUMBER: [id number] TEST STATUS: FINAL SPECIMEN SOURCE: STOOL SPECIMEN [...] Encounter Diagnosis: Problem not documented 13:00 Appointment; iMck Parker On 02-Nov-2014 Encounter Diagnosis: Problem not [...]
--- OUTSIDE RECORDS SUMMARY | 2016-12-20 15:33 | External Medical Summary | Summary of Care ---
:1950 Author Name Mateusz Maldonado M.D. Address [address] [place], [place] [id number] Care Team Providers Name Role Phone Lotus [...] on: Zoster (Zostavax) Administered on:21-Mar-2014 Lot #: [id number] Prevnar 13 Intramuscular Suspension Administered on:21-Mar-2014 Lot #: [id number] Family History Mother Name Dates Details Family [...] Range: >60 low threshold) EST GFR, NON-AFR VIETNAMESE 39 ml/min (Below Range: >60 low threshold) Comments: EST GFR is reported in ml/min per 1.73 m2 of body surface area. For -Sri Lankan, please multiple result by 1.2.----- GLUCOSE 98 [...]
--- OUTSIDE RECORDS SUMMARY | 2016-12-20 15:33 | External Medical Summary | Summary of Care ---
:1950 Author Organization [facility] Address [address] [place] [address] Phone Care Team Providers Name Role Phone [...] cm H2O, Permanent use, G47.33, Heated humidity, [id number], mask , headgear, filters, heated tubing, water [...] Joel Falcon, Mark Child Start 26-Dec-2016 Active Allergies and Adverse Reactions [...] on: Zoster (Zostavax) on: 21-Mar-2014 Lot #: [id number] Prevnar 13 Intramuscular Suspension on: 21-Mar-2014 Lot #: [id number] Family History Mother Name Dates Details Family [...] 11:00 Appointment; Provider: Mark Maldonado M.D. On 25-Jun-2015 12:00 Appointment; Provider: Mark Maldonado M.D. On 22-Dec-2013 07:30 Appointment; Provider: Mark Maldonado M.D. On 24-Feb-2013 09:30 Appointment; Provider: Mark Maldonado M.D. On 18-Feb-2013 08:30 Appointment; Provider: Sweetie Langston On 04-Jan-2013 09:45 Appointment; Provider: Mrak Maldonado M.D. On 23-Oct-2011 10:30 Appointment; Provider: [...]
--- OUTSIDE RECORDS SUMMARY | 2016-12-20 15:33 | External Medical Summary | Summary of Care ---
:1950 Author Name Joanne Falcon, Lotus Bran Address [address] [place], [place] [id number] Care Team Providers Name Role Phone Joanne [...] (V43.0, Z97.0) Status: Active PTCA Status: Active Paroxysmal atrial [...] Peripheral arterial disease (443.9, I73.9) Status: Active Lymphedema (457.1, I89.0) Status: Active Difficulty walking (719.7, R26.2) Status: Active Stasis dermatitis (454.1, I87.2) Status: Active Milial cyst (706.2, L72.0) Status: Active Seborrheic keratosis (702.19, L82.1) Status: Active Sebaceous hyperplasia (706.8, L73.8) Status: Active Folliculitis (704.8, L73.9) Status: Active Edema (782.3, R60.9) Status: Active Itching (698.9, L29.9) Status: Active Pneumonia (486, J18.9) Status: Active Shortness of breath (786.05, R06.02) Status: Active Venous insufficiency (459.81, I87.2) Status: Active Fatigue (780.79, R53.83) Status: Active CAD (coronary atherosclerotic disease) (414.00, I25.10) Status: Active Biventricular ICD (implantable cardioverter-defibrillator) in place (V45.02, Z95.810) Status: Active Hyperlipidemia (272.4, E78.5) Status: Active Atrial fibrillation (427.31, I48.91) Status: Active Chronic systolic congestive heart failure (428.22, I50.22) Status: Active CKD (chronic kidney disease) stage 3, GFR 30-59 ml/min (585.3, N18.3) Status : Active Hypertension (401.9, I10) Status: Active Medications [...] mouth every day Quantity: 30 Refills: 1 Yolande Falcon Jonh Start 03-Mar-2016 Active Betamethasone Dipropionate Aug 0.05 % External Cream APPLY SPARINGLY TO AFFECTED AREA(S) TWICE DAILY. Quantity: 1 Refills: 1 Elena Falcon Mick Velez Start 16-Jun-2016 Active 50 GM Tube Minocycline HCl - 100 MG Oral Capsule one po bid x 14 days Quantity: 28 Refills: 0 Shant Rubio M.D. Start 27-Jun-2016 Active HydrOXYzine HCl - 25 MG Oral Tablet TAKE ONE TAB PO EVERY 6 HRS PRN Quantity: 30 Refills: 1 Shant Rubio M.D. Start Active Triamcinolone Acetonide 0.1 % External Cream USE TWO TIMES DAILY NEEDED Quantity: 30 Refills: 1 Shant Rubio M.D. Start Active LevoFLOXacin 750 MG Oral Tablet TAKE 1 TABLET DAILY. Quantity: 10 Refills: 0 Shant Rubio M.D. Start Active Levothyroxine Sodium 75 MCG Oral Tablet TAKE 1 TABLET DAILY. Refills: 0 Start Active Xarelto 20 MG Oral Tablet Take one tablet daily Quantity: 30 Refills: 11 Joel Falcon Mark Child Start Active Allergies and Adverse Reactions Name [...] Completed: 23-Oct-2011 External PTCA Globe Enucleation Left ECG/ EKG ([facility]) Ordered: Immunization Name Dates Details Tdap (Adacel) on: Zoster (Zostavax) on: 21-Mar-2014 Lot #: [id number] Prevnar 13 Intramuscular Suspension on: 21-Mar-2014 Lot #: [id number] Family History Mother Name Dates Details Family history of Hyperlipidemia Status: Active Family history of cerebrovascular accident (CVA) (V17.1, Z82.3) Status: Active Father Name Dates Details Family history of Cancer Status: Active Social History Name Dates Details - Status: Smoking Status Name Dates Details Never smoker Vital Signs Date Test Result Details 11:25 BP Systolic 100 mm[Hg] Status: Comments: Location: ; Position: BP Diastolic 62 mm[Hg] Status: Comments: Location: ; Position: Heart Rate 72 /min Status: Comments: Location: ; Weight 238 lb Status: Body Mass Index Calculated 29.75 kg/m2 Status: Body Surface Area Calculated 2.36 m2 Status: 11:15 BP Systolic 100 mm[Hg] Status: Comments: Location: ; Position: BP Diastolic 60 mm[Hg] Status: Comments: Location: ; Position: Heart Rate 76 /min Status: Comments: Location: ; Weight 238 lb Status: Body Mass Index Calculated 29.75 kg/m2 Status: Body Surface Area Calculated 2.36 m2 Status: 11:20 BP Systolic 104 mm[Hg] Status: Comments: Location: ; Position: BP Diastolic 66 mm[Hg] Status: Comments: Location: ; Position: Heart Rate 80 /min Status: Comments: Location: ; Weight 224 lb Status: Body Mass Index Calculated 28 kg/m2 Status: Body Surface Area Calculated 2.3 m2 Status: 13:15 BP Systolic 115 mm[Hg] Status: Comments: [...] low Range: >60 threshold) EST GFR, NON-AFR ICELANDIC 43 ml/min (Below low Range: >60 threshold) [...] and children &lt ;2 years of age----- 11:15 CBC w/ Auto Diff 7150 Comments: Fastin hours WBC 5.1 K/uL Range: 4.5-11.0 RBC 3.86 mil/uL (Below low threshold) Range: 4.20-5.40 HGB 10.4 g/dL (Below low threshold) Range: 14.0-18.0 Comments: Variance from previous testing noted.----- HCT 32.2 % (Below low threshold) Range: 42.0-53.0 MCV 83.4 fL Range: 80.0-99.0 MCH 27.0 pg (Below low threshold) Range: 27.3-32.5 MCHC 32.4 % Range: 32.0-36.0 RDW 15.5 % (Above high threshold) Range: 11.6-14.8 PLATELETS 243 K/uL Range: 150-400 MPV 7.9 fL Range: 6.0-11.0 %NEUTRO 69.9 % Range: 37.0-80.0 %LYMPHS 17.5 % Range: 13.0-50.0 %MONO 6.6 % Range: 0.0-12.0 %EOS 3.7 % Range: 0.0-7.0 %BASO 0.7 % Range: 0.0-2.5 %GAUTAM 1.5 % Range: 0.0-5.0 NEUTRO 3.6 K/uL Range: 2.0-6.9 LYMPHS 0.9 K/uL Range: 0.6-3.4 MONOS 0.3 K/uL Range: 0.0-0.9 EOS 0.2 K/uL Range: 0.0-0.7 BASO 0.0 K/uL Range: 0.0-0.2 11:35 PHOSPHORUS 1145 Comments: Items were attached to this order: PHOS Fastin hours PHOSPHORUS 4.1 mg/dL Range: 2.6-4.7 11:38 LIPID PROFILE 1184 Comments: Fastin hours CHOLESTEROL 95 mg/dL Range: <200 TRIGLYCERIDES 23 mg/dL (Below low threshold) Range: 30-200 HDL Cholesterol 53 mg/dL Range: >39 NON HDL CHOLESTEROL 42 CARDIAC RSK FACTOR 1.8 units (Below low threshold) Range: 4.4-5.0 LDL - CALCULATED 37 mg/dL Range: 0-130 11:39 Comprehensive Metabolic Panel 1212 Comments: Fastin hours SODIUM 133 mmol/L Range: 133-144 POTASSIUM 4.4 mmol/L Range: 3.5-5.1 CHLORIDE 98 mmol/L Range: 98-110 CARBON DIOXIDE 24.6 mmol/L Range: 23.0-33.0 ANION GAP 10 mmol/L Range: 6-16 BUN 32 mg/dL (Above high Range: 7-18 threshold) Comments: Variance from previous testing noted.----- CREATININE, SERUM 1.53 mg/dL (Above high Range: 0.70-1.30 threshold) BUN:CREATININE RATIO 21 EST GFR, 55 ml/min (Below low Range: >60 threshold) EST GFR, NON-AFR ICELANDIC 46 ml/min (Below low Range: >60 threshold) Comments: EST GFR is reported in ml/min per 1.73 m2 of body surface area. ----- GLUCOSE 94 mg/dL Range: 70-100 ALK PHOSPHATASE 97 U/L Range: 46-116 TOTAL BILIRUBIN 0.90 mg/dL Range: 0.20-1.00 AST 18 U/L Range: 8-35 ALT 16 U/L Range: 16-63 ALBUMIN 3.7 g/dL Range: 3.4-5.0 TOTAL PROTEIN 7.4 g/dL Range: 6.4-8.2 A/G RATIO 1.0 units Range: 1.0-1.8 CALCIUM 9.4 mg/dL Range: 8.5-10.1 Plan of Care Name Dates Details Planned Observations THYROID STIM. HORMONE 3602 On Intent Planned Goals not documented Planned Encounters Appointment; Provider: Neil Justin M.D. On 18-Feb-2017 09:00 Appointment; Provider: Jonh Lanier M.D. On 18-Nov-2016 13:15 Appointment; Provider: Mick Parker M.D. On 06-Nov-2016 08:15 Appointment; Provider: Mark Maldonado M.D. On 11:15 Appointment; Provider: Shant Rubio M.D. On 10:00 Appointment; Provider: Mark Maldonado M.D. On 08:30 Appointment; Provider: Schedule Radiology On 30-May-2016 13:00 Interventions Provided Labs/Procedures/ImagingCBC w/ Auto Diff 7150; Done: Aug 18 2016 11: 01AMComprehensive Metabolic Panel 1212; Done: Aug 18 2016 11:01AMLIPID PROFILE 1184; Done: Aug 18 2016 11:01AM Instructions Name Dates Details Instructions not documented Encounters Appointment; Shant Rubio M.D. On 26-May-2016 Encounter Diagnosis: Problem not documented 10:15 Appointment; Jonh Lanier M.D. On 19-May-2016 Encounter Diagnosis: Problem not documented 15:00 Appointment; eNil Justin M.D. On 12-May-2016 Encounter Diagnosis: Problem [...]
--- OUTSIDE RECORDS SUMMARY | 2016-12-20 15:34 | External Medical Summary | Summary of Care ---
[...] : Active Edema (782.3, R60.9) Status: Active Hypertension [...] TABLET DAILY. Refills: 0 Joanne Falcon, Shant Gautam Start 14-May-2015 Active Triamcinolone Acetonide 0.1 % [...] on: Zoster (Zostavax) on: 21-Mar-2014 Lot #: [id number] Prevnar 13 Intramuscular Suspension on: 21-Mar-2014 Lot #: [id number] Family History Mother Name Dates Details Family history of Hyperlipidemia Status: Active Family history of cerebrovascular accident (CVA) (V17.1, Z82.3) Status: Active Father Name Dates Details Family history of Cancer Status: Active Social History Name Dates Details - Status: Smoking Status Name Dates Details Never smoker Vital Signs Date Test Result Details 07-Apr-2016 14:17 BP Systolic 98 mm[Hg] Status: Comments: Location: ; Position: BP Diastolic 52 mm[Hg] Status: Comments: Location: ; Position: Heart Rate 68 /min Status: Comments: Location: ; Weight 250 lb Status: Body Mass Index Calculated 31.25 kg/m2 Status: Body Surface Area Calculated 2.41 m2 Status: 28-Mar-2016 11:01 BP Systolic 100 mm[Hg] Status: [...] low Range: >60 threshold) EST GFR, NON-AFR TONGAN 44 ml/min (Below low Range: >60 threshold) [...] 09:29 ECG/ EKG Outside Interp Electro CardioGram 07-Apr-2016 14:04 URINE PROT CREAT RATIO 1193 Comments: Unable to caclulate ratio - Urine protein below assay range. PROTEIN, URINE <6.0 mg/dL Range: 0.0-11.9 URINE CREATININE 18.8 mg/dL (Below low threshold) Range: 30.0-125.0 14:22 MAGNESIUM 1260 MAGNESIUM 2.2 mg/dL Range: 1.8-2.4 14:22 RENAL PROFILE 1240 SODIUM 137 mmol/L Range: 133-144 POTASSIUM 4.1 mmol/L Range: 3.5-5.1 CHLORIDE 98 mmol/L Range: 98-110 CARBON DIOXIDE 27.6 mmol/L Range: 23.0-33.0 ANION GAP 11 mmol/L Range: 6-16 BUN 55 mg/dL (Above high Range: 7-18 threshold) CREATININE, SERUM 1.75 mg/dL (Above high Range: 0.70-1.30 threshold) EST GFR, 47 ml/min (Below low Range: >60 threshold) EST GFR, NON-AFR TONGAN 39 ml/min (Below low Range: >60 threshold) Comments: EST GFR is reported in ml/min per 1.73 m2 of body surface area. ----- BUN:CREATININE RATIO 31 GLUCOSE 103 mg/dL (Above high Range: 70-100 threshold) ALBUMIN 3.4 g/dL Range: 3.4-5.0 PHOSPHORUS 3.7 mg/dL Range: 2.6-4.7 CALCIUM 8.7 mg/dL Range: 8.5-10.1 Plan of Care Name Dates Details Planned Observations Planned Goals not documented Planned Encounters Appointment; Provider: Neil Justin M.D. On 18-Feb-2017 09:00 Appointment; Provider: Mick Parker M.D. On 06-Nov-2016 08:15 Appointment; Provider: Mark Maldonado M.D. On 11:15 Appointment; Provider: Shant Rubio M.D. On 26-May-2016 10:15 Appointment; Provider: Jonh Lanier M.D. On 19-May-2016 15:00 Instructions Name Dates Details Instructions not documented Encounters Appointment; Shant Rubio M.D. On 28-Mar-2016 Encounter [...] Problem not documented 10:30 Appointment; Rufino Rayo, PNicholas On 12-Jun-2014 Encounter Diagnosis: Problem not documented 10:15 Appointment; Mark Maldonado M.D. On 07-Jun-2014 Encounter Diagnosis: Problem not documented 14:15 Appointment; Mark Maldonado M.D. On 25-May-2014 Encounter Diagnosis: Problem not documented 14:30 Appointment; Mark Maldonado M.D. On 26-Apr-2014 Encounter Diagnosis: Problem not documented 15:15
--- OUTSIDE RECORDS SUMMARY | 2016-12-20 15:34 | External Medical Summary | Summary of Care ---
:1950 Author Name Lotus Rubio M.D. 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 Started ActiveFurosemide 40 MG Oral Tablet [...] cm H2O, Permanent use, G47.33, Heated humidity, [id number], mask , headgear, filters, heated tubing, water [...] Refills: 6 Shant Rubio M.D. Started 14-May-2015 [id number] GM Tube MetroNIDAZOLE 500 MG Oral Tablet [...] 30 Refills: 3 Shant Rubio M.D. Started Active [...] on: Zoster (Zostavax) Administered on:21-Mar-2014 Lot #: [id number] Prevnar 13 Intramuscular Suspension Administered on:21-Mar-2014 Lot #: [id number] Family History Mother Name Dates Details Family [...] Planned Encounters Appointment; Provider: Neil Justin On 01-Feb-2016 08:45 Appointment; Provider: Mick Parker On 06-Nov-2015 08:15 Appointment; Provider: Mark Maldonado On 31-Oct-2015 14:15 Appointment; Provider: Shant Rubio On 28-Sep-2015 10:15 Appointment; Provider: Mark Maldonado On 25-Jun-2015 12:00 [...]
--- OUTSIDE RECORDS SUMMARY | 2016-12-20 15:35 | External Medical Summary ---
:1950 Author Name GENERATED, SYSTEM Care Team Providers Name Role Phone MD ALEXSANDER, YANE Primary Care Provider Unavailable Reason For Visit Chief Complaint 03/03/16 SADAF LE EDEMA Social History Functional Status Vital Signs Results [...] on 07/16/2014 12: 00 AMCompleted Procedure Code: 20020 Procedure Name: not valued, on 07/16/2014 12 :00 AMCompleted Procedure Code: 43538 Procedure Name: not valued, on 07/16/2014 12:00 [...]
--- OUTSIDE RECORDS SUMMARY | 2016-12-20 15:35 | External Medical Summary ---
:1950 Author Organization [facility] Care Team Providers Name Role Phone Zechariah Cross Provider Role Unavailable Allergies No Known Allergies Problems Problem Type Condition ICD-9 Code Onset Dates Condition Status Problem High Risk Med V58.69 Active Problem Chronic Anticoagulation V58.61 Active Problem Atrial fibrillation 427.31 Active Medications No Known Medications Results No Known Results Summary Purpose [facility] Submission
--- OUTSIDE RECORDS SUMMARY | 2016-12-20 15:35 | External Medical Summary | Summary of Care ---
[...] N18.3) Status: Active Medications Name Dates Details Furosemide 40 MG Oral Tablet take two [...] Refills: 2 Mark Maldonado M.D. Started 26-Sep-2014 ActivePantoprazole Sodium 40 MG Oral Tablet Delayed [...] Refills: 6 Shant Rubio M.D. Started 14-May-2015 [id number] GM Tube MetroNIDAZOLE 500 MG Oral Tablet Take 1 tablet twice daily Quantity: 14 Refills: 0 Shant Rubio M.D. Started ActiveOndansetron HCl - 4 MG Oral Tablet ONE TABLET BY MOUTH EVERY 4 HOURS NEEDED FOR NAUSEA Quantity: 15 Refills: 3 Shant Rubio M.D. Started ActiveFlagyl 500 MG Oral Tablet TAKE ONE TABLET BY MOUTH TWICE A DAY FOR 7 DAYS Quantity: 14 Refills: 0 Shant Rubio M.D. Started Ended ActiveLevothyroxine Sodium 50 MCG Oral Tablet take 1 tablet by mouth every day Quantity: 30 Refills: 3 Shant Rubio M.D. Started ActiveSupplies AutoCPAP 8-12 cm H2O, Permanent use, G47.33, Heated humidity, [id number], mask , headgear, filters, heated tubing, water chamber, chinstrap Quantity: 1 Refills: 0 Paloma Castillo Started 03-Apr-2015 ActiveKlor-Con M20 20 MEQ Oral Tablet Extended Release TAKE 1 TABLET DAILY. Quantity: 30 Refills: 6 Shant Rubio M.D. Started 02-Jan-2015 ActiveZolpidem Tartrate 10 MG Oral Tablet TAKE 1 TABLET AT BEDTIME NEEDED FOR SLEEP. Refills: 0 Mark Maldonado M.D. Started 13-Dec-2014 ActiveSimvastatin 40 MG Oral Tablet TAKE ONE [...] on: Zoster (Zostavax) Administered on:21-Mar-2014 Lot #: [id number] Prevnar 13 Intramuscular Suspension Administered on:21-Mar-2014 Lot #: [id number] Family History Mother Name Dates Details Family [...] Range: >60 low threshold) EST GFR, NON-AFR UKRAINIAN 49 ml/min (Below Range: >60 low threshold) Comments: EST GFR is reported in ml/min per 1.73 m2 of body surface area. For -Maldivian, please multiple result by 1.2.----- GLUCOSE 89 [...] documented Goal Planned Encounters Appointment; Provider: Mick Parkre On 06-Nov-2015 08:15 Appointment; Provider: Mark Maldonado On 31-Oct-2015 14:15 Appointment; Provider: Shant Rubio On 25-Sep-2015 13:30 Appointment; Provider: Neil Justin On 08:15 Appointment; [...]
--- OUTSIDE RECORDS SUMMARY | 2016-12-20 15:36 | External Medical Summary | Summary of Care ---
:1950 Author Name Joanne Falcon, Lotus Bran Address [address] [place], [place] [id number] Care Team Providers Name Role Phone Joanne [...] AT BEDTIME Quantity: 30 Refills: 10 Joanne FalconShant Start Active Aspir-Low 81 MG Oral Tablet Delayed Release TAKE 1 TABLET IN THE PM Refills: 0 Start 26-Sep-2014 Active MetOLazone 5 MG Oral Tablet prn Quantity: 30 Refills: 5 Shant Rubio M.D. Start 30-Mar-2013 Active Klor-Con M20 20 MEQ Oral Tablet Extended Release TAKE 1 TABLET DAILY. Quantity: 30 Refills: 6 Shant Rubio M.D. Start 02-Jan-2015 Active Losartan Potassium 25 MG Oral Tablet Take one tablet by mouth daily Quantity: 90 Refills: 2 Joel Falcon Mark Mateusz Start 26-Sep-2014 Active Supplies AutoCPAP 8-12 cm H2O, Permanent use, G47.33, Heated humidity, [id number], mask , headgear, filters, heated tubing, water [...] M.D. Start 14-May-2015 Active 30 GM Tube Furosemide 40 MG Oral Tablet take two tablets by mouth daily Quantity: 60 Refills: 10 Shant Rubio M.D. Start 16-Jun-2011 Active MetroNIDAZOLE 500 MG Oral Tablet Take 1 tablet twice daily Quantity: 14 Refills: 0 Shant Rubio M.D. Start Active Ondansetron HCl - 4 MG Oral Tablet ONE TABLET BY MOUTH EVERY 4 HOURS NEEDED FOR NAUSEA Quantity: 15 Refills: 3 Shant Rubio M.D. Start Active Levothyroxine Sodium 50 MCG Oral Tablet take 1 tablet by mouth every day Quantity: 30 Refills: 3 Shant Rubio M.D. A Start Active Zolpidem Tartrate 10 MG Oral Tablet TAKE ONE TABLET BY MOUTH EVERY NIGHT AT BEDTIME Quantity: 30 Refills: 4 Shant Rubio M.D. Start 11-Sep-2015 Active Allergies and Adverse Reactions Name Dates [...] Completed: 23-Oct-2011 External Globe Enucleation Left PTCA CBC w/ Auto Diff 7150 Ordered: 14-Sep-2015 Comprehensive Metabolic Panel 1212 Ordered: 14-Sep-2015 LIPID PROFILE 1184 Ordered: 14-Sep-2015 Immunization Name Dates Details Tdap (Adacel) on: Zoster (Zostavax) on: 21-Mar-2014 Lot #: [id number] Prevnar 13 Intramuscular Suspension on: 21-Mar-2014 Lot #: [id number] Family History Mother Name Dates Details Family history of Hyperlipidemia Status: Active Family history of cerebrovascular accident (CVA) (V17.1, Z82.3) Status: Active Father Name Dates Details Family history of Cancer Status: Active Social History Name Dates Details - Status: Smoking Status Name Dates Details Never smoker Vital Signs Date Test Result Details No Known Vitals to report Results Date Description Value Details 19-Sep-2015 13:58 ECG/ EKG Outside Interp Electro CardioGram Plan of Care Name Dates Details Planned Observations THYROID STIM. HORMONE 3602 On Intent Planned Goals not documented Planned Encounters Appointment; Provider: Neil Justin M.D. On 01-Feb-2016 08:45 Appointment; Provider: Mark Maldonado M.D. On 28-Nov-2015 14:45 Appointment; Provider: Mick Parker M.D. On 06-Nov-2015 08:15 Appointment; Provider: Mark Maldonado M.D. On 10-Oct-2015 16:15 Appointment; Provider: Shant Rubio M.D. On 28-Sep-2015 10:15 Instructions Name Dates Details Instructions not documented Encounters Appointment; Shant Rubio M.D. On Encounter Diagnosis: [...] documented 08:15 Appointment; Mark Maldonado M.D. On 29-Sep-2013 Encounter Diagnosis: Problem not documented 14:00
--- OUTSIDE RECORDS SUMMARY | 2016-12-20 15:36 | External Medical Summary | Summary of Care ---
:1950 Author Name Joanne Falcon, Lotus Bran Address [address] [place], [place] [id number] Care Team Providers Name Role Phone Joanne [...] cm H2O, Permanent use, G47.33, Heated humidity, [id number], mask , headgear, filters, heated tubing, water [...] Left PTCA Comprehensive Metabolic Panel 1212 Ordered: 14-Sep-2015 LIPID PROFILE 1184 Ordered: 14-Sep-2015 Immunization Name Dates Details Tdap (Adacel) on: Zoster (Zostavax) on: 21-Mar-2014 Lot #: [id number] Prevnar 13 Intramuscular Suspension on: 21-Mar-2014 Lot #: [id number] Family History Mother Name Dates Details Family [...] 13:58 ECG/ EKG Outside Interp Electro CardioGram 25-Sep-2015 10:35 CBC w/ Auto [...] Range: 0.0-0.7 BASO 0.0 K/uL Range: 0.0-0.2 Plan of Care Name Dates Details Planned [...] documented Encounters Appointment; Neil Justin M.D. On Encounter Diagnosis: [...] Problem not documented 10:15 Appointment; Mrak Maldonado M.D. On 07-Jun-2014 Encounter Diagnosis: Problem [...]
--- OUTSIDE RECORDS SUMMARY | 2016-12-20 15:36 | External Medical Summary | Summary of Care ---
:1950 Author Name Mateusz Maldonado M.D. Address [address] [place] [place], [place] [id number] Care Team Providers Name Role Phone Lotus [...] Status: Active Cough (786.2, R05) Status: Active Medications Name Dates Details Simvastatin [...] cm H2O, Permanent use, G47.33, Heated humidity, [id number], mask , headgear, filters, heated tubing, water [...] Refills: 6 Shant Rubio M.D. Started 14-May-2015 [id number] GM Tube MethylPREDNISolone 4 MG Oral Tablet [...] Left PTCA ECG/ EKG Outside Interp Pendin19-Jun-2015 Immunization Name Dates Details Tdap (Adacel) Administered on: Zoster (Zostavax) Administered on:21-Mar-2014 Lot #: [id number] Prevnar 13 Intramuscular Suspension Administered on:21-Mar-2014 Lot #: [id number] Family History Mother Name Dates Details Family [...] Value Details 20-Jun-2015 14:02 ECG/ EKG Outside Interp Electro CardioGram ECG waiting for interpretation, click ImageLink button to view/confirm the study. (Better) Plan of Care Planned Observations Name [...]
--- OUTSIDE RECORDS SUMMARY | 2016-12-20 15:36 | External Medical Summary | Summary of Care ---
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 Vitreous floaters of right eye (379.24, H43.391) Status: Active Presbyopia OU (367.4, H52.4) Status: Active Globe Enucleation Left Status: Active CKD (chronic kidney disease) stage [...] History of Elective Cardioversion External Completed: 23-Oct-2011 PTCA Globe Enucleation Left Procedures not documented Immunization Name Dates Details Tdap (Adacel) on: Zoster (Zostavax) on: 21-Mar-2014 Lot #: [id number] Prevnar 13 Intramuscular Suspension on: 21-Mar-2014 Lot #: [id number] Family History Mother Name Dates Details Family history of Hyperlipidemia Status: Active Family history of cerebrovascular accident (CVA) (V17.1, Z82.3) Status: Active Father Name Dates Details Family history of Cancer Status: Active Social History Name Dates Details - Status: Smoking Status Name Dates Details Never smoker Vital Signs Date Test Result Details 19-May-2016 14:42 BP Systolic 90 mm[Hg] Status: [...] low Range: >60 threshold) EST GFR, NON-AFR SURINAMESE 31 ml/min (Below low Range: >60 threshold) [...] 11:15 Appointment; Provider: Jonh Lanier M.D. On 11:30 Appointment; Provider: Shant Rubio M.D. On 26-May-2016 10:15 Instructions Name Dates Details Instructions not documented Encounters Appointment; Neil Justin M.D. On 12-May-2016 Encounter [...]
--- OUTSIDE RECORDS SUMMARY | 2016-12-20 15:37 | External Medical Summary | Summary of Care ---
[...] cm H2O, Permanent use, G47.33, Heated humidity, DiucskgfO65, mask , headgear, filters, heated tubing, water [...] Refills: 6 Shant Rubio M.D. Started 14-May-2015 [id number] GM Tube MetroNIDAZOLE 500 MG Oral Tablet [...] on: Zoster (Zostavax) Administered on:21-Mar-2014 Lot #: [id number] Prevnar 13 Intramuscular Suspension Administered on:21-Mar-2014 Lot #: [id number] Family History Mother Name Dates Details Family [...] Range: >60 low threshold) EST GFR, NON-AFR DOMINICAN 49 ml/min (Below Range: >60 low threshold) Comments: EST GFR is reported in ml/min per 1.73 m2 of body surface area. For -Solomon Islander, please multiple result by 1.2.----- GLUCOSE 89 [...] Mark Maldonado On 31-Oct-2015 14:15 Appointment; Provider: Mark Maldonado On 25-Jun-2015 12:00 [...]
--- OUTSIDE RECORDS SUMMARY | 2016-12-20 15:37 | External Medical Summary | Summary of Care ---
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 On 26-May-2016 10:15 Interventions Provided Labs/Procedures/ImagingHEMOGRAM 7305; Done: May 19 2016 2:13PMRENAL PROFILE 1240; Done: May 19 2016 2:13PM Instructions Name Dates Details Instructions not documented [...]
--- OUTSIDE RECORDS SUMMARY | 2016-12-20 15:38 | External Medical Summary | Summary of Care ---
:1950 Author Name Rufino Borrego Address [address] [place], [place] [id number] Care Team Providers Name Role Phone Joanne Falcon, Lotus Bran Unavailable Unavailable Rufino Borrego Unavailable Unavailable Yolande Falcon, Jonh Unavailable Unavailable Joel Falcon, Mateusz Flores Unavailable Unavailable Elena Falcon, Rosie Barton Unavailable [...] Status: Active Fatigue (780.79, R53.83) Status: Active Atrial fibrillation (427.31, I48.91) Status: Active CAD (coronary atherosclerotic disease) (414.00, I25.10) Status: Active Chronic systolic congestive heart failure (428.22, I50.22) Status: Active Biventricular ICD (implantable cardioverter-defibrillator) in place (V45.02, Z95.810) Status: Active CKD (chronic kidney disease) stage 3, GFR 30-59 ml/min (585.3, N18.3) Status : Active Hyperlipidemia (272.4, E78.5) Status: Active Hypertension [...] Quantity: 28 Refills: 0 Joanne Falcon Shant Lotus Start 27-Jun-2016 Active HydrOXYzine HCl - 25 MG Oral Tablet TAKE ONE TAB PO EVERY 6 HRS PRN Quantity: 30 Refills: 1 Shant Rubio M.D. Start Active Triamcinolone Acetonide 0.1 % External Cream USE TWO TIMES DAILY NEEDED Quantity: 30 Refills: 1 Shant Rubio M.D. Start Active LevoFLOXacin 750 MG Oral Tablet TAKE 1 TABLET DAILY. Quantity: 10 Refills: 0 Joanne Falcon Shant Lotus Start Active Levothyroxine Sodium 75 MCG Oral Tablet TAKE 1 TABLET DAILY. Refills: 0 Start Active Allergies and Adverse Reactions Name [...] on: Zoster (Zostavax) on: 21-Mar-2014 Lot #: [id number] Prevnar 13 Intramuscular Suspension on: 21-Mar-2014 Lot #: [id number] Family History Mother Name Dates Details Family history of Hyperlipidemia Status: Active Family history of cerebrovascular accident (CVA) (V17.1, Z82.3) Status: Active Father Name Dates Details Family history of Cancer Status: Active Social History Name Dates Details - Status: Smoking Status Name Dates Details Never smoker Vital Signs Date Test Result Details 11:20 BP Systolic 104 mm[Hg] Status: Comments: [...] low Range: >60 threshold) EST GFR, NON-AFR [place] 43 ml/min (Below low Range: >60 threshold) [...] Appointment; Provider: Shant Rubio M.D. On 10:45 Interventions Provided Labs/Procedures/ImagingECG/ EKG ([facility]); To be Done: 28 Jul 2016 Instructions Name Dates Details Instructions not documented Encounters Appointment; Shant Rubio M.D. On Encounter Diagnosis: Problem not documented 13:15 Appointment; Shant Rubio M.D. On 27-Jun-2016 Encounter [...]
--- OUTSIDE RECORDS SUMMARY | 2016-12-20 15:38 | External Medical Summary | Summary of Care ---
:1950 Author Name Paloma Hart Address [address] [place] [address] Care Team Providers Name Role Phone Lotus [...] on: Zoster (Zostavax) Administered on:21-Mar-2014 Lot #: [id number] Prevnar 13 Intramuscular Suspension Administered on:21-Mar-2014 Lot #: [id number] Family History Mother Name Dates Details Family history of Hyperlipidemia Status: Active Family history of cerebrovascular accident (CVA) (V17.1, Z82.3) Status: Active Father Name Dates Details Family history of Cancer Status: Active Social History Name Dates Details Smoking StatusNever smoker Vital Signs Date Test Result Details 25-Jan-2015 10:02 BP Systolic 124 mm[Hg] Status: BP Diastolic 82 mm[Hg] Status: Heart Rate 78 /min Status: Height 75 in Status: Weight 247 lb Status: O2 SAT 98 % Status: Body Mass Index Calculated 30.87 kg/m2 Status: Body Surface Area Calculated 2.4 m2 Status: 17-Jan-2015 15:15 BP Systolic 110 mm[Hg] Status: [...]
--- OUTSIDE RECORDS SUMMARY | 2016-12-20 15:38 | External Medical Summary | Summary of Care ---
:1950 Author Name Ángel Vaughan M.D. Address [address] [place], [place] [phone] Care Team Providers Name Role Phone Lotus [...] Active Abdominal pain (789.00, R10.9) Status: Active Atrial fibrillation (427.31, I48.91) Status: Active Congestive heart failure (428.0, I50.9) Status: Active CAD (coronary atherosclerotic disease) (414.00, I25.10) Status: Active Hypertension (401.9, I10) Status: Active Gastric ulcer (531.90, K25.9) Status: Active Medications Name Dates Details Simvastatin [...] tablet by mouth daily Quantity: 30 Refills: 1 Mark Maldonado M.D. Started ActiveMetolazone 5 MG [...] DAILY. Refills: 0 Shant Rubio M.D. Started ActivePotassium Chloride ER 20 MEQ Oral Tablet Extended Release Take one capsule daily Refills: 0 Shant Rubio M.D. Started Active [...] Left PTCA Upper Endoscopy ( EGD) Ordered: CBC w/ Auto Diff 7150 Ordered:11-Sep-2014 Comprehensive Metabolic Panel 1212 Ordered:11-Sep-2014 LIPID PROFILE 1184 Ordered:11-Sep-2014 PSA ( PROSTATE SPECIFIC ANTIGEN) 3100 Ordered:11-Sep-2014 Immunization Name Dates Details Tdap (Adacel) Administered on: Zoster (Zostavax) Administered on:21-Mar-2014 Lot #: [id number] Prevnar 13 Intramuscular Suspension Administered on:21-Mar-2014 Lot #: [id number] Family History Mother Name Dates Details Family [...] m2 Status: Results Date Description Value Details 07:48 Cyclic Citrullinated Comments: Testing performed at: [ ] [facility], [address], Phone: , Instant Printer Operator: Bonifacio Mcelroy MD Peptide Abs, IgG/IgA [id number] CCP ANTIBODIES IGG/IGA <1 units Range: 0-19 ([facility]) Comments: Negative <20 Weak positive 20 - 39 Moderate positive 40 - 59 Strong positive >59- ---- 09:01 CBC w/ Auto Diff 7150 Comments: [...] Range: >60 low threshold) EST GFR, NON-AFR [place] 41 ml/min (Below Range: >60 low threshold) Comments: EST GFR is reported in ml/min per 1.73 m2 of body surface area. For -Liberian, please multiple result by 1.2.----- BUN:CREATININE RATIO 20 ([facility]) GLUCOSE 108 mg/dL (Above Range: 70-100 high threshold) CALCIUM 9.1 mg/dL Range: 8.5-10.1 ([facility]) Plan of Care Planned Observations Name Dates Details Planned Goals not documented Goal Planned Encounters Appointment; Provider: Neil Justin On 22-Jan-2015 08:15 Appointment; Provider: Mick Parker On 02-Nov-2014 08:30 Appointment; Provider: Shant Rubio On 19-Sep-2014 09:00 Appointment; Provider: Mark Maldonado On 22-Dec-2013 07:30 [...] Mark Maldonado On 16-Nov-2009 09:15 Appointment; Provider: aMrk Maldonado On 07:30 Appointment; Provider: Joshua Plasencia On 14:00 Appointment; Provider: Joshua Plasencia On 06-Jul-2009 11:00 Instructions Instructions not documented Encounters Appointment; Ángel Vaughan On 15-Sep-2014 Encounter Diagnosis: [...]
--- OUTSIDE RECORDS SUMMARY | 2016-12-20 15:38 | External Medical Summary ---
:1950 Author Organization [employer] Care Team Providers Name Role Phone Shabnam Crossjaisonmagalynikolai Provider Role Unavailable Allergies, Adverse Reactions, Alerts Substance Reaction Event Type N.K.D.A. Info Not Available Non Drug Allergy Problems Problem Type Condition Code Onset Dates Condition Status Assessment High risk medication use Z79.899 Active Assessment Paroxysmal atrial fibrillation I48.0 Active Assessment Biventricular implantable Z95.810 Active cardioverter-defibrillator in situ Assessment Chronic anticoagulation Z79.01 Active Problem Biventricular implantable Z95.810 Active cardioverter-defibrillator in situ Problem High risk medication use Z79.899 Active Problem Paroxysmal atrial fibrillation I48.0 Active Problem High Risk Med V58.69 Active Problem Chronic Anticoagulation V58.61 Active Problem Chronic anticoagulation Z79.01 Active Problem Atrial fibrillation 427.31 Active Medications Medication Code Code Instructions Start End Date Status D[place] [address]-11 40 MG Orally 1 tablet Sodium 44-01 Once a day Furosemide NDC 45788-97 40 MG Orally 1 tablet 99-25 Once a day Simvastatin NDC 24360-67 80 MG Orally 1 tablet in 56-10 [place] [address]-97 81 MG Orally 1 tablet 805 [place] [address]-97 5 MG Orally Sat 1 tablet 55-01 [place] [address]-22 25 MG Orally 1 tablet Potassium 23-22 Once a day Procedures Procedure Coding System Code Date Office Visit, Est Pt., Level 3 CPT-4 44783 Jan 02, 2015 Ofc Program ICD BiV, Staff CPT-4 79916 Jan 02, 2015 ELECTROCARDIOGRAM, COMPLETE CPT-4 98937 Jan 02, 2015 Vital Signs Date/Time: Jan 02, 2015 BMI 29.99 Index Weight 240. lbs Height 6 ft 3 in in Cardiac Monitoring Heart Rate 83 /min Oximetry 95% % Blood Pressure Diastolic 80 mm Hg Blood Pressure Systolic 130 mm Hg Results No Known Results Summary Purpose [employer] Submission
--- OUTSIDE RECORDS SUMMARY | 2016-12-20 15:38 | External Medical Summary | Summary of Care ---
:1950 Author Name Lotus Rubio M.D. Address [address], [place] [id number] Care Team Providers Name Role Phone Lotus [...] of ankle, right (916.2, S90.521A) Status: Active Medications Name Dates Details Simvastatin 40 MG Oral Tablet TAKE ONE TABLET BY MOUTH EVERY NIGHT AT BEDTIME Quantity: 30 Refills: Shant Hernandez M.D. Started ActiveFurosemide 40 MG Oral Tablet take 1 tab three times a day Quantity: 90 Refills: Shant Hernandez M.D. Started 16-Jun-2011 ActiveAspir-Low 81 MG Oral Tablet Delayed Release TAKE 1 TABLET IN THE PM Refills: 0 Started 26-Sep-2014 ActiveAmiodarone HCl - 200 MG Oral Tablet TAKE 1 TABLET DAILY. Refills: 0 Started 26-Sep-2014 ActiveLosartan Potassium 25 MG Oral Tablet take one daily in the PM Refills: 0 Started 26-Sep-2014 ActiveXarelto 20 MG Oral Tablet Take one tablet daily. Refills: 0 Shant Rubio M.D. Started 10-Oct-2014 ActiveDiclofenac Sodium 75 MG Oral Tablet Delayed Release Take one tablet daily. Refills: 0 Shant Rubio M.D. Started 10-Oct-2014 Active Allergies and Adverse [...] on: Zoster (Zostavax) Administered on:21-Mar-2014 Lot #: [id number] Prevnar 13 Intramuscular Suspension Administered on:21-Mar-2014 Lot #: [id number] Family History Mother Name Dates Details Family history of Hyperlipidemia Status: Active Father Name Dates Details Family history of Cancer Status: Active Social History Name Dates Details Smoking StatusNever smoker Vital Signs Date Test Result Details 10-Oct-2014 15:45 BP Systolic 112 mm[Hg] Status: BP Diastolic 56 mm[Hg] Status: Heart Rate 72 /min Status: Height 75 in Status: Weight 247 lb Status: Body Mass Index Calculated 30.87 kg/m2 Status: Body Surface Area Calculated 2.4 m2 Status: 26-Sep-2014 10:58 BP Systolic 82 mm[Hg] Status: BP Diastolic 62 mm[Hg] Status: Heart Rate 52 /min Status: Weight 243.3 lb Status: Body Mass Index Calculated 30.41 kg/m2 Status: Body Surface Area Calculated 2.38 m2 Status: 19-Sep-2014 09:00 BP Systolic 116 mm[Hg] Status: BP Diastolic 66 mm[Hg] Status: Heart Rate 68 /min Status: Height 75 in Status: Weight 244 lb Status: Body Mass Index Calculated 30.5 kg/m2 Status: Body Surface Area Calculated 2.39 m2 Status: Results Date Description Value Details 18-Sep-2014 09:42 CBC w/ Auto Diff 7150 [...] Range: >60 low threshold) EST GFR, NON-AFR [place] 36 ml/min (Below Range: >60 low threshold) Comments: EST GFR is reported in ml/min per 1.73 m2 of body surface area. For -Lebanese, please multiple result by 1.2.----- GLUCOSE 101 [...] SPECIFIC ANTIGEN 1.840 ng/mL Range: 0.000-4.000 ([facility]) 26-Sep-2014 10:20 ECG/ EKG ([facility]) Electro CardioGram ([facility]) Plan [...] not documented Encounters Appointment; Shant Rubio On 10-Oct-2014 Encounter Diagnosis: [...] Encounter Diagnosis: Problem not documented 14:30 Appointment; Sahnt Rubio On 21-Mar-2014 Encounter Diagnosis: Problem not [...]
--- OUTSIDE RECORDS SUMMARY | 2016-12-20 15:39 | External Medical Summary ---
[...] Vital Signs Hospital Vital Signs from 11/28/2016 11:48 AM:Height : [...] Signs from 11/19/2016 8:19 AM:Height : 6/3 ft, inHospital Vital Signs from 11/19/2016 7:04 AM:Height : 6/3 ft,inTemperature : 99.5 FPulse : 69Respirations : 18BP : 88/53 Results Chemistry from 11/28/2016 4:51 TEXHRNLJ161 MMOL/L L (136-145 MMOL/L) POTASSIUM3.7 MMOL/L (3.5-5.1 MMOL/L) EAUUICAV915 MMOL/L (98-107 MMOL/L) JKV070.9 MMOL/L (21.0-32.0 MMOL/L) *ANION GAP4.1 MMOL/L L (8.0-16.0 MMOL/L) BUN26 MG/DL H (7-18 MG/DL) CREATININE1.56 MG/DL H (0.70-1.30 MG/DL) *BUN/CREATININE RATIO16.7 (9.1-17.0 ) DEXDHGF443 MG/DL H (65-99 MG/DL) *GFR EST NON AFR NCICQWDV13 ML/MIN (Reference Range: not available) *GFR EST AFR AMER52 ML/MIN (Reference Range: not available) CALCIUM8.2 MG/DL L (8.5-10.1 MG/DL) ALBUMIN2.7 GM/DL L (3.4-5.0 GM/DL) PHOSPHORUS2.9 MG/DL (2.6-4.7 MG/DL)Chemistry from 11/27/2016 4:38 KMCFEQSY853 MMOL/L L (136-145 MMOL/L) POTASSIUM3.3 MMOL/L L (3.5-5.1 MMOL/L) TJFBNEVA742 MMOL/L (98-107 MMOL/L) GZM034.9 MMOL/L (21.0-32.0 MMOL/L) *ANION GAP5.1 MMOL/L L (8.0-16.0 MMOL/L) BUN25 MG/DL H (7-18 MG/DL) CREATININE1.46 MG/DL H (0.70-1.30 MG/DL) *BUN/CREATININE RATIO17.1 H (9.1-17.0 ) PBWTTRB351 MG/DL H (65-99 MG/DL) *GFR EST NON AFR PDFPYEOH22 ML/MIN (Reference Range: not available) *GFR EST AFR AMER57 ML/MIN (Reference Range: not available) CALCIUM8.3 MG/DL L (8.5-10.1 MG/DL) ALBUMIN2.7 GM/DL L (3.4-5.0 GM/DL) PHOSPHORUS2.9 MG/DL (2.6-4.7 MG/DL)Chemistry from 11/26/2016 5:00 SKNLLGAP021 MMOL/L L (136-145 MMOL/L) POTASSIUM3.2 MMOL/L L (3.5-5.1 MMOL/L) VESUWZML694 MMOL/L (98-107 MMOL/L) PQY353.9 MMOL/L (21.0-32.0 MMOL/L) *ANION GAP8.1 MMOL/L (8.0-16.0 MMOL/L) BUN25 MG/DL H (7-18 MG/DL) CREATININE1.52 MG/DL H (0.70-1.30 MG/DL) *BUN/CREATININE RATIO16.4 (9.1-17.0 ) VRSHHPE172 MG/DL H (65-99 MG/DL) *GFR EST NON AFR LZJUXLSG28 ML/MIN (Reference Range: not available) *GFR EST AFR AMER54 ML/MIN (Reference Range: not available) CALCIUM8.5 MG/DL (8.5-10.1 MG/DL) ALBUMIN2.8 GM/DL L (3.4-5.0 GM/DL) MAGNESIUM2.2 MG/DL (1.8-2.4 MG/DL) PHOSPHORUS2.5 MG/DL L (2.6-4.7 MG/DL)Chemistry from 11/25/2016 10:45 PMUR HEABUAZ04.8 MG/DL H (0.0-11.9 MG/DL) UR DGRUWTXHMT17.89 MG/DL (Not Established MG/DL) *UR PROTEIN/CREAT RATIO0.25 H (0.00-0.19 ) *UR INTERVALRANDOM (Reference Range: not available) Chemistry from 11/25/2016 4:36 MHCGEAKY445 MMOL/L L (136-145 MMOL/L) POTASSIUM3.6 MMOL/L (3.5-5.1 MMOL/L) PNRATUDM372 MMOL/L (98-107 MMOL/L) BKY265.7 MMOL/L (21.0-32.0 MMOL/L) *ANION GAP6.3 MMOL/L L (8.0-16.0 MMOL/L) BUN29 MG/DL H (7-18 MG/DL) CREATININE1.54 MG/DL H (0.70-1.30 MG/DL) *BUN/CREATININE RATIO18.8 H (9.1-17.0 ) NYJTWBB919 MG/DL H (65-99 MG/DL) *GFR EST NON AFR PUUQKPVT38 ML/MIN (Reference Range: not available) *GFR EST AFR AMER53 ML/MIN (Reference Range: not available) CALCIUM8.3 MG/DL L (8.5-10.1 MG/DL) ALBUMIN2.7 GM/DL L (3.4-5.0 GM/DL) MAGNESIUM2.2 MG/DL (1.8-2.4 MG/DL) PHOSPHORUS2.5 MG/DL L (2.6-4.7 MG/DL) TSH9.170 UIU/ML H (0.340-4.820 UIU/ML) WHR312 U/L (85-227 U/L)Chemistry from 11/24/2016 4:35 AODDAABC211 MMOL/L L (136- 145 MMOL/L) POTASSIUM3.6 MMOL/L (3.5-5.1 MMOL/L) RFULEJXJ967 MMOL/L (98-107 MMOL/L) GPL512.3 MMOL/L (21.0-32.0 MMOL/L) *ANION GAP7.7 MMOL/L L (8.0-16.0 MMOL/L) BUN35 MG/DL H (7-18 MG/DL) CREATININE1.95 MG/DL H (0.70-1.30 MG/DL) *BUN/CREATININE RATIO17.9 H (9.1-17.0 ) ZGLBMOB27 MG/DL (65-99 MG/DL) *GFR EST NON AFR KMYWIDNY16 ML/MIN (Reference Range: not available) *GFR EST AFR AMER40 ML/MIN (Reference Range: not available) CALCIUM8.3 MG/DL L (8.5-10.1 MG/DL) BILIRUBIN TOTAL1.00 MG/DL (0.20-1.00 MG/DL) TOTAL PROTEIN6.0 GM/DL L (6.4-8.2 GM/DL) ALBUMIN2.8 GM/DL L (3.4-5.0 GM/DL) *GLOBULIN3.2 GM/DL (2.3-3.5 GM/DL) *A/G RATIO0.9 L (1.5-2.2 ) ALK OHRP191 U/L H (46-116 U/L) ALT (SGPT)28 U/L (14-59 U/L) AST (SGOT)20 U/L (15-37 U/L) MAGNESIUM2.2 MG/DL (1.8-2.4 MG/DL) PHOSPHORUS3.0 MG/DL (2.6-4.7 MG/DL)Chemistry from 11/23/2016 4:41 ZJFZGAJW002 MMOL/L L (136-145 MMOL/L) POTASSIUM3.6 MMOL/L (3.5-5.1 MMOL/L) BKOZMGHQ34 MMOL/L (98-107 MMOL/L) RXY548.5 MMOL/L (21.0-32.0 MMOL/L) *ANION GAP8.5 MMOL/L (8.0-16.0 MMOL/L) BUN41 MG/DL H (7-18 MG/DL) CREATININE2.47 MG/DL H (0.70-1.30 MG/DL) *BUN/CREATININE RATIO16.6 (9.1-17.0 ) CQSIYSC179 MG/DL H (65-99 MG/DL) *GFR EST NON AFR YQIEWAYM82 ML/MIN (Reference Range: not available) *GFR EST AFR AMER30 ML/MIN (Reference Range: not available) CALCIUM8.4 MG/DL L (8.5-10.1 MG/DL) ALBUMIN2.9 GM/DL L (3.4-5.0 GM/DL) PHOSPHORUS3.4 MG/DL (2.6-4.7 MG/DL)Chemistry from 11/22/2016 4:33 NWPTMVWE852 MMOL/L L (136-145 MMOL/L) POTASSIUM3.6 MMOL/L (3.5-5.1 MMOL/L) BTJLCYBN25 MMOL/L L (98-107 MMOL/L) MFJ279.1 MMOL/L (21.0-32.0 MMOL/L) *ANION GAP8.9 MMOL/L (8.0-16.0 MMOL/L) BUN49 MG/DL H (7-18 MG/DL) CREATININE3.00 MG/DL H (0.70-1.30 MG/DL) *BUN/CREATININE RATIO16.3 (9.1-17.0 ) ZSGKQFV941 MG/DL H (65-99 MG/DL) *GFR EST NON AFR DZLFEQPS05 ML/MIN (Reference Range: not available) *GFR EST AFR AMER24 ML/MIN (Reference Range: not available) CALCIUM8.2 MG/DL L (8.5-10.1 MG/DL) ALBUMIN2.8 GM/DL L (3.4-5.0 GM/DL) PHOSPHORUS4.1 MG/DL (2.6-4.7 MG/DL)Chemistry from 11/21/2016 5:39 WOBKBTDL799 MMOL/L L (136-145 MMOL/L) POTASSIUM3.9 MMOL/L (3.5-5.1 MMOL/L) IKWKSUVY97 MMOL/L L (98-107 MMOL/L) ZMK373.3 MMOL/L (21.0-32.0 MMOL/L) *ANION GAP9.7 MMOL/L (8.0-16.0 MMOL/L) BUN51 MG/DL H (7-18 MG/DL) CREATININE3.36 MG/DL H (0.70-1.30 MG/DL) *BUN/CREATININE RATIO15.2 (9.1-17.0 ) YGYVJYO324 MG/DL H (65-99 MG/DL) *GFR EST NON AFR EBCSWADR13 ML/MIN (Reference Range: not available) *GFR EST AFR AMER21 ML/MIN (Reference Range: not available) CALCIUM8.3 MG/DL L (8.5-10.1 MG/DL) BILIRUBIN TOTAL1.00 MG/DL (0.20-1.00 MG/DL) TOTAL PROTEIN5.9 GM/DL L (6.4-8.2 GM/DL) ALBUMIN3.0 GM/DL L (3.4-5.0 GM/DL) *GLOBULIN2.9 GM/DL (2.3-3.5 GM/DL) *A/G RATIO1.0 L (1.5-2.2 ) ALK NXZV151 U/L H (46-116 U/L) ALT (SGPT)22 U/L (14-59 U/L) AST (SGOT)15 U/L (15-37 U/L) MAGNESIUM2.1 MG/DL (1.8-2.4 MG/DL) PHOSPHORUS5.0 MG/DL H (2.6-4.7 MG/DL)Chemistry from 11/20/2016 6:14 VRFYOLYO759 MMOL/L L (136-145 MMOL/L) POTASSIUM3.8 MMOL/L (3.5-5.1 MMOL/L) TJNSCNWB99 MMOL/L L (98-107 MMOL/L) LQF868.0 MMOL/L (21.0-32.0 MMOL/L) *ANION GAP10.0 MMOL/L (8.0-16.0 MMOL/L) BUN48 MG/DL H (7-18 MG/DL) CREATININE2.83 MG/DL H (0.70-1.30 MG/DL) *BUN/CREATININE RATIO17.0 (9.1-17.0 ) GHIDKXA452 MG/DL H (65-99 MG/DL) *GFR EST NON AFR XBDIDWMY85 ML/MIN (Reference Range: not available) *GFR EST AFR AMER25 ML/MIN (Reference Range: not available) CALCIUM8.1 MG/DL L (8.5-10.1 MG/DL) ALBUMIN3.0 GM/DL L (3.4-5.0 GM/DL) MAGNESIUM2.1 MG/DL (1.8-2.4 MG/DL) PHOSPHORUS4.2 MG/DL (2.6-4.7 MG/DL)Chemistry from 11/19/2016 4:40 CXVBJBLE844 MMOL/L L (136-145 MMOL/L) POTASSIUM3.2 MMOL/L L (3.5-5.1 MMOL/L) VDNNUAXX44 MMOL/L L (98-107 MMOL/L) ELN435.0 MMOL/L (21.0-32.0 MMOL/L) *ANION GAP8.0 MMOL/L (8.0-16.0 MMOL/L) BUN45 MG/DL H (7-18 MG/DL) CREATININE2.14 MG/DL H (0.70-1.30 MG/DL) *BUN/CREATININE RATIO21.0 H (9.1-17.0 ) LXLLOOX874 MG/DL H (65-99 MG/DL) *GFR EST NON AFR RRUZEGBC59 ML/MIN (Reference Range: not available) *GFR EST AFR AMER36 ML/MIN (Reference Range: not available) CALCIUM7.9 MG/DL L (8.5-10.1 MG/DL) ALBUMIN3.0 GM/DL L (3.4-5.0 GM/DL) MAGNESIUM2.2 MG/DL (1.8-2.4 MG/DL) PHOSPHORUS3.9 MG/DL (2.6-4.7 MG/DL)Chemistry from 11/18/2016 4:58 OCCOMCDV971 MMOL/L L (136-145 MMOL/L) POTASSIUM3.6 MMOL/L (3.5-5.1 MMOL/L) TBPQFMSH75 MMOL/L L (98-107 MMOL/L) MWD587.5 MMOL/L (21.0-32.0 MMOL/L) *ANION GAP7.5 MMOL/L L (8.0-16.0 MMOL/L) BUN46 MG/DL H (7-18 MG/DL) CREATININE1.93 MG/DL H (0.70-1.30 MG/DL) *BUN/CREATININE RATIO23.8 H (9.1-17.0 ) GBAKFKD805 MG/DL H (65-99 MG/DL) *GFR EST NON AFR MAQBOKYU05 ML/MIN (Reference Range: not available) *GFR EST AFR AMER40 ML/MIN (Reference Range: not available) CALCIUM8.3 MG/DL L (8.5-10.1 MG/DL) ALBUMIN3.0 GM/DL L (3.4-5.0 GM/DL) PHOSPHORUS3.8 MG/DL (2.6-4.7 MG/DL) JUWZPWZN425 NG/ML (30-400 NG/ML)Chemistry from 11/17/2016 5:39 PMBILIRUBIN TOTAL2.60 MG/DL H (0.20-1.00 MG/DL) BILIRUBIN DIRECT0.80 MG/DL H (0.00-0.30 MG/DL) TOTAL PROTEIN6.3 GM/DL L (6.4-8.2 GM/DL) ALBUMIN3.0 GM/DL L (3.4-5.0 GM/DL) ALK PHOS94 U/L (46-116 U/L) ALT (SGPT)22 U/L (14-59 U/L) AST (SGOT)23 U/L (15-37 U/L)Chemistry from 11/17/2016 4:54 CREUTZZQ334 MMOL/L L ( 136-145 MMOL/L) POTASSIUM4.0 MMOL/L (3.5-5.1 MMOL/L) NSIGBROF41 MMOL/L (98-107 MMOL/L) ZZZ888.9 MMOL/L (21.0-32.0 MMOL/L) *ANION GAP7.1 MMOL/L L (8.0-16.0 MMOL/L) BUN44 MG/DL H (7-18 MG/DL) CREATININE1.96 MG/DL H (0.70-1.30 MG/DL) *BUN/CREATININE RATIO22.4 H (9.1-17.0 ) BSZUDUS778 MG/DL H (65-99 MG/DL) *GFR EST NON AFR OXJZIVQU09 ML/MIN (Reference Range: not available) *GFR EST AFR AMER40 ML/MIN (Reference Range: not available) CALCIUM8.2 MG/DL L (8.5-10.1 MG/DL) ALBUMIN2.9 GM/DL L (3.4-5.0 GM/DL) MAGNESIUM2.0 MG/DL (1.8-2.4 MG/DL) PHOSPHORUS3.9 MG/DL (2.6-4.7 MG/DL)Chemistry from 11/16/2016 4:34 AGTKEEBN812 MMOL/L L (136-145 MMOL/L) POTASSIUM3.9 MMOL/L (3.5-5.1 MMOL/L) HFXGDLAQ798 MMOL/L (98-107 MMOL/L) WMV989.8 MMOL/L (21.0-32.0 MMOL/L) *ANION GAP6.2 MMOL/L L (8.0-16.0 MMOL/L) BUN41 MG/DL H (7-18 MG/DL) CREATININE1.84 MG/DL H (0.70-1.30 MG/DL) *BUN/CREATININE RATIO22.3 H (9.1-17.0 ) HFTYPLO340 MG/DL H (65-99 MG/DL) *GFR EST NON AFR AUENIMUK66 ML/MIN (Reference Range: not available) *GFR EST AFR AMER43 ML/MIN (Reference Range: not available) CALCIUM8.2 MG/DL L (8.5-10.1 MG/DL) ALBUMIN3.0 GM/DL L (3.4-5.0 GM/DL) PHOSPHORUS3.6 MG/DL (2.6-4.7 MG/DL) IRON23 MCG/DL L (65-175 MCG/DL) IRON BINDING LBGPDVTW944 MCG/DL (250-450 MCG/DL) *PERCENT SATURATION9 % L (20-55 %)Chemistry from 11/15/2016 4:41 XINEZTQP337 MMOL /L (136-145 MMOL/L) POTASSIUM4.0 MMOL/L (3.5-5.1 MMOL/L) QRGMWVTA665 MMOL/L (98-107 MMOL/L) NCR311.8 MMOL/L (21.0-32.0 MMOL/L) *ANION GAP7.2 MMOL/L L (8.0-16.0 MMOL/L) BUN44 MG/DL H (7-18 MG/DL) CREATININE1.69 MG/DL H (0.70-1.30 MG/DL) *BUN/CREATININE RATIO26.0 H (9.1-17.0 ) KPTEXPO63 MG/DL (65-99 MG/DL) *GFR EST NON AFR RZFKPOBR94 ML/MIN (Reference Range: not available) *GFR EST AFR AMER48 ML/MIN (Reference Range: not available) CALCIUM8.3 MG/DL L (8.5-10.1 MG/DL) ALBUMIN2.9 GM/DL L (3.4-5.0 GM/DL) MAGNESIUM2.0 MG/DL (1.8-2.4 MG/DL) PHOSPHORUS3.4 MG/DL (2.6-4.7 MG/DL)Chemistry from 11/14/2016 5:10 JJPFZNNC809 MMOL/L L (136-145 MMOL/L) POTASSIUM4.4 MMOL/L (3.5-5.1 MMOL/L) QWMEHHMT132 MMOL/L (98-107 MMOL/L) UUM629.2 MMOL/L (21.0-32.0 MMOL/L) *ANION GAP7.8 MMOL/L L (8.0-16.0 MMOL/L) BUN53 MG/DL H (7-18 MG/DL) CREATININE2.12 MG/DL H (0.70-1.30 MG/DL) *BUN/CREATININE RATIO25.0 H (9.1-17.0 ) QFDJGJM709 MG/DL H (65-99 MG/DL) *GFR EST NON AFR SVEZZYQS40 ML/MIN (Reference Range: not available) *GFR EST AFR AMER36 ML/MIN (Reference Range: not available) CALCIUM8.4 MG/DL L (8.5-10.1 MG/DL) ALBUMIN3.3 GM/DL L (3.4-5.0 GM/DL) MAGNESIUM2.1 MG/DL (1.8-2.4 MG/DL) PHOSPHORUS3.6 MG/DL (2.6-4.7 MG/DL) HQTW065 MCG/DL (65-175 MCG/DL) IRON BINDING XTRRJZUQ327 MCG/DL (250-450 MCG/DL) *PERCENT QFUTVTWRSN96 % (20-55 %)Chemistry from 11/13/2016 1:26 KXXPMDWG201 MMOL/ L L (136-145 MMOL/L) POTASSIUM5.2 MMOL/L H (3.5-5.1 MMOL/L) NMWZNOBP246 MMOL/L (98-107 MMOL/L) MGZ170.3 MMOL/L (21.0-32.0 MMOL/L) *ANION GAP4.7 MMOL/L L (8.0-16.0 MMOL/L) BUN63 MG/DL H (7-18 MG/DL) CREATININE2.54 MG/DL H (0.70-1.30 MG/DL) *BUN/CREATININE RATIO24.8 H (9.1-17.0 ) GLMJKNO323 MG/DL H (65-99 MG/DL) *GFR EST NON AFR QIZHVLQG15 ML/MIN (Reference Range: not available) *GFR EST [...] (3.6-11.2 X10e3/UL) RBC3.56 X10e6/UL L (4.06-5.63 X10e6/UL) XXLRHMIWUU27.2 G/DL L (12.5-16.3 G/DL) XDRAILAOEO87.4 % L (36.7-47.1 %) *MCV85.4 FL (80.0-100.0 FL) *MCH28.6 PG (27.0-33.0 PG) *MCHC33.5 G/DL (32.0-36.0 G/DL) *RDW19.9 % H (12.3-17.0 %) *RDWSD59.9 H (37.1-47.8 ) WVPZDOAM350 X10e3/UL (159-386 X10e3/UL) *MPV7.5 FL (7.4-10.4 FL)Hematology from 11/26/2016 5:00 AMWBC7.9 X10e3/UL (3.6- 11.2 X10e3/UL) RBC3.80 X10e6/UL L (4.06-5.63 X10e6/UL) YFHLVUSTJI94.7 G/DL L (12.5-16.3 G/DL) VOLLNFKVJM05.7 % L (36.7-47.1 %) *MCV86.0 FL (80.0-100.0 FL) *MCH28.2 PG (27.0-33.0 PG) *MCHC32.8 G/DL (32.0-36.0 G/DL) *RDW19.6 % H (12.3-17.0 %) *RDWSD59.5 H (37.1-47.8 ) ZFENOYNL688 X10e3/UL (159-386 X10e3/UL) *MPV7.6 FL (7.4-10.4 FL) AUTOMATED DIFFPERFORMED (Reference Range: not available) SEGS83.0 % (Reference Range: not available) *LYMPHOCYTES4.7 % (Reference Range: not available) *DQEOTZPHE43.3 % (Reference Range: not available) *EOSINOPHILS1.3 % (Reference Range: not available) *BASOPHILS0.7 % (Reference Range: not available) *ABSOLUTE NEUTROPHILS6.60 X10e3/UL (1.80-7.80 X10e3/UL) *ABSOLUTE LYMPHOCYTES0.40 X10e3/UL L (1.00-3.00 X10e3/UL) *ABSOLUTE MONOCYTES0.80 X10e3/UL (0.30-1.00 X10e3/UL) *ABSOLUTE EOSINOPHILS0.10 X10e3/UL (0.00-0.50 X10e3/UL) *ABSOLUTE BASOPHILS0.10 X10e3/UL (0.00-0.20 X10e3/UL)Hematology from 11/24/2016 4:35 AMWBC5.2 X10e3/UL (3.6-11.2 X10e3/UL) RBC3.69 X10e6/UL L (4.06-5.63 X10e6/UL) SSYCZGXXHD32.3 G/DL L (12.5-16.3 G/DL) YHPNQDGPIQ71.6 % L (36.7-47.1 %) *MCV85.6 FL (80.0-100.0 FL) *MCH27.8 PG (27.0-33.0 PG) *MCHC32.4 G/DL (32.0-36.0 G/DL) *RDW19.7 % H (12.3-17.0 %) *RDWSD59.9 H (37.1-47.8 ) ZAWZHYHA346 X10e3/UL (159-386 X10e3/UL) *MPV7.5 FL (7.4-10.4 FL) AUTOMATED DIFFPERFORMED (Reference Range: not available) SEGS79.0 % (Reference Range: not available) *LYMPHOCYTES6.7 % (Reference Range: not available) *SBYPLTTVA43.2 % (Reference Range: not available) *EOSINOPHILS1.9 % (Reference Range: not available) *BASOPHILS1.2 % (Reference Range: not available) *ABSOLUTE NEUTROPHILS4.10 X10e3/UL (1.80-7.80 X10e3/UL) *ABSOLUTE LYMPHOCYTES0.30 X10e3/UL L (1.00-3.00 X10e3/UL) *ABSOLUTE MONOCYTES0.60 X10e3/UL (0.30-1.00 X10e3/UL) *ABSOLUTE EOSINOPHILS0.10 X10e3/UL (0.00-0.50 X10e3/UL) *ABSOLUTE BASOPHILS0.10 X10e3/UL (0.00-0.20 X10e3/UL)Hematology from 11/23/2016 4:41 AMWBC4.9 X10e3/UL (3.6-11.2 X10e3/UL) RBC3.54 X10e6/UL L (4.06-5.63 X10e6/UL) EFHMEIGMTY43.0 G/DL L (12.5-16.3 G/DL) APKBLSEVTZ64.3 % L (36.7-47.1 %) *MCV85.5 FL (80.0-100.0 FL) *MCH28.2 PG (27.0-33.0 PG) *MCHC33.0 G/DL (32.0-36.0 G/DL) *RDW20.0 % H (12.3-17.0 %) *RDWSD59.9 H (37.1-47.8 ) ZCTNCEXE940 X10e3/UL (159-386 X10e3/UL) *MPV7.6 FL (7.4-10.4 FL)Hematology from 11/22/2016 4:33 AMWBC5.4 X10e3/UL (3.6- 11.2 X10e3/UL) RBC3.42 X10e6/UL L (4.06-5.63 X10e6/UL) HEMOGLOBIN9.6 G/DL L (12.5-16.3 G/DL) UWWOAAIGXJ98.1 % L (36.7-47.1 %) *MCV85.0 FL (80.0-100.0 FL) *MCH28.1 PG (27.0-33.0 PG) *MCHC33.0 G/DL (32.0-36.0 G/DL) *RDW19.2 % H (12.3-17.0 %) *RDWSD56.9 H (37.1-47.8 ) XVQRRYYU278 X10e3/UL (159-386 X10e3/UL) *MPV8.0 FL (7.4-10.4 FL)Hematology from 11/21/2016 5:39 AMWBC6.0 X10e3/UL (3.6- 11.2 X10e3/UL) RBC3.49 X10e6/UL L (4.06-5.63 X10e6/UL) HEMOGLOBIN9.8 G/DL L (12.5-16.3 G/DL) UFLNFPKPZW08.4 % L (36.7-47.1 %) *MCV84.2 FL (80.0-100.0 FL) *MCH28.0 PG (27.0-33.0 PG) *MCHC33.3 G/DL (32.0-36.0 G/DL) *RDW18.2 % H (12.3-17.0 %) *RDWSD52.9 H (37.1-47.8 ) WYNOVMGU136 X10e3/UL (159-386 X10e3/UL) *MPV7.7 FL (7.4-10.4 FL) [...] (4.06-5.63 X10e6/UL) HEMOGLOBIN9.5 G/DL L (12.5-16.3 G/DL) IJVKBZNYGN77.7 % L (36.7-47.1 %) *MCV83.6 FL (80.0-100.0 FL) *MCH27.7 PG (27.0-33.0 PG) *MCHC33.1 G/DL (32.0-36.0 G/DL) *RDW17.6 % H (12.3-17.0 %) JUDYYJIY839 X10e3/UL (159-386 X10e3/UL) *MPV8.0 FL (7.4-10.4 FL) [...] (4.06-5.63 X10e6/UL) HEMOGLOBIN7.4 G/DL L (12.5-16.3 G/DL) AIMTWEVIQA27.0 % L (36.7-47.1 %) *MCV82.7 FL (80.0-100.0 FL) *MCH27.7 PG (27.0-33.0 PG) *MCHC33.4 G/DL (32.0-36.0 G/DL) *RDW18.8 % H (12.3-17.0 %) *RDWSD53.8 H (37.1-47.8 ) CPTFGDLL284 X10e3/UL (159-386 X10e3/UL) *MPV8.1 FL (7.4-10.4 FL) AUTOMATED DIFFPERFORMED (Reference Range: not available) SEGS81.4 % (Reference Range: not available) *LYMPHOCYTES6.5 % (Reference Range: not available) *LVAVXRSTQ33.3 % (Reference Range: not available) *EOSINOPHILS1.1 % (Reference Range: not available) *BASOPHILS0.7 % (Reference Range: not available) *ABSOLUTE NEUTROPHILS4.90 X10e3/UL (1.80-7.80 X10e3/UL) *ABSOLUTE LYMPHOCYTES0.40 X10e3/UL L (1.00-3.00 X10e3/UL) *ABSOLUTE MONOCYTES0.60 X10e3/UL (0.30-1.00 X10e3/UL) *ABSOLUTE EOSINOPHILS0.10 X10e3/UL (0.00-0.50 X10e3/UL) *ABSOLUTE BASOPHILS0.00 X10e3/UL (0.00-0.20 X10e3/UL)Hematology from 11/18/2016 4:58 AMWBC7.0 X10e3/UL (3.6-11.2 X10e3/UL) RBC2.91 X10e6/UL L (4.06-5.63 X10e6/UL) HEMOGLOBIN8.0 G/DL L (12.5-16.3 G/DL) WODYZFMHDI71.5 % L (36.7-47.1 %) *MCV80.8 FL (80.0-100.0 FL) *MCH27.4 PG (27.0-33.0 PG) *MCHC33.9 G/DL (32.0-36.0 G/DL) *RDW18.7 % H (12.3-17.0 %) *RDWSD52.9 H (37.1-47.8 ) RETBLNCJ608 X10e3/UL (159-386 X10e3/UL) *MPV8.1 FL (7.4-10.4 FL)Hematology from 11/17/2016 4:54 AMWBC6.6 X10e3/UL (3.6- 11.2 X10e3/UL) RBC2.45 X10e6/UL L (4.06-5.63 X10e6/UL) HEMOGLOBIN6.6 G/DL L (12.5-16.3 G/DL) FCLQRSAPPZ48.8 % L (36.7-47.1 %) *MCV80.8 FL (80.0-100.0 FL) *MCH26.9 PG L (27.0-33.0 PG) *MCHC33.2 G/DL (32.0-36.0 G/DL) *RDW19.9 % H (12.3-17.0 %) *RDWSD56.0 H (37.1-47.8 ) VWCKPAQR310 X10e3/UL (159-386 X10e3/UL) *MPV8.0 FL (7.4-10.4 FL) AUTOMATED DIFFPERFORMED (Reference Range: not available) SEGS79.3 % (Reference Range: not available) *LYMPHOCYTES7.5 % (Reference Range: not available) *FGXOVNXHS40.5 % (Reference Range: not available) *EOSINOPHILS0.2 % (Reference Range: not available) *BASOPHILS0.5 % (Reference Range: not available) *ABSOLUTE NEUTROPHILS5.30 X10e3/UL (1.80-7.80 X10e3/UL) *ABSOLUTE LYMPHOCYTES0.50 X10e3/UL L (1.00-3.00 X10e3/UL) *ABSOLUTE MONOCYTES0.80 X10e3/UL (0.30-1.00 X10e3/UL) *ABSOLUTE EOSINOPHILS0.00 X10e3/UL (0.00-0.50 X10e3/UL) *ABSOLUTE BASOPHILS0.00 X10e3/UL (0.00-0.20 X10e3/UL)Hematology from 11/16/2016 4 :34 AMWBC5.4 X10e3/UL (3.6-11.2 X10e3/UL) RBC2.96 X10e6/UL L (4.06-5.63 X10e6/UL) HEMOGLOBIN7.8 G/DL L (12.5-16.3 G/DL) CKPEBWELWS42.7 % L (36.7-47.1 %) *MCV80.2 FL (80.0-100.0 FL) *MCH26.5 PG L (27.0-33.0 PG) *MCHC33.0 G/DL (32.0-36.0 G/DL) *RDW19.9 % H (12.3-17.0 %) *RDWSD56.0 H (37.1-47.8 ) FNTAQIAG379 X10e3/UL (159-386 X10e3/UL) *MPV8.4 FL (7.4-10.4 FL) AUTOMATED DIFFPERFORMED (Reference Range: not available) SEGS76.5 % (Reference Range: not available) *LYMPHOCYTES7.3 % (Reference Range: not available) *HREBJWBGJ02.4 % (Reference Range: not available) *EOSINOPHILS0.7 % (Reference Range: not available) *BASOPHILS1.1 % (Reference Range: not available) *ABSOLUTE NEUTROPHILS4.10 X10e3/UL (1.80-7.80 X10e3/UL) *ABSOLUTE LYMPHOCYTES0.40 X10e3/UL L (1.00-3.00 X10e3/UL) *ABSOLUTE MONOCYTES0.80 X10e3/UL (0.30-1.00 X10e3/UL) *ABSOLUTE EOSINOPHILS0.00 X10e3/UL (0.00-0.50 X10e3/UL) *ABSOLUTE BASOPHILS0.10 X10e3/UL (0.00-0.20 X10e3/UL)Hematology from 11/15/2016 4 :41 AMWBC4.6 X10e3/UL (3.6-11.2 X10e3/UL) RBC3.42 X10e6/UL L (4.06-5.63 X10e6/UL) HEMOGLOBIN8.9 G/DL L (12.5-16.3 G/DL) DQMYRSTIPN67.5 % L (36.7-47.1 %) *MCV80.4 FL (80.0-100.0 FL) *MCH26.0 PG L (27.0-33.0 PG) *MCHC32.4 G/DL (32.0-36.0 G/DL) *RDW20.2 % H (12.3-17.0 %) *RDWSD56.9 H (37.1-47.8 ) ZUFJCNEE627 X10e3/UL L (159-386 X10e3/UL) *MPV8.2 FL (7.4-10.4 FL)Hematology from 11/14/2016 5:10 AMWBC4.8 X10e3/UL (3.6- 11.2 X10e3/UL) RBC3.70 X10e6/UL L (4.06-5.63 X10e6/UL) HEMOGLOBIN9.7 G/DL L (12.5-16.3 G/DL) UKHVLTGPXZ81.6 % L (36.7-47.1 %) *MCV79.9 FL L (80.0-100.0 FL) *MCH26.1 PG L (27.0-33.0 PG) *MCHC32.7 G/DL (32.0-36.0 G/DL) *RDW19.8 % H (12.3-17.0 %) *RDWSD55.6 H (37.1-47.8 ) VJTDYIII365 X10e3/UL L (159-386 X10e3/UL) *MPV8.3 FL (7.4-10.4 FL)Hematology from 11/13/2016 1:26 AMWBC3.3 X10e3/UL L (3.6- 11.2 X10e3/UL) RBC3.14 X10e6/UL L (4.06-5.63 X10e6/UL) HEMOGLOBIN8.1 G/DL L (12.5-16.3 G/DL) WYURJFIRBI35.2 % L (36.7-47.1 %) *MCV80.2 FL (80.0-100.0 FL) *MCH25.7 PG L (27.0-33.0 PG) *MCHC32.0 G/DL (32.0-36.0 G/DL) *RDW20.6 % H (12.3-17.0 %) *RDWSD57.8 H (37.1-47.8 ) BQHXYFHN715 X10e3/UL L (159-386 X10e3/UL) *MPV8.1 FL (7.4-10.4 FL) AUTOMATED DIFFPERFORMED (Reference Range: not available) SEGS72.4 % (Reference Range: not available) *LYMPHOCYTES8.7 % (Reference Range: not available) *GJMWERRWD95.8 % (Reference Range: not available) *EOSINOPHILS2.0 % (Reference Range: not available) *BASOPHILS1.1 % (Reference Range: not available) *ABSOLUTE NEUTROPHILS2.40 X10e3/UL (1.80-7.80 X10e3/UL) *ABSOLUTE LYMPHOCYTES0.30 X10e3/UL L (1.00-3.00 X10e3/UL) *ABSOLUTE MONOCYTES0.50 X10e3/UL (0.30-1.00 X10e3/UL) *ABSOLUTE EOSINOPHILS0.10 X10e3/UL (0.00-0.50 X10e3/UL) *ABSOLUTE BASOPHILS0.00 X10e3/UL (0.00-0.20 X10e3/UL)Urinalysis from 11/24/2016 5:57 PM Status: Final Result URINALYSIS Specimen Number: [id number] Sample Collection Date/Time: 11/24/2016 5:57 PM Specimen [...] URINEPACKED FIELD /HPF A (0-5 /HPF) *RBC OROGJ12-90 /HPF A (0-1 /HPF) *MUCOUS THREADSMODERATE /LPF A (NEGATIVE /LPF) *BACTERIAMODERATE /HPF A (NEGATIVE /HPF)Urinalysis from 11/13/2016 3:30 AM Status: Final Result URINALYSIS Specimen Number: [id number] Sample Collection Date/Time: 11/13/2016 3:30 AM Specimen [...] from 11/16/2016 8:02 AMCULTURE BLOOD Specimen Number: [id number] Sample Collection Date/Time: 11/16/2016 8:02 AM Specimen Source: Blood Peripheral CULTURE BLOOD: No growth after 5 days of incubation. Microbiology from 11/16/2016 7:58 AMCULTURE BLOOD Specimen Number: [id number] Sample Collection Date/Time: 11/16/2016 7:58 AM Specimen Source: Blood Peripheral CULTURE BLOOD: No growth after 5 days of incubation. Microbiology from 11/14/2016 9:40 AMCULTURE FLUID Specimen Number: [id number] Sample Collection Date/Time: 11/14/2016 9:40 AM Specimen Source: Fluid Ascites *GRAM STAIN: Many RBC's Rare WBC's No WBC's or organisms seen CULTURE FLUID: No growth at 48 hrs *GRAM STAIN Specimen Number: [id number] Sample Collection Date/Time: 11/14/2016 9:40 AM Specimen [...] Reference Range: not available) *FL TOTAL NUCLEATED HFOYO016 X10e6/L (SEE RANGE BELOW X10e6/L) *FLUID [id number] x10e6/L (SEE RANGE BELOW x10e6/L) *FL KXZPOAXXZUB92 % (SEE RANGE BELOW %) *FL HRWJRFFXKZY53 % (SEE RANGE BELOW %) *FL AOMEIEBYIUJZAU97 % (SEE RANGE BELOW %) *MESOTHELIAL LINING CELLS20 % (Reference Range: not available) *FLUID COLORPINK A (COLORLESS-PALE YELL ) *FLUID APPEARANCECLOUDY A (CLEAR ) *FL REF RANGESEE BELOW (Reference Range: not available) *SOURCEPLEURAL (Reference Range: not available) *SOURCEPLEURAL (Reference Range: not available) Blood Bank from 11/17/2016 9:27 AMANTIBODY SCREEN (Indirect Nicholas)NEG ( Reference Range: not available) RED BLOOD [id number] transfused compatible [id number] transfused compatible [id number] transfused compatible [id number] transfused compatible (Reference Range: not available) *ABO GroupA (Reference Range: not available) RH TYPEPOS (Reference Range: not available) Blood Bank from 11/13/2016 2:45 PMANTIBODY SCREEN (Indirect Nicholas)NEG ( Reference Range: not available) RED BLOOD [id number] transfused compatible [id number] transfused compatible (Reference Range: not available) *ABO [...] MESOTHELIAL CELLS PRESENT. NO MALIGNANT CELLS IDENTIFIED. ([facility]) SIGNATURE ALYSON CHU M.D. , PATHOLOGIST (CASE SIGNED 11/25/2016 AT 11:42) GROSS EXAMINATION: 1. RECEIVED IS 40 ML OF CLOUDY YELLOW FLUID WITH BLOOD AND WHITE FRAGMENTS. FOUR SMEARS AND ONE CELL BLOCK ARE PREPARED. ([facility]) PHYSICIANS ARTI HENDRICKSON// CADEN BLUM// MAXIMINO BLACKMAN// CHARGE CODE CPT COUNT [id number] DIVIDER Echocardiology from 11/13/2016 12:00 AMEchocardiogramSee [...] not available) DX Radiology from 11/17/2016 6:09 AMCHEST 2 VIEWSHistory: Pleural effusions. Technique: 2 [...] not available) DX Radiology from 11/16/2016 7:40 AMCHEST 2 VIEWSHistory: Pleural effusions. Technique: 2 [...] not available) CT Scan from 11/14/2016 9:18 AMCT CHEST W/O CONTRASTHistory: Congestive heart failure - [...] Status:Active. Plan of Care Treatment Plan from 11/27/2016 3:03 PM:Care Management Note : BODY,TD,TH,BUTTON, INPUT,SELECT,TEXTAREA{FONT-SIZE: 10pt; FONT-FAMILY: [place],Helvetica; COLOR: black;} P,DIV,UL,OL,BLOCKQUOTE{MARGIN-BOTTOM: 0px; MARGIN-TOP: 0px;} BODY{MARGIN : 5px;} [facility] spoke with patient multiple times throughout the day. Patient is not going home today as anticipated but is feeling much better. He is wanting to have a hospital bed at discharge. [facility] times that he was not going to qualify to have Medicare pay for a bed. Patient voiced understanding. He latter called and stated that he had called somewhere and would have one delivered. [facility] then received another phone call and patient requester [facility] come to room to talk with patient. He stated that Yane from [employer] wanted a script for the bed. [facility] again explained that Medicare was not going to pay for bed and would call [employer] to clarify need for script. [facility] called [employer]. Yane explained that patient initially seemed to be agreeable to private pay, but then stated that he wanted Medicare to pay for it. Yane had informed him that for that to happen, they would have to have script and documentation. Patient stated he would get it. [facility] informed Yane that patient will not qualify and that this has been explained to him. [facility] will continue to discuss this withpatient.Treatment Plan from 11/26/2016 2:11 PM: Care Management Note : BODY,TD,TH,BUTTON,INPUT,SELECT,TEXTAREA{FONT-SIZE: 10pt; FONT-FAMILY: [place],Helvetica; COLOR: black;} P,DIV,UL,OL,BLOCKQUOTE{MARGIN- BOTTOM: 0px; MARGIN-TOP: 0px;} [...] Management Note : BODY,TD,TH,BUTTON,INPUT,SELECT,TEXTAREA{FONT-SIZE: 10pt; FONT- FAMILY: [place]; COLOR: black;} P,DIV,UL,OL,BLOCKQUOTE{MARGIN-BOTTOM: 0px; MARGIN-TOP: 0px;} BODY{MARGIN: 5px;}Patient is anticipated to stay another day and hopes to dc tomorrow. [facility] that he does have a walker available at home. Patient states it has wheels and tennis balls on the bottom. He will not need another walker at this time. [facility] will [facility] to follow.Treatment Plan from 11/25/2016 10:20 AM:Care Management Note : BODY,TD,TH ,BUTTON,INPUT,SELECT,TEXTAREA{FONT-SIZE: 10pt; FONT-FAMILY: [place],Helvetica; COLOR: black;} P,DIV,UL,OL,BLOCKQUOTE{MARGIN-BOTTOM: 0px; MARGIN-TOP: 0px;} BODY {MARGIN: 5px;}[facility] to review discharge needs. [facility]. ' er discussed Palliative Care as well and patient was agreeable to this. Patient is anticipated to stay another night and dc tomorrow. Patient voiced no additional questions or concerns. [facility] updated Beverly with [facility] regarding referrals and anticipated dc.Treatment Plan from 11/24/2016 2:14 PM:Care Management Note : BODY,TD,TH,BUTTON,INPUT,SELECT,TEXTAREA{FONT-SIZE: 10pt; FONT- FAMILY: [place],Helvetica; COLOR: black;} P,DIV,UL,OL,BLOCKQUOTE{MARGIN-BOTTOM: 0px; MARGIN-TOP: 0px;} BODY{MARGIN: 5px;}Patient completed a HC today. Labs continues to improve, and drips have d/c'd. PT/OT were ordered,and goal is to discharge in the am. CM will continue to follow.BUN 35, Creat1.95, ALb 2.897.8 , 70, 20, 104/64, 93% RATreatment Plan from 11/21/2016 3:42 PM:Care Management Note : BODY,TD,TH,BUTTON,INPUT,SELECT,TEXTAREA{FONT-SIZE: 10pt; FONT-FAMILY: [place],Helvetica; COLOR: black;} P,DIV,UL,OL,BLOCKQUOTE{MARGIN-BOTTOM: 0px; MARGIN-TOP: 0px;} BODY{MARGIN: 5px;} [facility] to discuss discharge needs. Patient has been informed that he is hospice appropriate and he expressed a desire for the [facility] to [facility]. [facility] confirmed this information with patient, who wanted to wait to meet with Alma Delia with [facility] after he was able to get ahold of some friends to come down. [facility] contact information with patient. Patient later notified [facility] that he would have his people there around 13:30. [facility] informed Alma Delia of the information and also requested hospitalist meet with them. Alma Delia later notified [facility] that patient would like to wait until Thursday after heart cath to make a decision regarding hospice. [facility] and will meet with patient again on Thursday to review.Treatment Plan from 11/21/2016 11:41 AM: Care Management Note : BODY,TD,TH,BUTTON,INPUT,SELECT,TEXTAREA{FONT-SIZE: 10pt; FONT-FAMILY: [place],Helvetica; COLOR: black;} P,DIV,UL,OL,BLOCKQUOTE{MARGIN- BOTTOM: 0px; MARGIN-TOP: 0px;} BODY{MARGIN: 5px;} Attending's had a discussion with patient about prognoses. Patient would like to discuss optionswith hospice. SW discussed POC with patient, and will set up a time for later today. CM will continue to follow.Treatment Plan from 11/19/2016 3:45 PM:Care Management Note : BODY,TD,TH,BUTTON,INPUT,SELECT,TEXTAREA{FONT-SIZE: 10pt; FONT- FAMILY: [place]vetica; COLOR: black;} P,DIV,UL,OL,BLOCKQUOTE{MARGIN-BOTTOM: 0px; MARGIN-TOP: 0px;} BODY{MARGIN: [...] Management Note : BODY,TD,TH,BUTTON,INPUT,SELECT, TEXTAREA{FONT-SIZE: 10pt; FONT-FAMILY: [place]vetica; COLOR: black;} P,DIV,UL, OL,BLOCKQUOTE{MARGIN-BOTTOM: 0px; MARGIN-TOP: 0px;} [...] PM:Care Management Note : BODY,TD,TH,BUTTON,INPUT,SELECT,TEXTAREA{FONT-SIZE: 10pt; FONT-FAMILY: [place], [place]; COLOR: black;} P,DIV,UL,OL,BLOCKQUOTE{MARGIN-BOTTOM: 0px; MARGIN-TOP : [...] Management Note : BODY,TD,TH,BUTTON,INPUT, SELECT,TEXTAREA{FONT-SIZE: 10pt; FONT-FAMILY: [place]vetica; COLOR: black;} P, DIV,UL,OL,BLOCKQUOTE{MARGIN-BOTTOM: 0px; MARGIN-TOP: 0px;} [...] PM:Care Management Note : BODY,TD,TH,BUTTON,INPUT,SELECT,TEXTAREA{FONT-SIZE: 10pt; FONT-FAMILY: [place]vetica; COLOR: black;} P,DIV,UL,OL,BLOCKQUOTE{MARGIN-BOTTOM: 0px; MARGIN-TOP: 0px;} BODY{MARGIN: [...] INR 4.58, Troponin's 0.093, 0.083 , 0.086, 0.31281.2, 70, 18, 89/55, 97% RATreatment Plan from 11/13/2016 10:30 AM: Care Management Note : BODY,TD,TH,BUTTON,INPUT,SELECT,TEXTAREA{FONT-SIZE: 10pt; FONT-FAMILY: [place]vetica; COLOR: black;} P,DIV,UL,OL,BLOCKQUOTE{MARGIN- BOTTOM: 0px; MARGIN-TOP: 0px;} BODY{MARGIN: 5px;} [facility] to discuss discharge needs. Patient lives at home alone and is independent of all ADLs. Patient voices no concerns regarding being able to return home. SW'er discussed HH and Care Transitions. Patient declined HH but said he might consider TCP. He requested that SW'er follow up closer to discharge regarding this. Patient voiced no questions or concerns. [facility] and will continue to follow. Procedures Completed Procedure Code: [id number] Procedure Name: not valued, on 10/21/2016 12: 00 AMCompleted Procedure Code: 5339883 Procedure Name: not valued, on 2016 12:00 AMCompleted Procedure Code: 5492505 Procedure Name: not valued, on 12:00 AMCompleted Colonoscopy, by MD MARIA A CASTLE, on 07/16/2014 7: 42 AMCompleted Esophagogastroduodenoscopy, by MD MARIA A CASTLE, on 2014 7:32 AMCompleted Procedure Code: 00.00 Procedure Name: not valued, on 2014 12:00 AMCompleted Procedure Code: 41510 Procedure Name: not valued, on 07/16 12:00 AMCompleted Procedure Code: 53722 Procedure Name: not valued, on 07/16/2014 12:00 [...] morning) Specific Discharge Teaching Instructions provided: : No Allergies, Adverse Reactions, Alerts This section is community relations representative of the current allergy information, at [...]
--- OUTSIDE RECORDS SUMMARY | 2016-12-20 15:39 | External Medical Summary ---
:1950 Author Name [employer], SYSTEM Care Team Providers Name Role Phone MD ALEXSANDER, YANE Primary Care Provider Unavailable Reason For Visit Reason for Visit from 10/20/2016 4:35 PM:Pt Stated Reason for Adm : Pre medicate for heart cath Chief Complaint CAD SOB Social History Social History from 10/22/2016 11:57 AM:Tobacco Use? : Never SmokerSocial History from 10/20/2016 4:35 PM:Tobacco Use? : Never Smoker Functional Status Functional Status from 10/22/2016 8:56 AM:LOC : AlertOriented To : Person,Place, TimeWeight Bearing Status : FullAssist Level : Independent# Assists : IndependentFunctional Status from 10/21/2016 7:43 PM:LOC : AlertOriented To : Person,Place,Time,EventWeight Bearing Status : FullAssist Level : Partial# Assists : 1Functional Status from 10/21/2016 9:52 AM:LOC : AlertOriented To : Person,Place,Time,EventWeight Bearing Status : FullAssist Level : Partial# Assists : 1Functional Status from 10/20/2016 8:10 PM:LOC : AlertOriented To : Person,Place,Time,EventWeight Bearing Status : FullAssist Level : Independent# Assists : IndependentFunctional Status from 10/20/2016 4:35 PM:LOC : AlertOriented To : Person,Place,Time,EventWeight Bearing Status : FullAssist Level : Independent# Assists : Independent Vital Signs Hospital Vital Signs from 10/22/2016 10:16 AM:Height : 6/3 ft,inTemperature : 96.6 FPulse : 86Respirations : 20BP : 86/53Hospital Vital Signs from 10/22/2016 7 :19 AM:Height : 6/3 ft,inTemperature : 96.7 FPulse : 121Respirations : 20BP : 91 /61Hospital Vital Signs from 10/22/2016 3:49 AM:Weight : 102.0/ kgHeight : 6/3 ft ,inHospital Vital Signs from 10/22/2016 3:46 AM:Height : 6/3 ft,inTemperature : 97.2 FPulse : 118Respirations : 18BP : 96/64Hospital Vital Signs from 10/21/2016 11:30 PM:Height : 6/3 ft,inTemperature : 97.0 FPulse : 111Respirations : 19BP : 89/57Hospital Vital Signs from 10/21/2016 7:43 PM:Heart Rate : 94Hospital Vital Signs from 10/21/2016 7:20 PM:Height : 6/3 ft,inTemperature : 96.8 FPulse : 113Respirations : 19BP : 94/67Hospital Vital Signs from 10/21/2016 4:44 PM: Height : 6/3 ft,inTemperature : 97.1 FPulse : 120Respirations : 17BP : 92/ 57Hospital Vital Signs from 10/21/2016 3:54 PM:Height : 6/3 ft,inTemperature : 97.3 FPulse : 119Respirations : 19BP : 91/53Hospital Vital Signs from 10/21/2016 3:25 PM:Height : 6/3 ft,inTemperature : 98.1 FPulse : 106Respirations : 19BP : 93/58Hospital Vital Signs from 10/21/2016 3:05 PM:Height : 6/3 ft,inTemperature : 98.1 FPulse : 109Respirations : 19BP : 107/55Hospital Vital Signs from 2016 2:45 PM:Height : 6/3 ft,inTemperature : 98 FPulse : 115Respirations : 18BP : 93/58Hospital Vital Signs from 10/21/2016 2:30 PM:Height : 6/3 ft, inTemperature : 98 FPulse : 120Respirations : 18BP : 91/57Hospital Vital Signs from 10/21/2016 2:15 PM:Height : 6/3 ft,inTemperature : 98.0 FPulse : 113Respirations : 18BP : 87/65Hospital Vital Signs from 10/21/2016 2:00 PM: Height : 6/3 ft,inTemperature : 98 FPulse : 103Respirations : 18BP : 89/ 59Hospital Vital Signs from 10/21/2016 1:45 PM:Height : 6/3 ft,inTemperature : 98.1 FPulse : 80Respirations : 18BP : 93/63Hospital Vital Signs from 10/21/2016 12:32 PM:Height : 6/3 ft,inTemperature : 98.3 FPulse : 82Respirations : 18BP : 92/58Hospital Vital Signs from 10/21/2016 10:52 AM:Height : 6/3 ft,inTemperature : 99.2 FPulse : 120Respirations : 18BP : 100/61Hospital Vital Signs from 2016 8:53 AM:Height : 6/3 ft,inHospital Vital Signs from 10/21/2016 7:32 AM: Height : 6/3 ft,inTemperature : 97.2 FPulse : 115Respirations : 18BP : 89/ 64Hospital Vital Signs from 10/21/2016 4:15 AM:Weight : 102/ kgHeight : 6/3 ft, inTemperature : 98.3 FPulse : 82Respirations : 18BP : 92/58Hospital Vital Signs from 10/21/2016 3:02 AM:Height : 6/3 ft,inTemperature : 97.5 FPulse : 110Respirations : 18BP : 112/60Hospital Vital Signs from 10/20/2016 11:00 PM: Height : 6/3 ft,inTemperature : 97.8 FPulse : 113Respirations : 18BP : 110/ 59Hospital Vital Signs from 10/20/2016 8:10 PM:Heart Rate : 85Hospital Vital Signs from 10/20/2016 6:27 PM:Height : 6/3 ft,inTemperature : 98.1 FPulse : 114Respirations : 18BP : 84/54Hospital Vital Signs from 10/20/2016 4:35 PM: Weight : 102/ kgHeight : 6/3 ft,inHospital Vital Signs from 10/20/2016 3:33 PM: Height : 6/3 ft,inTemperature : 98.2 FPulse : 114Respirations : 18BP : 86/ 51Hospital Vital Signs from 10/20/2016 12:40 PM:Weight : 102.0/ kgHeight : 6/3 ft ,inTemperature : 97.0 FPulse : 111Respirations : 20BP : 92/58 Results Chemistry from 10/22/2016 10:50 [id number] MMOL/L L (136-145 MMOL/L) POTASSIUM4.9 MMOL/L (3.5-5.1 MMOL/L) AKRRCAFF355 MMOL/L (98-107 MMOL/L) IOE934.6 MMOL/L (21.0-32.0 MMOL/L) *ANION GAP6.4 MMOL/L L (8.0-16.0 MMOL/L) BUN47 MG/DL H (7-18 MG/DL) CREATININE1.92 MG/DL H (0.70-1.30 MG/DL) *BUN/CREATININE RATIO24.5 H (9.1-17.0 ) RHSXSHH890 MG/DL H (65-99 MG/DL) *GFR EST NON AFR PLLQHAHC47 ML/MIN (Reference Range: not available) *GFR EST AFR AMER41 ML/MIN (Reference Range: not available) CALCIUM8.4 MG/DL L (8.5-10.1 MG/DL)Chemistry from 10/21/2016 4:43 [id number] MMOL/L L (136-145 MMOL/L) POTASSIUM5.5 MMOL/L H (3.5-5.1 MMOL/L) HORBWGYZ197 MMOL/L (98-107 MMOL/L) JVS272.3 MMOL/L (21.0-32.0 MMOL/L) *ANION GAP7.7 MMOL/L L (8.0-16.0 MMOL/L) BUN57 MG/DL H (7-18 MG/DL) CREATININE2.44 MG/DL H (0.70-1.30 MG/DL) *BUN/CREATININE RATIO23.4 H (9.1-17.0 ) PLPWDXX891 MG/DL H (65-99 MG/DL) *GFR EST NON AFR KLXEMKQV25 ML/MIN (Reference Range: not available) *GFR EST AFR AMER30 ML/MIN (Reference Range: not available) CALCIUM8.5 MG/DL (8.5-10.1 MG/DL) Problems Encounter Diagnosis Catheterization of Left Heart Status:Active.Coronary Arteriosclerosis Status: Active.Dyspnea Status:Active.Fall Risk Status:Active.Additional Problems Acute Pain Comment:Problem resolved [...] by [facility] Workflow upon Discharge, Status:Resolved.Mobility Impairment Comment: Problem resolved by [facility] Workflow upon Discharge, Status:Resolved.Mobility Impairment Comment:Problem resolved by [facility] Workflow upon Discharge, Status: Resolved.Skin Integrity Impairment Risk Comment:Problem resolved by [facility] Workflow upon Discharge, Status:Resolved. Encounters Encounter Diagnosis Catheterization of Left Heart Status:Active.Coronary Arteriosclerosis Status: Active.Dyspnea Status:Active.Fall Risk Status:Active. Plan of Care Follow-up Appointments from 10/22/2016 11:57 AM:#1 Office appointment: : Dr. Joel Vaz with BMP,CMP#1 Date/Time : 10/28/2016 9:45 AMAddress # 1 : [facility]: [address] [place]- or #2 Office appointment: : Dr. Sotelo with PFT at 10:00AM#2 Date/Time : 2016 11:00 AMAddress # 2 : [facility]: [address] [place]- or Treatment Plan from 10/21/2016 11:45 AM:Care Management Note : BODY,TD,TH,BUTTON,INPUT,SELECT,TEXTAREA{FONT-SIZE: 10pt; FONT- FAMILY: [place],Helvetica; COLOR: black;} P,DIV,UL,OL,BLOCKQUOTE{MARGIN-BOTTOM: 0px; MARGIN-TOP: 0px;} BODY{MARGIN: 5px;}Farris form was given discussing outpatient observation and coverage. Questions were answered, and a copy was given to patient.Treatment Plan from 10/21/2016 10:15 AM:Care Management Note : BODY,TD,TH,BUTTON,INPUT,SELECT,TEXTAREA{FONT-SIZE: 10pt; FONT-FAMILY: [place], Helvetica; COLOR: black;} P,DIV,UL,OL,BLOCKQUOTE{MARGIN-BOTTOM: 0px; MARGIN-TOP : 0px;} BODY{MARGIN: 5px;} [facility]. Patient lives at home alone and plans to return there at discharge. Patient has a heart cath today and should discharge unless problems are found. Patient has no concerns regarding being able to return home and declined offers for HH or Care Transitions. Patient currently has no services and uses no DME. Patient voiced no questions or concerns. [facility] and will be available if needs arise.Treatment Plan from 10/21/2016 7:34 AM:Care Management Note : BODY,TD,TH,BUTTON,INPUT,SELECT,TEXTAREA{FONT-SIZE: 10pt; FONT- FAMILY: [place],Helvetica; COLOR: black;} P,DIV,UL,OL,BLOCKQUOTE{MARGIN-BOTTOM: 0px; MARGIN-TOP: 0px;} BODY{MARGIN: 5px;} Patient was admitted as outpatient observation d/t a scheduled HC. Patient was admitted the night before for overnight hydration prior to procedure. Patient was placed on tele, and labs/VS /I&O's are being monitored. Further POC will be determined after HC. CM will continue to follow. Procedures Completed Procedure Code: [id number] Procedure Name: not valued, on 10/02/2016 12: 00 AMCompleted Procedure Code: [id number] Procedure Name: not valued, on 2016 12:00 AMCompleted Colonoscopy, by MD MARIA A CASTLE, on 07/16/2014 7:42 AMCompleted Esophagogastroduodenoscopy, by MD MARIA A CASTLE, on 07/16/2014 7: 32 AMCompleted Procedure Code: 00.00 Procedure Name: not valued, on 07/16/2014 12 :00 AMCompleted Procedure Code: 01224 Procedure Name: not valued, on 07/16/2014 12:00 AMCompleted Procedure Code: 52124 Procedure Name: not valued, on 2014 12:00 AMCompleted , on 02/24/2013 12:00 AMCompleted [...] to care for yourself at home from 10/22/2016 11:57 AM:Discharge Activity : Activity as toleratedDischarge Diet : Modification as given by physicianDischarge Diet: : CardiacCall your doctor if: : Fever over 101 F or severe chills,Chest pain or other unexplained symptoms,Tingling or numbness develops,A sudden increase or decrease in weight,You have persistent or worsening symptoms,If you have Heart Failure and you gain 3 pounds within 1 week or your symptoms worsen. (Weigh at home tomorrow morning)Specific Discharge Teaching Instructions provided: : YesSpecific Discharge Teaching Instructions Reviewed: : Cardiology Post Catherization InstructionsDischarge on Warfarin : No Allergies, Adverse Reactions, Alerts This section is premium representative of the current allergy information, at [...] the responsibility of the patient or patient premium representative to confirm the list of medicationswith either the patient's personal care provider or the patient's follow-up care provider to ensure the patient has an appropriate list of medications to take at home. Discharge medicationsContinued medicationsamiodarone 200 mg Tablet, Ordered By: SVETLANA HINES APRN Directions: 1 tablet oral twice a day for for rhythm control aspirin 81 mg tablet,chewable, Ordered By: SVETLANA HINES APRN Directions: 1 tablet oral daily every evening furosemide 40 mg Tablet, Ordered By: SVETLANA HINES APRN Directions: 1 tablet oral daily levothyroxine 75 mcg Tablet, Ordered By: SVETLANA HINES APRN Directions: 1 tablet oral daily before breakfast losartan 25 mg Tablet, Ordered By: SVETLANA HINES APRN Directions: 1 tablet oral daily Additional Instructions: 07/28/2016 pantoprazole 40 mg tablet,delayed release (DR/EC), Ordered By: SVETLANA HINES APRN Directions: 1 tablet oral daily simvastatin 40 mg Tablet, Ordered By: SVETLANA HINES APRN Directions: 1 tablet oral daily at bedtime tamsuLOSIN 0.4 mg capsule,extended release 24hr, Ordered By: SVETLANA HINES APRN Directions: 1 capsule oral daily zolpidem 10 mg Tablet, Ordered By: SVETLANA HINES APRN Directions: 1 tablet oral daily at bedtime for insomnia Changed medicationsapixaban (Eliquis) 5 mg Tablet, Ordered By: SVETLANA HINES APRN Directions: 0.5 tablet oral twice a day Stopped medicationsmetoLAZOne 5 mg Tablet Directions: 1 tablet oral daily spironolactone 50 mg Tablet Directions: 1 tablet oral daily
--- OUTSIDE RECORDS SUMMARY | 2016-12-20 15:40 | External Medical Summary | Summary of Care ---
:1950 Author Name Mateusz Maldonado M.D. Address [address] [place], [place] [id number] Care Team Providers Name Role Phone Lotus Rubio M.D. Unavailable Unavailable Paloma Hart Unavailable Unavailable Joel Falcon, Mateusz Flores Unavailable [...] NIGHT AT BEDTIME Quantity: 30 Refills: 11 Shatn Rubio M.D. Started ActiveFurosemide 40 MG Oral [...] cm H2O, Permanent use, G47.33, Heated humidity, EjdhstsnL40, mask , headgear, filters, heated tubing, water chamber, chinstrap Quantity: 1 Refills: 0 Paloma Castillo P.AFarzaneh Started 03-Apr-2015 ActiveClonazePAM 1 MG Oral Tablet TAKE 1/2 TAB PO QHS X 1 WEEK, THEN INCREASE TO 1 TAB PO QHS IF NEEDED Quantity: 30 Refills: 5 Paloma Castillo P.AFarzaneh Started 03-Apr-2015 Active Allergies and Adverse Reactions [...] Completed:23-Oct-2011 Globe Enucleation Left PTCA ECG/ EKG (Specialists) Ordered:10-May-2015 CBC w/ Auto Diff 7150 Ordered:04-Apr-2015 Comprehensive Metabolic Panel 1212 Ordered:04-Apr-2015 LIPID PROFILE 1184 Ordered:04-Apr-2015 THYROID STIM. HORMONE 3602 Ordered:04-Apr-2015 FERRITIN 3025 Ordered:04-Apr-2015 IRON 1254 Ordered:04-Apr-2015 Testosterone,Free and Total 595708 Ordered:04-Apr-2015 Immunization Name Dates Details Tdap (Adacel) Administered on: Zoster (Zostavax) Administered on:21-Mar-2014 Lot #: [id number] Prevnar 13 Intramuscular Suspension Administered on:21-Mar-2014 Lot #: [id number] Family History Mother Name Dates Details Family history of Hyperlipidemia Status: Active Family history of cerebrovascular accident (CVA) (V17.1, Z82.3) Status: Active Father Name Dates Details Family history of Cancer Status: Active Social History Name Dates Details Smoking StatusNever smoker Vital Signs Date Test Result Details 10-May-2015 14:30 BP Systolic 112 mm[Hg] Status: [...] Maldonado On 15-Nov-2010 08:00 Appointment; Provider: Mark Maldonaod On 09:00 Appointment; Provider: Mark Maldonado On 17-May-2010 08:15 Appointment; Provider: Zach Jean On 04-Apr-2010 09:45 Appointment; Provider: Mark Maldonado On 15-Feb-2010 08:30 Appointment; Provider: Mark Maldonado On 16-Nov-2009 09:15 Appointment; Provider: Mark Maldonado On 07:30 Appointment; Provider: Joshua Plasencia On 14:00 Appointment; Provider: Joshua Plasencia On 06-Jul-2009 11:00 Instructions Instructions not documented Encounters Appointment; Mark Maldonado On 10-May-2015 Encounter Diagnosis: [...]
--- OUTSIDE RECORDS SUMMARY | 2016-12-20 15:41 | External Medical Summary | Summary of Care ---
:1950 Author Name Atif HANKSNJessela Address [address] [place], [place] [id number] Care Team Providers Name Role Phone Joanne [...] right olecranon bursa (719.02, M25.421) Status: Active Diarrhea (787.91, R19.7) Status: Active [...] Status: Active Hypertension (401.9, I10) Status: Active CKD (chronic kidney disease) stage 3, GFR 30-59 ml/min (585.3, N18.3) Status : Active Localized edema (782.3, R60.0) Status: Active Essential hypertension (401.9, I10) Status: Active Anemia of renal disease (285.21, D63.1) Status: Active Medications Name Dates Details Simvastatin [...] mouth daily Quantity: 90 Refills: 2 Joel FalconMark Start 03-Apr-2016 Active MetOLazone 5 MG Oral [...] tablet daily Quantity: 30 Refills: 11 Joel FalconMark Start Active Allergies and Adverse Reactions Name [...] on: Zoster (Zostavax) on: 21-Mar-2014 Lot #: [id number] Prevnar 13 Intramuscular Suspension on: 21-Mar-2014 Lot #: [id number] Family History Mother Name Dates Details Family [...] low Range: >60 threshold) EST GFR, NON-AFR [place] 43 ml/min (Below low Range: >60 threshold) [...] Range: 0.0-7.0 %BASO 0.7 % Range: 0.0-2.5 %GAUTMA 1.5 % Range: 0.0-5.0 NEUTRO 3.6 K/uL [...] low Range: >60 threshold) EST GFR, NON-AFR [place] 46 ml/min (Below low Range: >60 threshold) [...] Range: 1.0-1.8 CALCIUM 9.4 mg/dL Range: 8.5-10.1 11:49 PTH ( Parathyroid Hormone Intact) 3101 Comments: Fastin hours Intact Parathyroid Hormone 35 pg/mL Range: 14-72 11:49 THYROID STIM. HORMONE 3602 Comments: Fastin hours THYROID STIM. HORMONE 6.556 uIU/mL (Above high Range: 0.550-4.780 threshold) Comments: [...] Appointment; Provider: Shant Rubio M.D. On 10:00 Instructions Name Dates Details Instructions not documented Encounters Appointment; Shant Rubio M.D. On Encounter Diagnosis: Problem not documented 10:45 Appointment; Rufino Rayo, PNicholas On Encounter Diagnosis: Problem not documented 11:15 Appointment; Shant Rubio M.D. On Encounter Diagnosis: [...]
--- OUTSIDE RECORDS SUMMARY | 2016-12-20 15:45 | External Medical Summary | Summary of Care ---
[...] 40 MG Oral Tablet TAKE 1 TABLET DAILY. Quantity: 30 Refills: 3 Shant Rubio M.D. Started 16-Jun-2011 ActiveMetolazone 5 MG Oral Tablet prn Quantity: 30 Refills: 5 Shant Rubio M.D. Started 30-Mar-2013 ActiveAspir-Low 81 MG Oral Tablet Delayed Release TAKE 1 TABLET IN THE PM Refills: 0 , Started 26-Sep-2014 ActiveAmiodarone HCl - 200 MG [...] Refills: 0 Shant Rubio M.D. Started 10-Oct-2014 ActiveZolpidem Tartrate 10 MG Oral Tablet TAKE [...] on: Zoster (Zostavax) Administered on:21-Mar-2014 Lot #: [id number] Prevnar 13 Intramuscular Suspension Administered on:21-Mar-2014 Lot #: [id number] Family History Mother Name Dates Details Family [...] Range: >60 low threshold) EST GFR, NON-AFR [place]IAN 39 ml/min (Below Range: >60 low threshold) Comments: EST GFR is reported in ml/min per 1.73 m2 of body surface area. For -Polish, please multiple result by 1.2.----- GLUCOSE 98 [...] Diagnosis: Problem not documented 09:30 Appointment; Shant uRbio On 11-Feb-2013 Encounter Diagnosis: Problem not documented 09:15
--- OUTSIDE RECORDS SUMMARY | 2016-12-20 15:45 | External Medical Summary | Summary of Care ---
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 Started 14-May-2015 [id number] GM Tube MethylPREDNISolone 4 MG Oral Tablet [...] on: Zoster (Zostavax) Administered on:21-Mar-2014 Lot #: [id number] Prevnar 13 Intramuscular Suspension Administered on:21-Mar-2014 Lot #: [id number] Family History Mother Name Dates Details Family history of Hyperlipidemia Status: Active Family history of cerebrovascular accident (CVA) (V17.1, Z82.3) Status: Active Father Name Dates Details Family history of Cancer Status: Active Social History Name Dates Details Smoking StatusNever smoker Vital Signs Date Test Result Details 10:02 BP Systolic 130 mm[Hg] Status: BP [...] 14:02 ECG/ EKG Outside Interp Electro CardioGram (Better) 21-Jun-2015 17:00 CBC w/ Auto Diff [...] (Better) Range: 11.6-14.8 PLATELETS 127 K/uL (Below Range: 150-400 low threshold) MPV [...] BASIC METABOLIC PROFILE 1210 SODIUM 134 mmol/L Range: 133-144 (Better) POTASSIUM 4.4 mmol/L Range: 3.5-5.1 (Better) CHLORIDE 96 mmol/L (Below Range: 98-110 low threshold) CARBON DIOXIDE 29.4 mmol/L Range: 23.0-33.0 (Better) ANION GAP 9 mmol/L (Better) Range: 6-16 BUN 29 mg/dL (Above Range: 7-18 high threshold) CREATININE, SERUM 1.79 mg/dL (Above Range: 0.70-1.30 high threshold) Comments: Please note new reference ranges effective 07/01.----- EST GFR, 46 ml/min (Below Range: >60 low threshold) EST GFR, NON-AFR RWANDAN 38 ml/min (Below Range: >60 low threshold) Comments: EST GFR is reported in ml/min per 1.73 m2 of body surface area. For -Irish, please multiple result by 1.2.----- BUN:CREATININE RATIO [...] On 08:15 Appointment; Provider: Shant Rubio On 13:15 Appointment; Provider: Mark Maldonado On 25-Jun-2015 12:00 [...]
--- OUTSIDE RECORDS SUMMARY | 2016-12-20 15:45 | External Medical Summary | Summary of Care ---
:1950 Author Name Lotus Rubio M.D. Address [address] [place], [place] [id number] Care Team Providers Name Role Phone Lotus [...] Completed:23-Oct-2011 Globe Enucleation Left PTCA STOOL CULTURE [id number] Ordered:30-Nov-2014 GIARDIA ANTIGEN [id number] Ordered:30-Nov-2014 CRYPTOSPORIDIUM ANTIGEN [id number] Ordered:30-Nov-2014 Immunization Name Dates Details Tdap (Adacel) Administered on: Zoster (Zostavax) Administered on:21-Mar-2014 Lot #: [id number] Prevnar 13 Intramuscular Suspension Administered on:21-Mar-2014 Lot #: [id number] Family History Mother Name Dates Details Family [...] Diagnosis: Problem not documented 09:00 Appointment; Rufino Ryao On 23-Jan-2014 Encounter Diagnosis: Problem not documented [...]
--- OUTSIDE RECORDS SUMMARY | 2016-12-20 15:46 | External Medical Summary | Summary of Care ---
:1950 Author Name Lotus Rubio M.D. Address [address] [facility] Unavailable [place], [place] [id number] Care Team Providers Name Role Phone Lotus Ruibo M.D. Unavailable Unavailable Mateusz Maldonado M.D. Unavailable [...] Status: Active Hypertension (401.9, I10) Status: Active History of gastric ulcer (V12.79, Z87.19) Status: Active Medications Name Dates Details Simvastatin [...] Presbyopia (367.4, H52.4) Status: Active History of gastric ulcer (V12.79, [...] Left PTCA CBC w/ Auto Diff 7150 Ordered:11-Sep-2014 Comprehensive Metabolic Panel 1212 Ordered:11-Sep-2014 LIPID PROFILE 1184 Ordered:11-Sep-2014 PSA ( PROSTATE SPECIFIC ANTIGEN) 3100 Ordered:11-Sep-2014 Immunization Name Dates Details Tdap (Adacel) Administered on: Zoster (Zostavax) Administered on:21-Mar-2014 Lot #: [id number] Prevnar 13 Intramuscular Suspension Administered on:21-Mar-2014 Lot #: [id number] Family History Mother Name Dates Details Family [...] Range: >60 low threshold) EST GFR, NON-AFR VENEZUELAN 41 ml/min (Below Range: >60 low threshold) Comments: EST GFR is reported in ml/min per 1.73 m2 of body surface area. For -Vietnamese, please multiple result by 1.2.----- BUN:CREATININE RATIO [...] Diagnosis: Problem not documented 13:45 Appointment; Shant Ruboi On Encounter Diagnosis: Problem not documented 10:45 [...]
--- OUTSIDE RECORDS SUMMARY | 2016-12-20 15:46 | External Medical Summary | Summary of Care ---
[...] Active Atrial fibrillation (427.31, I48.91) Status: Active Obstructive sleep apnea (327.23, G47.33) Status: Active Congestive heart failure (428.0, I50.9) [...] cm H2O, Permanent use, G47.33, Heated humidity, RblwhxtzV19, mask , headgear, filters, heated tubing, water [...] Refills: 6 Shant Rubio M.D. Started 14-May-2015 [id number] GM Tube Allergies and Adverse Reactions Name [...] on: Zoster (Zostavax) Administered on:21-Mar-2014 Lot #: [id number] Prevnar 13 Intramuscular Suspension Administered on:21-Mar-2014 Lot #: [id number] Family History Mother Name Dates Details Family [...] Jean On 04-Apr-2010 09:45 Appointment; Provider: Mark Maldonaod On 15-Feb-2010 08:30 Appointment; Provider: Mark Maldonado [...]
[2016-12-20] MEDS ORDERED: PHYTONADIONE 5 MG/2.5 ML ORAL LIQUID PO ONE (15:47)
--- OUTSIDE RECORDS SUMMARY | 2016-12-20 15:47 | External Medical Summary | Summary of Care ---
[...] Refills: 3 Mark Maldonado M.D. Started 25-May-2014 ActiveXarelto 20 MG Oral Tablet Take one [...] on: Zoster (Zostavax) Administered on:21-Mar-2014 Lot #: [id number] Prevnar 13 Intramuscular Suspension Administered on:21-Mar-2014 Lot #: [id number] Family History Mother Name Dates Details Family [...] Provider: Neil Justin On 08:15 Appointment; Provider: Neil Justin On 29-Jun-2014 10:30 Appointment; Provider: Mark Maldonado On 22-Dec-2013 07:30 [...]
--- OUTSIDE RECORDS SUMMARY | 2016-12-20 15:47 | External Medical Summary | Summary of Care ---
[...] on: Zoster (Zostavax) Administered on:21-Mar-2014 Lot #: [id number] Prevnar 13 Intramuscular Suspension Administered on:21-Mar-2014 Lot #: [id number] Family History Mother Name Dates Details Family [...]
--- OUTSIDE RECORDS SUMMARY | 2016-12-20 15:47 | External Medical Summary | Summary of Care ---
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: Active Obstructive sleep apnea (327.23, G47.33) Status: Active Claustrophobia (300.29, F40.240) Status: Active [...] cm H2O, Permanent use, G47.33, Heated humidity, ImrisbdaR79, mask , headgear, filters, heated tubing, water [...] on: Zoster (Zostavax) Administered on:21-Mar-2014 Lot #: [id number] Prevnar 13 Intramuscular Suspension Administered on:21-Mar-2014 Lot #: [id number] Family History Mother Name Dates Details Family history of Hyperlipidemia Status: Active Family history of cerebrovascular accident (CVA) (V17.1, Z82.3) Status: Active Father Name Dates Details Family history of Cancer Status: Active Social History Name Dates Details Smoking StatusNever smoker Vital Signs Date Test Result Details 03-Apr-2015 09:32 BP Systolic 120 mm[Hg] Status: BP Diastolic 66 mm[Hg] Status: Heart Rate 78 /min Status: Weight 247 lb Status: O2 SAT 99 % Status: Body Mass Index Calculated 30.87 kg/m2 Status: Body Surface Area Calculated 2.4 m2 Status: Results Date Description Value Details 03-Apr-2015 08:47 CBC w/ Auto Diff 7150 Comments: Fastin hours WBC 4.6 K/uL (Better) Range: 4.5-11.0 RBC 4.26 mil/uL Range: 4.20-5.40 (Better) HGB 11.6 g/dL (Below Range: 14.0-18.0 low threshold) HCT 37.7 % (Below low Range: 42.0-53.0 threshold) MCV 88.5 fL (Better) Range: 80.0-99.0 MCH 27.3 pg (Better) Range: 27.3-32.5 MCHC 30.8 % (Below low Range: 32.0-36.0 threshold) RDW 15.7 % (Above Range: 11.6-14.8 high threshold) PLATELETS 152 K/uL (Better) Range: 150-400 MPV 8.4 fL (Better) Range: 6.0-11.0 %NEUTRO 61.3 % (Better) Range: 37.0-80.0 %LYMPHS 23.5 % (Better) Range: 13.0-50.0 %MONO 8.2 % (Better) Range: 0.0-12.0 %EOS 3.2 % (Better) Range: 0.0-7.0 %BASO 1.1 % (Better) Range: 0.0-2.5 %GAUTAM 2.7 % (Better) Range: 0.0-5.0 NEUTRO 2.8 K/uL (Better) Range: 2.0-6.9 LYMPHS 1.1 K/uL (Better) Range: 0.6-3.4 MONOS 0.4 K/uL (Better) Range: 0.0-0.9 EOS 0.2 K/uL (Better) Range: 0.0-0.7 BASO 0.1 K/uL (Better) Range: 0.0-0.2 09:18 Comprehensive Metabolic Comments: Fastin hours Panel 1212 SODIUM 137 mmol/L Range: 133-144 (Better) POTASSIUM 3.7 mmol/L Range: 3.5-5.1 (Better) CHLORIDE 96 mmol/L (Below Range: 98-110 low threshold) CARBON DIOXIDE 30.2 mmol/L Range: 23.0-33.0 (Better) ANION GAP 11 mmol/L Range: 6-16 (Better) BUN 30 mg/dL (Above Range: 7-18 high threshold) CREATININE, SERUM 1.62 mg/dL (Above Range: 0.70-1.30 high threshold) Comments: Please note new reference ranges effective 07/01.----- BUN:CREATININE RATIO 19 (Better) EST GFR, 52 ml/min (Below Range: >60 low threshold) EST GFR, NON-AFR TANZANIAN 43 ml/min (Below Range: >60 low threshold) Comments: EST GFR is reported in ml/min per 1.73 m2 of body surface area. For -Azerbaijani, please multiple result by 1.2.----- GLUCOSE 112 mg/dL (Above Range: 70-100 high threshold) ALK PHOSPHATASE 122 U/L (Above Range: 46-116 high threshold) TOTAL BILIRUBIN 1.10 mg/dL (Above Range: 0.20-1.00 high threshold) AST 25 U/L (Better) Range: 8-35 ALT 26 U/L (Better) Range: 16-63 Comments: Please note new reference ranges. Effective 04/20/2014.----- ALBUMIN 4.1 g/dL (Better) Range: 3.4-5.0 TOTAL PROTEIN 7.6 g/dL (Better) Range: 6.4-8.2 A/G RATIO 1.2 units Range: 1.0-1.8 (Better) CALCIUM 9.1 mg/dL Range: 8.5-10.1 (Better) 09:18 IRON 1254 Comments: Fastin hours IRON 33 ug/dL (Below Range: 65-175 low threshold) 09:19 LIPID PROFILE 1184 Comments: Fastin hours CHOLESTEROL 98 mg/dL (Better) Range: <200 TRIGLYCERIDES 39 mg/dL (Better) Range: 30-200 HDL Cholesterol 48 mg/dL (Better) Range: >39 NON HDL CHOLESTEROL 50 (Better) CARDIAC RSK FACTOR 2.0 units (Below Range: 4.4-5.0 low threshold) LDL - CALCULATED 42 mg/dL (Better) Range: 0-130 09:20 FERRITIN 3025 Comments: Fastin hours FERRITIN 27 ng/mL (Better) Range: 22-322 Plan of Care [...] 11:00 Instructions Instructions not documented Encounters Appointment; Edurado Zaman On 03-Apr-2015 Encounter Diagnosis: Problem not [...]
--- OUTSIDE RECORDS SUMMARY | 2016-12-20 15:47 | External Medical Summary | Summary of Care ---
:1950 Author Name Lotus Rubio M.D. Address [address] [place], [place] [id number] Care Team Providers Name Role Phone Joanne Falcon, Lotus Bran Unavailable Unavailable Paloma Hart Unavailable Unavailable Maetusz Maldonado M.D. Unavailable Unavailable Shant Rubio Primary [...] Status: Active Claustrophobia (300.29, F40.240) Status: Active Atrial fibrillation (427.31, I48.91) Status: Active Chronic systolic congestive heart failure (428.22, I50.22) Status: Active Hypertension (401.9, I10) Status: Active Hyperlipidemia (272.4, E78.5) Status: Active Obstructive sleep apnea (327.23, G47.33) Status: Active Renal insufficiency (593.9, N28.9) Status: Active Medications Name Dates Details Simvastatin [...] cm H2O, Permanent use, G47.33, Heated humidity, UgudlwxuS02, mask , headgear, filters, heated tubing, water [...] on: Zoster (Zostavax) Administered on:21-Mar-2014 Lot #: [id number] Prevnar 13 Intramuscular Suspension Administered on:21-Mar-2014 Lot #: [id number] Family History Mother Name Dates Details Family history of Hyperlipidemia Status: Active Family history of cerebrovascular accident (CVA) (V17.1, Z82.3) Status: Active Father Name Dates Details Family history of Cancer Status: Active Social History Name Dates Details Smoking StatusNever smoker Vital Signs Date Test Result Details 03-Apr-2015 10:49 BP Systolic 118 mm[Hg] Status: BP Diastolic 58 mm[Hg] Status: Heart Rate 80 /min Status: Height 75 in Status: Weight 250 lb Status: Body Mass Index Calculated 31.25 kg/m2 Status: Body Surface Area Calculated 2.41 m2 Status: 03-Apr-2015 09:32 BP Systolic 120 mm[Hg] Status: [...] Range: >60 low threshold) EST GFR, NON-AFR ESTONIAN 43 ml/min (Below Range: >60 low threshold) Comments: EST GFR is reported in ml/min per 1.73 m2 of body surface area. For -Montenegrin, please multiple result by 1.2.----- GLUCOSE 112 [...] Provider: Mark Maldonado On 14:45 Appointment; Provider: eNil Justin On 08:15 Appointment; Provider: Shant Rubio On 14:00 Appointment; Provider: Eduardo Zaman On 08-May-2015 10:45 Appointment; Provider: Mark Maldonado On 22-Dec-2013 07:30 Appointment; Provider: Mark Maldonado On 24-Feb-2013 09:30 Appointment; Provider: Mark Maldonado On 18-Feb-2013 08:30 Appointment; Provider: Sweetie Langston On 04-Jan-2013 09:45 Appointment; Provider: Mark Maldonado On 23-Oct-2011 10:30 Appointment; Provider: Mark Maldonado On 15-Nov-2010 08:00 Appointment; Provider: Makr Maldonado On 09:00 Appointment; Provider: Mark Maldonado On 17-May-2010 08:15 Appointment; Provider: Zach Jean On 04-Apr-2010 09:45 Appointment; Provider: Mark Maldonado On 15-Feb-2010 08:30 Appointment; Provider: Mark Maldonado On 16-Nov-2009 09:15 Appointment; Provider: Mark Maldonado On 07:30 Appointment; Provider: Joshua Plasencia On 14:00 Appointment; Provider: Joshua Plasencia On 06-Jul-2009 11:00 Instructions Instructions not documented Encounters Appointment; Shant Rubio On 03-Apr-2015 Encounter Diagnosis: [...]
--- OUTSIDE RECORDS SUMMARY | 2016-12-20 15:47 | External Medical Summary | Summary of Care ---
:1950 Author Name Joanne Falcon, Lotus Bran Address [address] [place], [place] [address] Care Team Providers Name Role Phone Joanne Falcon, Lotus Bran Unavailable Unavailable Jonh Lanier M.D. Unavailable Unavailable Mateusz Maldonado M.D. Unavailable Unavailable Elena aFlcon, Rosie Barton Unavailable Unavailable Shant Rubio Unavailable [...] Refills: 3 Shant Rubio M.D. Start Active Spironolactone 50 MG Oral Tablet TAKE [...] Lanier M.D. Start 03-Mar-2016 Active Betamethasone Dipropionate Sep 0.05 % External Cream APPLY SPARINGLY TO [...] tablet daily Quantity: 30 Refills: 11 Joel FalconMrak Start Active Aspir-Low 81 MG Oral Tablet Delayed Release TAKE 1 TABLET IN THE PM Refills: 0 Start 26-Sep-2014 Active Allergies and Adverse Reactions Name [...] on: Zoster (Zostavax) on: 21-Mar-2014 Lot #: [id number] Prevnar 13 Intramuscular Suspension on: 21-Mar-2014 Lot #: [id number] Family History Mother Name Dates Details Family history of Hyperlipidemia Status: Active Family history of cerebrovascular accident (CVA) (V17.1, Z82.3) Status: Active Father Name Dates Details Family history of Cancer Status: Active Social History Name Dates Details - Status: Smoking Status Name Dates Details Never smoker Vital Signs Date Test Result Details 11:15 BP Systolic 100 mm[Hg] Status: Comments: [...] low Range: >60 threshold) EST GFR, NON-AFR MALTESE 43 ml/min (Below low Range: >60 threshold) [...] Shant Rubio M.D. On 10:00 Appointment; Provider: Shant Rubio M.D. On 09:45 Appointment; Provider: Jonh Lanier M.D. On 11:30 Instructions Name Dates Details Instructions not documented Encounters Appointment; Rufino Rayo P.A. On Encounter Diagnosis: Problem not documented 11:15 [...]
--- OUTSIDE RECORDS SUMMARY | 2016-12-20 15:48 | External Medical Summary | Summary of Care ---
:1950 Author Name Lotus Rubio M.D. Address [address] [place], [place] [id number] Care Team Providers Name Role Phone Lotus [...] Left hip pain (719.45, M25.552) Status: Active Pre-operative exam (V72.84, Z01.818) Status: [...] Active Abdominal pain (789.00, R10.9) Status: Active CAD (coronary atherosclerotic disease) (414.00, [...] on: Zoster (Zostavax) Administered on:21-Mar-2014 Lot #: [id number] Prevnar 13 Intramuscular Suspension Administered on:21-Mar-2014 Lot #: [id number] Family History Mother Name Dates Details Family [...] Range: >60 low threshold) EST GFR, NON-AFR MALDIVIAN 41 ml/min (Below Range: >60 low threshold) Comments: EST GFR is reported in ml/min per 1.73 m2 of body surface area. For -Cymraes, please multiple result by 1.2.----- BUN:CREATININE RATIO [...] Range: >60 low threshold) EST GFR, NON-AFR MALDIVIAN 36 ml/min (Below Range: >60 low threshold) Comments: EST GFR is reported in ml/min per 1.73 m2 of body surface area. For -Cymraes, please multiple result by 1.2.----- GLUCOSE 101 [...] not documented Encounters Appointment; Shant Rubio On 19-Sep-2014 Encounter Diagnosis: [...]
--- OUTSIDE RECORDS SUMMARY | 2016-12-20 15:48 | External Medical Summary | Summary of Care ---
:1950 Author Name Mateusz Maldonado M.D. Address [address] [place], [place] [address] Care Team Providers Name Role Phone Lotus [...] on: Zoster (Zostavax) Administered on:21-Mar-2014 Lot #: [id number] Prevnar 13 Intramuscular Suspension Administered on:21-Mar-2014 Lot #: [id number] Family History Mother Name Dates Details Family [...]
--- OUTSIDE RECORDS SUMMARY | 2016-12-20 15:48 | External Medical Summary | Summary of Care ---
:1950 Author Name Lotus Rubio M.D. 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: Active Obstructive sleep apnea (327.23, G47.33) Status: Active Paroxysmal atrial fibrillation (427.31, I48.0) Status: Active Chronic systolic congestive heart failure (428.22, I50.22) Status: Active CAD (coronary atherosclerotic disease) (414.00, I25.10) Status: Active Biventricular ICD (implantable cardioverter-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 Start 11-Sep-2015 Active Klor-Con M20 20 MEQ Oral Tablet Extended Release TAKE 1 TABLET DAILY. Quantity: 30 Refills: 6 Shant Rubio M.D. Start 02-Jan-2015 Active Supplies AutoCPAP 8-12 cm H2O, Permanent use, G47.33, Heated humidity, XwbxiotbY45, mask , headgear, filters, heated tubing, water [...] M.D. Start 14-May-2015 Active 30 GM Tube MetroNIDAZOLE 500 MG Oral Tablet Take 1 tablet twice daily Quantity: 14 Refills: 0 Shant Rubio M.D. Start Active Ondansetron HCl - 4 MG Oral Tablet ONE TABLET BY MOUTH EVERY 4 HOURS NEEDED FOR NAUSEA Quantity: 15 Refills: 3 Joanne Falcon, Shant Gautam Start Active Levothyroxine Sodium 75 MCG Oral Tablet TAKE 1 TABLET DAILY. Quantity: 30 Refills: 6 Joanne Falcon, Shant Lotus Start Active Allergies and Adverse Reactions Name [...] on: Zoster (Zostavax) on: 21-Mar-2014 Lot #: [id number] Prevnar 13 Intramuscular Suspension on: 21-Mar-2014 Lot #: [id number] Family History Mother Name Dates Details Family history of Hyperlipidemia Status: Active Family history of cerebrovascular accident (CVA) (V17.1, Z82.3) Status: Active Father Name Dates Details Family history of Cancer Status: Active Social History Name Dates Details - Status: Smoking Status Name Dates Details Never smoker Vital Signs Date Test Result Details 28-Sep-2015 10:28 BP Systolic 120 mm[Hg] Status: [...] low Range: >60 threshold) EST GFR, NON-AFR ANGUILLAN 44 ml/min (Below low Range: >60 threshold) Comments: EST GFR is reported in ml/min per 1.73 m2 of body surface area. For -Burkinan, please multiple result by 1.2.----- GLUCOSE 95 [...] 11:00 Appointment; Provider: Mark Maldonado M.D. On 28-Nov-2015 14:45 Appointment; Provider: Mick Parker M.D. On 06-Nov-2015 08:15 Appointment; Provider: Mark Maldonado M.D. On 10-Oct-2015 10:45 Interventions Provided Medication ChangesLevothyroxine Sodium 75 MCG Oral Tablet - Renew Instructions Name Dates Details Instructions not documented [...]
--- OUTSIDE RECORDS SUMMARY | 2016-12-20 15:48 | External Medical Summary | Summary of Care ---
:1950 Author Name Lotus Rubio M.D. 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 Started 14-May-2015 Pwnqdd65 GM Tube Allergies and Adverse Reactions Name [...] Ordered:04-Apr-2015 IRON 1254 Ordered:04-Apr-2015 Testosterone,Free and Total [id number] Ordered:04-Apr-2015 Immunization Name Dates Details Tdap (Adacel) Administered on: Zoster (Zostavax) Administered on:21-Mar-2014 Lot #: [id number] Prevnar 13 Intramuscular Suspension Administered on:21-Mar-2014 Lot #: [id number] Family History Mother Name Dates Details Family [...]
--- OUTSIDE RECORDS SUMMARY | 2016-12-20 15:48 | External Medical Summary | Summary of Care ---
:1950 Author Name Girma SpearsNicholasRufino Address [address] [place], [place] [phone] Care Team Providers Name Role Phone Lotus Rubio M.D. Unavailable Unavailable Mckayla Falcon, Laurent Unavailable Unavailable Mateusz Maldonado M.D. Unavailable Unavailable [...] on: Zoster (Zostavax) Administered on:21-Mar-2014 Lot #: [id number] Prevnar 13 Intramuscular Suspension Administered on:21-Mar-2014 Lot #: [id number] Family History Mother Name Dates Details Family [...] Mark Maldonado On 22-Dec-2013 07:30 Appointment; Provider: Mrak Maldonado On 24-Feb-2013 09:30 Appointment; Provider: Mark [...]
--- OUTSIDE RECORDS SUMMARY | 2016-12-20 15:49 | External Medical Summary | Summary of Care ---
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81, Z01.810) Status: Active 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, 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 Effusion of right olecranon bursa (719.02, M25.421) Status: Active Obstructive sleep apnea (327.23, G47.33) Status: Active Impotence (607.84, N52.9) Status: Active Anxiety (300.00, F41.9) Status: Active [...] Status: Active Hypothyroidism (244.9, E03.9) Status: Active Acid reflux (530.81, K21.9) Status: Active Diarrhea (787.91, R19.7) Status: Active Nausea (787.02, R11.0) Status: Active Rash (782.1, R21) Status: Active History of gastric ulcer (V12.79, Z87.19) Status: Active Benign pigmented nevus (216.9, D22.9) Status: Active Medications Name Dates Details Simvastatin [...] AREA(S) TWICE DAILY. Quantity: 1 Refills: 1 Mick Parker M.D. Start 16-Jun-2016 Active 50 GM Tube Minocycline HCl - 100 MG Oral Capsule one po bid x 14 days Quantity: 28 Refills: 0 Joanne Falcon, Shant Gautam Start 27-Jun-2016 Active HydrOXYzine HCl - 25 MG Oral Tablet TAKE ONE TAB PO EVERY 6 HRS PRN Quantity: 30 Refills: 1 Joanne Falcon, Shant Gautam Start Active Triamcinolone Acetonide 0.1 % External Cream USE TWO TIMES DAILY NEEDED Quantity: 30 Refills: 1 Joanne Falcon, Shant Gautam Start Active LevoFLOXacin 750 MG Oral Tablet TAKE 1 TABLET DAILY. Quantity: 10 Refills: 0 Joanne Falcon, Shant Gautam Start Active Levothyroxine Sodium 75 MCG Oral Tablet TAKE 1 TABLET DAILY. Refills: 0 Start Active Triamcinolone Acetonide 0.1 % External Cream USE TWO TIMES A DAY Quantity: 1 Refills: 6 Joanne Falcon, Shant Gautam Start 14-May-2015 Active 30 GM Tube Spironolactone 50 MG Oral Tablet TAKE 1 TABLET DAILY. Quantity: 90 Refills: 3 Joel Falcon, Mark Child Start 14-May-2015 Active Allergies and Adverse Reactions Name Dates [...] Surgery Right History of Tonsillectomy History of Cardioverter-defibrillator Completed: Pulse Generator Insertion With Leads History of Extracaps Cataract Extract With Prosthesis Insert Right Eye History of Elective Cardioversion Completed: 23-Oct-2011 External PTCA Globe Enucleation Left History of Colostomy History of Knee Surgery History of Total Hip Replacement ECG/ EKG (Special[facility]) Ordered: Immunization Name Dates Details Tdap (Adacel) on: Zoster (Zostavax) on: 21-Mar-2014 Lot #: [id number] Prevnar 13 Intramuscular Suspension on: 21-Mar-2014 Lot #: [id number] Family History Mother Name Dates Details Family [...] low Range: >60 threshold) EST GFR, NON-AFR [place] 43 ml/min (Below low Range: >60 threshold) [...] Shant Rubio M.D. On 10:45 Appointment; Provider: Schedule Radiology On 30-May-2016 13:00 Appointment; Provider: Schedule Radiology On 17-Mar-2016 09:30 Appointment; Provider: Schedule Radiology On 15-Feb-2016 [...]
--- OUTSIDE RECORDS SUMMARY | 2016-12-20 15:49 | External Medical Summary | Summary of Care ---
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0) Status: Active Presbyopia (367.4, H52.4) Status: Active Vitreous floaters of right eye (379.24, H43.391) Status: Active Snoring (786.09, R06.83) Status: Active Renal insufficiency (593.9, N28.9) Status: Active Blister of ankle, right (916.2, S90.521A) Status: Active Dyspnea on exertion (786.09, R06.09) Status: Active Heme positive stool (792.1, R19.5) Status: Active Borderline glaucoma with ocular hypertension, 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 Start 30-Mar-2013 Active Pantoprazole Sodium 40 [...] NIGHT AT BEDTIME Quantity: 30 Refills: 4 Joanne Falcon, Shant Gautam Start 11-Sep-2015 Active Klor-Con M20 20 MEQ Oral Tablet Extended Release Take one tablet by mouth daily Quantity: 30 Refills: 3 Shant Rubio M.D. Start 08-Nov-2015 Active Supplies AutoCPAP 8-12 cm H2O, Permanent use, G47.33, Heated humidity, [id number], mask , headgear, filters, heated tubing, water chamber, chinstrap Quantity: 1 Refills: 0 Paloma Hart Start 03-Apr-2015 Active Triamcinolone Acetonide 0.1 % External Cream [...] Refills: 0 Shant Rubio M.D. Start Active Spironolactone 50 MG Oral Tablet TAKE 1 TABLET DAILY. Refills: 0 Joanne Falcon, Shant Gautam Start 14-May-2015 Active Iron 325 (65 Fe) MG Oral Tablet Take 1 tablet daily Refills: 0 Shant Rubio M.D. Start 14-May-2015 Active Pantoprazole Sodium 40 MG Oral Tablet Delayed Release TAKE 1 TABLET DAILY. Refills: 0 Joanne Falcon, Shant A Start 14-May-2015 Active Simvastatin 40 MG Oral Tablet TAKE ONE TABLET BY MOUTH EVERY NIGHT AT BEDTIME Quantity: 30 Refills: 10 Joanne Falcon, Shant A Start Active Allergies and Adverse Reactions Name [...] on: Zoster (Zostavax) on: 21-Mar-2014 Lot #: [id number] Prevnar 13 Intramuscular Suspension on: 21-Mar-2014 Lot #: [id number] Family History Mother Name Dates Details Family [...] Parker M.D. On 06-Nov-2016 08:15 Appointment; Provider: Neil Justin M.D. On 01-Feb-2016 13:30 Appointment; Provider: Shant Rubio M.D. On 15-Jan-2016 11:00 Appointment; Provider: Mark Maldonado M.D. On 26-Dec-2015 10:30 Appointment; Provider: Mark Maldonado M.D. On 25-Jun-2015 [...] Problem not documented 09:00 Appointment; Rufino Rayo PFarzanehAFarzaneh On 23-Jan-2014 Encounter Diagnosis: Problem not documented 13:45 Appointment; Neil Justin M.D. On 09-Jan-2014 Encounter Diagnosis: Problem not documented 08:45 Appointment; Rufino Rayo PFarzanehAFarzaneh On 30-Dec-2013 Encounter Diagnosis: Problem not documented 13:00
--- OUTSIDE RECORDS SUMMARY | 2016-12-20 15:49 | External Medical Summary ---
:1950 Author Organization [employer] Care Team Providers Name Role Phone Zechariah Cross Provider Role Unavailable Allergies, Adverse Reactions, Alerts Substance Reaction Event Type N.K.D.A. Info Not Available Non Drug Allergy Problems Problem Type Condition ICD-9 Code Onset Dates Condition Status Problem High Risk Med V58.69 Active Problem Chronic Anticoagulation V58.61 Active Problem Atrial fibrillation 427.31 Active Assessment High Risk Med V58.69 Active Assessment Chronic Anticoagulation V58.61 Active Assessment Atrial fibrillation 427.31 Active Assessment S/P Bivent ICD V45.02 Active Medications Medication Code Code Instructions Start End Date Status Dosage System Date Simvastatin [facility] 12794-58 80 MG Orally 1 tablet in 56-10 Once a day the evening Losartan [facility] 39998-59 25 MG Orally 1 tablet Potassium 23-22 Once a day Metolazone [facility] 17360-13 5 MG Orally Sat 1 tablet 55-01 only Klor-Con M20 [facility] 10707-89 20 MEQ Orally qd 1 tablet 58-01 Diclofenac [facility] 50356-52 75 MG Orally Sat 1 tablet Sodium 51-06 only prn Xarelto [facility] 36881-34 20 MG Orally 1 tablet 76-01 Once a day with food Pantoprazole [facility] 33568-98 40 MG Orally 1 tablet Sodium 44-01 Once a day Iron [facility] 23139-60 325 (65 Fe) MG 1 tablet 283 Orally bid Furosemide [facility] 29531-27 40 MG Orally 3 tabs 99-25 Once a day Aspirin [facility] 64817-83 81 MG Orally 1 tablet 805 Once a day Amiodarone HCl [facility] 19725-57 200 MG Orally 1 tablet 33-06 Once a day Procedures Procedure Coding System Code Date Office Visit, Est Pt., Level 4 CPT-4 73431 Oct 05, 2014 Ofc Program ICD BiV, Staff CPT-4 82015 Oct 05, 2014 ELECTROCARDIOGRAM, COMPLETE CPT-4 31347 Oct 05, 2014 Vital Signs Date/Time: Oct 05, 2014 BMI 31.37 Index Weight 251. lbs Height 6 ft 3 in in Cardiac Monitoring Heart Rate 79 /min Oximetry 97% % Blood Pressure Diastolic 60 mm Hg Blood Pressure Systolic 94 mm Hg Results No Known Results Summary Purpose [employer] Submission
--- OUTSIDE RECORDS SUMMARY | 2016-12-20 15:49 | External Medical Summary | Summary of Care ---
:1950 Author Name Mateusz Maldonado M.D. Address [address], [place] [id number] Care Team Providers Name Role Phone Lotus [...] on: Zoster (Zostavax) Administered on:21-Mar-2014 Lot #: [id number] Prevnar 13 Intramuscular Suspension Administered on:21-Mar-2014 Lot #: [id number] Family History Mother Name Dates Details Family [...]
--- OUTSIDE RECORDS SUMMARY | 2016-12-20 15:49 | External Medical Summary | Summary of Care ---
[...] not documented Status: Problems Name Dates Details Snoring (786.09, R06.83) Status: Active Benign pigmented nevus (216.9, D22.9) Status: Active Benign neoplasm of skin of [...] atrial fibrillation (V45.89, Z98.89) Status : Active Conjunctivitis, acute (372.00, H10.30) Status: Active Globe Enucleation Left Status: Active 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, Z97.0) [...] 30 Refills: 11 Shant Rubio M.D. Started ActiveMetolazone 5 MG Oral Tablet [...] cm H2O, Permanent use, G47.33, Heated humidity, [id number], mask , headgear, filters, heated tubing, water chamber, chinstrap Quantity: 1 Refills: 0 Paloma Castillo P.AFarzaneh Started 03-Apr-2015 ActiveClonazePAM 1 MG Oral Tablet TAKE 1/2 TAB PO QHS X 1 WEEK, THEN INCREASE TO 1 TAB PO QHS IF NEEDED Quantity: 30 Refills: 5 Paloma Castillo P.AFarzaneh Started 03-Apr-2015 ActiveFurosemide 40 MG Oral Tablet TAKE 1 TABLET TWICE DAILY. Quantity: 30 Refills: 0 Shant Rubio M.D. Started 16-Jun-2011 Active Allergies and Adverse [...] Right History of Tonsillectomy History of Cardioverter-defibrillator Pulse Completed: Generator Insertion With Leads History of Extracaps Cataract Extract With Prosthesis Insert Right Eye History of Elective Cardioversion External Completed:23-Oct-2011 PTCA Globe Enucleation Left History of Colostomy History of Knee Surgery History of Total Hip Replacement CBC w/ Auto Diff 7150 Ordered:04-Apr-2015 Comprehensive Metabolic Panel 1212 Ordered:04-Apr-2015 LIPID PROFILE 1184 Ordered:04-Apr-2015 THYROID STIM. HORMONE 3602 Ordered:04-Apr-2015 FERRITIN 3025 Ordered:04-Apr-2015 IRON 1254 Ordered:04-Apr-2015 Testosterone,Free and Total [id number] Ordered:04-Apr-2015 Immunization Name Dates Details Tdap (Adacel) Administered on: Zoster (Zostavax) Administered on:21-Mar-2014 Lot #: [id number] Prevnar 13 Intramuscular Suspension Administered on:21-Mar-2014 Lot #: [id number] Family History Mother Name Dates Details Family [...] Provider: Mark Maldonado On 07:30 Appointment; Provider: Josuha Plasencia On 14:00 Appointment; Provider: Joshua Plasencia [...]
--- OUTSIDE RECORDS SUMMARY | 2016-12-20 15:50 | External Medical Summary | Summary of Care ---
:1950 Author Name Mateusz Maldonado M.D. Address [address], [place] [id number] Care Team Providers Name Role Phone Lotus [...] Pre-operative cardiovascular examination (V72.81, Z01.810) Status: Active Medications Name Dates Details Simvastatin [...] cm H2O, Permanent use, G47.33, Heated humidity, [id number], mask , headgear, filters, heated tubing, water [...] Refills: 6 Shant Rubio M.D. Started 14-May-2015 [id number] GM Tube MethylPREDNISolone 4 MG Oral Tablet [...] Left PTCA ECG/ EKG Outside Interp Pendin19-Jun-2015 BASIC METABOLIC PROFILE 1210 Ordered:21-Jun-2015 CBC w/ Auto Diff 7150 Ordered:21-Jun-2015 Immunization Name Dates Details Tdap (Adacel) Administered on: Zoster (Zostavax) Administered on:21-Mar-2014 Lot #: [id number] Prevnar 13 Intramuscular Suspension Administered on:21-Mar-2014 Lot #: [id number] Family History Mother Name Dates Details Family [...]
--- OUTSIDE RECORDS SUMMARY | 2016-12-20 15:50 | External Medical Summary | Summary of Care ---
[...] on: Zoster (Zostavax) Administered on:21-Mar-2014 Lot #: [id number] Prevnar 13 Intramuscular Suspension Administered on:21-Mar-2014 Lot #: [id number] Family History Mother Name Dates Details Family [...]
--- OUTSIDE RECORDS SUMMARY | 2016-12-20 15:50 | External Medical Summary | Summary of Care ---
:1950 Author Name Mateusz Maldonado M.D. Address [address] [place], [place] [id number] Care Team Providers Name Role Phone Lotus [...] cm H2O, Permanent use, G47.33, Heated humidity, UsexybauV20, mask , headgear, filters, heated tubing, water [...] Refills: 6 Shant Rubio M.D. Started 14-May-2015 [id number] GM Tube Allergies and Adverse Reactions Name [...] Ordered:04-Apr-2015 IRON 1254 Ordered:04-Apr-2015 Testosterone,Free and Total [id number] Ordered:04-Apr-2015 Immunization Name Dates Details Tdap (Adacel) Administered on: Zoster (Zostavax) Administered on:21-Mar-2014 Lot #: [id number] Prevnar 13 Intramuscular Suspension Administered on:21-Mar-2014 Lot #: [id number] Family History Mother Name Dates Details Family [...]
--- OUTSIDE RECORDS SUMMARY | 2016-12-20 15:50 | External Medical Summary | Summary of Care ---
:1950 Author Organization [facility] Address [address] [place] [address] Phone Care Team Providers Name Role Phone [...] cm H2O, Permanent use, G47.33, Heated humidity, IydeyyabY76, mask , headgear, filters, heated tubing, water [...] on: Zoster (Zostavax) on: 21-Mar-2014 Lot #: [id number] Prevnar 13 Intramuscular Suspension on: 21-Mar-2014 Lot #: [id number] Family History Mother Name Dates Details Family [...] low Range: >60 threshold) EST GFR, NON-AFR [place] 44 ml/min (Below low Range: >60 threshold) [...]
--- OUTSIDE RECORDS SUMMARY | 2016-12-20 15:51 | External Medical Summary | Summary of Care ---
:1950 Author Organization 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, Z97.0) Status: Active Benign pigmented nevus (216.9, D22.9) Status: Active Sebaceous hyperplasia (706.8, L73.8) Status: Active Insomnia (780.52, 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: Active Presbyopia OU (367.4, H52.4) Status: Active Persistent proteinuria (791.0, R80.1) Status: Active Dyspnea on exertion (786.09, R06.09) Status: Active 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, 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, 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, 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91, R19.7) Status: Active Edema (782.3, R60.9) Status: Active Rash (782.1, R21) Status: Active Hyperlipidemia (272.4, E78.5) Status: Active Hyponatremia (276.1, E87.1) Status: Active Hypothyroidism (244.9, E03.9) Status: Active Impotence (607.84, N52.9) Status: Active Lymphedema (457.1, I89.0) Status: Active 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, 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: Active CKD (chronic kidney disease) stage 3, GFR 30-59 ml/min (585.3, N18.3) Status : Active Snoring (786.09, R06.83) Status: Active Generalized edema (782.3, R60.1) Status: Active Conjunctivitis, acute (372.00, H10.30) Status: Active Paroxysmal atrial fibrillation (427.31, I48.0) Status: Active CAD (coronary atherosclerotic disease) (414.00, I25.10) Status: Active Pre-operative cardiovascular examination (V72.81, Z01.810) Status: Active Benign neoplasm of skin of buttock (216.5, D23.5) Status: Active Anticoagulant long-term use (V58.61, Z79.01) Status: Active Chronic systolic congestive heart failure (428.22, I50.22) Status: Active Hypertension (401.9, I10) Status: Active Blister of ankle, right (916.2, S90.521A) Status: Active Biventricular ICD (implantable cardioverter-defibrillator) in place (V45.02, Z95.810) Status: Active Vitreous floaters of right eye (379.24, H43.391) Status: Active Effusion of right olecranon bursa (719.02, M25.421) Status: Active Status post catheter ablation of atrial fibrillation (V45.89, Z98.890) Status: Active Renal insufficiency (593.9, N28.9) Status: Active 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 Refills: 0 Start 28-Feb-2016 Active MetOLazone 5 MG Oral Tablet take 1 tablet by mouth every day Quantity: 30 Refills: 1 Jonh Lanier M.D. Start 03-Mar-2016 Active Bumetanide 1 MG Oral Tablet TAKE 2 TABLET Twice daily Quantity: 360 Refills: 3 Jonh Lanier M.D. Start 07-Feb-2016 Active Triamcinolone Acetonide 0.1 % External Cream USE TWO TIMES A DAY Quantity: 1 Refills: 6 Joanne Falcon, Shant Gautam Start 14-May-2015 Active 30 GM Tube Spironolactone 50 MG Oral Tablet TAKE 1 TABLET DAILY. Refills: 0 Joanne Falcon, Shant Gautam Start 14-May-2015 Active Pantoprazole Sodium 40 MG Oral Tablet Delayed Release Take one tablet by mouth daily Quantity: 30 Refills: 10 Joanne Falcon, Shant Gautam Start 09-Nov-2015 Active Simvastatin 40 MG Oral Tablet TAKE ONE TABLET BY MOUTH EVERY NIGHT AT BEDTIME Quantity: 30 Refills: 10 Joanne Falcon, Shant Gautam Start Active Allergies and Adverse [...] Resolved Procedures Procedure Dates Details History of Tonsillectomy History of Total Hip Replacement History of Elective Cardioversion Completed: 23-Oct-2011 External PTCA Globe Enucleation Left History of Extracaps Cataract Extract With Prosthesis Insert Right Eye History of Cardioverter-defibrillator Completed: Pulse Generator Insertion With Leads History of Colostomy History of Knee Surgery History of Foot Surgery Right BASIC METABOLIC PROFILE 1210 Ordered: 08-Feb-2016 RENAL PROFILE 1240 Ordered: 26-Mar-2016 MAGNESIUM 1260 Ordered: 26-Mar-2016 URINE PROT CREAT RATIO 1193 Ordered: 26-Mar-2016 Immunization Name Dates Details Tdap (Adacel) on: Zoster (Zostavax) on: 21-Mar-2014 Lot #: [id number] Prevnar 13 Intramuscular Suspension on: 21-Mar-2014 Lot #: [id number] Family History Mother Name Dates Details Family history of Hyperlipidemia Status: Active Family history of cerebrovascular accident (CVA) (V17.1, Z82.3) Status: Active Father Name Dates Details Family history of Cancer Status: Active Social History Name Dates Details - Status: Smoking Status Name Dates Details Never smoker Vital Signs Date Test Result Details 17-Mar-2016 13:49 BP Systolic 110 mm[Hg] Status: [...] low Range: >60 threshold) EST GFR, NON-AFR [place] 44 ml/min (Below low Range: >60 threshold) [...] low Range: >60 threshold) EST GFR, NON-AFR [place] 44 ml/min (Below low Range: >60 threshold) [...] 11:15 Appointment; Provider: Jonh Lanier M.D. On 07-Apr-2016 [...]
--- OUTSIDE RECORDS SUMMARY | 2016-12-20 15:52 | External Medical Summary | Summary of Care ---
:1950 Author Name Atif MUSA R Darla Address [address] [place], [place] [id number] Care Team Providers Name Role Phone Lotus Rubio M.D. Unavailable Unavailable Paloma Hart Unavailable Unavailable Yolande [...] 30-59 ml/min (585.3, N18.3) Status : Active Persistent proteinuria (791.0, R80.1) Status: Active Hyponatremia (276.1, E87.1) Status: Active Generalized edema (782.3, R60.1) Status: Active Medications Name Dates Details Simvastatin [...] cm H2O, Permanent use, G47.33, Heated humidity, [id number], mask , headgear, filters, heated tubing, water chamber, chinstrap Quantity: 1 Refills: 0 Jonathan P.APaloma Moy Start 03-Apr-2015 Active Spironolactone 50 MG [...] on: Zoster (Zostavax) on: 21-Mar-2014 Lot #: [id number] Prevnar 13 Intramuscular Suspension on: 21-Mar-2014 Lot #: [id number] Family History Mother Name Dates Details Family [...] low Range: >60 threshold) EST GFR, NON-AFR [place]ESE 44 ml/min (Below low Range: >60 threshold) [...] low Range: >60 threshold) EST GFR, NON-AFR [place]ESE 44 ml/min (Below low Range: >60 threshold) [...] Lanier M.D. On 07-Apr-2016 14:30 Appointment; Provider: Shant Rubio M.D. On 28-Mar-2016 11:00 Interventions Provided Medication ChangesBumetanide 1 MG Oral Tablet - Renew Instructions Name Dates [...] Diagnosis: Problem not documented 09:00 Appointment; Ángel Vuaghan M.D. On 15-Sep-2014 Encounter Diagnosis: Problem not [...]
--- OUTSIDE RECORDS SUMMARY | 2016-12-20 15:52 | External Medical Summary ---
[...] problems exist. Plan of Care Procedures Completed Procedure Code: 6399254 Procedure Name: not valued, on 07/29/2016 12: 00 AMCompleted Colonoscopy, by MD MARIA A CASTLE, on 07/16/2014 7:42 AMCompleted Esophagogastroduodenoscopy, by MD MARIA A CASTLE, on 07/16/2014 7: 32 AMCompleted Procedure Code: 00.00 Procedure Name: not valued, on 07/16/2014 12 :00 AMCompleted Procedure Code: 99833 Procedure Name: not valued, on 07/16/2014 12:00 AMCompleted Procedure Code: 19887 Procedure Name: not valued, on 2014 12:00 [...] Allergies, Adverse Reactions, Alerts This section is dental detail representative of the current allergy information, at [...] the responsibility of the patient or patient dental detail representative to confirm the list of medicationswith either the patient's personal care provider or the patient's follow-up care provider to ensure the patient has an appropriate list of medications to take at home. Discharge medicationsContinued medicationsamiodarone 200 mg Tablet, Ordered By: PADMA DEL ROSARIO MD Directions: 1 tablet oral twice a day for for rhythm control levothyroxine 75 mcg Tablet, Ordered By: PADMA DEL ROSARIO MD Directions: 1 tablet oral daily before breakfast furosemide 40 mg Tablet, Ordered By: PADMA DEL ROSARIO MD Directions: 1 tablet oral daily aspirin 81 mg tablet,chewable, Ordered By: PADMA DEL ROSARIO MD Directions: 1 tablet oral daily every evening apixaban (Eliquis) 5 mg Tablet, Ordered By: PADMA DEL ROSARIO MD Directions: 1 tablet oral twice a day simvastatin 40 mg Tablet, Ordered By: PADMA DEL ROSARIO MD Directions: 1 tablet oral daily at bedtime pantoprazole 40 mg tablet,delayed release (DR/EC), Ordered By: PADMA DEL ROSARIO MD Directions: 1 tablet oral daily metoLAZOne 5 mg Tablet, Ordered By: PADMA DEL ROSARIO MD Directions: 1 tablet oral daily losartan 25 mg Tablet, Ordered By: PADMA DEL ROSARIO MD Directions: 1 tablet oral daily Additional Instructions: 07/28/2016 spironolactone 50 mg Tablet, Ordered By: PADMA DEL ROSARIO MD Directions: 1 tablet oral daily Stopped medicationsNone
--- OUTSIDE RECORDS SUMMARY | 2016-12-20 15:52 | External Medical Summary | Summary of Care ---
:1950 Author Name Lotus Rubio M.D. Address [address], [place] [id number] Care Team Providers Name Role Phone Lotus [...] on: Zoster (Zostavax) Administered on:21-Mar-2014 Lot #: [id number] Prevnar 13 Intramuscular Suspension Administered on:21-Mar-2014 Lot #: [id number] Family History Mother Name Dates Details Family history of Hyperlipidemia Status: Active Father Name Dates Details Family history of Cancer Status: Active Social History Name Dates Details Smoking StatusNever smoker Vital Signs Date Test Result Details 09:27 BP Systolic 130 mm[Hg] Status: BP Diastolic 62 mm[Hg] Status: Heart Rate 68 /min Status: Weight 252.5 lb Status: Height 75 in Status: Body Mass Index Calculated 31.56 kg/m2 Status: Body Surface Area Calculated 2.42 m2 Status: 13:21 BP Systolic 122 mm[Hg] Status: BP [...] Range: >60 low threshold) EST GFR, NON-AFR RUSSIAN 45 ml/min (Below Range: >60 low threshold) Comments: EST GFR is reported in ml/min per 1.73 m2 of body surface area. For -Mongolian, please multiple result by 1.2.----- GLUCOSE 95 [...]
--- OUTSIDE RECORDS SUMMARY | 2016-12-20 15:52 | External Medical Summary | Summary of Care ---
:1950 Author Name Lotus Rubio M.D. Address Unavailable Unavailable , Care Team Providers Name Role Phone Joanne Falcon, Lotus Brna Unavailable Unavailable Paloma Hart Unavailable Unavailable Mateusz [...] Z97.0) Status: Active Medications Name Dates Details Furosemide [...] Refills: 0 Mark Maldonado M.D. Started 13-Dec-2014 ActiveSupplies AutoCPAP 8-12 cm H2O, Permanent use, G47.33, Heated humidity, CjewlaieS27, mask , headgear, filters, heated tubing, water [...] TAKE 1 TABLET DAILY. Refills: 0 Shant uRbio M.D. Started 14-May-2015 ActiveTriamcinolone Acetonide 0.1 % External Cream USE TWO TIMES A DAY Quantity: 1 Refills: 6 Shant Rubio M.D. Started 14-May-2015 Waylel71 GM Tube MetroNIDAZOLE 500 MG Oral Tablet Take 1 tablet twice daily Quantity: 14 Refills: 0 Shant Rubio M.D. Started ActiveKlor-Con M20 20 MEQ Oral Tablet Extended Release TAKE 1 TABLET DAILY. Quantity: 30 Refills: 6 Shant Rubio M.D. Started 02-Jan-2015 ActiveOndansetron HCl - 4 MG Oral Tablet ONE TABLET BY MOUTH EVERY 4 HOURS NEEDED FOR NAUSEA Quantity: 15 Refills: 3 Shant Rubio M.D. Started ActiveSimvastatin 40 MG Oral Tablet TAKE ONE TABLET BY MOUTH EVERY NIGHT AT BEDTIME Quantity: 30 Refills: 10 Shant Rubio M.D. Started ActiveLevothyroxine Sodium 50 [...] on: Zoster (Zostavax) Administered on:21-Mar-2014 Lot #: [id number] Prevnar 13 Intramuscular Suspension Administered on:21-Mar-2014 Lot #: [id number] Family History Mother Name Dates Details Family [...]
--- OUTSIDE RECORDS SUMMARY | 2016-12-20 15:53 | External Medical Summary | Summary of Care ---
:1950 Author Name Joanne Falcon, Lotus Bran Address [address] [place], [place] [address] Care Team Providers Name Role Phone Joanne [...] cm H2O, Permanent use, G47.33, Heated humidity, [id number], mask , headgear, filters, heated tubing, water [...] 0 Joanne Falcon, Shant Gautam Start Active Viagra 100 MG Oral Tablet Use as needed before sexual activity Quantity: 15 Refills: 3 Joel Falcon, Mark Child Start 26-Dec-2015 Active Levothyroxine Sodium 75 MCG Oral Tablet TAKE 1 TABLET DAILY. Quantity: 30 Refills: 11 Joanne Falcon, Shant Gautam Start 15-Jan-2016 Active ALPRAZolam 0.25 MG Oral Tablet TAKE ONE TO TWO TABLETS BY MOUTH EVERY 8 HOURS NEEDED Quantity: 30 Refills: 5 Joanne Falcon, Shant Gautam Start 15-Jan-2016 Active MetOLazone 5 MG Oral [...] on: Zoster (Zostavax) on: 21-Mar-2014 Lot #: [id number] Prevnar 13 Intramuscular Suspension on: 21-Mar-2014 Lot #: [id number] Family History Mother Name Dates Details Family [...] Range: >60 threshold) EST GFR, NON-AFR [place]ANI 39 ml/min (Below low Range: >60 threshold) [...] Rubio M.D. On 07-Feb-2016 13:00 Appointment; Provider: Neil Justin M.D. On 01-Feb-2016 13:30 Interventions Provided Medication ChangesMetOLazone 5 MG Oral Tablet - Renew Instructions Name [...] Encounter Diagnosis: Problem not documented 10:45 Appointment; Sahnt Rubio M.D. On 03-Apr-2015 Encounter Diagnosis: Problem [...]
--- OUTSIDE RECORDS SUMMARY | 2016-12-20 15:53 | External Medical Summary | Summary of Care ---
:1950 Author Name Joanne Falcon, Lotus Bran Address [address] [place], [place] [address] Care Team Providers Name Role Phone Joanne [...] 3 Jonh Lanier M.D. Start 07-Feb-2016 Active MetOLazone 5 MG Oral Tablet take 1 tablet by mouth every day Quantity: 30 Refills: 1 Jonh Lanier M.D. Start 03-Mar-2016 Active Spironolactone 50 MG Oral Tablet TAKE 1 TABLET DAILY. Refills: 0 Joanne Falcon, Shant Gautam Start 14-May-2015 Active Losartan Potassium 25 MG Oral Tablet Take one tablet by mouth daily Quantity: 90 Refills: 2 Mark Maldonado M.D. Start 03-Apr-2016 Active Allergies and Adverse Reactions Name Dates [...] Enucleation Left PTCA RENAL PROFILE 1240 Ordered: 08-Apr-2016 HEMOGRAM 7305 Ordered: 08-Apr-2016 Immunization Name Dates Details Tdap (Adacel) on: Zoster (Zostavax) on: 21-Mar-2014 Lot #: [id number] Prevnar 13 Intramuscular Suspension on: 21-Mar-2014 Lot #: [id number] Family History Mother Name Dates Details Family [...] low Range: >60 threshold) EST GFR, NON-AFR [place]OV[place] 44 ml/min (Below low Range: >60 threshold) [...] low Range: >60 threshold) EST GFR, NON-AFR SLOV[place]IAN 39 ml/min (Below low Range: >60 threshold) [...] Provider: Jonh Lanier M.D. On 19-May-2016 15:00 Appointment; Provider: Schedule Radiology On 17-Mar-2016 09:30 Appointment; Provider: Schedule Radiology On 15-Feb-2016 10:00 Instructions Name Dates Details Instructions not documented Encounters Appointment; Shant Rubio M.D. On 07-Feb-2016 Encounter [...]
--- OUTSIDE RECORDS SUMMARY | 2016-12-20 15:53 | External Medical Summary | Summary of Care ---
:1950 Author Name Joanne Falcon, Lotus Bran Address [address] [place], [place] [phone] Care Team Providers Name Role Phone Joanne [...] Refills: 10 Shant Rubio M.D. Start Active MetOLazone 5 MG Oral Tablet take 2 tabs daily Quantity: 60 Refills: 5 Shant Rubio M.D. Start 30-Mar-2013 Active Pantoprazole Sodium 40 MG Oral Tablet Delayed Release Take one tablet by mouth daily Quantity: 30 Refills: 10 Shant Rubio M.D. Start 09-Nov-2015 Active Aspir-Low 81 MG Oral Tablet Delayed Release TAKE 1 TABLET IN THE PM Refills: 0 Start 26-Sep-2014 Active Zolpidem Tartrate 10 MG Oral Tablet TAKE ONE TABLET BY MOUTH EVERY NIGHT AT BEDTIME Quantity: 30 Refills: 4 Shant Rubio M.D. Start 11-Sep-2015 Active Klor-Con M20 20 MEQ Oral Tablet Extended Release Take one tablet by mouth daily Quantity: 30 Refills: 3 Shant Rubio M.D. Start 08-Nov-2015 Active Supplies AutoCPAP 8-12 cm H2O, Permanent use, G47.33, Heated humidity, [id number], mask , headgear, filters, heated tubing, water [...] M.D. Start 14-May-2015 Active 30 GM Tube Viagra 100 MG Oral Tablet Use as needed before sexual activity Quantity: 15 Refills: 3 Mark Maldonado M.D. Start 26-Dec-2015 Active Levothyroxine Sodium 50 MCG Oral Tablet TAKE 1 TABLET DAILY. Refills: 0 Shant Rubio M.D. Start Active Losartan Potassium 25 MG Oral Tablet Take one tablet by mouth daily Quantity: 90 Refills: 1 Joel FalconMark Start 09-Oct-2015 Active Furosemide 40 MG Oral Tablet take two tablets by mouth daily Quantity: 60 Refills: 10 Joanne FalconShant Start 16-Jun-2011 Active ALPRAZolam 0.25 MG Oral Tablet TAKE ONE TO TWO TABLETS BY MOUTH EVERY 8 HOURS NEEDED Quantity: 30 Refills: 5 Joanne FalconShant Start 15-Jan-2016 Active MetOLazone 5 MG Oral Tablet TAKE 1 TABLET DAILY. Quantity: 30 Refills: 11 Joanne FalconShant Start 15-Jan-2016 Active Levothyroxine Sodium 75 MCG Oral Tablet TAKE 1 TABLET DAILY. Quantity: 30 Refills: 11 Joanne FalconShant Start 15-Jan-2016 Active Allergies and Adverse Reactions [...] on: Zoster (Zostavax) on: 21-Mar-2014 Lot #: [id number] Prevnar 13 Intramuscular Suspension on: 21-Mar-2014 Lot #: [id number] Family History Mother Name Dates Details Family [...] low Range: >60 threshold) EST GFR, NON-AFR [place] 39 ml/min (Below low Range: >60 threshold) [...] low Range: >60 threshold) EST GFR, NON-AFR [place] 38 ml/min (Below low Range: >60 threshold) [...] Provider: Shant Rubio M.D. On 07-Feb-2016 13:00 Interventions Provided Labs/Procedures/ImagingBASIC METABOLIC PROFILE 1210; Done: Feb 06 2016 12:24PM Instructions Name Dates Details Instructions not documented Encounters Appointment; Shant Rubio M.D. On 29-Jan-2016 Encounter [...]
--- OUTSIDE RECORDS SUMMARY | 2016-12-20 15:53 | External Medical Summary | Summary of Care ---
:1950 Author Name Rufino Borrego Address [address], [place] [phone] Care Team Providers Name Role Phone Lotus [...] (365.04, 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 Anxiety (300.00, F41.1) Status: Active Heme [...] on: Zoster (Zostavax) Administered on:21-Mar-2014 Lot #: [id number] Prevnar 13 Intramuscular Suspension Administered on:21-Mar-2014 Lot #: [id number] Family History Mother Name Dates Details Family history of Hyperlipidemia Status: Active Father Name Dates Details Family history of Cancer Status: Active Social History Name Dates Details Smoking StatusNever smoker Vital Signs Date Test Result Details 26-Sep-2014 10:58 BP Systolic 82 mm[Hg] Status: [...] Range: >60 low threshold) EST GFR, NON-AFR THAI 41 ml/min (Below Range: >60 low threshold) Comments: EST GFR is reported in ml/min per 1.73 m2 of body surface area. For -Gambian, please multiple result by 1.2.----- BUN:CREATININE RATIO [...] Range: >60 low threshold) EST GFR, NON-AFR THAI 36 ml/min (Below Range: >60 low threshold) Comments: EST GFR is reported in ml/min per 1.73 m2 of body surface area. For -Gambian, please multiple result by 1.2.----- GLUCOSE 101 [...] Mark Maldonado On 16-Nov-2009 09:15 Appointment; Provider: Mrak Maldonado On 07:30 Appointment; Provider: Joshua Plasencia [...] Diagnosis: Problem not documented 09:15 Appointment; Neil Jsutin On 10-Jan-2013 Encounter Diagnosis: Problem not documented 08:45 Appointment; Donna Khalil On 23-Dec-2012 Encounter Diagnosis: Problem not documented 10:00 Appointment; Mick Parker On 27-Oct-2012 Encounter Diagnosis: Problem not documented 08:45
--- OUTSIDE RECORDS SUMMARY | 2016-12-20 15:54 | External Medical Summary | Summary of Care ---
:1950 Author Name Mateusz Maldonado M.D. Address [address], [place] [address] Care Team Providers Name Role Phone Joanne Falcon, Lotus Bran Unavailable Unavailable Mckayla Falcon, Laurent Unavailable Unavailable Rufino Borrego Unavailable Unavailable Mateusz Maldonado M.D. Unavailable Unavailable [...] Paroxysmal atrial fibrillation (427.31, I48.0) Status: Active Medications Name Dates Details EQ [...] Refills: 1 Mark Maldonado M.D. Started 24-Nov-2011 ActiveSotalol HCl - 160 MG Oral Tablet TAKE 1 TABLET TWICE DAILY. Quantity: 60 Refills: 5 Rufino Rayo Started ActiveXarelto 20 MG Oral Tablet Take one tablet by mouth daily Quantity: 30 Refills: 4 Mark Maldonado M.D. Started ActiveMetolazone 5 MG Oral Tablet prn Quantity: 30 Refills: 5 Shant Rubio M.D. Started 30-Mar-2013 Active Allergies and Adverse Reactions Name Dates [...] on: Zoster (Zostavax) Administered on:21-Mar-2014 Lot #: [id number] Prevnar 13 Intramuscular Suspension Administered on:21-Mar-2014 Lot #: [id number] Family History Mother Name Dates Details Family [...] GFR, 42 ml/min (Below low Range: >60 AU[place]IAN threshold) EST GFR, NON-AFR 34 ml/min (Below low Range: >60 [place]IAN threshold) Comments: EST GFR is reported in ml/min per 1.73 m2 of body surface area. For -Tuvaluan, please multiple result by 1.2.----- BUN:CREATININE RATIO [...]
--- OUTSIDE RECORDS SUMMARY | 2016-12-20 15:54 | External Medical Summary | Summary of Care ---
[...] not documented Status: Problems Name Dates Details Insomnia (780.52, 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: Active History of gastric ulcer (V12.79, Z87.19) Status: Active Biventricular ICD (implantable cardioverter-defibrillator) in [...] Status: Active Hyperlipidemia (272.4, E78.5) Status: Active Status post catheter ablation of atrial fibrillation (V45.89, Z98.89) Status : Active Epidermal inclusion cyst (706.2, L72.0) Status: Active Sebaceous hyperplasia (706.8, L73.8) Status: Active Seborrheic keratosis (702.19, L82.1) Status: Active Blister of ankle, right (916.2, S90.521A) Status: Active Hypothyroidism (244.9, E03.9) Status: Active Dyspnea on exertion (786.09, R06.09) Status: Active Heme positive stool (792.1, R19.5) Status: Active Borderline glaucoma with ocular hypertension, 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, 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, 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, 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) Status: Active Anxiety (300.00, F41.9) Status: Active Benign neoplasm of skin of buttock (216.5, D23.5) Status: Active Conjunctivitis, acute (372.00, H10.30) Status: Active Benign pigmented nevus (216.9, D22.9) Status: Active Snoring (786.09, R06.83) Status: Active Globe Enucleation Left Status: Active Chronic systolic congestive heart failure (428.22, I50.22) Status: Active Status post ablation of atrial fibrillation (V45.89, Z98.89) Status: Active Paroxysmal atrial fibrillation (427.31, I48.0) Status: Active PTCA Status: Active CAD (coronary atherosclerotic disease) (414.00, I25.10) Status: Active Claustrophobia (300.29, F40.240) Status: Active 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 Started 14-May-2015 Oqkpcq65 GM Tube Zolpidem Tartrate 10 MG Oral Tablet TAKE 1 TABLET AT BEDTIME NEEDED FOR SLEEP. Refills: 0 Mark Maldonado M.D. Started 13-Dec-2014 ActiveFurosemide 40 MG Oral Tablet TAKE 1 TABLET TWICE DAILY. Quantity: 30 Refills: 0 Shant Rubio M.D. Started 16-Jun-2011 ActiveSimvastatin 40 MG Oral Tablet TAKE ONE TABLET BY MOUTH EVERY NIGHT AT BEDTIME Quantity: 30 Refills: 11 Shant Rubio M.D. Started ActivePantoprazole Sodium 40 MG Oral Tablet Delayed Release TAKE 1 TABLET DAILY. Refills: 0 Shant Rubio M.D. Started 14-May-2015 ActiveIron 325 (65 Fe) MG Oral Tablet Take 1 tablet daily Refills: 0 Shant Rubio M.D. Started 14-May-2015 ActiveSpironolactone 50 MG Oral Tablet TAKE 1 TABLET DAILY. Refills: 0 Shant Rubio M.D. Started 14-May-2015 Active Allergies and Adverse Reactions Name [...] Surgery Right History of Tonsillectomy History of Extracaps Cataract Extract With Prosthesis Insert Right Eye History of Elective Cardioversion External Completed:23-Oct-2011 Globe Enucleation Left History of Cardioverter-defibrillator Pulse Generator Completed: Insertion With Leads History of Colostomy History of Knee Surgery History of Total Hip Replacement PTCA Procedures not documented Immunization Name Dates Details Tdap (Adacel) Administered on: Zoster (Zostavax) Administered on:21-Mar-2014 Lot #: [id number] Prevnar 13 Intramuscular Suspension Administered on:21-Mar-2014 Lot #: [id number] Family History Mother Name Dates Details Family history of cerebrovascular accident (CVA) (V17.1, Z82.3) Status: Active Family history of Hyperlipidemia Status: Active Father [...] Body Surface Area Calculated 2.43 m2 Status: Results Date Description Value Details [...] Encounter Diagnosis: Problem not documented 10:45 Appointment; Neli Justin On Encounter Diagnosis: Problem not documented 08:45
--- OUTSIDE RECORDS SUMMARY | 2016-12-20 15:54 | External Medical Summary | Summary of Care ---
:1950 Author Name Yolande Falcon, Jonh Address Unavailable Unavailable , Care Team Providers [...] mouth every day Quantity: 30 Refills: 1 Fluck M.D.Jonh Start 03-Mar-2016 Active Betamethasone Dipropionate Aug 0.05 [...] DAILY NEEDED Quantity: 30 Refills: 1 Joanne Falcon Shant Gautam Start Active LevoFLOXacin 750 MG Oral Tablet TAKE 1 TABLET DAILY. Quantity: 10 Refills: 0 Joanne Falcon Shant Gautam Start Active Levothyroxine Sodium 75 [...] on: Zoster (Zostavax) on: 21-Mar-2014 Lot #: [id number] Prevnar 13 Intramuscular Suspension on: 21-Mar-2014 Lot #: [id number] Family History Mother Name Dates Details Family [...] low Range: >60 threshold) EST GFR, NON-AFR [place] 43 ml/min (Below low Range: >60 threshold) [...] low Range: >60 threshold) EST GFR, NON-AFR [place] 46 ml/min (Below low Range: >60 threshold) [...] of Care Name Dates Details Planned Observations PTH ( Parathyroid Hormone Intact) 3101 On Intent Planned Goals not documented Planned Encounters Appointment; Provider: Neil Justin M.D. On 18-Feb-2017 09:00 Appointment; Provider: Jonh Lanier M.D. On 18-Nov-2016 13:15 Appointment; Provider: Mick Parker M.D. On 06-Nov-2016 08:15 Appointment; Provider: Mark Maldonado M.D. On 11:15 Appointment; Provider: Shant Rubio M.D. On 10:00 Appointment; Provider: Mark Maldonado M.D. On 08:30 Appointment; Provider: Schedule Radiology On 30-May-2016 13:00 Instructions Name Dates Details Instructions not documented [...]
--- OUTSIDE RECORDS SUMMARY | 2016-12-20 15:55 | External Medical Summary | Summary of Care ---
:1950 Author Name Lotus Yang M.D. Address [address], [place] [address] Care Team Providers Name Role Phone Lotus [...] cm H2O, Permanent use, G47.33, Heated humidity, UqpsriveK60, mask , headgear, filters, heated tubing, water chamber, chinstrap Quantity: 1 Refills: 0 Paloma Castillo Started 03-Apr-2015 ActivePantoprazole Sodium 40 MG Oral Tablet Delayed Release TAKE 1 TABLET DAILY. Refills: 0 Shnat Rubio M.D. Started 14-May-2015 ActiveIron 325 (65 Fe) MG Oral Tablet Take 1 tablet daily Refills: 0 Shant Rubio M.D. Started 14-May-2015 ActiveSpironolactone 50 MG Oral Tablet TAKE 1 TABLET DAILY. Refills: 0 Shant Rubio M.D. Started 14-May-2015 ActiveTriamcinolone Acetonide 0.1 % External Cream USE TWO TIMES A DAY Quantity: 1 Refills: 6 Shant Rubio M.D. Started 14-May-2015 [id number] GM Tube Allergies and Adverse Reactions Name [...] on: Zoster (Zostavax) Administered on:21-Mar-2014 Lot #: [id number] Prevnar 13 Intramuscular Suspension Administered on:21-Mar-2014 Lot #: [id number] Family History Mother Name Dates Details Family [...] Diagnosis: Problem not documented 14:15 Appointment; Shant uRbio On 30-Nov-2014 Encounter Diagnosis: Problem not documented [...]
--- OUTSIDE RECORDS SUMMARY | 2016-12-20 15:57 | External Medical Summary | Summary of Care ---
:1950 Author Name Mateusz Maldonado M.D. Address [address] [place], [place] [address] Care Team Providers Name Role Phone Lotus [...] on: Zoster (Zostavax) Administered on:21-Mar-2014 Lot #: [id number] Prevnar 13 Intramuscular Suspension Administered on:21-Mar-2014 Lot #: [id number] Family History Mother Name Dates Details Family [...] Range: >60 low threshold) EST GFR, NON-AFR CZE[place] 39 ml/min (Below Range: >60 low threshold) Comments: EST GFR is reported in ml/min per 1.73 m2 of body surface area. For -Lebanese, please multiple result by 1.2.----- GLUCOSE 98 [...]
--- OUTSIDE RECORDS SUMMARY | 2016-12-20 15:57 | External Medical Summary | Summary of Care ---
:1950 Author Name Matt Chi M.D. 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09) Status: Active Medications Name Dates Details EQ [...] on: Zoster (Zostavax) Administered on:21-Mar-2014 Lot #: [id number] Prevnar 13 Intramuscular Suspension Administered on:21-Mar-2014 Lot #: [id number] Family History Mother Name Dates Details Family history of Hyperlipidemia Status: Active Father Name Dates Details Family history of Cancer Status: Active Social History Name Dates Details Smoking StatusNever smoker Vital Signs Date Test Result Details 13:42 BP Systolic 118 mm[Hg] Status: BP Diastolic 60 mm[Hg] Status: Heart Rate 74 /min Status: Temperature 97.9 f Status: O2 SAT 98 % Status: Results Date Description Value Details 13-May-2015 13:44 ECG/ EKG Outside Interp Electro CardioGram [...] 11:00 Instructions Instructions not documented Encounters Appointment; Javier Chi On Encounter Diagnosis: Problem [...]
--- OUTSIDE RECORDS SUMMARY | 2016-12-20 15:58 | External Medical Summary | Summary of Care ---
[...] cm H2O, Permanent use, G47.33, Heated humidity, YteshymuO54, mask , headgear, filters, heated tubing, water [...] Refills: 6 Shant Rubio M.D. Started 14-May-2015 Uibvxx77 GM Tube MetroNIDAZOLE 500 MG Oral Tablet [...] on: Zoster (Zostavax) Administered on:21-Mar-2014 Lot #: [id number] Prevnar 13 Intramuscular Suspension Administered on:21-Mar-2014 Lot #: [id number] Family History Mother Name Dates Details Family [...]
--- OUTSIDE RECORDS SUMMARY | 2016-12-20 15:59 | External Medical Summary | Summary of Care ---
:1950 Author Name Mateusz Maldonado M.D. 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 Started 14-May-2015 Opxucb41 GM Tube MethylPREDNISolone 4 MG Oral Tablet [...] Interp Pendin19-Jun-2015 Cardiology Precert (outside facility) Ordered:21-Jun-2015 CBC w/ Auto Diff 7150 Ordered:21-Jun-2015 BASIC METABOLIC PROFILE 1210 Ordered:21-Jun-2015 Immunization Name Dates Details Tdap (Adacel) Administered on: Zoster (Zostavax) Administered on:21-Mar-2014 Lot #: [id number] Prevnar 13 Intramuscular Suspension Administered on:21-Mar-2014 Lot #: [id number] Family History Mother Name Dates Details Family [...]
--- OUTSIDE RECORDS SUMMARY | 2016-12-20 15:59 | External Medical Summary | Summary of Care ---
:1950 Author Name Lotus Rubio M.D. 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 HORMONE 3602 Ordered: FREE T4 3604 Ordered: Comprehensive Metabolic Panel 1212 Ordered: LIPID PROFILE 1184 Ordered: Immunization Name Dates Details Tdap (Adacel) Administered on: Zoster (Zostavax) Administered on:21-Mar-2014 Lot #: [id number] Prevnar 13 Intramuscular Suspension Administered on:21-Mar-2014 Lot #: [id number] Family History Mother Name Dates Details Family [...] % Status: Results Date Description Value Details 21-Jun-2014 13:44 ECG/ EKG Outside Interp Electro CardioGram (Better) Plan of Care Planned Observations Name Dates Details Planned Goals not documented Goal Planned Encounters Appointment; Provider: Neil Justin On 22-Jan-2015 08:15 Appointment; Provider: Mick Parker On 02-Nov-2014 08:30 Appointment; Provider: Shant Rubio On 19-Sep-2014 09:00 Appointment; Provider: Shant Rubio On 13:45 Appointment; Provider: Mark Maldonado On 22-Dec-2013 07:30 [...] Diagnosis: Problem not documented 14:15 Appointment; Mark Madlonado On 25-May-2014 Encounter Diagnosis: Problem not documented [...]
--- OUTSIDE RECORDS SUMMARY | 2016-12-20 15:59 | External Medical Summary | Summary of Care ---
:1950 Author Name Mateusz Maldonado M.D. Address [address] [place], [place] [id number] Care Team Providers Name Role Phone Lotus [...] cm H2O, Permanent use, G47.33, Heated humidity, IrjearupH43, mask , headgear, filters, heated tubing, water [...] Ordered:04-Apr-2015 IRON 1254 Ordered:04-Apr-2015 Testosterone,Free and Total 100926 Ordered:04-Apr-2015 Immunization Name Dates Details Tdap (Adacel) Administered on: Zoster (Zostavax) Administered on:21-Mar-2014 Lot #: [id number] Prevnar 13 Intramuscular Suspension Administered on:21-Mar-2014 Lot #: [id number] Family History Mother Name Dates Details Family [...] Maldonado On 18-Feb-2013 08:30 Appointment; Provider: Sweetie aLngston On 04-Jan-2013 09:45 Appointment; Provider: Mark Maldonado [...] Diagnosis: Problem not documented 10:00 Appointment; Neil Justni On 22-Jan-2015 Encounter Diagnosis: Problem not documented [...] Encounter Diagnosis: Problem not documented 14:15 Appointment; aMrk Maldonado On 25-May-2014 Encounter Diagnosis: Problem not [...]
--- OUTSIDE RECORDS SUMMARY | 2016-12-20 15:59 | External Medical Summary | Summary of Care ---
:1950 Author Name Mateusz Maldonado M.D. Address [address] [place], [place] [phone] Care Team Providers Name Role Phone Lotus [...] on: Zoster (Zostavax) Administered on:21-Mar-2014 Lot #: [id number] Prevnar 13 Intramuscular Suspension Administered on:21-Mar-2014 Lot #: [id number] Family History Mother Name Dates Details Family [...] Date Description Value Details 04-Dec-2014 STOOL CULTURE [id number] Comments: [facility]: [facility], [facility] [place], [address], Animal Nutrition Teacher: Gisselle Elizondo MDQuest Collection Date/Time: 2 14:27 [id number] Results Received Date/Time: [id number] Reported Date/Time: [id number] performed at: [facility], [address] [place] [place], [address], Animal Nutrition Teacher: Gisselle Elizondo MDQuest Collection Date/Time: [id number] Results Received Date/Time: [id number] Reported Date/Time: [id number] Quest performed at: [facility] Assembla [facility], [facility] [place], [address], Animal Nutrition Teacher: Natalie Denton Collection Date/Time: [id number] Results Received Date/Time: [id number] Reported Date/Time: [id number] performed at: [facility] Assembla [facility], [facility] [place], [address], Animal Nutrition Teacher: Natalie Denton Collection Date/Time: [id number] Results Received Date/Time: [id number] Reported Date/Time: [id number] Quest performed at: [facility] Assembla [facility], [facility] [place], [address], Animal Nutrition Teacher: Natalie Denton Collection Date/Time: [id number] Results Received Date/Time: [id number] Reported Date/Time: [id number] SHIGA TOXINS, EIA W/RFL TO SEE NOTE Comments: SHIGA TOXINS, EIA W/RFL TO E.COLI O157 CULTURE MICRO NUMBER: [id number] TEST STATUS: FINAL SPECIMEN SOURCE: FECES SPECIMEN QUALITY: ADEQUATE RESULT: Not Detected[SL]----- E.COLI O157 CULTURE (Better) CAMPYLOBACTER, CULTURE SEE NOTE Comments: CAMPYLOBACTER, CULTURE MICRO NUMBER: [id number] TEST STATUS: FINAL SPECIMEN SOURCE: FECES SPECIMEN QUALITY: ADEQUATE RESULT: No enteric Campylobacter isolated[SL]----- (Better) SALMONELLA AND SHIGELLA, SEE NOTE Comments: SALMONELLA AND SHIGELLA, CULTURE MICRO NUMBER: [id number] TEST STATUS: FINAL SPECIMEN SOURCE : FECES SPECIMEN QUALITY: ADEQUATE RESULT: No Salmonella or Shigella isolated[SL]----- CULTURE (Better) 01-Dec-2014 GIARDIA ANTIGEN [id number] Comments: Quest performed at: [facility] Assembla [facility], [facility] [place], [address], Animal Nutrition Teacher: Natalie Denton Collection Date/Time: 2 13:46 [id number] Results Received Date/Time: [id number] Reported Date/Time: [id number] GIARDIA AG, EIA, STOOL SEE NOTE Comments: GIARDIA AG, EIA, STOOL MICRO NUMBER: [id number] TEST STATUS: FINAL SPECIMEN SOURCE: FECES SPECIMEN QUALITY: ADEQUATE RESULT 1: Not Detected[SL]----- (Better) 14:42 CRYPTOSPORIDIUM ANTIGEN Comments: Quest performed at: [facility], [address] [place], [address], Animal Nutrition Teacher: Natalie Denton Collection Date/Time: [id number] Results Received Date/Time: [id number] Reported Date/Time: [id number] performed at: [facility], [address] , [place], [address], Animal Nutrition Teacher: Natalie Denton Collection Date/Time: [id number] Results Received Date/Time: [id number] Reported Date/Time: [id number] CRYPTOSPORIDIUM AG, DFA SEE NOTE Comments: CRYPTOSPORIDIUM AG, DFA MICRO NUMBER: [id number] TEST STATUS: FINAL SPECIMEN SOURCE: STOOL SPECIMEN [...]
--- OUTSIDE RECORDS SUMMARY | 2016-12-20 15:59 | External Medical Summary | Summary of Care ---
:1950 Author Organization [facility] Address [address] [place] [address] Phone Care Team Providers Name Role Phone [...] on: Zoster (Zostavax) on: 21-Mar-2014 Lot #: [id number] Prevnar 13 Intramuscular Suspension on: 21-Mar-2014 Lot #: [id number] Family History Mother Name Dates Details Family [...] Body Surface Area Calculated 2.41 m2 Status: Results Date Description Value Details 07-Apr-2016 14:04 URINE PROT CREAT RATIO 1193 [...] low Range: >60 threshold) EST GFR, NON-AFR CHILEAN 39 ml/min (Below low Range: >60 threshold) [...] Lanier M.D. On 19-May-2016 15:00 Appointment; Provider: Neil Justin M.D. On 06-May-2016 13:00 Appointment; Provider: Schedule Radiology On 17-Mar-2016 [...] documented Encounters Appointment; Jonh Lanier M.D. On 07-Apr-2016 Encounter Diagnosis: Problem not documented 14:30 Appointment; Shant Rubio M.D. On 28-Mar-2016 Encounter Diagnosis: Problem not documented 11:00 Appointment; Jonh Lanier M.D. On 17-Mar-2016 Encounter Diagnosis: Problem not documented 14:00 Appointment; Shant Rubio M.D. On 07-Mar-2016 Encounter Diagnosis: Problem not documented 11:30 Appointment; Jonh Laneir M.D. On 03-Mar-2016 Encounter Diagnosis: Problem not [...]
--- OUTSIDE RECORDS SUMMARY | 2016-12-20 16:00 | External Medical Summary | Continuity of Care Document ---
:1950 Author Organization [facility] Allergies Active Description Code Type Severity Reaction Onset Reported/ Identified Relationship Clinical to Patient Status Yes No Known Drug 04/12/2012 Allergies Aller gy Yes No Known Drug 04/12/2012 Drug Aller Allergies gy Yes No Known Food 04/12/2012 Food Aller Allergies gy Yes amoxicillin amoxi Drug Mild BLACK 07/14/2014 cilli Aller STOOLS n gy Yes No Known No Drug Unknown NONE 09/29/2014 Drug Known Aller Allergies Drug gy Aller gies Medications Medication Packaging Start Date Stop Date Route Dosage Sig Tablet 11/28/2016 oral 3 tablet midodrine Tablet 11/28/2016 oral 1 tablet metoLAZOne Problems Date Dx Attending Type Code Diagnosis Diagnosed By Coded 04/13/2012 Gladis HAIRSTON MD, Final 272.4 HYPERLIPIDEMIA NEC Ulysses R NOS 04/13/2012 Gladis HAIRSTON MD, Final 276.1 HYPOSMOLALITY Ulysses R 04/13/2012 Gladis HAIRSTON MD, Final 278.00 OBESITY NOS Ulysses R 04/13/2012 Gladis HAIRSTON MD, Final 285.1 ACUTE POSTHEMOR Ulysses R ANEMIA 04/13/2012 Gladis HAIRSTON MD, Final 401.9 HYPERTENSION NOS Ulysses R 04/13/2012 Gladis HAIRSTON MD, Final 427.31 ATRIAL FIBRILLATION Ulysses R 04/13/2012 Gladis HAIRSTON MD, Final 428.0 CHF NOS Ulysses R 04/13/2012 Gladis HAIRSTON MD, Final 458.29 IATROGEN HYPOTENSION Ulysses R NEC 04/13/2012 Gladis HAIRSTON MD, Final 715.25 LOC SECONDARY Ulysses R OA-PELVIS 07/14/2014 Jamari Cross MD, A V72.81 Ghiyath 07/14/2014 Jamari Cross MD, A V72.81 iyath 03/19/2016 AYDE MC I890 Lymphedema, not elsewhere classified 03/19/2016 AYDE MC R238 Other skin changes 03/19/2016 AYDE MC N72215 Personal history of other venous thrombosis and embolism 04/10/2016 AIMEEAYDE Jenkins Eileen I890 Lymphedema, not elsewhere classified 04/10/2016 FLUCAYDE Jenkins N183 Chronic kidney disease, stage 3 (moderate) 04/10/2016 AYDE MC R600 Localized edema 12/03/2016 CADEN BLUM D509 Iron deficiency anemia, unspecified 12/03/2016 CADEN BLUM D631 Anemia in chronic kidney disease 12/03/2016 CADEN BLUM E039 Hypothyroidism, unspecified 12/03/2016 CADEN BLUM E669 Obesity, unspecified 12/03/2016 CADEN BLUM E785 Hyperlipidemia, unspecified 12/03/2016 CADEN BLUM E875 Hyperkalemia 12/03/2016 CADEN BLUM F419 Anxiety disorder, unspecified 12/03/2016 CADEN BLUM G4733 Obstructive sleep apnea (adult) (pediatric) 12/03/2016 CADEN BLUM 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, right eye 12/03/2016 CADEN BLUM I130 Hyp hrt & chr kdny dis w hrt fail and stg 1-4/unsp chr kdny 12/03/2016 CADEN BLUM I2510 Athscl heart disease of jena coronary artery w/o ang pctrs 12/03/2016 CADEN BLUM I429 Cardiomyopathy, unspecified 12/03/2016 CADEN BLUM I481 Persistent atrial fibrillation 12/03/2016 CADEN BLUM I5022 Chronic systolic (congestive) heart failure 12/03/2016 CADEN BLUM I739 Peripheral vascular disease, unspecified 12/03/2016 CADEN BLUM I872 Venous insufficiency (chronic) (peripheral) 12/03/2016 CADEN BLUM I890 Lymphedema, not elsewhere classified 12/03/2016 CADEN BLUM I959 Hypotension, unspecified 12/03/2016 CADEN BLUM J90 Pleural effusion, not elsewhere classified 12/03/2016 CADEN BLUM K766 Portal hypertension 12/03/2016 CADEN BLUM N179 Acute kidney failure, unspecified 12/03/2016 CADEN BLUM N183 Chronic kidney disease, stage 3 (moderate) 12/03/2016 CADEN BLUM R159 Full incontinence of feces 12/03/2016 CADEN BLUM R188 Other ascites 12/03/2016 CADEN BLUM R339 Retention of urine, unspecified 12/03/2016 CADEN BLUM R601 Generalized edema 12/03/2016 CADEN BLUM R740 Nonspec elev of levels of transamns & lactic acid dehydrgnse 12/03/2016 CADEN BLUM R809 Proteinuria, unspecified 12/03/2016 CADEN BLUM R8271 Bacteriuria 12/03/2016 CADEN BLUM Z23 Encounter for immunization 12/03/2016 CADEN BLUM Z6833 Body mass index (BMI) 33.0-33.9, adult 12/03/2016 CADEN BLUM Z7901 residential (current) use of anticoagulants 12/03/2016 CADEN BLUM Z7982 residential (current) use of aspirin 12/03/2016 CADEN BLUM Z955 Presence of coronary angioplasty implant and graft 12/03/2016 CADEN BLUM L96024 Presence of automatic (implantable) cardiac defibrillator 12/06/2016 CADEN BLUM D509 Iron deficiency anemia, unspecified 12/06/2016 CADEN BLUM D631 Anemia in chronic kidney disease 12/06/2016 CADEN BLUM E039 Hypothyroidism, unspecified 12/06/2016 CADEN BLUM E669 Obesity, unspecified 12/06/2016 CADEN BLUM E785 Hyperlipidemia, unspecified 12/06/2016 CADEN BLUM E875 Hyperkalemia 12/06/2016 CADEN BLUM F419 Anxiety disorder, unspecified 12/06/2016 CADEN BLUM G4733 Obstructive sleep apnea (adult) (pediatric) 12/06/2016 CADEN BLUM S31228 Ocular hypertension, right eye 12/06/2016 CADEN BLUM I130 Hyp hrt & chr kdny dis w hrt fail and stg 1-4/unsp chr kdny 12/06/2016 CADEN BLUM I2510 Athscl heart disease of jena coronary artery w/o ang pctrs 12/06/2016 CADEN BLUM I429 Cardiomyopathy, unspecified 12/06/2016 CADEN BLUM I481 Persistent atrial fibrillation 12/06/2016 CADEN BLUM I5022 Chronic systolic (congestive) heart failure 12/06/2016 CADEN BLUM I739 Peripheral vascular disease, unspecified 12/06/2016 CADEN BLUM I872 Venous insufficiency (chronic) (peripheral) 12/06/2016 CADEN BLUM I890 Lymphedema, not elsewhere classified 12/06/2016 CADEN BLUM I959 Hypotension, unspecified 12/06/2016 CADEN BLUM J90 Pleural effusion, not elsewhere classified 12/06/2016 CADEN BLUM K766 Portal hypertension 12/06/2016 CADEN BLUM N179 Acute kidney failure, unspecified 12/06/2016 CADEN BLUM N183 Chronic kidney disease, stage 3 (moderate) 12/06/2016 CADEN BLUM R159 Full incontinence of feces 12/06/2016 CADEN BLUM R188 Other ascites 12/06/2016 CADEN BLUM R339 Retention of urine, unspecified 12/06/2016 CADEN BLUM R601 Generalized edema 12/06/2016 CADEN BLUM R740 Nonspec elev of levels of transamns & lactic acid dehydrgnse 12/06/2016 CADEN BLUM R809 Proteinuria, unspecified 12/06/2016 CADEN BLUM R8271 Bacteriuria 12/06/2016 CADEN BLUM Z23 Encounter for immunization 12/06/2016 CADEN BLUM Z6833 Body mass index (BMI) 33.0-33.9, adult 12/06/2016 CADEN BLUM Z7901 residential (current) use of anticoagulants 12/06/2016 CADEN BLUM Z7982 residential (current) use of aspirin 12/06/2016 CADEN BLUM Z955 Presence of coronary angioplasty implant and graft 12/06/2016 CADEN BLUM F44868 Presence of automatic (implantable) cardiac defibrillator Procedures Code Description Performed By Performed On REV Gladis HAIRSTON MD, Ulysses Molina 04/13/2012 00.70 HIP REPL-BOTH COMP DX Al Tabbal MD, [facility] 09/29/2014 88.72 ULTRASOUND-HEART 03/11/2016 67899 03/11/2016 43076 03/11/2016 61539 03/11/2016 G8990 03/11/2016 G8991 03/12/2016 71463 03/12/2016 29627 03/13/2016 28825 03/13/2016 64145 03/14/2016 20815 03/14/2016 64912 03/17/2016 56340 03/17/2016 64948 03/18/2016 19907 03/18/2016 00937 03/19/2016 63525 03/19/2016 02179 03/20/2016 39720 03/20/2016 29853 03/21/2016 78448 03/21/2016 48408 03/24/2016 99553 03/24/2016 93934 03/24/2016 G8991 03/24/2016 G8992 04/01/2016 02743 04/01/2016 G8991 04/01/2016 G8992 11/14/2016 [id number] 11/18/2016 [id number] 11/24/2016 5L497I9 11/27/2016 [id number] Encounters ACCT No. Visit Discharge Status Pt. Type Provider Facility Loc./Unit Complaint Date/Time [id number] 04/13/2012 04/16/2012 DIS Inpatien Gladis [facility] F5SE 630 08:04:00 10:33:00 ishmael HAIRSTON MD, [facility] [id number] 09/29/2014 09/30/2014 DIS Outpatie [place] ZARATEA 0078 04:59:00 13:50:00 harvinder SOLOMON, [facility] [id number] 07/17/2014 07/17/2014 CAN Outpatie [place] ZARATEA 2801 08:00:00 08:00:00 harvinder SOLOMON, [facility] [id number] 07/14/2014 07/14/2014 DIS Outpatie [place] SalcedoRAC 2588 07:31:00 07:31:00 harvinder SOLOMON, [facility] [id number] 07/14/2014 07/14/2014 DIS Outpatie [place] SalcedoPOA 8139 07:16:00 07:16:00 harvinder SOLOMON, [facility] [id number] 11/12/2016 11/28/2016 DIS Inlance BLUM, <PV2.3.2&g 380 16:45:00 15:28:12 t CADEN t;Generalized edema</PV2 .3.2><P V2.3.2>CHF </PV2.3.2& gt;<PV2.3. 2>Generali zed edema</PV2 .3.2><P V2.3.2>Oth er ascites</P V2.3.2>&lt ;PV2.3.2>P leural effusion, not elsewhere classified&lt ;/PV2.3.2> <PV2.3.2&g t;Acute kidney failure, unspecified&l t;/PV2.3.2&gt ;<PV2.3.2& gt;Hyp hrt & chr kdny dis w hrt fail and stg 1-4/unsp chr kdny</PV2. 3.2><PV 2.3.2>Phone Technician bridger systolic (congestive) heart failure</P V2.3.2>&lt ;PV2.3.2>C ardiomyopathy , unspecified&l t;/PV2.3.2&gt ;<PV2.3.2& gt;Portal hypertension& lt;/PV2.3.2&g t;<PV2.3.2 >Persisten t atrial fibrillation& lt;/PV2.3.2&g t;<PV2.3.2 >Chronic kidney disease, stage 3 (moderate)&lt ;/PV2.3.2> <PV2.3.2&g t;Hypotension , unspecified&l t;/PV2.3.2&gt ;<PV2.3.2& gt;Iron deficiency anemia, unspecified&l t;/PV2.3.2&gt ;<PV2.3.2& gt;Hyperkalem ia</PV2.3. 2><PV2. 3.2>Anemia in chronic kidney disease</P V2.3.2>&lt ;PV2.3.2>R etention of urine, unspecified&l t;/PV2.3.2&gt ;<PV2.3.2& gt;Bacteriuri a</PV2.3.2 ><PV2.3 .2>Anxiety disorder, unspecified&l t;/PV2.3.2&gt ;<PV2.3.2& gt;Presence of automatic (implantable) cardiac defibrillator </PV2.3.2& gt;<PV2.3. 2>Ocular hypertension, right eye</PV2.3 .2><PV2 .3.2>Athsc l heart disease of jena coronary artery w/o ang pctrs</PV2 .3.2><P V2.3.2>Hyp othyroidism, unspecified&l t;/PV2.3.2&gt ;<PV2.3.2& gt;Hyperlipid emia, unspecified&l t;/PV2.3.2&gt ;<PV2.3.2& gt;Lymphedema , not elsewhere classified&lt ;/PV2.3.2> <PV2.3.2&g t;Peripheral vascular disease, unspecified&l t;/PV2.3.2&gt ;<PV2.3.2& gt;Venous insufficiency (chronic) (peripheral)& lt;/PV2.3.2&g t;<PV2.3.2 >Presence of coronary angioplasty implant and graft</PV2 .3.2><P V2.3.2>Vamshi g term (current) use of aspirin</P V2.3.2>&lt ;PV2.3.2>L carmen term (current) use of anticoagulant s</PV2.3.2 ><PV2.3 .2>Full incontinence of feces</PV2 .3.2><P V2.3.2>Obs tructive sleep apnea (adult) (pediatric)&l t;/PV2.3.2&gt ;<PV2.3.2& gt;Encounter for immunization& lt;/PV2.3.2&g t;<PV2.3.2 >Obesity, unspecified&l t;/PV2.3.2&gt ;<PV2.3.2& gt;Body mass index (BMI) 33.0-33.9, adult</PV2 .3.2><P V2.3.2>Non spec elev of levels of transamns & lactic acid dehydrgnse&lt ;/PV2.3.2> <PV2.3.2&g t;Proteinuria , unspecified&l t;/PV2.3.2&gt ; [id number] 10/20/2016 10/22/2016 DIS Valorie DEL ROSARIO, <PV2.3.2&g 970 12:33:00 13:54:03 ishmael child;CAD SOB</PV2.3 .2><PV2 .3.2>CORON JAYDEN ANGIOGRAM< /PV2.3.2> [id number] 10/02/2016 10/02/2016 DIS Valorie DEL ROSARIO, <PV2.3.2&g 901 05:59:00 10:45:38 ishmael child;A FIB</PV2.3 .2><PV2 .3.2>CARDI OVERSION</ PV2.3.2> [id number] 07/29/2016 07/29/2016 DIS Valorie DEL ROSARIO, <PV2.3.2&g 104 06:14:00 11:12:22 ishmael Child t;A FIB</PV2.3 .2><PV2 .3.2>ELIDA AND CARDIOVERSION </PV2.3.2& gt; [id number] 03/12/2016 04/03/2016 DIS Outpatie FLUCK, <PV2.3.2&g 020 00:01:00 14:36:50 harvinder child;Lymphedema, not elsewhere classified&lt ;/PV2.3.2> <PV2.3.2&g t;03/03/16 SADAF LE EDEMA</PV2 .3.2><P V2.3.2>Lym phedema, not elsewhere classified&lt ;/PV2.3.2> <PV2.3.2&g t;Localized edema</PV2 .3.2><P V2.3.2>Chr onic kidney disease, stage 3 (moderate)&lt ;/PV2.3.2> [id number] 03/11/2016 03/12/2016 DIS Outpatie FLUCK, <PV2.3.2&g 012 09:32:00 00:15:04 harvinder child;Lymphedema, not elsewhere classified&lt ;/PV2.3.2> <PV2.3.2&g t;03/03/16 SADAF LE EDEMA</PV2 .3.2><P V2.3.2>Lym phedema, not elsewhere classified&lt ;/PV2.3.2> <PV2.3.2&g t;Other skin changes</P V2.3.2>&lt ;PV2.3.2>P ersonal history of other venous thrombosis and embolism</ PV2.3.2> [id number] 02/20/2016 02/21/2016 DIS Inlance COOMBS, ELEVATED 351 04:55:00 12:28:14 t DK WELLER, DIZZINESS [id number] 06/25/2015 06/26/2015 DIS Valorie DEL ROSARIO, <PV2.3.2&g 642 09:06:00 13:37:03 t PADMA T t;LEAD REVISION</ PV2.3.2>&l t;PV2.3.2> LEAD FAILURE</P V2.3.2> [id number] 03/19/2015 03/21/2015 DIS Shan PHIPPS, 823 20:37:00 03:30:03 harvinder WAGNER
--- OUTSIDE RECORDS SUMMARY | 2016-12-20 16:00 | External Medical Summary | Summary of Care ---
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 Start Active Simvastatin 40 MG Oral Tablet TAKE ONE TABLET BY MOUTH EVERY NIGHT AT BEDTIME Quantity: 90 Refills: 3 Shant Rubio M.D. Start Active Spironolactone 50 MG Oral Tablet TAKE 1 TABLET DAILY. Quantity: 90 Refills: 3 Mark Maldonado M.D. Start 14-May-2015 Active Triamcinolone Acetonide 0.1 % External Cream USE TWO TIMES DAILY NEEDED Quantity: 30 Refills: 1 Joanne FalconShant Start Active Losartan Potassium 25 MG Oral Tablet Take one tablet by mouth daily Quantity: 90 Refills: 2 Joel FalconMark Start 03-Apr-2016 Active Aspir-Low 81 MG Oral Tablet Delayed Release TAKE 1 TABLET IN THE PM Refills: 0 Start 26-Sep-2014 Active Pantoprazole Sodium 40 MG Oral Tablet Delayed Release Take one tablet by mouth daily Quantity: 90 Refills: 3 Joanne FalconShant Start Active Furosemide 40 MG Oral Tablet Take one tablet by mouth daily Quantity: 60 Refills: 9 Joanne Falcon, Shant Gautam Start 29-Sep-2011 Active Allergies and Adverse Reactions Name Dates [...] Resolved Procedures Procedure Dates Details History of Total Hip Replacement History of Knee Surgery History of Colostomy History of Cardioverter-defibrillator Completed: Pulse Generator Insertion With Leads History of Elective Cardioversion Completed: 23-Oct-2011 External PTCA Globe Enucleation Left History of Extracaps Cataract Extract With Prosthesis Insert Right Eye History of Tonsillectomy History of Foot Surgery Right RENAL PROFILE 1240 Ordered: 26-May-2016 HEMOGRAM 7305 Ordered: 26-May-2016 PTH ( Parathyroid Hormone Intact) 3101 Ordered: 26-May-2016 CBC w/ Auto Diff 7150 Ordered: 27-May-2016 Comprehensive Metabolic Panel 1212 Ordered: 27-May-2016 LIPID PROFILE 1184 Ordered: 27-May-2016 THYROID STIM. HORMONE 3602 Ordered: 27-May-2016 Immunization Name Dates Details Tdap (Adacel) on: Zoster (Zostavax) on: 21-Mar-2014 Lot #: [id number] Prevnar 13 Intramuscular Suspension on: 21-Mar-2014 Lot #: [id number] Family History Mother Name Dates Details Family [...] Jonh Lanier M.D. On 11:30 Appointment; Provider: Star Davila On 11:15 Appointment; Provider: Shant Rubio M.D. On 13:15 Appointment; Provider: Schedule Radiology On 30-May-2016 13:00 [...]
--- OUTSIDE RECORDS SUMMARY | 2016-12-20 16:00 | External Medical Summary ---
:1950 Author Organization [employer] Care Team Providers Name Role Phone Zechariah Cross Provider Role Unavailable Allergies, Adverse Reactions, Alerts Substance Reaction Event Type N.K.D.A. Info Not Available Non Drug Allergy Problems Problem Type Condition Code Onset Dates Condition Status Assessment Cardiomyopathy I42.9 Active Assessment Paroxysmal atrial fibrillation I48.0 Active Assessment Biventricular implantable Z95.810 Active cardioverter-defibrillator in situ Problem Biventricular implantable Z95.810 Active cardioverter-defibrillator in situ Problem High risk medication use Z79.899 Active Problem Paroxysmal atrial fibrillation I48.0 Active Problem High Risk Med V58.69 Active Problem Chronic Anticoagulation V58.61 Active Problem Chronic anticoagulation Z79.01 Active Problem Atrial fibrillation 427.31 Active Medications Medication Code Code Instructions Start End Status Dosage System Date Date Levothyroxine [facility] 54227-66 50 MCG Orally 1 tablet Sodium 03-01 [place] [address]-43 40 MG Orally 1 tablet 55-10 Once [place] [address]-58 40 MG Orally 2 TABS 99-25 Once a day Pantoprazole [facility] 14033-79 40 MG Orally 1 tablet Sodium 44-01 [place] [address]-79 50 MG Orally QD 1 tablet 72-11 Metolazone [facility] 81691-77 5 MG Orally Sat 1 tablet 55-01 only Losartan Potassium [facility] 62019-87 25 MG Orally 1 tablet 23-22 Once a day Aspirin [facility] 48093-59 81 MG Orally 1 tablet 805 Once a day Procedures Procedure Coding System Code Date Ofc Program ICD BiV, Staff CPT-4 96836 Sep 19, 2015 Office Visit, Est Pt., Level 4 CPT-4 82729 Sep 19, 2015 Vital Signs Date/Time: Sep 19, 2015 BMI 30.37 Index Weight 243 lbs Height 6 ft 3 in in Cardiac Monitoring Heart Rate 80 /min Oximetry 98 % Blood Pressure Diastolic 68 mm Hg Blood Pressure Systolic 114 mm Hg Results No Known Results Summary Purpose [employer] Submission
--- OUTSIDE RECORDS SUMMARY | 2016-12-20 16:00 | External Medical Summary | Summary of Care ---
:1950 Author Name Lotus Rubio M.D. 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 Started 14-May-2015 [id number] GM Tube MetroNIDAZOLE 500 MG Oral Tablet [...] facility) Ordered:21-Jun-2015 CBC w/ Auto Diff 7150 Ordered:6-Alyx-2016 Comprehensive Metabolic Panel 1212 Ordered: THYROID STIM. HORMONE 3602 Ordered: VITAMIN B12 3606 Ordered: FOLATE 3608 Ordered: Immunization Name Dates Details Tdap (Adacel) Administered on: Zoster (Zostavax) Administered on:21-Mar-2014 Lot #: [id number] Prevnar 13 Intramuscular Suspension Administered on:21-Mar-2014 Lot #: [id number] Family History Mother Name Dates Details Family [...] Range: >60 low threshold) EST GFR, NON-AFR MALAGASY 38 ml/min (Below Range: >60 low threshold) Comments: EST GFR is reported in ml/min per 1.73 m2 of body surface area. For -Guatemalan, please multiple result by 1.2.----- BUN:CREATININE RATIO [...] Mark Maldonado On 23-Oct-2011 10:30 Appointment; Provider: Mrak Maldonado On 15-Nov-2010 08:00 Appointment; Provider: Mark [...] Encounter Diagnosis: Problem not documented 09:30 Appointment; hSant Rubio On Encounter Diagnosis: Problem not documented [...]
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
[2016-12-20] MEDS ORDERED: ONDANSETRON 4 MG/2 ML INJECTION IVP PRN (17:07)
[2016-12-20 17:10] VITALS: BMI 29.0
[2016-12-20] MEDS ORDERED: TRAMADOL 50 MG TABLET PO PRN (17:44)
[2016-12-20] MEDS ORDERED: POLYETHYL GLYCOL 3350 17gm PACKET PO PRN (17:50)
[2016-12-20] MEDS ORDERED: ACETAMINOPHEN 325 MG TABLET PO PRN (17:51)
[2016-12-20] MEDS ORDERED: ZOLPIDEM 10 MG TABLET PO PRN (19:08)
[2016-12-20] MEDS: DOCUSATE SODIUM 100 MG CAPSULE PO SCH (21:03)
[2016-12-20] MEDS: SIMVASTATIN 40 MG TABLET PO SCH (21:23)
[2016-12-20] MEDS: TAMSULOSIN 0.4 MG CAPSULE PO SCH (21:23)
[2016-12-21] MEDS ORDERED: PHYTONADIONE 5 MG/2.5 ML ORAL LIQUID PO ONE (03:51)
[2016-12-21] MEDS: LEVOTHYROXINE 100 MCG TABLET PO SCH (06:02)
[2016-12-21] MEDS: DOCUSATE SODIUM 100 MG CAPSULE PO SCH ×2 (08:36→22:07)
[2016-12-21] MEDS: FINASTERIDE 5 MG TABLET PO SCH (08:37)
[2016-12-21] MEDS: FERROUS SULFATE 324 MG TABLET PO SCH (08:37)
[2016-12-21] MEDS ORDERED: SPIRONOLACTONE 50 MG TABLET PO SCH (09:00)
--- NOTE | 2016-12-21 09:28 | XRay Report ---
Indication: heart failure PROCEDURE: XR chest 1V: Encounter: Initial Comparison: None Findings: Left pacemaker defibrillator in right stimulator type device projecting over the chest with overlying monitoring leads. Linear platelike atelectasis in the left midlung. No pleural effusion or pneumothorax. No additional areas of airspace consolidation. Cardiac silhouette is moderately enlarged. Mediastinal contours are normal. Pulmonary vascularity is normal. Impression: Linear scarring or atelectasis in the left lung. No pneumonia or congestive failure. .
[2016-12-21] MEDS ORDERED: NON-FORMULARY MEDICATION 1 EACH EACH (Ferrous Sulfate [Ferrous Sulfate] 325 MG) PO SCH (12:00)
[2016-12-21] MEDS ORDERED: RENAL DOSING - PHARMACY CONSULT MC ONE (16:34)
[2016-12-21] MEDS ORDERED: PHYTONADIONE (Adult) INJ 10 MG in NS 50 ML IV ONE (16:37)
--- NOTE | 2016-12-21 16:38 | Progress Note ---
<Farrah Green - Last Filed: 12/21/16 16:35> - Date 12/21/16 Subjective: Farzad is a very pleasant 66yo WM who has been quite ill the last few months. He has been at both [facility] and [facility] due to complex medical conditions. This has been detailed very well in the H&P. Records from [facility] have been reviewed. Pt. reports feeling fairly well. He is not SOA. No further nosebleed of other evidence of bleeding. INR remains high- 8.1 this AM. To get FFP now. Denies any chest pain. No severe SOA or edema reported. He does not report any other concerns. Objective Vital signs: Temperature 97.9 F 12/21/16 16:00 Pulse Rate 70 12/21/16 16:00 Respiratory Rate 18 12/21/16 16:00 Blood Pressure 86/52 12/21/16 16:00 Pulse Oximetry 98 12/21/16 16:00 Height/Weight/BMI: Height 1.91 m Weight 106 kg Body Mass Index 29.0 Comments: 100% AV paced. - Constitutional Present: no acute distress, thin, cooperative Comments: Appears chronically ill, older than stated age. - Routine HEENT Exam Head: Present: normocephalic, atraumatic Eye: Present: EOMI, PERRL ENT: Present: mucous membranes dry Comments: Left eye enucleated. - Routine Respiratory Exam Present: decreased breath sounds, CTA bilaterally, distant breath sounds. Absent: rhonchi, wheezes, crackles - Routine Cardiovascular Exam Present: RRR, S1, S2, no murmur - Routine Abdominal Exam Present: soft, non tender, distended - Routine Extremities Exam Present: no edema, non tender Comments: Really no appreciable edema noted. - Routine Musculoskeletal Exam Musculoskeletal: Present: normal strength, moving extremities well - Routine Skin Exam Present: intact, dry, pallor, warm Comments: Mildly icteric - Routine Neurological Exam Present: alert, oriented X3, moving all extremities - Routine Psychiatric Exam Present: normal affect, normal thought process Results - Labs CBC & Chem 7: 12/21/16 02:02 12/21/16 02:02 - Imaging and Cardiology Chest x-ray Additional comments: Impression: Linear scarring or atelectasis in the left lung. No pneumonia or congestive failure. . Assessment and Plan (1) Elevated INR Current visit: Yes Status: Acute Assessment and Plan: Impression Supratherapeutic INR, greater than 10, with epistaxis Acute kidney injury with creatinine of 3.8, baseline 1.6. Symptomatic hypotension Hyponatremia (POA) - chronic Congestive heart failure with reduced EF, 30-35%. -ECHO 12/03/16, showing an EF of 30-35% dilated inferior vena cava with blunted excursion Chronic kidney disease stage III Coronary artery disease. Paroxysmal A. fib. Hyperlipidemia Hypertension JENY with inspire device BPH Insomnia Hypothyroidism Chronic low back pain secondary to osteoarthritis Plan Inpt status. 12/21/16 Diet: cardiac diet -liberalize to 1500ml FR. Allow up to 3gm sodium given very low sodium. Supratherapeutic INR -Vitamin K x 2. INR remains elevated- repeat Vit K 10mg this afternoon, IV. -Epistaxis has resolved -FFP ordered. -Repeat INR in a.m. and hold Coumadin and aspirin LALY -Hold Bumex, hold aldactone. -Renal u/s not obtained at [facility] - will order 1 now -Hold on placing Valdes due to significant elevated INR - check bladder scans. -Adamantly against dialysis, even if needed for short-term -His baseline SCr is about 1.6- He appears quite dry on his lab and clinical exam. Low perfusion is not helping. will start NS today and follow labs. Liberalize FR to 1500ml as well. Avoid excessive free water. Anasarca; Symptomatic hypotension; CHF -Consult cardiology for diuresis (when acute kidney injury resolves), especially in light of underlying heart disease, CHF, and in presence of hypotension -Hold Coreg -Chest x-ray ordered -Telemetry Advanced directives -DPOA Quique Gonzalez -Do not intubate -Attempt resuscitation x1 CV: [facility] Maldon[facility] ([facility] ([place]) Renal: Yolande ([facility]) Juni ([place]) PCP: Hank ([facility]). Patient remains quite ill. Changes to POC as detailed above. Severity of recurrent systems failure is not c/w CHF alone. Suspect significant liver dysfunction may have attributed to elevated INR- Assess non-contrast CT of the abdomen/pelvis in AM to R/O malignancy or other occult finding. Documentation from [facility] is reviewed at length. >30 min. spent in care and assessment of this seriously ill patient. DVT Prophylaxis: Coumadin Resuscitation Status: Do Not Intubate - Time spent with patient Time with patient PN: 50 minutes Hospital Course Summary Disclaimer: The visit summary below is not to be considered part of the above Progress Note. Hospital Course: 12/20/16 17:36 Impression Supratherapeutic INR, greater than 10, with epistaxis Acute kidney injury with creatinine of 3.8, baseline 1.6. Sympotomatic hypotension Hyponatremia, chronic. Congestive heart failure with reduced EF, 30-35%. -ECHO 12/03/16, showing an EF of 30-35% dilated inferior vena cava with blunted excursion Chronic kidney disease stage III. Coronary artery disease. Paroxysmal A. fib. Hyperlipidemia Hypertension JENY with inspire device. BPH. Insomnia Hypothyroidism Chronic low back pain secondary to osteoarthritis Plan Admit, inpatient status. Diet: cardiac diet with 1200 mL fluid restriction. Supratherapeutic INR -Vitamin K given in the emergency department. -Epistaxis has resolved -FFP ordered. -Repeat INR in a.m. and hold Coumadin and aspirin LALY -Hold Bumex, spironolactone -Renal u/s not obtained at [facility] - will order 1 now -Adamantly against dialysis, even if needed for short-term Anasarca; Symptomatic hypotension; CHF -Consult cardiology for diuresis (when acute kidney injury resolves), especially in light of underlying heart disease, CHF, and in presence of hypotension -Hold Coreg -Chest x-ray ordered -Telemetry Advanced directives -BLAKE Gonzalez -Do not intubate -Attempt resuscitation x1 Recent hospitalization summary: He recently was hospitalized at [facility] for about 2 weeks, and then was sent to [facility] for anasarca on 11/28/16 (discharged 12/05/16). Between these 2 hospitalizations, he was diuresed heavily with Bumex and Aldactone. He underwent paracentesis 2 on 11/14/16 and again on 11/18/16 which revealed transudate fluid. He had an echocardiogram in [facility] on 11/13/16 showed an EF of 40-45% and a right heart catheterization on 11/14/16 that revealed mildly elevated PAP. He also underwent an abdominal fat pad biopsy for investigation of amyloidosis, but the results are unknown. A 2-D echo was repeated at [facility] on 12/03/16, showing an EF of 30-35% dilated inferior vena cava with blunted excursion. He was started on low-dose Coreg. He also had an elevated alkaline phosphatase in the 150s, with an elevated GGT at 68. An ultrasound of the liver and gallbladder were unremarkable, common bile duct was within normal limits. Anti-mitochondrial antibody level was sent to [facility], and results showed it was negative, less than 0.1. TSH was 7.71, while free T4 was normal at 1.1. PTH was normal at 47. Creatinine was 2.6 on arrival to [facility], but while at [facility], his creatinine ranged from 1.4-1.66. Nephrology felt that he had acute tubular injury. Sodium is persistently low, between 131 and 134. He has diagnosed with iron deficiency anemia and iron supplements are started. Hemoglobin typically ran in the 10 range. On day of discharge, his INR had trended up to 3.7. He was instructed to limit fluid intake to 1600 mL per day. 12/21/16 16:47 12/21/16 Diet: cardiac diet -liberalize to 1500ml FR. Allow up to 3gm sodium given very low sodium. Supratherapeutic INR -Vitamin K x 2. INR remains elevated- repeat Vit K 10mg this afternoon, IV. -Epistaxis has resolved -FFP ordered. -Repeat INR in a.m. and hold Coumadin and aspirin LALY -Hold Bumex, hold aldactone. -Renal u/s not obtained at [facility] - will order 1 now -Hold on placing Valdes due to significant elevated INR - check bladder scans. -Adamantly against dialysis, even if needed for short-term -His baseline SCr is about 1.6- He appears quite dry on his lab and clinical exam. Low perfusion is not helping. will start NS today and follow labs. Liberalize FR to 1500ml as well. Avoid excessive free water. Anasarca; Symptomatic hypotension; CHF -Consult cardiology for diuresis (when acute kidney injury resolves), especially in light of underlying heart disease, CHF, and in presence of hypotension -Hold Coreg -Chest x-ray ordered -Telemetry Advanced directives -BLAKE Gonzalez -Do not intubate -Attempt resuscitation x1 CV: [facility] ([place]) Renal: Yolande ([facility]) [facility] ([place]) PCP: Hank ([facility]). Patient remains quite ill. Changes to POC as detailed above. Severity of recurrent systems failure is not c/w CHF alone. Suspect significant liver dysfunction may have attributed to elevated INR- Assess non-contrast CT of the abdomen/pelvis in AM to R/O malignancy or other occult finding. Documentation from [facility] is reviewed at length. >30 min. spent in care and assessment of this seriously ill patient. <Jimbo Sutherland D - Last Filed: 12/21/16 18:25> - Date 12/21/16 Objective Vital signs: Temperature 97.9 F 12/21/16 16:00 Pulse Rate 70 12/21/16 16:00 Respiratory Rate 18 12/21/16 16:00 Blood Pressure 86/52 12/21/16 16:00 Pulse Oximetry 98 12/21/16 16:00 Height/Weight/BMI: Height 1.91 m Weight 106 kg Body Mass Index 29.0 Results - Labs CBC & Chem 7: 12/21/16 02:02 12/21/16 02:02 Assessment and Plan (1) Elevated INR Current visit: Yes Status: Acute Assessment and Plan: Impression Supratherapeutic INR, greater than 10, with epistaxis Acute kidney injury with creatinine of 3.8, baseline 1.6. Symptomatic hypotension - MARITA/ARB not started due to hypotension Hyponatremia (POA) - chronic Congestive heart failure with reduced EF, 30-35%. -ECHO 12/03/16, showing an EF of 30-35% dilated inferior vena cava with blunted excursion Chronic kidney disease stage III Coronary artery disease. Paroxysmal A. fib. Hyperlipidemia Hypertension JENY with inspire device BPH Insomnia Hypothyroidism Chronic low back pain secondary to osteoarthritis Have independently interviewed and examined pt. Chart reviewed. Case discussed with nursing and my DOCK GUARD. Care plan developed with my supervision; agree with above. Doing about the same. Feels tired and weak; unsteady when up as BP low. Not feeling any breathing problems-denies SOA, cough or congestion. No chest pressure, heaviness, pain, or palpitations. No appetite-not feeling hungry. No nausea or ab pain. Urinating without pain - some retention (PVR 250-300) Lungs: decreased but clear-no crackles or wheezes. Breaths comfortably on RA. No distress CV: regular AB: soft ascites, nt BS present EXT: +1 edema bilaterally MSE: awake alert appropriate Lab: INR decreased to 8.61. Hemoglobin decreased to 7.6-improved to 8.4 with transfusion. Creatinine 3.4 with potassium 5.0. Sodium 129 Plan: Transfused 1 unit of pRBC due to anemia and heart failure. Repeated FFP due to elevated INR. Will start NS at 100cc/hr (500cc bolus given earlier). LALY could possible be due to over diuresis. Will need to monitor for signs of overload with IVF. Valdes would be beneficial due to LALY, but concern for bleeding with elevated INR. Check on renal US. GB sono normal at [facility] - check CT ab; concern for hepatic dysfunction. Case discussed at length with my DOCK GUARD. Time spent with patient care greater than 35 minutes. Hospital Course Summary Disclaimer: The visit summary below is not to be considered part of the above Progress Note.
[2016-12-21] MEDS ORDERED: TRAMADOL 50 MG TABLET PO PRN (16:41)
[2016-12-21] MEDS: NS 1,000 ML IV SCH (18:35)
[2016-12-21] MEDS: SIMVASTATIN 40 MG TABLET PO SCH (22:07)
[2016-12-21] MEDS: TAMSULOSIN 0.4 MG CAPSULE PO SCH (22:07)
[2016-12-22] MEDS: NS 1,000 ML IV SCH ×4 (03:54→22:28)
[2016-12-22] MEDS: PANTOPRAZOLE 40 MG TABLET PO SCH (06:15)
[2016-12-22] MEDS: LEVOTHYROXINE 100 MCG TABLET PO SCH (06:15)
[2016-12-22] MEDS: DOCUSATE SODIUM 100 MG CAPSULE PO SCH ×2 (09:22→20:53)
[2016-12-22] MEDS: FERROUS SULFATE 324 MG TABLET PO SCH (09:22)
[2016-12-22] MEDS: FINASTERIDE 5 MG TABLET PO SCH (09:22)
--- NOTE | 2016-12-22 10:32 | Ultrasound Report ---
Indication: Acute kidney injury PROCEDURE: US renal BI: Encounter: Initial Comparison: None Technique: Grayscale and color Doppler sonographic imaging of both kidneys was performed. FINDINGS: Both kidneys are present with normal cortical thickness and echogenicity. No evidence for collecting system dilatation, contour deforming mass, nephrolithiasis, or abnormal perinephric fluid collection. The right kidney measures 11.4 cm in length, and the left kidney measures 12.1 cm in length. Moderate to large volume ascites. 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 IMPRESSION: No hydronephrosis. Ascites .
[2016-12-22] MEDS: SALINE FLUSH 10ml SYRINGE IVF PRN ×2 (13:59→18:21)
--- NOTE | 2016-12-22 15:33 | CT Scan Report ---
Indication: Renal failure, liver failure PROCEDURE: CT abdomen pelvis wo con: Encounter: Initial Comparison: Renal ultrasound dated December 22, 2016 Technique: Axial CT images were performed through the abdomen and pelvis without intravenous contrast. Coronal and sagittal two-dimensional reformats. Automated Exposure Control and Iterative Reconstruction dose reducing techniques were utilized. Findings: Small bilateral pleural effusions with lower lobe airspace consolidation. Moderate to large volume ascites. The unenhanced contours of the liver are unremarkable. The gallbladder is grossly normal. The spleen, pancreas and adrenal glands are grossly normal. Kidneys show no stone disease or obvious hydronephrosis. Scattered small retroperitoneal nodes are increased in number but not pathologically enlarged. Metallic artifact from a left hip replacement. Bladder is only partially visualized. No evidence of a bowel obstruction. Subcutaneous edema. Bone windows show degenerative changes in the spine. Impression: Pleural effusions and ascites could be due to the patient's reported renal or hepatic insufficiency or combination of both. Volume overload could have an identical appearance. No obvious primary malignancy or gross metastatic disease seen on this noncontrast study. Diagnostic and therapeutic paracentesis could be performed as clinically indicated. .
--- NOTE | 2016-12-22 16:59 | Pharmacy Consult- Renal Dosing ---
Pharamcy Consul-Renal Dosing - Laboratory Information 12/21/16 12/22/16 02:02 04:03 BUN 91.0 H* 75.0 H* Creatinine 3.4 H D 2.8 H D - Consult Information Renal consult ordered 12/21/16 @ 1634 SCr has improved from 12/21/16. Today's SCr=2.8 mg/dL; estimated CrCl= 33 ml/ min. Medications on profile reviewed Tamsulosin should not be use in CrCl < 10 ml/ min. Patient is not below this creatinine clearance level. No medications needing renal adjustments were noted. Pharmacy will continue to monitor and review daily. Thank you, Jennifer Pacheco [facility]
--- NOTE | 2016-12-22 17:07 | Progress Note ---
<Beverly Aragon - Last Filed: 12/22/16 17:09> - Date 12/22/16 Subjective: Jose is seen today in follow up for his anemia and recently elevated INR. He is seen while resting in bed and arouses easily with soft voice stimuli. He reports that he is "holding his own" when asked how he is feeling. He denies any specific complaints including no chest pain, shortness of breath, abdominal pain, diarrhea or dysuria. He admits to chronic aching in his back and joints from arthritis but denies any new pain. No dizziness, lightheadedness, palpitations or syncope. He states that he does not have much of an appetite and hasn't for the past month. He admits to nausea this AM with was relieved with Zofran. Abdominal/pelvis CT was obtained today and revealed pleural effusions with ascites due to patients renal or hepatic insufficiency or a combination of both or due to volume overload and no obvious primary malignancy or gross metastatic disease. Renal ultrasound revealed no hydronephrosis with apparent ascites. Labs revealed persistent anemia with decrease in hemoglobin at 7.8. Patient has received 2 units of PRBC and 2 units of FFP throughout his admission. INR significantly improved to 1.51 today. Persistent hyponatremia with sodium 129. BUN and SCr slowly improving at 75 and 2.8 respectively. Magnesium trending down at 2.4. He denies any recent epistaxis or obvious bleeding. Review of nursing notes reveals black stool today. Jose admits to a history of prior gastric ulcers about 3 years ago. Objective Vital signs: Temperature 97.3 F 12/22/16 14:59 Pulse Rate 69 12/22/16 14:59 Respiratory Rate 18 12/22/16 14:59 Blood Pressure 86/56 12/22/16 14:59 Pulse Oximetry 96 12/22/16 14:59 Height/Weight/BMI: Height 6 ft 3 in Weight 237 lb 3.478 oz Body Mass Index 29.0 - Constitutional Present: no acute distress, well nourished, well developed, cooperative - Routine HEENT Exam Head: Present: normocephalic, atraumatic Eye: Present: PERRL. Absent: conjunctival icterus ENT: Present: mucous membranes dry - Routine Respiratory Exam Present: decreased breath sounds, crackles. Absent: rhonchi, stridor, wheezes - Routine Cardiovascular Exam Present: RRR, S1, S2 - Routine Abdominal Exam Present: soft, normoactive bowel sounds, distended. Absent: rebound, guarding - Routine Extremities Exam Present: edema (2-3+ bilaterally), pulses intact Comments: right 4th toe noted to be dark and discolored on exam and scabbed ulceration noted to right lateral great toe; patient reports darkening and wound are not "new" but is unable to determine when they presented; no pain or tenderness. - Routine Back/Spine/Pelvis Exam Back/Spine: Present: full ROM. Absent: vertebral tenderness - Routine Musculoskeletal Exam Musculoskeletal: Present: moving extremities well - Routine Skin Exam Present: dry, warm. Absent: jaundice Comments: afebrile - Routine Neurological Exam Present: alert, oriented X3, moving all extremities, normal speech - Routine Psychiatric Exam Present: normal affect, cooperative, good insight, good judgment Results - Labs CBC & Chem 7: 12/22/16 09:10 12/22/16 04:03 Assessment and Plan (1) Elevated INR Current visit: Yes Status: Resolved Assessment and Plan: Impression Supratherapeutic INR, greater than 10, with epistaxis Acute kidney injury with creatinine of 3.8, baseline 1.6. Symptomatic hypotension - MARITA/ARB not started due to hypotension Hyponatremia (POA) - chronic Congestive heart failure with reduced EF, 30-35%. -ECHO 12/03/16, showing an EF of 30-35% dilated inferior vena cava with blunted excursion Chronic kidney disease stage III Coronary artery disease. Paroxysmal A. fib. Hyperlipidemia Hypertension JENY with inspire device BPH Insomnia Hypothyroidism Chronic low back pain secondary to osteoarthritis. Plan - 12/22/16 Overall, Jose appears to be making slow gains. INR down to 1.51 following 2 units PRBC and 2 units FFP. Continue to hold Coumadin. Hemoglobin improved to 8.4 following transfusion. Patient remains asymptomatic. Continue to monitor closely on telemetry. Stool noted to be "black" per nursing. Will obtain fecal Hemoccult and continue to monitor. Patient admits to history of PUD 3 years ago. Continue Protonix and consider addition of carafate. Renal function continues to improve with SCr trending down at 2.8 - base line 1.6. Sodium remains stable but low at 129. Weight slowly trending up. Will give Lasix 20mg IV now given recent blood transfusion. Continue to monitor closely. Patient remains hypotension with blood pressure at 86/56. Continue NS but will decrease to 75cc/hr. Continue to monitor closely for signs of fluid overload. Renal ultrasound showed no acute hydronephrosis but noted ascites. Abdominal/ pelvis CT was obtained today and revealed pleural effusions with ascites due to patients renal or hepatic insufficiency or a combination of both or due to volume overload and no obvious primary malignancy or gross metastatic disease. Lipase 65. Recheck CBC and BMP in AM to monitor blood counts, electrolytes and renal function. DVT Prophylaxis: SCD's GI Prophylaxis: Protonix Resuscitation Status: Do Not Intubate - Time spent with patient Time with patient PN: 30 minutes Hospital Course Summary Disclaimer: The visit summary below is not to be considered part of the above Progress Note. Hospital Course: 12/20/16 17:36 Impression Supratherapeutic INR, greater than 10, with epistaxis Acute kidney injury with creatinine of 3.8, baseline 1.6. Sympotomatic hypotension Hyponatremia, chronic. Congestive heart failure with reduced EF, 30-35%. -ECHO 12/03/16, showing an EF of 30-35% dilated inferior vena cava with blunted excursion Chronic kidney disease stage III. Coronary artery disease. Paroxysmal A. fib. Hyperlipidemia Hypertension JENY with inspire device. BPH. Insomnia Hypothyroidism Chronic low back pain secondary to osteoarthritis Plan Admit, inpatient status. Diet: cardiac diet with 1200 mL fluid restriction. Supratherapeutic INR -Vitamin K given in the emergency department. -Epistaxis has resolved -FFP ordered. -Repeat INR in a.m. and hold Coumadin and aspirin LALY -Hold Bumex, spironolactone -Renal u/s not obtained at [facility] - will order 1 now -Adamantly against dialysis, even if needed for short-term Anasarca; Symptomatic hypotension; CHF -Consult cardiology for diuresis (when acute kidney injury resolves), especially in light of underlying heart disease, CHF, and in presence of hypotension -Hold Coreg -Chest x-ray ordered -Telemetry Advanced directives -DPMIR Gonzalez -Do not intubate -Attempt resuscitation x1 Recent hospitalization summary: He recently was hospitalized at [facility] for about 2 weeks, and then was sent to [address] for anasarca on 11/28/16 (discharged 12/05/16). Between these 2 hospitalizations, he was diuresed heavily with Bumex and Aldactone. He underwent paracentesis 2 on 11/14/16 and again on 11/18/16 which revealed transudate fluid. He had an echocardiogram in [facility] on 11/13/16 showed an EF of 40-45% and a right heart catheterization on 11/14/16 that revealed mildly elevated PAP. He also underwent an abdominal fat pad biopsy for investigation of amyloidosis, but the results are unknown. A 2-D echo was repeated at [address] on 12/03/16, showing an EF of 30-35% dilated inferior vena cava with blunted excursion. He was started on low-dose Coreg. He also had an elevated alkaline phosphatase in the 150s, with an elevated GGT at 68. An ultrasound of the liver and gallbladder were unremarkable, common bile duct was within normal limits. Anti-mitochondrial antibody level was sent to [facility], and results showed it was negative, less than 0.1. TSH was 7.71, while free T4 was normal at 1.1. PTH was normal at 47. Creatinine was 2.6 on arrival to [facility], but while at [address], his creatinine ranged from 1.4-1.66. Nephrology felt that he had acute tubular injury. Sodium is persistently low, between 131 and 134. He has diagnosed with iron deficiency anemia and iron supplements are started. Hemoglobin typically ran in the 10 range. On day of discharge, his INR had trended up to 3.7. He was instructed to limit fluid intake to 1600 mL per day. 12/21/16 16:47 12/21/16 Diet: cardiac diet -liberalize to 1500ml FR. Allow up to 3gm sodium given very low sodium. Supratherapeutic INR -Vitamin K x 2. INR remains elevated- repeat Vit K 10mg this afternoon, IV. -Epistaxis has resolved -FFP ordered. -Repeat INR in a.m. and hold Coumadin and aspirin LALY -Hold Bumex, hold aldactone. -Renal u/s not obtained at [facility] - will order 1 now -Hold on placing Valdes due to significant elevated INR - check bladder scans. -Adamantly against dialysis, even if needed for short-term -His baseline SCr is about 1.6- He appears quite dry on his lab and clinical exam. Low perfusion is not helping. will start NS today and follow labs. Liberalize FR to 1500ml as well. Avoid excessive free water. Anasarca; Symptomatic hypotension; CHF -Consult cardiology for diuresis (when acute kidney injury resolves), especially in light of underlying heart disease, CHF, and in presence of hypotension -Hold Coreg -Chest x-ray ordered -Telemetry Advanced directives -DPMIR Quique [place] -Do not intubate -Attempt resuscitation x1 CV: Dr. Maldonado ([facility]) [place] Renal: Yolande ([facility]) [place]) PCP: Hank ([facility]). Patient remains quite ill. Changes to POC as detailed above. Severity of recurrent systems failure is not c/w CHF alone. Suspect significant liver dysfunction may have attributed to elevated INR- Assess non-contrast CT of the abdomen/pelvis in AM to R/O malignancy or other occult finding. Documentation from [facility] is reviewed at length. >30 min. spent in care and assessment of this seriously ill patient. Plan - 12/22/16 Overall, Jose appears to be making slow gains. INR down to 1.51 following 2 units PRBC and 2 units FFP. Continue to hold Coumadin. Hemoglobin improved to 8.4 following transfusion. Patient remains asymptomatic. Continue to monitor closely on telemetry. Stool noted to be "black" per nursing. Will obtain fecal Hemoccult and continue to monitor. Patient admits to history of PUD 3 years ago. Continue Protonix and consider addition of carafate. Renal function continues to improve with SCr trending down at 2.8 - base line 1.6. Sodium remains stable but low at 129. Weight slowly trending up. Will give Lasix 20mg IV now given recent blood transfusion. Continue to monitor closely. Patient remains hypotension with blood pressure at 86/56. Continue NS but will decrease to 75cc/hr. Continue to monitor closely for signs of fluid overload. Renal ultrasound showed no acute hydronephrosis but noted ascites. Abdominal/ pelvis CT was obtained today and revealed pleural effusions with ascites due to patients renal or hepatic insufficiency or a combination of both or due to volume overload and no obvious primary malignancy or gross metastatic disease. Lipase 65. Recheck CBC and BMP in AM to monitor blood counts, electrolytes and renal function. <Jimbo Sutherland D - Last Filed: 12/22/16 18:56> - Date 12/22/16 Objective Vital signs: Temperature 97.3 F 12/22/16 14:59 Pulse Rate 68 12/22/16 18:18 Respiratory Rate 18 12/22/16 14:59 Blood Pressure 90/60 12/22/16 18:18 Pulse Oximetry 96 12/22/16 14:59 Height/Weight/BMI: Height 1.91 m Weight 107.6 kg Body Mass Index 29.0 Results - Labs CBC & Chem 7: 12/22/16 17:14 12/22/16 04:03 Assessment and Plan (1) Elevated INR Current visit: Yes Status: Resolved Assessment and Plan: Impression Supratherapeutic INR, greater than 10, with epistaxis Acute kidney injury with creatinine of 3.8, baseline 1.6. Symptomatic hypotension - MARITA/ARB not started due to hypotension Hyponatremia (POA) - chronic Congestive heart failure with reduced EF, 30-35%. -ECHO 12/03/16, showing an EF of 30-35% dilated inferior vena cava with blunted excursion Chronic kidney disease stage III Coronary artery disease. Paroxysmal A. fib. Hyperlipidemia Hypertension JENY with inspire device BPH Insomnia Hypothyroidism Chronic low back pain secondary to osteoarthritis. Have independently interviewed and examined pt. Chart reviewed. Case discussed with CM and my PA. Care plan developed with my supervision; agree with above. Doing okay this evening. Breathing feeling alright-not feeling more SOA or congested. Not having cough. Breathing comfortably on RA. No chest pressure or pain. Episode of nausea earlier, but resolve. No itching. Urine output increasing slightly. Lungs: Basilar blunting, no crackles/wheezes/distress CV: regular AB: soft, nt, ascites, BS present EXT: +1 BLE, SCD in place MSE: awake alert appropriate Plan: INR decreased to 1.51 - recheck tomorrow. Repeated transfusion of pRBC- continue to monitor hemoglobin. Lasix given after transfusion and IVF decreased to 75cc/hr. Renal US without evidence of renal vascular disease or hydronephrosis. PT/OT to see tomorrow to help with strength. Recheck BMP. Will repeat CXR tomorrow to watch for pulmonary edema. Hospital Course Summary Disclaimer: The visit summary below is not to be considered part of the above Progress Note.
[2016-12-22] MEDS ORDERED: FUROSEMIDE 20 MG/2 ML INJECTION IVP ONE (17:28)
[2016-12-22] MEDS: TAMSULOSIN 0.4 MG CAPSULE PO SCH (20:52)
[2016-12-22] MEDS: SIMVASTATIN 40 MG TABLET PO SCH (20:53)
[2016-12-23 00:42] VITALS: PULSE 69; RESP 16
[2016-12-23] MEDS: LEVOTHYROXINE 100 MCG TABLET PO SCH (05:39)
[2016-12-23] MEDS: PANTOPRAZOLE 40 MG TABLET PO SCH (05:40)
[2016-12-23 07:35] VITALS: BP 89/60; O2SAT 96
[2016-12-23 07:37] VITALS: TEMP 96.8
[2016-12-23] MEDS: NS 1,000 ML IV SCH (08:24)
[2016-12-23] MEDS: FERROUS SULFATE 324 MG TABLET PO SCH (08:25)
[2016-12-23] MEDS: DOCUSATE SODIUM 100 MG CAPSULE PO SCH (08:25)
[2016-12-23] MEDS: FINASTERIDE 5 MG TABLET PO SCH (08:26)
--- NOTE | 2016-12-23 09:02 | XRay Report ---
INDICATION: CHF - ? pulm edema PROCEDURE: CHEST 2-VIEWS UPRIGHT (PA & LAT) Encounter: Initial COMPARISON: December 20, 2016 FINDINGS: Support devices are stable. There is airspace opacity in the posterior lower lobes seen on lateral view with trace pleural effusions. No pneumothorax. Heart size and mediastinal contours are stable. Pulmonary vascularity is within normal limits. Impression: Lower lobe airspace disease could represent atelectasis or pneumonia. .
--- NOTE | 2016-12-23 13:54 | Progress Note ---
- Date 12/23/16 Subjective: F/U: Elevated INR, Acute kidney injury, Chronic systolic heart failure Doing well today. Breathing feels normal-not having increasing congestion, cough , or SOA. No chest pain. Not having nausea. Appetite fair. Seen by therapy today and did okay-pt feels like he is at his baseline functional status. Knows his abilities are not what they were, but feels can manage well at home. Reports has all the needed equipment at home. Strongly desires discharge to home. Objective Vital signs: Temperature 96.8 F 12/23/16 07:37 Pulse Rate 69 12/23/16 07:33 Respiratory Rate 16 12/23/16 07:33 Blood Pressure 89/60 12/23/16 07:33 Pulse Oximetry 96 12/23/16 07:33 Height/Weight/BMI: Height 1.91 m Weight 108.8 kg Body Mass Index 29.0 - Constitutional Present: no acute distress, well nourished, well developed, obese, cooperative. Absent: combative, agitated - Routine HEENT Exam Head: Present: normocephalic, atraumatic Eye: Absent: conjunctival icterus ENT: Present: mucous membranes moist - Routine Respiratory Exam Present: CTA bilaterally. Absent: respiratory distress, wheezes, crackles - Routine Cardiovascular Exam Present: RRR, no murmur - Routine Abdominal Exam Present: soft, normoactive bowel sounds, non distended, non tender. Absent: guarding - Routine Extremities Exam Present: edema (+2 BLE ). Absent: cyanosis, clubbing - Routine Musculoskeletal Exam Musculoskeletal: Absent: no clubbing or cyanosis, normal strength - Routine Skin Exam Present: dry, warm - Routine Neurological Exam Present: alert, oriented X3, CN II-XII intact, moving all extremities, vision grossly intact, hearing grossly intact, normal speech. Absent: motor deficit, altered mental status, facial asymmetry - Routine Psychiatric Exam Present: normal affect, normal thought process, cooperative, good insight, good judgment. Absent: anxious, agitated Results - Labs CBC & Chem 7: 12/23/16 04:05 12/23/16 04:05 Assessment and Plan (1) Elevated INR Current visit: Yes Status: Resolved Assessment and Plan: Impression Supratherapeutic INR, greater than 10, with epistaxis Acute kidney injury with creatinine of 3.8, baseline 1.6. Symptomatic hypotension - MARITA/ARB not started due to hypotension Hyponatremia (POA) - chronic Congestive heart failure with reduced EF, 30-35%. (Chronic systolic heart failure) -ECHO 12/03/16, showing an EF of 30-35% dilated inferior vena cava with blunted excursion Chronic kidney disease stage III Coronary artery disease. Paroxysmal A. fib. Hyperlipidemia Hypertension JENY with inspire device BPH Insomnia Hypothyroidism Chronic low back pain secondary to osteoarthritis. Plan Hemoglobin stable at 8.6. Creatinine decreased to 2.4 with BUN 66. Sodium 131 with Potassium 4.7. CXR from today not showing pulmonary edema. Patient did well with therapy - expresses strong desire for discharge to home. Do feel discharge reasonable - concern with further IVF could potentiate pulmonary edema. Did leave message for Dr Rubio to discuss case, but he is out of clinic. Did provide my contact information to his staff. Will restart Coumadin but at 2.5mg - will need recheck INR later this week and early next. With Vitamin K give, INR might initially be slow to increased. Additionally, will need monitoring BMP due to elevation of creatinine and low sodium. Low sodium diet - may have up to 2 quarts fluid a day. Daily weights at home. No MARITA/ARB for now due to hypotension and elevated creatinine. Bumex if increasing edema or weight. Will need F/U with Dr Rubio within 1 week. See orders for details. Case discussed with CM. Time spent with patient care and discharge greater than 30 minutes. DVT Prophylaxis: SCD's Resuscitation Status: Do Not Intubate Hospital Course Summary Disclaimer: The visit summary below is not to be considered part of the above Progress Note. Hospital Course: 12/20/16 Admission Impression Supratherapeutic INR, greater than 10, with epistaxis Acute kidney injury with creatinine of 3.8, baseline 1.6. Sympotomatic hypotension Hyponatremia, chronic. Congestive heart failure with reduced EF, 30-35%. -ECHO 12/03/16, showing an EF of 30-35% dilated inferior vena cava with blunted excursion Chronic kidney disease stage III. Coronary artery disease. Paroxysmal A. fib. Hyperlipidemia Hypertension JENY with inspire device. BPH. Insomnia Hypothyroidism Chronic low back pain secondary to osteoarthritis Plan Admit, inpatient status. Diet: cardiac diet with 1200 mL fluid restriction. Supratherapeutic INR -Vitamin K given in the emergency department. -Epistaxis has resolved -FFP ordered. -Repeat INR in a.m. and hold Coumadin and aspirin LALY -Hold Bumex, spironolactone -Renal u/s not obtained at [facility] - will order 1 now -Adamantly against dialysis, even if needed for short-term Anasarca; Symptomatic hypotension; CHF -Hold Coreg -Chest x-ray ordered -Telemetry Advanced directives -DPOA Quique [place] -Do not intubate -Attempt resuscitation x1 Recent hospitalization summary: He recently was hospitalized at [facility] for about 2 weeks, and then was sent to [place] for anasarca on 11/28/16 (discharged 12/05/16). Between these 2 hospitalizations, he was diuresed heavily with Bumex and Aldactone. He underwent paracentesis 2 on 11/14/16 and again on 11/18/16 which revealed transudate fluid. He had an echocardiogram in [facility] on 11/13/16 showed an EF of 40-45% and a right heart catheterization on 11/14/16 that revealed mildly elevated PAP. He also underwent an abdominal fat pad biopsy for investigation of amyloidosis, but the results are unknown. A 2-D echo was repeated at [place] on 12/03/16, showing an EF of 30-35% dilated inferior vena cava with blunted excursion. He was started on low-dose Coreg. He also had an elevated alkaline phosphatase in the 150s, with an elevated GGT at 68. An ultrasound of the liver and gallbladder were unremarkable, common bile duct was within normal limits. Anti-mitochondrial antibody level was sent to [facility], and results showed it was negative, less than 0.1. TSH was 7.71, while free T4 was normal at 1.1. PTH was normal at 47. Creatinine was 2.6 on arrival to [facility], but while at [place], his creatinine ranged from 1.4-1.66. Nephrology felt that he had acute tubular injury. Sodium is persistently low, between 131 and 134. He has diagnosed with iron deficiency anemia and iron supplements are started. Hemoglobin typically ran in the 10 range. On day of discharge, his INR had trended up to 3.7. He was instructed to limit fluid intake to 1600 mL per day. 12/21/16 Diet: cardiac diet -liberalize to 1500ml FR. Allow up to 3gm sodium given very low sodium. Supratherapeutic INR -Vitamin K x 2. INR remains elevated- repeat Vit K 10mg this afternoon, IV. -Epistaxis has resolved -FFP ordered. -Repeat INR in a.m. and hold Coumadin and aspirin LALY -Hold Bumex, hold aldactone. -Renal u/s not obtained at [facility] - will order 1 now -Hold on placing Valdes due to significant elevated INR - check bladder scans. -Adamantly against dialysis, even if needed for short-term -His baseline SCr is about 1.6- He appears quite dry on his lab and clinical exam. Low perfusion is not helping. will start NS today and follow labs. Liberalize FR to 1500ml as well. Avoid excessive free water. Anasarca; Symptomatic hypotension; CHF -Hold Coreg -Chest x-ray ordered Patient remains quite ill. Changes to POC as detailed above. Severity of recurrent systems failure is not c/w CHF alone. Suspect significant liver dysfunction may have attributed to elevated INR- Assess non-contrast CT of the abdomen/pelvis in AM to R/O malignancy or other occult finding. Documentation from [facility] is reviewed at length. >30 min. spent in care and assessment of this seriously ill patient. 12/22/16 Overall, Jose appears to be making slow gains. INR down to 1.51 following 2 units PRBC and 2 units FFP. Continue to hold Coumadin. Hemoglobin improved to 8.4 following transfusion. Patient remains asymptomatic. Continue to monitor closely on telemetry. Stool noted to be "black" per nursing. Will obtain fecal Hemoccult and continue to monitor. Patient admits to history of PUD 3 years ago. Continue Protonix and consider addition of carafate. Renal function continues to improve with SCr trending down at 2.8 - base line 1.6. Sodium remains stable but low at 129. Weight slowly trending up. Will give Lasix 20mg IV now given recent blood transfusion. Continue to monitor closely. Patient remains hypotension with blood pressure at 86/56. Continue NS but will decrease to 75cc/hr. Continue to monitor closely for signs of fluid overload. Renal ultrasound showed no acute hydronephrosis but noted ascites. Abdominal/ pelvis CT was obtained today and revealed pleural effusions with ascites due to patients renal or hepatic insufficiency or a combination of both or due to volume overload and no obvious primary malignancy or gross metastatic disease. Lipase 65. Recheck CBC and BMP in AM to monitor blood counts, electrolytes and renal function. 12/23/16 Hemoglobin stable at 8.6. Creatinine decreased to 2.4 with BUN 66. Sodium 131 with Potassium 4.7. CXR from today not showing pulmonary edema. Patient did well with therapy - expresses strong desire for discharge to home. Do feel discharge reasonable - concern with further IVF could potentiate pulmonary edema. Did leave message for Dr Rubio to discuss case, but he is out of clinic. Did provide my contact information to his staff. Will restart Coumadin but at 2.5mg - will need recheck INR later this week and early next. With Vitamin K give, INR might initially be slow to increased. Additionally, will need monitoring BMP due to elevation of creatinine and low sodium. Low sodium diet - may have up to 2 quarts fluid a day. Daily weights at home. No MARITA/ARB for now due to hypotension and elevated creatinine. Bumex if increasing edema or weight. Will need F/U with Dr Rubio within 1 week. See orders for details.
--- NOTE | 2016-12-23 14:22 | Discharge Summary ---
Discharge Information Date of admission: 12/20/16 16:50 Anticipated date of discharge: 12/23/16 Attending Physician: Jimbo Sutherland MD Primary care physician: YANE BELTRE Consults: PT/OT - Discharge Diagnosis (1) Elevated INR Status: Resolved Discharge diagnosis Supratherapeutic INR, greater than 10, with epistaxis Associated conditions and complications Acute kidney injury with creatinine of 3.8, baseline 1.6. Symptomatic hypotension - MARITA/ARB not started due to hypotension Hyponatremia (POA) - chronic Congestive heart failure with reduced EF, 30-35%. (Chronic systolic heart failure) -ECHO 12/03/16, showing an EF of 30-35% dilated inferior vena cava with blunted excursion Chronic kidney disease stage III Coronary artery disease. Paroxysmal A. fib. Hyperlipidemia Hypertension JENY with inspire device BPH Insomnia Hypothyroidism Chronic low back pain secondary to osteoarthritis. - Procedures Procedures: Transfusion of FFP - 12/20/16 and 12/21/16 Transfusion of pRBC - 12/20/16 and 12/22/16 - Laboratory Labs: Admit Lab 12/20/16 15:07 WBC 5.6 Hgb 8.1 L Hct 25.2 L MCV 84.3 Plt Count 241 Neut % (Auto) 72.9 H Lymph % (Auto) 11.9 L Lamb % (Auto) 13.7 H Eos % (Auto) 0.9 Baso % (Auto) 0.4 Admit Lab 12/20/16 15:07 Sodium 130 L Potassium 4.4 Chloride 91 L Carbon Dioxide 26 Anion Gap 13 BUN 91.0 H* Creatinine 3.8 H GFR Calculation 16 BUN/Creatinine Ratio 24 Glucose 118 H Calculated Osmolality 280 Calcium 8.7 Total Bilirubin 0.70 AST 36 ALT 45 Alkaline Phosphatase 191 H Total Protein 6.8 Albumin 3.3 L Globulin 3.5 Albumin/Globulin Ratio 0.9 L Admit Lab 12/20/16 15:07 INR > 10.00 H* 12/23/16 04:05 12/23/16 04:05 - Radiology Radiology: Date of Exam: 12/20/16 PROCEDURE: XR chest 1V Findings: Left pacemaker defibrillator in right stimulator type device projecting over the chest with overlying monitoring leads. Linear platelike atelectasis in the left midlung. No pleural effusion or pneumothorax. No additional areas of airspace consolidation. Cardiac silhouette is moderately enlarged. Mediastinal contours are normal. Pulmonary vascularity is normal. Impression: Linear scarring or atelectasis in the left lung. No pneumonia or congestive failure. --------- Date of Exam: 12/22/16 Type of Exam: US renal BI FINDINGS: Both kidneys are present with normal cortical thickness and echogenicity. No evidence for collecting system dilatation, contour deforming mass, nephrolithiasis, or abnormal perinephric fluid collection. The right kidney measures 11.4 cm in length, and the left kidney measures 12.1 cm in length. Moderate to large volume ascites. 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 IMPRESSION: No hydronephrosis. Ascites Date of Exam: 12/22/16 PROCEDURE: CT abdomen pelvis wo con Findings: Small bilateral pleural effusions with lower lobe airspace consolidation. Moderate to large volume ascites. The unenhanced contours of the liver are unremarkable. The gallbladder is grossly normal. The spleen, pancreas and adrenal glands are grossly normal. Kidneys show no stone disease or obvious hydronephrosis. Scattered small retroperitoneal nodes are increased in number but not pathologically enlarged. Metallic artifact from a left hip replacement. Bladder is only partially visualized. No evidence of a bowel obstruction. Subcutaneous edema. Bone windows show degenerative changes in the spine. Impression: Pleural effusions and ascites could be due to the patient's reported renal or hepatic insufficiency or combination of both. Volume overload could have an identical appearance. No obvious primary malignancy or gross metastatic disease seen on this noncontrast study. Diagnostic and therapeutic paracentesis could be performed as clinically indicated. Date of Exam: 12/23/16 PROCEDURE: CHEST 2-VIEWS UPRIGHT (PA & LAT) FINDINGS: Support devices are stable. There is airspace opacity in the posterior lower lobes seen on lateral view with trace pleural effusions. No pneumothorax. Heart size and mediastinal contours are stable. Pulmonary vascularity is within normal limits. Impression: Lower lobe airspace disease could represent atelectasis or pneumonia. History of Present Illness HPI: "Elva Dye is a 66-year-old male with a history of HFrEF, CKD3, CAD s/p stents x3, PAF, HLD, HTN, hypothyroidism. He recently was hospitalized at [facility] for about 2 weeks, and then was sent to [facility] for anasarca on 11/28/16 (discharged on 12/05/16). Between these 2 hospitalizations , he was diuresed heavily with Bumex and Aldactone. He underwent paracentesis 2 on 11/14/16 and again on 11/18/16 which revealed transudate fluid. He had an echocardiogram on 11/13/16 showed an EF of 40-45% and a right heart catheterization on 11/14/16 that revealed mildly elevated PAP. He also underwent an abdominal fat pad biopsy for investigation of amyloidosis, but the results are unknown. A 2-D echo was repeated at [facility] on 12/03/16, showing an EF of 30-35% dilated inferior vena cava with blunted excursion. He was started on low-dose Coreg. He also had an elevated alkaline phosphatase in the 150s, with an elevated GGT at 68. An ultrasound of the liver and gallbladder were unremarkable, common bile duct was within normal limits. Anti-mitochondrial antibody level was sent to [place], and results showed it was negative, less than 0.1. TSH was 7.71, while free T4 was normal at 1.1. PTH was normal at 47. Creatinine was 2.6 on arrival to [facility], but while at [facility], his creatinine ranged from 1.4-1.66. Nephrology felt that he had acute tubular injury. Sodium is persistently low, between 131 and 134. He has diagnosed with iron deficiency anemia and iron supplements are started. Hemoglobin typically ran in the 10 range. On day of discharge, his INR had trended up to 3.7. He was instructed to limit fluid intake to 1600 mL per day. Since discharge, he complains of feeling very dizzy. His blood pressure has been low, systolic typically running around 84 mmHg. He denies shortness of breath, but his legs have increased swelling. The swelling in his feet actually started a few months ago, but he states that when he was discharged from [facility] on 12/05/16, it had resolved. His abdomen feels tight and he's been a little nauseated as well. His oral intake has declined. His bowels have been slow, but he denies any hematochezia. He states that a few days ago he scratched his chin, and it took 3 days for the bleeding to stop. He developed a nosebleed, which persisted all night. Denies any focal neuro deficits. He denies syncope. No chest pain or palpitations. He denies fevers, chills, cough or congestion. He denies dysuria but notes urinary frequency. While he is alert and oriented 3, he is a poor historian, and is unsure of his medical history. He presented to [facility] emergency department on 12/20/16. There, his INR was markedly elevated greater than 10, and he received vitamin K 5 mg by mouth. His epistaxis had essentially resolved. Blood pressure was low during his ED visit, with MAPs ranging from 55-72. Hemoglobin was low at 8.1. Sodium was low at 130. BUN and creatinine were markedly elevated at 91 and 3.8, respectively. Alkaline phosphatase was also high, 191. He refuses dialysis, even if only temporary. The hospitalist service was contacted, and the patient was admitted to inpatient status for his severe supratherapeutic INR and anasarca. Length of stay is expected to exceed 2 overnights. For complete details of the H&P refer to that document. Objective Vital signs: Temperature 96.8 F 12/23/16 07:37 Pulse Rate 69 12/23/16 07:33 Respiratory Rate 16 12/23/16 07:33 Blood Pressure 89/60 12/23/16 07:33 Pulse Oximetry 96 12/23/16 07:33 Height/Weight/BMI: Height 1.91 m Weight 108.8 kg Body Mass Index 29.0 Hospital Course This is a general summary of the patient's hospital course. For more details refer to the complete medical record. Hospital course: 12/20/16 Admission Impression Supratherapeutic INR, greater than 10, with epistaxis Acute kidney injury with creatinine of 3.8, baseline 1.6. Sympotomatic hypotension Hyponatremia, chronic. Congestive heart failure with reduced EF, 30-35%. -ECHO 12/03/16, showing an EF of 30-35% dilated inferior vena cava with blunted excursion Chronic kidney disease stage III. Coronary artery disease. Paroxysmal A. fib. Hyperlipidemia Hypertension JENY with inspire device. BPH. Insomnia Hypothyroidism Chronic low back pain secondary to osteoarthritis Plan Admit, inpatient status. Diet: cardiac diet with 1200 mL fluid restriction. Supratherapeutic INR -Vitamin K given in the emergency department. -Epistaxis has resolved -FFP ordered. -Repeat INR in a.m. and hold Coumadin and aspirin LALY -Hold Bumex, spironolactone -Renal u/s not obtained at [facility] - will order 1 now -Adamantly against dialysis, even if needed for short-term Anasarca; Symptomatic hypotension; CHF -Hold Coreg -Chest x-ray ordered -Telemetry Advanced directives -BLAKE Gonzalez -Do not intubate -Attempt resuscitation x1 Recent hospitalization summary: He recently was hospitalized at [facility] for about 2 weeks, and then was sent to [facility] for anasarca on 11/28/16 (discharged 12/05/16). Between these 2 hospitalizations, he was diuresed heavily with Bumex and Aldactone. He underwent paracentesis 2 on 11/14/16 and again on 11/18/16 which revealed transudate fluid. He had an echocardiogram in [facility] on 11/13/16 showed an EF of 40-45% and a right heart catheterization on 11/14/16 that revealed mildly elevated PAP. He also underwent an abdominal fat pad biopsy for investigation of amyloidosis, but the results are unknown. A 2-D echo was repeated at [facility] on 12/03/16, showing an EF of 30-35% dilated inferior vena cava with blunted excursion. He was started on low-dose Coreg. He also had an elevated alkaline phosphatase in the 150s, with an elevated GGT at 68. An ultrasound of the liver and gallbladder were unremarkable, common bile duct was within normal limits. Anti-mitochondrial antibody level was sent to [place], and results showed it was negative, less than 0.1. TSH was 7.71, while free T4 was normal at 1.1. PTH was normal at 47. Creatinine was 2.6 on arrival to [facility], but while at [facility], his creatinine ranged from 1.4-1.66. Nephrology felt that he had acute tubular injury. Sodium is persistently low, between 131 and 134. He has diagnosed with iron deficiency anemia and iron supplements are started. Hemoglobin typically ran in the 10 range. On day of discharge, his INR had trended up to 3.7. He was instructed to limit fluid intake to 1600 mL per day. 12/21/16 Diet: cardiac diet -liberalize to 1500ml FR. Allow up to 3gm sodium given very low sodium. Supratherapeutic INR -Vitamin K x 2. INR remains elevated- repeat Vit K 10mg this afternoon, IV. -Epistaxis has resolved -FFP ordered. -Repeat INR in a.m. and hold Coumadin and aspirin LALY -Hold Bumex, hold aldactone. -Renal u/s not obtained at [facility] - will order 1 now -Hold on placing Valdes due to significant elevated INR - check bladder scans. -Adamantly against dialysis, even if needed for short-term -His baseline SCr is about 1.6- He appears quite dry on his lab and clinical exam. Low perfusion is not helping. will start NS today and follow labs. Liberalize FR to 1500ml as well. Avoid excessive free water. Anasarca; Symptomatic hypotension; CHF -Hold Coreg -Chest x-ray ordered Patient remains quite ill. Changes to POC as detailed above. Severity of recurrent systems failure is not c/w CHF alone. Suspect significant liver dysfunction may have attributed to elevated INR- Assess non-contrast CT of the abdomen/pelvis in AM to R/O malignancy or other occult finding. Documentation from [facility] is reviewed at length. >30 min. spent in care and assessment of this seriously ill patient. 12/22/16 Overall, Jose appears to be making slow gains. INR down to 1.51 following 2 units PRBC and 2 units FFP. Continue to hold Coumadin. Hemoglobin improved to 8.4 following transfusion. Patient remains asymptomatic. Continue to monitor closely on telemetry. Stool noted to be "black" per nursing. Will obtain fecal Hemoccult and continue to monitor. Patient admits to history of PUD 3 years ago. Continue Protonix and consider addition of carafate. Renal function continues to improve with SCr trending down at 2.8 - base line 1.6. Sodium remains stable but low at 129. Weight slowly trending up. Will give Lasix 20mg IV now given recent blood transfusion. Continue to monitor closely. Patient remains hypotension with blood pressure at 86/56. Continue NS but will decrease to 75cc/hr. Continue to monitor closely for signs of fluid overload. Renal ultrasound showed no acute hydronephrosis but noted ascites. Abdominal/ pelvis CT was obtained today and revealed pleural effusions with ascites due to patients renal or hepatic insufficiency or a combination of both or due to volume overload and no obvious primary malignancy or gross metastatic disease. Lipase 65. Recheck CBC and BMP in AM to monitor blood counts, electrolytes and renal function. 12/23/16 Hemoglobin stable at 8.6. Creatinine decreased to 2.4 with BUN 66. Sodium 131 with Potassium 4.7. CXR from today not showing pulmonary edema. Patient did well with therapy - expresses strong desire for discharge to home. Do feel discharge reasonable - concern with further IVF could potentiate pulmonary edema. Did leave message for Dr Beltre to discuss case, but he is out of clinic. Did provide my contact information to his staff. Will restart Coumadin but at 2.5mg - will need recheck INR later this week and early next. With Vitamin K give, INR might initially be slow to increased. Additionally, will need monitoring BMP due to elevation of creatinine and low sodium. Low sodium diet - may have up to 2 quarts fluid a day. Daily weights at home. No MARITA/ARB for now due to hypotension and elevated creatinine. Bumex if increasing edema or weight. Will need F/U with Dr Beltre within 1 week. See orders for details. Time spent with patient: discharge greater than 30 minutes DVT Prophylaxis: SCD's Discharge Plan - Discharge Disposition Discharge Date: 12/23/16 Disposition: 86 Home Health Service *Condition: Stable Reason For Visit (Visit label in EMR): Elevated INR - Discharge Medications *Discharge Medications: New Warfarin [Coumadin] 2.5 mg PO 1700 #30 tab Continue Lactose-Reduced Food [Ensure Liquid] 237 ml PO TID Tramadol [Ultram] 50 mg PO Q4H PRN PRN Reason: Pain Docusate Sodium [Colace] 100 mg PO BID Ferrous Sulfate 325 mg PO NOON Zolpidem [Ambien] 10 mg PO HS Mag Hydrox/Aluminum Hyd/Simeth [Alum-Mag Hydroxide-Simeth Liq] 2 - 4 tsp PO Q4H PRN PRN Reason: Heartburn Mag Hydrox/Aluminum Hyd/Simeth [Maalox Advanced Suspension] 2 - 4 tsp PO Q4H PRN PRN Reason: Heartburn Acetaminophen [Tylenol] 325 - 650 mg PO Q4H PRN PRN Reason: Pain Magnesium Hydroxide [Milk of Magnesia] 1 - 2 tsp PO DAILY PRN PRN Reason: Constipation Tamsulosin [Flomax] 0.8 mg PO HS Finasteride [Proscar] 5 mg PO DAILY Levothyroxine Sodium 100 mcg PO ACB Simvastatin [Zocor] 40 mg PO HS Aspirin [Adult Low Dose Aspirin EC] 81 mg PO HS Bumetanide 2 mg PO DAILY PRN PRN Reason: Prn Orders Bismuth Subsalicylate [Kaopectate] 30 ml PO Q6H PRN PRN Reason: Diarrhea Bisacodyl Supp [Dulcolax] 10 mg RECTALLY DAILY PRN PRN Reason: Constipation Discontinued Warfarin Sodium [Warfarin Sodium] 5 mg PO 1700 Spironolactone [Aldactone] 50 mg PO DAILY - Discharge Packet/Instructions *Diet: Low sodium-up to 2 grams a day. May have up to 2 quarts fluid a day. *Activity: As tolerated. *Pain Management/Treatment: Tylenol and tramadol as needed. *Wound Care: n/a Additional Instructions: Weigh yourself every day, first thing in morning. Record weight. May use Bumex if weight increased by 3 pounds or significant increase of swelling. Use 2.5mg Coumadin a day (1/2 of 5 mg). You will need to have your INR (Coumadin level) monitored closely. *Expected Signs/Symptoms: Stablility or breathing and swelling. *Notify Physician if: Temp >100.4. Increasing weight, swelling, problems breathing *During Business Hours Contact: Dr Beltre *After Business Hours Contact: Dr Beltre *Pending Lab/Results: No Pending Lab - Referrals/Follow Up *Referrals/Follow Up: YANE BELTRE MD [Family Provider] - 1 Week (Within 1 week. Needs to have INR checked later this week and early next. Needs BMP due to CHF/LALY ) - Patient Handouts Patient Handouts: Elevated INR (GEN) - Dismissal Complete Discharge Instructions are:: Complete Attestation Narriative - Attestation Attestation Narrative: 12/23/16 14:39 I have independently interviewed and examined patient prior to discharge. See my progress not from today for details. Medically stable for discharge to home.
== END 2016-12-23 15:57 | disposition home health service (06) | DRG 813 ==
LOC: ED 13:58 → MED 16:50
PROVIDERS: ADMIT Hospitalist; ATTEND Hospitalist